=== PATIENT | female | born 1945 | race Caucasian/White ===

== ENCOUNTER 2017-07-15 19:51 | Inpatient (IN) | payer BC ==
[2017-07-15] MEDS ORDERED: cloNIDine HCL 0.1 MG TABLET PO ONE (20:00)
[2017-07-15] MEDS ORDERED: ONDANSETRON 4 MG/2 ML VIAL IVPB ONE (20:04)
--- NOTE | 2017-07-15 20:06 | PDOC ---
History of Present Illness - History of Present Illness Initial Comments: 07/15/17 20:36 The patient is a year old female, with a significant past medical history of hypertension, alcoholism (last drink 25 days ago), and COPD, who presents to the emergency department with headache since yesterday morning with new onset of emesis and lightheadedness since 6:15PM. The patient states her headache is constant localized to the front of her head with pressure along the sides and back of her head. The patient also reports experiencing momentary blurred vision and feeling woozy walking yesterday. She denies room spinning. She reports three episodes of emesis in the past 2-3 hours, twice on her way to the ED. She reports her emesis as liquidy and phlegm-like. She denies hematemesis. She reports a mild chest pressure at this time. As per the patient s daughter, her mother is currently taking medication prescribed by Dr. Mo which will make her vomit if she drinks alcohol. The patients daughter reports she has been living at home with her mother and is confident there is no alcohol in their house since she has been there. She denies chest pain, shortness of breath, and dizziness. She denies fever, chills, diarrhea and constipation. She denies dysuria, frequency, urgency and hematuria. PCP - Dr. Mo PAST MEDICAL HISTORY: no significant history PAST SURGICAL HISTORY: no significant history FAMILY HISTORY: no pertinent history SOCIAL HISTORY: Pt lives with daughter. everyday tobacco smoker, former alcohol abuse (last drink 25 days ago) MEDICATIONS: reviewed ALLERGIES: As per nursing notes ROS General: No fevers or chills, no weakness, no weight loss HEENT: (+) momentary blurred vision. No sore throat,. No ear pain CardioVascular: No chest pain or shortness of breath Respiratory: No cough, or wheezing. Gastrointestinal: (+) nausea, vomiting, No diarrhea or constipation, No rectal bleeding Genitourinary: No dysuria, hematuria, or frequency Musculoskeletal: No joint or muscle pain or swelling Neurologic: (+) unsteady gait. Frontal eadache. No vertigo, dizziness or loss of consciousness Psychiatric: nor depression Skin: No rashes or easy bruising Endocrine: no increased thirst or abnormal weight change Allergic: no skin or latex allergy All other systems reviewed and normal Physical Exam: General: Well-nourished well-developed individual, no acute distress HEENT: Throat: Normal, tonsils normal, no erythema or exudate Neck: Supple, no meningeal signs, no lymphadenopathy Eyes::Pupils equal reactive and round, extraocular motion intact Chest: Nontender to palpation Cardiac: (+) tachycardic rate. S1-S2 normal, regular rhythm, no murmurs rubs or gallops Respiratory: (+) decreased breath sounds at bilateral bases. Lungs clear to auscultation bilateral Abdomen: Soft, nondistended, normal bowel sounds, nontender to palpation diffusely Extremities: Warm, dry, no cyanosis, clubbing, or edema Skin: No rashes Neuro: Alert and oriented x3, nonfocal exam, grossly intact, normal gait Psych: Normal mood and affect <Brittaney Chambers - Last Filed: 07/15/17 21:29> - General History Source: Patient, Family Exam Limitations: No Limitations - History of Present Illness Initial Comments: 07/15/17 21:27 A portion of this note was documented by scribe services under my direction. I have reviewed the details of the note, within reason, and agree with the documentation. The case summary and management plan written by me. Assessment and plan: This is an 86-year-old female who comes in with her daughter for evaluation of headache and vomiting. Patient said she has had a headache times today and begin vomiting this evening. History is as per patient and her daughter as per patient's daughter patient has a history of alcohol abuse and patient daughter moved in with her approximately one month ago and since moving in with her patient has been on Antabuse and daughter says she has not had anything to drink over the last 25 days. On arrival here in the emergency room patient's blood pressure was markedly elevated at 212 systolic. Patient was given clonidine with improvement in her blood pressure and last blood pressure was 190 systolic. Patient given IV Tylenol for the headache with some improvement in her symptoms Patient had a head CT that was negative for any acute pathology Patient's labs show a sodium of 129 Patient clinically was dehydrated as well as a elevated H&H and BUN. Patient is given a fluid bolus of 500 mL here in the emergency room and is being hydrated at 100 mL an hour. Patient will be admitted to an observation bed overnight. And reevaluated in the morning. 07/15/17 22:22 <Sandra Terry I - Last Filed: 07/15/17 22:49> - General Chief Complaint: Nausea/Vomiting Stated Complaint: HEADACHE, VOMITING Time Seen by Provider: 07/15/17 19:57 Past History <Brittaney Chambers - Last Filed: 07/15/17 21:29> - Past Medical History Anemia: No (CHILDHOOD) Asthma: No Cancer: No Cardiac Disorders: No CVA: No COPD: Yes CHF: No Dementia: No Diabetes: No GI Disorders: No Disorders: No HTN: Yes Hypercholesterolemia: Yes Liver Disease: No Seizures: No Thyroid Disease: Yes (hypo.) - Surgical History Abdominal Surgery: No Appendectomy: No Cardiac Surgery: No Cholecystectomy: No Lung Surgery: No Neurologic Surgery: No Orthopedic Surgery: No - Suicide/Smoking/Psychosocial Hx Smoking Status: Yes Smoking History: Current every day smoker Have you smoked in the past 12 months: Yes Number of Cigarettes Smoked Daily: 10 If you are a former smoker, when did you quit?: 3 WEEKS 'Breaking Loose' booklet given: 07/09/16 Hx Alcohol Use: Yes Drug/Substance Use Hx: No Substance Use Type: Alcohol Hx Substance Use Treatment: No <Sandra Terry I - Last Filed: 07/15/17 22:49> - Past Medical History Allergies/Adverse Reactions: Allergies Allergy/AdvReac Type Severity Reaction Status Date / Time clopidogrel bisulfate AdvReac Severe SEVERE Verified 07/15/17 20:02 [From Plavix] DIZZINESS prednisone AdvReac Unknown Verified 07/15/17 20:02 Home Medications: Ambulatory Orders Fenofibrate Nanocrystallized [Tricor] 145 mg PO Q48H 07/27/13 Verapamil HCl [Verapamil ER] 120 mg PO DAILY 09/01/15 Tiotropium [place] [Spiriva] 1 inh IH DAILY 05/22/17 *Physical Exam - Vital Signs Last Vital Signs Temp Pulse Resp BP Pulse Ox 97.8 F 94 H 20 186/119 98 07/15/17 19:55 07/15/17 19:55 07/15/17 19:55 07/15/17 19:55 07/15/17 19:55 <Brittaney Chambers - Last Filed: 07/15/17 21:29> Heart Score/ECG Review #1 ECG reviewed & interpreted by me at: 20:00 General ECG Interpretation: Sinus Rhythm, Normal Rate (93bpm) <Brittaney Chambers - Last Filed: 07/15/17 21:29> ED Treatment Course - LABORATORY CBC & Chemistry Diagram: 07/15/17 20:10 07/15/17 20:10 - RADIOLOGY Radiograph Interpretation: 07/15/17 20:55 Patient Name: GUILLE OROZCO THIS IS A PRELIMINARY REPORT FROM [facility] EXAM: CT head without contrast IMAGES: 77 DATE OF SERVICE: 2017-07-15 20:09:48 COMPARISON: None. FINDINGS: 1. There is no evidence of an acute intracranial process, intracranial hemorrhage or mass effect. 2. Ventricular size is concordant with the degree of atrophy. 3. The visualized portions of the orbits, paranasal and mastoid sinuses are unremarkable. 4. No evidence of fracture. Read by: Lili Pena MD 07/15/2017 20:50 EST - Medications Given in the ED: ED Medications Discontinued Medications Generic Name Dose Route Start Last Admin Trade Name Jeffrey PRN Reason Stop Dose Admin Clonidine 0.2 mg 07/15/17 20:00 07/15/17 20:35 Catapres - PO 07/15/17 20:01 0.2 mg ONCE ONE Administration Ondansetron HCl 8 mg 07/15/17 20:04 07/15/17 20:29 Zofran Injection IVPB 07/15/17 20:05 8 mg ONCE ONE Administration <Brittaney Chambers - Last Filed: 07/15/17 21:29> - LABORATORY CBC & Chemistry Diagram: 07/15/17 20:10 07/15/17 20:10 <Sandra Terry I - Last Filed: 07/15/17 22:49> Medical Decision Making - Medical Decision Making 07/15/17 21:30 Dr. Mo was paged via phone answering service at this time requesting a call back for doctor to doctor consult. <Brittaney Chambers - Last Filed: 07/15/17 21:29> *DC/Admit/Observation/Transfer - Attestations Scribe Attestion: 07/15/17 20:37 Documentation prepared by Brittaney Chambers, acting as medical investigator for Sandra Terry MD <Brittaney Chambers - Last Filed: 07/15/17 21:29> - Discharge Dispostion Admit: Yes <Sandra Terry I - Last Filed: 07/15/17 22:49> Diagnosis at time of Disposition: Dehydration, Hyponatremia - Discharge Dispostion Condition at time of disposition: Fair
[2017-07-15] MEDS ORDERED: cloNIDine HCL 0.1 MG TABLET ONE (20:18)
[2017-07-15] MEDS ORDERED: ONDANSETRON 4 MG/2 ML VIAL ONE (20:20)
[2017-07-15] MEDS ORDERED: SODIUM CHLORIDE 1,000 ML IV ONE (20:33)
[2017-07-15 20:53] LABS: ALK PHOS 58 U/L (32-92); ANION GAP 9 (8-16); BILIRUBIN,TOTAL 0.9 mg/dl (0.2-1.0); CALCIUM 9.1 mg/dl (8.4-10.2); CO2 20 mmol/L (22-28); CREATININE 1.1 mg/dl (0.6-1.3); GLUCOSE,RANDOM 99 mg/dl (74-106); SGOT/AST 17 U/L (10-42); SGPT/ALT 17 U/L (10-40); TOT PROT 6.7 g/dl (6.4-8.3)
[2017-07-15] MEDS ORDERED: ACETAMINOPHEN 1000 MG/100 ML VIAL (NON FORMULARY) IVPB ONE (20:58)
[2017-07-15 20:59] LABS: BASOPHIL 0.2 % (0-2.0); CPK 49 IU/L (26-192); MCH 32.8 pg (25.7-33.7); MCHC 34.3 g/dl (32.0-36.0); MEAN CELL VOLUME 95.8 fl (80-96); MEAN PLT VOLUME 7.4 fl (7.5-11.1); NEUTROPHILS 79.3 % (42.8-82.8); PLATELET COUNT 300 K/MM3 (134-434); RDW 12.9 % (11.6-15.6); WHITE BLOOD COUNT 9.1 K/mm3 (4.0-10.8)
[2017-07-15] MEDS ORDERED: ACETAMINOPHEN INJECTION 100 ML IVPB ONE (21:14)
[2017-07-15 22:18] LABS: TROPONIN I (DFP) < 0.03 ng/ml (0.03-0.50)
[2017-07-15] MEDS ORDERED: IBUPROFEN 600 MG TABLET (FP) PO PRN (23:54)
[2017-07-15] MEDS ORDERED: ALBUTEROL SO4 2.5/IPRATROPIUM 0.5 INH SOL 3 ML VIAL.NEB. NEB PRN (23:57)
--- NOTE | 2017-07-15 23:58 | HP ---
Admitting History and Physical - Admission Chief Complaint: francisco, vomiting History of Present Illness: 71 yo f w hx of copd/emphysema, etoh abuse, cataract surgery, hlp, htn, pad s/p rle stent, hematoma to leg s/p fall, breast cyst s/p biopsy, partial thyroidectomy presents for francisco, vomiting. Pt dtr at bedside and provided some of history. She reports patient has had history of alcohol abuse and she has stepped in for social support. The patient reports that her last drink was Jun 20. She reports developing a frontal FRANCISCO starting ~2 days ago,not the worst headache ever but pretty severe. She states she normally doesnt get headaches. She reports sensitivity to ambient light and darkness helping soothe her headache. She reports pain is 6/10 and feels like a "hammer". She reports laying down on either side hurts her head. Today the back of her head felt pressure. She endorses having some blurry vision today while driving. She reports vomiting non bilous/bloody fluid earlier on the way to the ER today. Of note patient has been on antabuse for etoh dependence. She also reports having balance trouble as of late. She denies sob, cp, heart palps, syncope(true or near), dysuria, blood stools/melena, fevers, neck stiffness/pain, vision loss, numbness/tingling, leg edema, nasal congestion, sore throat. Pmh/psh-copd/emphysema, etoh abuse, cataract surgery, hlp, htn, pad s/p rle stent, hematoma to leg s/p fall, breast cyst s/p biopsy, partial thyroidectomy, laceration to head s/p fall 2014 requiring 11 martha Social- + tobacco use, hx of etoh abuse. denies rec drugs Famhx- chf, heart disease, Alzheimer disease Ros neg except for hpi PCP- Dr jenny Norris- Roxanne HCP- Amanda [phone] Prob list francisco vomiting copd htn hlp hyponatremia hypertensive urgency imaging cxr reviewed ekg reviewed cth reviewed a/p- 71 yo f w hx copd/emphysema, etoh abuse, cataract surgery, hlp, htn, pad s/ p rle stent, hematoma to leg s/p fall, breast cyst s/p biopsy, partial thyroidectomy presents for rfancisco and vomiting 1. FRANCISCO ? 2/2 hypertensive urgency CTH negative for acute process Pain control Consider Neuro FU opt 2. Vomiting ?gastroenteritits Clear liquids advance as tolerated IVF hydration 3. hyponatremia Appears dry on exam Gentle IVF Monitor labs 4. HTn, HLP Cont home meds 5. COPD Cont home meds Duonebs prn 6. Hypertensive urgency B/P in 210s per Er attending Monitor B/P Given Clonidine in the ER COnt verapamil Add Losartan History Source: Patient, Family Member Limitations to Obtaining History: No Limitations - Past Medical History Cardiovascular: Yes: HTN, Hyperlipdemia, Other Pulmonary: Yes: COPD Endocrine: Yes: Diabetes Mellitus - Past Surgical History Past Surgical History: Yes: Stent - Smoking History Smoking history: Current every day smoker Have you smoked in the past 12 months: Yes Aproximately how many cigarettes per day: 10 If you are a former smoker, when did you quit?: 3 WEEKS - Alcohol/Substance Use Hx Alcohol Use: Yes - Social History ADL: Independent History of Recent Travel: No Home Medications - Allergies Allergies/Adverse Reactions: Allergies Allergy/AdvReac Type Severity Reaction Status Date / Time clopidogrel bisulfate AdvReac Severe SEVERE Verified 07/15/17 20:02 [From Plavix] DIZZINESS prednisone AdvReac Unknown Verified 07/15/17 20:02 - Home Medications Home Medications: Ambulatory Orders Fenofibrate Nanocrystallized [Tricor] 145 mg PO Q48H 07/27/13 Verapamil HCl [Verapamil ER] 120 mg PO DAILY 09/01/15 Tiotropium [place] [Spiriva] 1 inh IH DAILY 05/22/17 Family Disease History - Family Disease History Family Disease History: Heart Disease: Father, Mother Physical Examination Vital Signs: Vital Signs Temperature 97.8 F 07/15/17 19:55 Pulse Rate 102 H 07/15/17 22:31 Respiratory Rate 20 07/15/17 19:55 Blood Pressure 160/98 07/15/17 22:31 O2 Sat by Pulse Oximetry (%) 98 07/15/17 19:55
[2017-07-16] MEDS ORDERED: SODIUM CHLORIDE 1,000 ML IV SCH (00:45)
[2017-07-16 01:12] VITALS: BMI 21.2
[2017-07-16 01:35] LABS: URINE APPEARANCE CLEAR; URINE BILIRUBIN NEGATIVE (NEGATIVE); URINE BLOOD 1+ (NEGATIVE); URINE COLOR STRAW; URINE GLUCOSE (UA) NEGATIVE (NEGATIVE); URINE KETONE TRACE (NEGATIVE); URINE NITRITE NEGATIVE (NEGATIVE); URINE PROTEIN NEGATIVE (NEGATIVE); URINE UROBILINOGEN NEGATIVE mg/dL (0.2-1.0)
[2017-07-16 01:38] LABS: URINE MUCUS RARE; URINE RBC 2 /hpf (0-3); URINE WBC 6 /hpf (3-5)
[2017-07-16 09:03] LABS: BASOPHIL 0.2 % (0-2.0); EOSINOPHIL 2.5 % (0-4.5); MCHC 33.3 g/dl (32.0-36.0); MEAN CELL VOLUME 96.1 fl (80-96); MEAN PLT VOLUME 7.4 fl (7.5-11.1); NEUTROPHILS 59.1 % (42.8-82.8); PLATELET COUNT 291 K/MM3 (134-434); RDW 12.7 % (11.6-15.6); WHITE BLOOD COUNT 7.6 K/mm3 (4.0-10.8)
[2017-07-16 09:22] LABS: ANION GAP 7 (8-16); CALCIUM 8.8 mg/dl (8.4-10.2); CO2 22 mmol/L (22-28); CREATININE 1.1 mg/dl (0.6-1.3); GLUCOSE,RANDOM 72 mg/dl (74-106)
[2017-07-16 09:52] LABS: URINE LEUK ESTERASE TRACE (NEGATIVE)
[2017-07-16] MEDS: FOLIC ACID 1 MG TABLET (FP) PO SCH (10:10)
[2017-07-16] MEDS: FENOFIBRIC ACID 135 MG CAP PO SCH (10:10)
[2017-07-16] MEDS: LOSARTAN POTASSIUM 25 MG TABLET PO SCH (10:10)
[2017-07-16 10:28] LABS: CPK 35 IU/L (26-192)
[2017-07-16] MEDS: VERAPAMIL HCL 120 MG CAP SUSTAINED RELEASE PO SCH (10:28)
[2017-07-16 11:33] LABS: TROPONIN I (DFP) < 0.03 ng/ml (0.03-0.50)
--- NOTE | 2017-07-16 12:30 | PN ---
Physical Exam: SUBJECTIVE: Patient seen and examined. Feeling much better. Denies headache, blurred vision, n/v, chest pain. Complaining of fatigue. OBJECTIVE: Vital Signs Period Temp Pulse Resp BP Sys/Mcfadden Pulse Ox Last 24 Hr 97.5 F-97.7 F 80-96 16-19 153-171/75-93 98 GENERAL: The patient is awake, alert, and fully oriented, in no acute distress. HEAD: Normal with no signs of trauma. EYES: PERRL, extraocular movements intact, sclera anicteric, conjunctiva clear. No ptosis. ENT: Ears normal, nares patent, oropharynx clear without exudates, moist mucous membranes. NECK: Trachea midline, full range of motion, supple. LUNGS: Breath sounds equal, clear to auscultation bilaterally, no wheezes, no crackles, no accessory muscle use. HEART: Regular rate and rhythm, S1, S2 without murmur, rub or gallop. ABDOMEN: Soft, nontender, nondistended, normoactive bowel sounds, no guarding, no rebound, no hepatosplenomegaly, no masses. EXTREMITIES: 2+ pulses, warm, well-perfused, no edema. NEUROLOGICAL: Cranial nerves II through XII grossly intact. Normal speech, gait not observed. PSYCH: Normal mood, normal affect. SKIN: Warm, dry, normal turgor, no rashes or lesions noted Laboratory Results - last 24 hr 07/16/17 07/16/17 07/16/17 00:55 06:20 06:30 WBC 7.6 RBC 4.57 Hgb 14.6 Hct 44.0 MCV 96.1 H MCH 32.0 MCHC 33.3 RDW 12.7 Plt Count 291 MPV 7.4 L Neutrophils % 59.1 D Lymphocytes % 29.9 D Monocytes % 8.3 Eosinophils % 2.5 D Basophils % 0.2 Sodium Potassium Chloride Carbon Dioxide Anion Gap BUN Creatinine Random Glucose Calcium Creatine Kinase 35 Troponin I < 0.03 L Urine Color Straw Urine Appearance Clear Urine pH 5.0 Ur Specific [place] 1.015 Urine Protein Negative Urine Glucose (UA) Negative Urine Ketones Trace H Urine Blood 1+ H Urine Nitrite Negative Urine Bilirubin Negative Urine Urobilinogen Negative Urine RBC 2 Urine WBC 6 Ur Epithelial Cells Rare Urine Mucus Rare 07/16/17 06:30 WBC RBC Hgb Hct MCV MCH MCHC RDW Plt Count MPV Neutrophils % Lymphocytes % Monocytes % Eosinophils % Basophils % Sodium 134 L Potassium 4.0 Chloride 105 Carbon Dioxide 22 Anion Gap 7 L BUN 26 H Creatinine 1.1 Random Glucose 72 L D Calcium 8.8 Creatine Kinase Troponin I Urine Color Urine Appearance Urine pH Ur Specific [place] Urine Protein Urine Glucose (UA) Urine Ketones Urine Blood Urine Nitrite Urine Bilirubin Urine Urobilinogen Urine RBC Urine WBC Ur Epithelial Cells Urine Mucus Active Medications Generic Name Dose Route Start Last Admin Trade Name Freq PRN Reason Stop Dose Admin Acetaminophen 650 mg 07/15/17 23:54 Tylenol - PO Q6H PRN FEVER OR PAIN Aclidinium [place] 1 puff 07/16/17 10:15 Tudorza - IH BID WHITNEY Albuterol/Ipratropium 1 amp 07/15/17 23:57 Duoneb - NEB Q6H PRN SHORTNESS OF BREATH Fenofibric Acid 135 mg 07/16/17 10:00 07/16/17 10:10 Trilipix - PO 135 mg Q2D@1000 WHITNEY Administration Folic Acid 1 mg 07/16/17 10:00 07/16/17 10:10 Folic Acid - PO 1 mg DAILY WHITNEY Administration Sodium Chloride 1,000 mls @ 75 mls/hr 07/16/17 00:45 07/16/17 01:14 Normal Saline - IV 75 mls/hr ASDIR WHITNEY Administration Ibuprofen 600 mg 07/15/17 23:54 Motrin - PO 07/17/17 01:05 Q8H PRN PAIN Losartan Potassium 25 mg 07/16/17 10:00 07/16/17 10:10 Cozaar - PO 25 mg DAILY WHITNEY Administration Thiamine HCl 100 mg 07/16/17 22:00 Vitamin B1 - PO HS WHITNEY Verapamil HCl 120 mg 07/16/17 10:00 07/16/17 10:28 Calan Sr Capsule - PO 120 mg DAILY WHITNEY Administration Imaging CXR 07/15: No acute process CTH 07/15: No acute intracranial process ASSESSMENT/PLAN: 71 year old female with a history of COPD, chronic EtOH abuse, HTN, HLD, PAD s/p RLE stent, and partial thyroidectomy placed in observation with elevated BP, headache, and vomiting. 1. HTN -With FRANCISCO/vomiting -BP better controlled s/p clonidine x 1 in ED, addition of Losartan to home Verapamil -CTH: No acute process -Normal neurologic exam -Trops neg x 2 2. Vomiting -Resolved, tolerating clears this morning -Advance diet 3. Hyponatremia -Normalized with IVF 4. COPD -No active issues -Continue Spiriva 5. EtOH abuse -On Antabuse, which could explain symptoms if patient did consume alcohol ( although she denies and level when drawn in ED was <5) -Continue thiamine, folic acid supplementation -Add MVI 6. Weakness -IVF, nutritional supplements as above -Check Mg -PT 7. Ppx -Lovenox DISPO: Observation with likely dc tomorrow. Discussed at length with daughter, Justyna.
[2017-07-16 12:34] LABS: THYROID STIMULATING HORMONE 0.72 uIU/ml (0.358-3.74)
[2017-07-16] MEDS: POLYETHYLENE GLYCOL 3350 119 GM BTL PO SCH ×2 (13:30→21:04)
[2017-07-16] MEDS: MULTIVITAMINS (DAILY MVI) TABLET (FP) PO SCH (13:56)
[2017-07-16] MEDS: ACLIDINIUM BROMIDE 400 MCG/INH AERO.POWD IH SCH ×2 (17:57→21:04)
[2017-07-16] MEDS: THIAMINE HCL 100 MG TABLET (FP) PO SCH (21:04)
[2017-07-17 08:40] LABS: BASOPHIL 0.1 % (0-2.0); EOSINOPHIL 2.9 % (0-4.5); MCH 32.2 pg (25.7-33.7); MCHC 33.4 g/dl (32.0-36.0); MEAN CELL VOLUME 96.4 fl (80-96); MEAN PLT VOLUME 7.4 fl (7.5-11.1); NEUTROPHILS 66.8 % (42.8-82.8); PLATELET COUNT 285 K/MM3 (134-434); WHITE BLOOD COUNT 9.5 K/mm3 (4.0-10.8)
[2017-07-17 09:03] LABS: ALBUMIN 3.6 g/dl (3.5-5.0); ALK PHOS 55 U/L (32-92); ANION GAP 7 (8-16); BILIRUBIN,TOTAL 0.7 mg/dl (0.2-1.0); CALCIUM 9.1 mg/dl (8.4-10.2); CO2 24 mmol/L (22-28); CREATININE 1.5 mg/dl (0.6-1.3); GLUCOSE,RANDOM 92 mg/dl (74-106); MAGNESIUM 1.9 mg/dL (1.8-2.4); SGOT/AST 14 U/L (10-42); SGPT/ALT 13 U/L (10-40); TOT PROT 6.3 g/dl (6.4-8.3)
--- NOTE | 2017-07-17 09:03 | PN ---
Physical Exam: SUBJECTIVE: Patient seen and examined this morning. She states she had an uneventful night. No c/o nausea, vomiting, headache, nervousness, or agitation. She is asking when she can go home. OBJECTIVE: Vital Signs Period Temp Pulse Resp BP Sys/Mcfadden Pulse Ox Last 24 Hr 97.6 F-98.4 F 74-92 16-18 135-174/65-97 97-98 GENERAL: The patient is awake, alert, and fully oriented, in no acute distress. HEAD: Normal with no signs of trauma. EYES: PERRL, extraocular movements intact, sclera anicteric, conjunctiva clear. No ptosis. LUNGS: Breath sounds equal, clear to auscultation bilaterally, no wheezes, no crackles, no accessory muscle use. HEART: Regular rate and rhythm, S1, S2 without murmur, rub or gallop. ABDOMEN: Soft, nontender, nondistended, normoactive bowel sounds, EXTREMITIES: 2+ pulses, warm, well-perfused, no edema. NEUROLOGICAL: Normal speech, gait steady PSYCH: Normal mood, normal affect. SKIN: Warm, dry, normal turgor, no rashes or lesions noted Laboratory Results - last 24 hr 07/16/17 07/16/17 07/16/17 00:55 06:20 06:30 WBC 7.6 RBC 4.57 Hgb 14.6 Hct 44.0 MCV 96.1 H MCH 32.0 MCHC 33.3 RDW 12.7 Plt Count 291 MPV 7.4 L Neutrophils % 59.1 D Lymphocytes % 29.9 D Monocytes % 8.3 Eosinophils % 2.5 D Basophils % 0.2 Sodium Potassium Chloride Carbon Dioxide Anion Gap BUN Creatinine Random Glucose Calcium Creatine Kinase 35 Troponin I < 0.03 L TSH Urine Color Straw Urine Appearance Clear Urine pH 5.0 Ur Specific [place] 1.015 Urine Protein Negative Urine Glucose (UA) Negative Urine Ketones Trace H Urine Blood 1+ H Urine Nitrite Negative Urine Bilirubin Negative Urine Urobilinogen Negative Urine RBC 2 Urine WBC 6 Ur Epithelial Cells Rare Urine Mucus Rare 07/16/17 06:30 WBC RBC Hgb Hct MCV MCH MCHC RDW Plt Count MPV Neutrophils % Lymphocytes % Monocytes % Eosinophils % Basophils % Sodium 134 L Potassium 4.0 Chloride 105 Carbon Dioxide 22 Anion Gap 7 L BUN 26 H Creatinine 1.1 Random Glucose 72 L D Calcium 8.8 Creatine Kinase Troponin I TSH 0.72 Urine Color Urine Appearance Urine pH Ur Specific [place] Urine Protein Urine Glucose (UA) Urine Ketones Urine Blood Urine Nitrite Urine Bilirubin Urine Urobilinogen Urine RBC Urine WBC Ur Epithelial Cells Urine Mucus Active Medications Generic Name Dose Route Start Last Admin Trade Name Jeffrey PRN Reason Stop Dose Admin Acetaminophen 650 mg 07/15/17 23:54 Tylenol - PO Q6H PRN FEVER OR PAIN Aclidinium [place] 1 puff 07/16/17 10:15 07/16/17 21:04 Tudorza - IH 1 puff BID WHITNEY Administration Albuterol/Ipratropium 1 amp 07/15/17 23:57 Duoneb - NEB Q6H PRN SHORTNESS OF BREATH Fenofibric Acid 135 mg 07/16/17 10:00 07/16/17 10:10 Trilipix - PO 135 mg Q2D@1000 WHITNEY Administration Folic Acid 1 mg 07/16/17 10:00 07/16/17 10:10 Folic Acid - PO 1 mg DAILY WHITNEY Administration Losartan Potassium 25 mg 07/16/17 10:00 07/16/17 10:10 Cozaar - PO 25 mg DAILY WHITNEY Administration Multivitamins/Minerals/Vitamin C 1 tab 07/16/17 13:00 07/16/17 13:56 Tab-A-Vit - PO 1 tab DAILY WHITNEY Administration Polyethylene Glycol 17 gm 07/16/17 13:30 07/16/17 21:04 Miralax (For Daily Use) - PO Not Given BID WHITNEY Thiamine HCl 100 mg 07/16/17 22:00 07/16/17 21:04 Vitamin B1 - PO 100 mg HS WHITNEY Administration Verapamil HCl 120 mg 07/16/17 10:00 07/16/17 10:28 Calan Sr Capsule - PO 120 mg DAILY WHITNEY Administration ASSESSMENT/PLAN: This 71 year old female with a history of COPD, chronic EtOH abuse(taking Antabuse at home since Jun 20 without alcohol intact), HTN, HLD, PAD s/p RLE stent, and partial thyroidectomy placed in observation with elevated BP, headache, and vomiting. 1. HTN -now controlled with Verapamil (pt home meds), new addition Losartin 2. Vomiting -Resolved, tolerating regular diet 3. Hyponatremia -Resolved 4. COPD -No active issues -Continue Spiriva 5. EtOH abuse -On Antabuse, at home -continue MVI and thiamine at home 6. Weakness -resolved 7. Ppx -Lovenox 8. Elevated creatinine -will give IV bolus and repeat labs for 4 pm and reassess prior to discharge. DISPO: Observation with probable discharge today once 4 pm labs reviewed to assess if cr came down after bolus of iv fluid Visit type - Emergency Visit Emergency Visit: Yes ED Registration Date: 07/15/17 Care time: The patient presented to the Emergency Department on the above date and was hospitalized for further evaluation of their emergent condition. - New Patient This patient is new to me today: Yes Date on this admission: 07/17/17 - Critical Care Critical Care patient: No - Discharge Referral Referred to [facility] Med P.C.: No
[2017-07-17] MEDS: FOLIC ACID 1 MG TABLET (FP) PO SCH (09:45)
[2017-07-17] MEDS: LOSARTAN POTASSIUM 25 MG TABLET PO SCH (09:45)
[2017-07-17] MEDS: MULTIVITAMINS (DAILY MVI) TABLET (FP) PO SCH (09:46)
[2017-07-17] MEDS: VERAPAMIL HCL 120 MG CAP SUSTAINED RELEASE PO SCH (09:46)
[2017-07-17] MEDS ORDERED: SODIUM CHLORIDE 0.9% 1000 ML INFUS.BAG IV ONE (09:55)
[2017-07-17] MEDS: ACLIDINIUM BROMIDE 400 MCG/INH AERO.POWD IH SCH ×2 (10:14→21:01)
[2017-07-17 16:13] LABS: ALBUMIN 3.4 g/dl (3.5-5.0); ALK PHOS 59 U/L (32-92); ANION GAP 6 (8-16); BILIRUBIN,TOTAL 0.6 mg/dl (0.2-1.0); CALCIUM 8.6 mg/dl (8.4-10.2); CO2 26 mmol/L (22-28); CREATININE 1.5 mg/dl (0.6-1.3); GLUCOSE,RANDOM 128 mg/dl (74-106); SGOT/AST 14 U/L (10-42); SGPT/ALT 12 U/L (10-40); TOT PROT 5.9 g/dl (6.4-8.3)
[2017-07-17] MEDS ORDERED: SODIUM CHLORIDE 1,000 ML IV SCH (16:45)
[2017-07-17] MEDS ORDERED: traZODone HCL 50 MG TABLET (FP) PO ONE (20:11)
[2017-07-17] MEDS ORDERED: PT OWN MED DRAWER 7, Y5N ONE (20:59)
[2017-07-17] MEDS: THIAMINE HCL 100 MG TABLET (FP) PO SCH (21:01)
[2017-07-17] MEDS: POLYETHYLENE GLYCOL 3350 119 GM BTL PO SCH (21:02)
[2017-07-17] MEDS: ACETAMINOPHEN 325 MG TABLET (FP) PO PRN (21:16)
[2017-07-18 07:53] LABS: MCHC 33.2 g/dl (32.0-36.0); MEAN CELL VOLUME 96.5 fl (80-96); MEAN PLT VOLUME 7.1 fl (7.5-11.1); PLATELET COUNT 292 K/MM3 (134-434); RDW 13.1 % (11.6-15.6); WHITE BLOOD COUNT 6.9 K/mm3 (4.0-10.8)
[2017-07-18 08:10] LABS: ALBUMIN 3.6 g/dl (3.5-5.0); ALK PHOS 58 U/L (32-92); ANION GAP 2 (8-16); BILIRUBIN,TOTAL 0.4 mg/dl (0.2-1.0); CO2 28 mmol/L (22-28); CREATININE 1.5 mg/dl (0.6-1.3); GLUCOSE,RANDOM 101 mg/dl (74-106); SGOT/AST 14 U/L (10-42); SGPT/ALT 11 U/L (10-40)
--- NOTE | 2017-07-18 09:20 | PN ---
Physical Exam: SUBJECTIVE: Patient seen and examined, reports feeling better wants to go home OBJECTIVE:his 71 year old female with a history of COPD, chronic EtOH abuse( taking Antabuse at home since Jun 20 without alcohol intact), HTN, HLD, PAD s/p RLE stent, and partial thyroidectomy, admitted to the hospital for abram and uncontrolled hypertension. Vital Signs Period Temp Pulse Resp BP Sys/Mcfadden Pulse Ox Last 24 Hr 98.0 F-98.0 F 92-106 18-20 123-164/68-91 94-98 GENERAL: The patient is awake, alert, and fully oriented, in no acute distress. HEAD: Normal with no signs of trauma. EYES: PERRL, extraocular movements intact, sclera anicteric, conjunctiva clear. No ptosis. ENT: Ears normal, nares patent, oropharynx clear without exudates, moist mucous membranes. NECK: Trachea midline, full range of motion, supple. LUNGS: Breath sounds equal, clear to auscultation bilaterally, no wheezes, no crackles, no accessory muscle use. HEART: Regular rate and rhythm, S1, S2 without murmur, rub or gallop. ABDOMEN: Soft, nontender, nondistended, normoactive bowel sounds, no guarding, no rebound, no hepatosplenomegaly, no masses. EXTREMITIES: 2+ pulses, warm, well-perfused, no edema. NEUROLOGICAL: Cranial nerves II through XII grossly intact. Normal speech, gait not observed. PSYCH: Normal mood, normal affect. SKIN: Warm, dry, normal turgor, no rashes or lesions noted Laboratory Results - last 24 hr 07/17/17 07/18/17 07/18/17 15:40 07:00 07:00 WBC 6.9 RBC 4.80 Hgb 15.4 H Hct 46.3 H MCV 96.5 H MCH 32.0 MCHC 33.2 RDW 13.1 Plt Count 292 MPV 7.1 L Sodium 132 L 135 L Potassium 4.3 4.5 Chloride 100 105 Carbon Dioxide 26 28 Anion Gap 6 L 2 L BUN 25 H 27 H Creatinine 1.5 H 1.5 H Creat Clearance w eGFR 34.04 34.04 Random Glucose 128 H D 101 D Calcium 8.6 9.0 Total Bilirubin 0.6 0.4 D AST 14 14 ALT 12 11 Alkaline Phosphatase 59 58 Total Protein 5.9 L 6.0 L Albumin 3.4 L 3.6 Active Medications Generic Name Dose Route Start Last Admin Trade Name Freana PRN Reason Stop Dose Admin Acetaminophen 650 mg 07/15/17 23:54 07/17/17 21:16 Tylenol - PO 650 mg Q6H PRN Administration FEVER OR PAIN Aclidinium [place] 1 puff 07/16/17 10:15 07/17/17 21:01 Tudorza - IH 1 puff BID WHITNEY Administration Albuterol/Ipratropium 1 amp 07/15/17 23:57 Duoneb - NEB Q6H PRN SHORTNESS OF BREATH Fenofibric Acid 135 mg 07/16/17 10:00 07/16/17 10:10 Trilipix - PO 135 mg Q2D@1000 WHITNEY Administration Folic Acid 1 mg 07/16/17 10:00 07/17/17 09:45 Folic Acid - PO 1 mg DAILY WHITNEY Administration Sodium Chloride 1,000 mls @ 50 mls/hr 07/17/17 16:45 07/17/17 17:13 Normal Saline - IV 07/18/17 16:43 50 mls/hr ASDIR WHITNEY Administration Losartan Potassium 25 mg 07/16/17 10:00 07/17/17 09:45 Cozaar - PO 25 mg DAILY WHITNEY Administration Multivitamins/Minerals/Vitamin C 1 tab 07/16/17 13:00 07/17/17 09:46 Tab-A-Vit - PO 1 tab DAILY WHITNEY Administration Polyethylene Glycol 17 gm 07/16/17 13:30 07/17/17 21:02 Miralax (For Daily Use) - PO Not Given BID WHITNEY Thiamine HCl 100 mg 07/16/17 22:00 07/17/17 21:01 Vitamin B1 - PO 100 mg HS WHITNEY Administration Verapamil HCl 120 mg 07/16/17 10:00 07/17/17 09:46 Calan Sr Capsule - PO 120 mg DAILY WHITNEY Administration Imaging CXR 07/15: No acute process CTH 07/15: No acute intracranial process ASSESSMENT/PLAN: 1. HTN - troponin x 2 wnl. - d/c loosartan due to abram, start hydralazine, continue verapamil - pending echo 2. ABRAM - creatine 1.5 baseline 0.6 - pending ultrasound of kidney/pelvis - appreciate nephrology input 3. COPD -No active excerbation -Continue Spiriva 4.psych EtOH abuse -On Antabuse, daughter will bring in antabuse from home -Continue thiamine, folic acid supplementation, and mvi anxiety - start xanax prn, appreciate psych input f/e/n - low sodium diet - replete lytes prn ppx - heparin - pt - oob - scd DISPO: requires inpatient admission for abram Problem List - Problems (1) HTN (hypertension) Code(s): I10 - ESSENTIAL (PRIMARY) HYPERTENSION (2) Abuse, drug or alcohol Code(s): F19.10 - OTHER PSYCHOACTIVE SUBSTANCE ABUSE, UNCOMPLICATED (3) Anxiety Code(s): F41.9 - ANXIETY DISORDER, UNSPECIFIED (4) COPD (chronic obstructive pulmonary disease) Code(s): J44.9 - CHRONIC OBSTRUCTIVE PULMONARY DISEASE, UNSPECIFIED Visit type - Emergency Visit Emergency Visit: Yes ED Registration Date: 07/18/17 Care time: The patient presented to the Emergency Department on the above date and was hospitalized for further evaluation of their emergent condition. - New Patient This patient is new to me today: Yes Date on this admission: 07/18/17 - Critical Care Critical Care patient: No - Discharge Referral Referred to [facility] P.C[facility] No
[2017-07-18] MEDS ORDERED: PT OWN MED DRAWER 7, Y5N ONE ×2 (10:03→21:09)
[2017-07-18] MEDS: LOSARTAN POTASSIUM 25 MG TABLET PO SCH (10:30)
[2017-07-18] MEDS: VERAPAMIL HCL 120 MG CAP SUSTAINED RELEASE PO SCH (10:30)
[2017-07-18] MEDS: POLYETHYLENE GLYCOL 3350 119 GM BTL PO SCH ×2 (10:30→22:00)
[2017-07-18] MEDS: FOLIC ACID 1 MG TABLET (FP) PO SCH (10:42)
[2017-07-18] MEDS: ACLIDINIUM BROMIDE 400 MCG/INH AERO.POWD IH SCH ×2 (10:42→21:15)
[2017-07-18] MEDS: FENOFIBRIC ACID 135 MG CAP PO SCH (10:42)
[2017-07-18] MEDS: MULTIVITAMINS (DAILY MVI) TABLET (FP) PO SCH (10:42)
[2017-07-18] MEDS ORDERED: SODIUM CHLORIDE 0.45% 1,000 ML IV SCH (12:30)
[2017-07-18] MEDS ORDERED: MAGNESIUM SULF 50% (8.12 MEQ/2 ML-1 GM VIAL) IVPB ONE (12:33)
[2017-07-18] MEDS ORDERED: ALPRAZolam 0.25 MG TABLET PO PRN (12:36)
--- NOTE | 2017-07-18 14:23 | CONSULT ---
Consult Consult Specialty:: Nephrology Reason for Consultation:: ABRAM - History of Present Illness Chief Complaint: headache History of Present Illness: Pt is a 71 year old female with pmhx of HTN, etoh abuse, COPD and cataracts who presents to the ER with headache. She was found to be hypertensive and was admitted for treatment and workup. She was started on an arb. She developed elevated creatinine and I was called to evaluate her. She has long standing hypertension. She denies flank pain, hematuria or dysuria. She is awake and alert. She denies nsaid use. Her last drink was over three weeks ago. - History Source History Provided By: Patient, Medical Record - Past Medical History Cardio/Vascular: Yes: HTN, Hyperlipdemia, Other Pulmonary: Yes: COPD Endocrine: Yes: Diabetes Mellitus - Past Surgical History Past Surgical History: Yes: Stent - Alcohol/Substance Use Hx Alcohol Use: Yes - Smoking History Smoking history: Current every day smoker Have you smoked in the past 12 months: Yes Aproximately how many cigarettes per day: 10 If you are a former smoker, when did you quit?: 3 WEEKS - Social History ADL: Independent History of Recent Travel: No Home Medications - Allergies Allergies/Adverse Reactions: Allergies Allergy/AdvReac Type Severity Reaction Status Date / Time clopidogrel bisulfate AdvReac Severe SEVERE Verified 07/15/17 20:02 [From Plavix] DIZZINESS prednisone AdvReac Unknown Verified 07/15/17 20:02 - Home Medications Home Medications: Ambulatory Orders Fenofibrate Nanocrystallized [Tricor] 145 mg PO Q48H 07/27/13 Verapamil HCl [Verapamil ER] 120 mg PO DAILY 09/01/15 Tiotropium [place] [Spiriva] 1 inh IH DAILY 05/22/17 Acetaminophen [Tylenol .Regular Strength -] 650 mg PO Q6H PRN #0 tablet Aclidinium [place] [Tudorza -] 1 puff IH BID inhaler 07/17/17 Albuterol 2.5/Ipratropium 0.5 [Duoneb -] 1 amp NEB Q6H PRN #0 amp 07/17/17 Losartan Potassium [Cozaar -] 25 mg PO DAILY #30 tablet 07/17/17 Multivitamins [Multivit ([facility] Formulary)] 1 tab PO DAILY tab 07/17/17 Thiamine HCl [Vitamin B1 -] 100 mg PO HS 30 Days 07/17/17 Disulfiram [Antabuse] 250 mg DAILY 07/18/17 Family Disease History - Family Disease History Family Disease History: Heart Disease: Father, Mother Review of Systems - Review of Systems Constitutional: reports: Malaise Eyes: reports: No Symptoms. denies: Blurred Vision, Double Vision, Eye Pain Neck: reports: No Symptoms Cardiovascular: reports: No Symptoms Respiratory: reports: No Symptoms Gastrointestinal: reports: No Symptoms Genitourinary: reports: No Symptoms Musculoskeletal: reports: No Symptoms Neurological: reports: Headache Endocrine: reports: No Symptoms Hematology/Lymphatic: reports: No Symptoms Psychiatric: reports: No Symptoms Physical Exam Vital Signs: Vital Signs Temperature 97.5 F L 07/18/17 14:19 Pulse Rate 81 07/18/17 14:19 Respiratory Rate 18 07/18/17 14:19 Blood Pressure 105/81 07/18/17 14:19 O2 Sat by Pulse Oximetry (%) 98 07/18/17 14:19 Constitutional: Yes: Calm Eyes: Yes: Conjunctiva Clear HENT: Yes: Atraumatic Neck: Yes: Supple Cardiovascular: Yes: S1, S2 Respiratory: Yes: CTA Bilaterally Gastrointestinal: Yes: Soft Renal/: Yes: WNL Musculoskeletal: Yes: WNL Edema: No Neurological: Yes: Oriented Psychiatric: Yes: Oriented Labs: Laboratory Tests 10/13/15 10/20/15 10/31/15 06:00 06:45 07:25 WBC Hgb Sodium Potassium Chloride Carbon Dioxide Anion Gap BUN Creatinine 0.6 D 0.8 D 0.8 D Urine Color Urine Appearance Urine pH Ur Specific [place] Urine Protein Urine Glucose (UA) Urine Ketones Urine Blood Urine Urobilinogen Urine RBC Urine WBC Alcohol, Quantitative 07/15/17 07/15/17 07/15/17 20:10 20:10 20:10 WBC Hgb 15.8 H Sodium Potassium Chloride Carbon Dioxide Anion Gap BUN Creatinine 1.1 Urine Color Urine Appearance Urine pH Ur Specific [place] Urine Protein Urine Glucose (UA) Urine Ketones Urine Blood Urine Urobilinogen Urine RBC Urine WBC Alcohol, Quantitative < 5.0 07/16/17 07/16/17 07/16/17 00:55 06:30 06:30 WBC Hgb 14.6 Sodium Potassium Chloride Carbon Dioxide Anion Gap BUN Creatinine 1.1 Urine Color Straw Urine Appearance Clear Urine pH 5.0 Ur Specific [place] 1.015 Urine Protein Negative Urine Glucose (UA) Negative Urine Ketones Trace H Urine Blood 1+ H Urine Urobilinogen Negative Urine RBC 2 Urine WBC 6 Alcohol, Quantitative 07/17/17 07/17/17 07/17/17 07:18 07:18 15:40 WBC Hgb 14.7 Sodium Potassium Chloride Carbon Dioxide Anion Gap BUN Creatinine 1.5 H D 1.5 H Urine Color Urine Appearance Urine pH Ur Specific [place] Urine Protein Urine Glucose (UA) Urine Ketones Urine Blood Urine Urobilinogen Urine RBC Urine WBC Alcohol, Quantitative 07/18/17 07/18/17 07:00 07:00 WBC 6.9 Hgb 15.4 H Sodium 135 L Potassium 4.5 Chloride 105 Carbon Dioxide 28 Anion Gap 2 L BUN 27 H Creatinine 1.5 H Urine Color Urine Appearance Urine pH Ur Specific [place] Urine Protein Urine Glucose (UA) Urine Ketones Urine Blood Urine Urobilinogen Urine RBC Urine WBC Alcohol, Quantitative Imaging - Results Chest X-ray: Report Reviewed Cat Scan: Report Reviewed Ultrasound: Report Reviewed Problem List - Problems (1) Abuse, drug or alcohol Code(s): F19.10 - OTHER PSYCHOACTIVE SUBSTANCE ABUSE, UNCOMPLICATED (2) Anxiety Code(s): F41.9 - ANXIETY DISORDER, UNSPECIFIED (3) COPD (chronic obstructive pulmonary disease) Code(s): J44.9 - CHRONIC OBSTRUCTIVE PULMONARY DISEASE, UNSPECIFIED (4) HTN (hypertension) Code(s): I10 - ESSENTIAL (PRIMARY) HYPERTENSION (5) ABRAM (acute kidney injury) Code(s): N17.9 - ACUTE KIDNEY FAILURE, UNSPECIFIED Assessment/Plan Current Medications Generic Name Dose Route Start Last Admin Trade Name Emmanuelq PRN Reason Stop Dose Admin Acetaminophen 650 mg 07/15/17 23:54 07/17/17 21:16 Tylenol - PO 650 mg Q6H PRN Administration FEVER OR PAIN Aclidinium [place] 1 puff 07/16/17 10:15 07/18/17 10:42 Tudorza - IH 1 puff BID WHITNEY Administration Albuterol/Ipratropium 1 amp 07/15/17 23:57 Duoneb - NEB Q6H PRN SHORTNESS OF BREATH Alprazolam 0.25 mg 07/18/17 12:36 07/18/17 15:45 Xanax - PO 0.25 mg Q8H PRN Administration ANXIETY Fenofibric Acid 135 mg 07/16/17 10:00 07/18/17 10:42 Trilipix - PO 135 mg Q2D@1000 WHITNEY Administration Folic Acid 1 mg 07/16/17 10:00 07/18/17 10:42 Folic Acid - PO 1 mg DAILY WHITNEY Administration Heparin Sodium (Porcine) 5,000 unit 07/18/17 22:00 Heparin - SQ BID WHITNEY Hydralazine HCl 10 mg 07/18/17 14:15 07/18/17 15:27 Apresoline - PO 10 mg TID WHITNEY Administration Multivitamins/Minerals/Vitamin C 1 tab 07/16/17 13:00 07/18/17 10:42 Tab-A-Vit - PO 1 tab DAILY WHITNEY Administration Non-Formulary Medication 250 mg 07/18/17 18:00 Disulfiram [Antabuse] PO DAILY WHITNEY Polyethylene Glycol 17 gm 07/16/17 13:30 07/18/17 10:30 Miralax (For Daily Use) - PO 17 gm BID WHITNEY Administration Ranitidine HCl 150 mg 07/18/17 22:00 Zantac - PO BID WHITNEY Thiamine HCl 100 mg 07/16/17 22:00 07/17/17 21:01 Vitamin B1 - PO 100 mg HS WHITNEY Administration Verapamil HCl 120 mg 07/16/17 10:00 07/18/17 10:30 Calan Sr Capsule - PO 120 mg DAILY WHITNEY Administration Impression 1. ABRAM 2. HTN 3. etoh abuse 4. COPD 5. emphysema 6. hyperlipidemia 7. left hydronephrosis Plan - urology evaluation for left hydro - stop fluids - stop arb, pt was on losartan - agree with hydralazine - cont verapamil - repeat labs in am - will follow - discussed with medical team Dr Camacho
[2017-07-18] MEDS: hydrALAZINE HCL 10 MG TABLET PO SCH ×2 (15:27→21:15)
--- NOTE | 2017-07-18 17:23 | PN ---
Progress Note (short form) - Note Progress Note: incidentally found hydronephrosis in a patient with a previously diagnosed UPJ obstruction, Renal scan with Lasix ordered to determine if there is functional obstruction requiring intervention
[2017-07-18 18:04] LABS: URINE APPEARANCE Clear; URINE BILIRUBIN Negative (NEGATIVE); URINE BLOOD Negative (NEGATIVE); URINE GLUCOSE (UA) Negative (NEGATIVE); URINE KETONE Negative (NEGATIVE); URINE NITRITE Negative (NEGATIVE); URINE PROTEIN Negative (NEGATIVE); URINE UROBILINOGEN 0.2 (0.2-1.0)
[2017-07-18 18:05] LABS: URINE COLOR YELLOW; URINE LEUK ESTERASE TRACE (NEGATIVE)
[2017-07-18 18:40] LABS: URINE BACTERIA FEW /hpf (NEGATIVE)
[2017-07-18 18:47] LABS: URINE CREATININE 23.2 mg/dL (20-320)
[2017-07-18] MEDS ORDERED: traZODone HCL 50 MG TABLET (FP) PO ONE (20:48)
--- NOTE | 2017-07-18 20:50 | EKG ---
Test Reason : Blood Pressure : / mmHG Vent. Rate : 093 BPM Atrial Rate : 093 BPM P-R Int : 144 ms QRS Dur : 076 ms QT Int : 350 ms P-R-T Axes : -08 049 070 degrees QTc Int : 435 ms POOR DATA QUALITY, INTERPRETATION MAY BE ADVERSELY AFFECTED NORMAL SINUS RHYTHM ATRIAL ABNORMALITY NONSPECIFIC ST ABNORMALITY ABNORMAL ECG WHEN COMPARED WITH ECG OF 01-NOV-2015 09:44, NONSPECIFIC T WAVE ABNORMALITY NO LONGER EVIDENT IN INFERIOR LEADS NO CLINICAL INFORMATION IS AVAILABLE REPEAT EKG IF CLINICALLY INDICATED Confirmed by SILVINA WARD MD ([id number]) on 07/18/2017 8:49:50 PM Referred By: ИВАН Confirmed By:SILVINA WARD MD
[2017-07-18] MEDS: THIAMINE HCL 100 MG TABLET (FP) PO SCH (21:14)
[2017-07-18] MEDS: HEPARIN NA (PORCINE) 5,000 UNITS/ML 1ML VIAL SQ SCH (21:15)
[2017-07-18] MEDS: RANITIDINE HCL 150 MG TABLET (FP) PO SCH (21:15)
[2017-07-19] MEDS: hydrALAZINE HCL 10 MG TABLET PO SCH ×3 (06:07→21:35)
[2017-07-19 07:52] LABS: BASOPHIL 1.7 % (0-2.0); EOSINOPHIL 3.8 % (0-4.5); MCH 31.9 pg (25.7-33.7); MCHC 32.8 g/dl (32.0-36.0); MEAN CELL VOLUME 97.1 fl (80-96); MEAN PLT VOLUME 7.3 fl (7.5-11.1); NEUTROPHILS 59.3 % (42.8-82.8); PLATELET COUNT 279 K/MM3 (134-434); RDW 12.6 % (11.6-15.6); WHITE BLOOD COUNT 8.2 K/mm3 (4.0-10.8)
[2017-07-19 08:07] LABS: ALBUMIN 3.7 g/dl (3.5-5.0); ALK PHOS 57 U/L (32-92); ANION GAP 6 (8-16); BILIRUBIN,TOTAL 0.5 mg/dl (0.2-1.0); CALCIUM 9.2 mg/dl (8.4-10.2); CO2 24 mmol/L (22-28); CREATININE 1.5 mg/dl (0.6-1.3); GLUCOSE,RANDOM 101 mg/dl (74-106); PHOSPHOROUS 4.5 mg/dl (2.5-4.6); SGOT/AST 15 U/L (10-42); SGPT/ALT 15 U/L (10-40); TOT PROT 6.4 g/dl (6.4-8.3)
[2017-07-19] MEDS: MULTIVITAMINS (DAILY MVI) TABLET (FP) PO SCH (09:17)
[2017-07-19] MEDS: FOLIC ACID 1 MG TABLET (FP) PO SCH (09:17)
[2017-07-19] MEDS: HEPARIN NA (PORCINE) 5,000 UNITS/ML 1ML VIAL SQ SCH ×2 (09:18→21:37)
[2017-07-19] MEDS: RANITIDINE HCL 150 MG TABLET (FP) PO SCH ×2 (09:18→21:35)
[2017-07-19] MEDS ORDERED: PT OWN MED DRAWER 7, Y5N ONE ×2 (09:21→21:18)
[2017-07-19] MEDS: ACLIDINIUM BROMIDE 400 MCG/INH AERO.POWD IH SCH ×2 (09:23→21:36)
--- NOTE | 2017-07-19 09:58 | PN ---
Physical Exam: SUBJECTIVE: Patient seen and examined, reports mild headache, denies any chest pain or shortness of breath. OBJECTIVE: patient is 71 year old female with a history of COPD, chronic EtOH abuse(taking Antabuse at home since Jun 20 without alcohol intact), HTN, HLD, PAD s/p RLE stent, and partial thyroidectomy, admitted to the hospital for abram and uncontrolled hypertension. Vital Signs Period Temp Pulse Resp BP Sys/Mcfadden Pulse Ox Last 24 Hr 97.5 F-98.5 F 81-99 18-20 105-193/81-93 96-98 GENERAL: The patient is awake, alert, and fully oriented, in no acute distress. HEAD: Normal with no signs of trauma. EYES: PERRL, extraocular movements intact, sclera anicteric, conjunctiva clear. No ptosis. ENT: Ears normal, nares patent, oropharynx clear without exudates, moist mucous membranes. NECK: Trachea midline, full range of motion, supple. LUNGS: Breath sounds equal, clear to auscultation bilaterally, no wheezes, no crackles, no accessory muscle use. HEART: Regular rate and rhythm, S1, S2 without murmur, rub or gallop. ABDOMEN: Soft, nontender, nondistended, normoactive bowel sounds, no guarding, no rebound, no hepatosplenomegaly, no masses. EXTREMITIES: 2+ pulses, warm, well-perfused, no edema. NEUROLOGICAL: Cranial nerves II through XII grossly intact. Normal speech, gait not observed. PSYCH: Normal mood, normal affect. SKIN: Warm, dry, normal turgor, no rashes or lesions noted Laboratory Results - last 24 hr 07/18/17 07/18/17 07/19/17 17:30 17:30 07:10 WBC 8.2 RBC 4.69 Hgb 14.9 Hct 45.5 H MCV 97.1 H MCH 31.9 MCHC 32.8 RDW 12.6 Plt Count 279 MPV 7.3 L Neutrophils % 59.3 Lymphocytes % 26.1 D Monocytes % 9.1 Eosinophils % 3.8 Basophils % 1.7 D Sodium Potassium Chloride Carbon Dioxide Anion Gap BUN Creatinine Creat Clearance w eGFR Random Glucose Calcium Phosphorus Magnesium Total Bilirubin AST ALT Alkaline Phosphatase Total Protein Albumin Urine Color Yellow Urine Appearance Clear Urine pH 6.0 Ur Specific [place] 1.010 Urine Protein Negative Urine Glucose (UA) Negative Urine Ketones Negative Urine Blood Negative Urine Nitrite Negative Urine Bilirubin Negative Urine Urobilinogen 0.2 Urine RBC 1-2 Urine WBC 2-3 Urine Bacteria Few Ur Random Sodium 37 Ur Random Potassium 17.2 Ur Random Chloride 44 Urine Creatinine 23.2 07/19/17 07:10 WBC RBC Hgb Hct MCV MCH MCHC RDW Plt Count MPV Neutrophils % Lymphocytes % Monocytes % Eosinophils % Basophils % Sodium 134 L Potassium 4.6 Chloride 104 Carbon Dioxide 24 Anion Gap 6 L BUN 29 H Creatinine 1.5 H Creat Clearance w eGFR 34.04 Random Glucose 101 Calcium 9.2 Phosphorus 4.5 Magnesium 2.0 Total Bilirubin 0.5 D AST 15 ALT 15 D Alkaline Phosphatase 57 Total Protein 6.4 Albumin 3.7 Urine Color Urine Appearance Urine pH Ur Specific [place] Urine Protein Urine Glucose (UA) Urine Ketones Urine Blood Urine Nitrite Urine Bilirubin Urine Urobilinogen Urine RBC Urine WBC Urine Bacteria Ur Random Sodium Ur Random Potassium Ur Random Chloride Urine Creatinine Active Medications Generic Name Dose Route Start Last Admin Trade Name Freq PRN Reason Stop Dose Admin Acetaminophen 650 mg 07/15/17 23:54 07/17/17 21:16 Tylenol - PO 650 mg Q6H PRN Administration FEVER OR PAIN Aclidinium [place] 1 puff 07/16/17 10:15 07/19/17 09:23 Tudorza - IH 1 puff BID WHITNEY Administration Albuterol/Ipratropium 1 amp 07/15/17 23:57 Duoneb - NEB Q6H PRN SHORTNESS OF BREATH Alprazolam 0.25 mg 07/18/17 12:36 07/18/17 15:45 Xanax - PO 0.25 mg Q8H PRN Administration ANXIETY Fenofibric Acid 135 mg 07/16/17 10:00 07/18/17 10:42 Trilipix - PO 135 mg Q2D@1000 WHITNEY Administration Folic Acid 1 mg 07/16/17 10:00 07/19/17 09:17 Folic Acid - PO 1 mg DAILY WHITNEY Administration Heparin Sodium (Porcine) 5,000 unit 07/18/17 22:00 07/19/17 09:18 Heparin - SQ 5,000 unit BID WHITNEY Administration Hydralazine HCl 10 mg 07/18/17 14:15 07/19/17 06:07 Apresoline - PO 10 mg TID WHITNEY Administration Multivitamins/Minerals/Vitamin C 1 tab 07/16/17 13:00 07/19/17 09:17 Tab-A-Vit - PO 1 tab DAILY WHITNEY Administration Non-Formulary Medication 250 mg 07/18/17 18:00 Disulfiram [Antabuse] PO DAILY WHITNEY Polyethylene Glycol 17 gm 07/16/17 13:30 07/18/17 22:00 Miralax (For Daily Use) - PO Not Given BID WHITNEY Ranitidine HCl 150 mg 07/18/17 22:00 07/19/17 09:18 Zantac - PO 150 mg BID WHITNEY Administration Thiamine HCl 100 mg 07/16/17 22:00 07/18/17 21:14 Vitamin B1 - PO 100 mg HS WHITNEY Administration Verapamil HCl 120 mg 07/16/17 10:00 07/18/17 10:30 Calan Sr Capsule - PO 120 mg DAILY WHITNEY Administration Imaging CXR 07/15: No acute process CTH 07/15: No acute intracranial process ASSESSMENT/PLAN: 1. HTN - troponin x 2 wnl. - continue hydralazine and verapamil, - pending echo results 2. ABRAM - creatine 1.5 baseline 0.6 -ultrasound of kidney/pelvis, moderate left side hydronephrosis absent left uretral jet - pending lasix renal scan - nephrology, Dr Wisdom and urology Dr Louis is consulted and following 3. COPD -No active excerbation -Continue Spiriva 4.psych EtOH abuse -On Antabuse, daughter will bring in antabuse from home -Continue thiamine, folic acid supplementation, and mvi anxiety - psychiatry consulted, start remeron f/e/n - low sodium diet - replete lytes prn ppx - heparin - pt - oob - scd DISPO: requires inpatient admission Problem List - Problems (1) HTN (hypertension) Code(s): I10 - ESSENTIAL (PRIMARY) HYPERTENSION (2) Abuse, drug or alcohol Code(s): F19.10 - OTHER PSYCHOACTIVE SUBSTANCE ABUSE, UNCOMPLICATED (3) Anxiety Code(s): F41.9 - ANXIETY DISORDER, UNSPECIFIED (4) COPD (chronic obstructive pulmonary disease) Code(s): J44.9 - CHRONIC OBSTRUCTIVE PULMONARY DISEASE, UNSPECIFIED Visit type - Emergency Visit Emergency Visit: Yes ED Registration Date: 07/18/17 Care time: The patient presented to the Emergency Department on the above date and was hospitalized for further evaluation of their emergent condition. - New Patient This patient is new to me today: No - Critical Care Critical Care patient: No - Discharge Referral Referred to [facility] No
--- NOTE | 2017-07-19 11:50 | CON.PSY ---
Psychiatry Consult Chief Complaint: I am anxious to know whtas happening to me. Symptoms: reports: Sleep Disturbance, Anxiety - Previous Psychiatric Treatment Outpatient: None, More than 6 mos ago Inpatient: None - Previous Substance Abuse Treatment Outpatient: None Inpatient: None - Reason for Previous Treatment Reason for Previous Treatment: Anxiety or Panic Disorder - Current Medications Current Medications: Active Medications Acetaminophen (Tylenol -) 650 mg PO Q6H PRN PRN Reason: FEVER OR PAIN Last Admin: 07/17/17 21:16 Dose: 650 mg Aclidinium [place] (Tudorza -) 1 puff IH BID [facility] Last Admin: 07/19/17 09:23 Dose: 1 puff Albuterol/Ipratropium (Duoneb -) 1 amp NEB Q6H PRN PRN Reason: SHORTNESS OF BREATH Fenofibric Acid (Trilipix -) 135 mg PO Q2D@1000 [facility] Last Admin: 07/18/17 10:42 Dose: 135 mg Folic Acid (Folic Acid -) 1 mg PO DAILY [facility] Last Admin: 07/19/17 09:17 Dose: 1 mg Heparin Sodium (Porcine) (Heparin -) 5,000 unit SQ BID [facility] Last Admin: 07/19/17 09:18 Dose: 5,000 unit Hydralazine HCl (Apresoline -) 10 mg PO TID [facility] Last Admin: 07/19/17 06:07 Dose: 10 mg Multivitamins/Minerals/Vitamin C (Tab-A-Vit -) 1 tab PO DAILY [facility] Last Admin: 07/19/17 09:17 Dose: 1 tab Non-Formulary Medication (Disulfiram [Antabuse]) 250 mg PO DAILY [facility] Polyethylene Glycol (Miralax (For Daily Use) -) 17 gm PO BID [facility] Last Admin: 07/18/17 22:00 Dose: Not Given Ranitidine HCl (Zantac -) 150 mg PO BID [facility] Last Admin: 07/19/17 09:18 Dose: 150 mg Thiamine HCl (Vitamin B1 -) 100 mg PO HS [facility] Last Admin: 07/18/17 21:14 Dose: 100 mg Verapamil HCl (Calan Sr Capsule -) 120 mg PO DAILY [facility] Last Admin: 07/18/17 10:30 Dose: 120 mg - Allergies Allergies: Allergies Allergy/AdvReac Type Severity Reaction Status Date / Time clopidogrel bisulfate AdvReac Severe SEVERE Verified 07/15/17 20:02 [From Plavix] DIZZINESS prednisone AdvReac Unknown Verified 07/15/17 20:02 - Current Living Status Usual Living Arrangement: With Child - Current Mental Status Evaluation Appearance: Well Groomed Attitude: Cooperative - Affect Affect: Full Range Appropriateness: Appropriate to Content - Mood Mood: Anxious - Speech/Language Expressive: Coherent - Psychomotor Activity Psychomotor Activity: Normal - Thought Process Thought Process: Intact - Thought Content Hallucinations: Absent Delusions: Absent - Self Perception Self Perception: No Impairment - Cognition Attention: Alert Orientation: Time Memory, Immediate Recall: Intact Memory, Short Term: 2/3 Memory, Remote with Promptin/3 - Concentration Serial Sevens Intact: Yes Simple Calculations Intact: Yes - Abstraction Proverb Interpretation: Intact Judgement: Intact - Insight Insight: Intact - Impulse Control Impulse Control: Good Control - Suicidal Ideation Suicidal Ideation: No - Homicidal Ideation Homicidal Ideation: No Assessment/Plan 1) d/c Robert 23) remeron 7.5 po hs
--- NOTE | 2017-07-19 16:01 | PN ---
Progress Note, Physician History of Present Illness: Pt seen and examined at bedside. She is awake and alert. She denies shortness of breath. - Current Medication List Current Medications: Active Medications Acetaminophen (Tylenol -) 650 mg PO Q6H PRN PRN Reason: FEVER OR PAIN Last Admin: 07/17/17 21:16 Dose: 650 mg Aclidinium [place] (Tudorza -) 1 puff IH BID [facility] Last Admin: 07/19/17 09:23 Dose: 1 puff Albuterol/Ipratropium (Duoneb -) 1 amp NEB Q6H PRN PRN Reason: SHORTNESS OF BREATH Fenofibric Acid (Trilipix -) 135 mg PO Q2D@1000 [facility] Last Admin: 07/18/17 10:42 Dose: 135 mg Folic Acid (Folic Acid -) 1 mg PO DAILY [facility] Last Admin: 07/19/17 09:17 Dose: 1 mg Heparin Sodium (Porcine) (Heparin -) 5,000 unit SQ BID [facility] Last Admin: 07/19/17 09:18 Dose: 5,000 unit Hydralazine HCl (Apresoline -) 10 mg PO TID [facility] Last Admin: 07/19/17 14:16 Dose: 10 mg Mirtazapine (Remeron -) 7.5 mg PO [facility] Multivitamins/Minerals/Vitamin C (Tab-A-Vit -) 1 tab PO DAILY [facility] Last Admin: 07/19/17 09:17 Dose: 1 tab Non-Formulary Medication (Disulfiram [Antabuse]) 250 mg PO DAILY [facility] Polyethylene Glycol (Miralax (For Daily Use) -) 17 gm PO BID [facility] Last Admin: 07/18/17 22:00 Dose: Not Given Ranitidine HCl (Zantac -) 150 mg PO BID [facility] Last Admin: 07/19/17 09:18 Dose: 150 mg Thiamine HCl (Vitamin B1 -) 100 mg PO HS [facility] Last Admin: 07/18/17 21:14 Dose: 100 mg Verapamil HCl (Calan Sr Capsule -) 120 mg PO DAILY [facility] Last Admin: 07/18/17 10:30 Dose: 120 mg - Objective Vital Signs: Vital Signs Temperature 98.3 F 07/19/17 14:02 Pulse Rate 107 H 07/19/17 14:02 Respiratory Rate 18 07/19/17 14:02 Blood Pressure 131/90 07/19/17 14:02 O2 Sat by Pulse Oximetry (%) 99 07/19/17 14:02 Constitutional: Yes: Calm Eyes: Yes: Conjunctiva Clear HENT: Yes: Atraumatic Cardiovascular: Yes: S1, S2 Respiratory: Yes: CTA Bilaterally Gastrointestinal: Yes: Soft Genitourinary: Yes: WNL Musculoskeletal: Yes: WNL Edema: No Integumentary: Yes: WNL Neurological: Yes: Oriented Psychiatric: Yes: Oriented Labs: CBC, BMP 07/19/17 07:10 07/19/17 07:10 - ....Imaging Ultrasound: Report Reviewed Problem List - Problems (1) Abuse, drug or alcohol Code(s): F19.10 - OTHER PSYCHOACTIVE SUBSTANCE ABUSE, UNCOMPLICATED (2) Anxiety Code(s): F41.9 - ANXIETY DISORDER, UNSPECIFIED (3) COPD (chronic obstructive pulmonary disease) Code(s): J44.9 - CHRONIC OBSTRUCTIVE PULMONARY DISEASE, UNSPECIFIED (4) HTN (hypertension) Code(s): I10 - ESSENTIAL (PRIMARY) HYPERTENSION (5) ABRAM (acute kidney injury) Code(s): N17.9 - ACUTE KIDNEY FAILURE, UNSPECIFIED Assessment/Plan Current Medications Generic Name Dose Route Start Last Admin Trade Name Freq PRN Reason Stop Dose Admin Acetaminophen 650 mg 07/15/17 23:54 07/17/17 21:16 Tylenol - PO 650 mg Q6H PRN Administration FEVER OR PAIN Aclidinium [place] 1 puff 07/16/17 10:15 07/19/17 09:23 Tudorza - IH 1 puff BID [facility] Administration Albuterol/Ipratropium 1 amp 07/15/17 23:57 Duoneb - NEB Q6H PRN SHORTNESS OF BREATH Fenofibric Acid 135 mg 07/16/17 10:00 07/18/17 10:42 Trilipix - PO 135 mg Q2D@1000 [facility] Administration Folic Acid 1 mg 07/16/17 10:00 07/19/17 09:17 Folic Acid - PO 1 mg DAILY [facility] Administration Heparin Sodium (Porcine) 5,000 unit 07/18/17 22:00 07/19/17 09:18 Heparin - SQ 5,000 unit BID [facility] Administration Hydralazine HCl 10 mg 07/18/17 14:15 07/19/17 14:16 Apresoline - PO 10 mg TID [facility] Administration Mirtazapine 7.5 mg 07/19/17 22:00 Remeron - PO HS [facility] Multivitamins/Minerals/Vitamin C 1 tab 07/16/17 13:00 07/19/17 09:17 Tab-A-Vit - PO 1 tab DAILY [facility] Administration Non-Formulary Medication 250 mg 07/18/17 18:00 Disulfiram [Antabuse] PO DAILY [facility] Polyethylene Glycol 17 gm 07/16/17 13:30 07/18/17 22:00 Miralax (For Daily Use) - PO Not Given BID [facility] Ranitidine HCl 150 mg 07/18/17 22:00 07/19/17 09:18 Zantac - PO 150 mg BID [facility] Administration Thiamine HCl 100 mg 07/16/17 22:00 07/18/17 21:14 Vitamin B1 - PO 100 mg HS [facility] Administration Verapamil HCl 120 mg 07/16/17 10:00 07/18/17 10:30 Calan Sr Capsule - PO 120 mg DAILY [facility] Administration Impression 1. ABRAM 2. HTN 3. etoh abuse 4. COPD 5. emphysema 6. hyperlipidemia 7. left hydronephrosis Plan - urology input appreciated - repeat labs in am - blood pressure has been labile but has improved - will need outpt renal follow up as well - will send prelim workup - cont verapamil - discussed with medical team Dr Camacho
[2017-07-19] MEDS: THIAMINE HCL 100 MG TABLET (FP) PO SCH (21:35)
[2017-07-19] MEDS: MIRTAZAPINE 15 MG TABLET (FP) PO SCH (21:36)
[2017-07-19] MEDS: ACETAMINOPHEN 325 MG TABLET (FP) PO PRN (21:43)
[2017-07-19] MEDS: POLYETHYLENE GLYCOL 3350 119 GM BTL PO SCH (21:43)
[2017-07-20] MEDS: hydrALAZINE HCL 10 MG TABLET PO SCH ×3 (06:18→21:32)
[2017-07-20] MEDS ORDERED: PT OWN MED DRAWER 7, Y5N ONE ×3 (08:17→21:24)
[2017-07-20 08:26] LABS: BASOPHIL 2.4 % (0-2.0); EOSINOPHIL 4.3 % (0-4.5); MCH 32.4 pg (25.7-33.7); MCHC 33.4 g/dl (32.0-36.0); MEAN CELL VOLUME 96.9 fl (80-96); MEAN PLT VOLUME 7.5 fl (7.5-11.1); NEUTROPHILS 51.2 % (42.8-82.8); PLATELET COUNT 282 K/MM3 (134-434); RDW 13.2 % (11.6-15.6); WHITE BLOOD COUNT 6.4 K/mm3 (4.0-10.8)
[2017-07-20] MEDS: RANITIDINE HCL 150 MG TABLET (FP) PO SCH ×2 (08:30→21:32)
[2017-07-20] MEDS: HEPARIN NA (PORCINE) 5,000 UNITS/ML 1ML VIAL SQ SCH ×2 (08:30→21:32)
[2017-07-20] MEDS: VERAPAMIL HCL 120 MG CAP SUSTAINED RELEASE PO SCH (08:30)
[2017-07-20] MEDS: ACLIDINIUM BROMIDE 400 MCG/INH AERO.POWD IH SCH ×2 (08:30→21:27)
[2017-07-20] MEDS: MULTIVITAMINS (DAILY MVI) TABLET (FP) PO SCH (08:30)
[2017-07-20] MEDS: FENOFIBRIC ACID 135 MG CAP PO SCH (08:30)
[2017-07-20] MEDS: POLYETHYLENE GLYCOL 3350 119 GM BTL PO SCH (08:30)
[2017-07-20] MEDS: FOLIC ACID 1 MG TABLET (FP) PO SCH (08:30)
[2017-07-20 08:42] LABS: ANION GAP 8 (8-16); CALCIUM 9.4 mg/dl (8.4-10.2); CO2 26 mmol/L (22-28); CREATININE 1.4 mg/dl (0.6-1.3); GLUCOSE,RANDOM 89 mg/dl (74-106); MAGNESIUM 2.2 mg/dL (1.8-2.4); PHOSPHOROUS 4.8 mg/dl (2.5-4.6)
--- NOTE | 2017-07-20 10:09 | PN ---
Physical Exam: SUBJECTIVE: Patient seen and examined, denies any chest pain or shortness of breath, does report nasal congestion. OBJECTIVE:patient is 71 year old female with a history of COPD, chronic EtOH abuse(taking Antabuse at home since Jun 20 without alcohol intact), HTN, HLD, PAD s/p RLE stent, and partial thyroidectomy, admitted to the hospital for abram and uncontrolled hypertension. Vital Signs Period Temp Pulse Resp BP Sys/Mcfadden Pulse Ox Last 24 Hr 97.8 F-98.3 F 78-107 18-20 131-176/71-90 95-99 GENERAL: The patient is awake, alert, and fully oriented, in no acute distress. HEAD: Normal with no signs of trauma. EYES: PERRL, extraocular movements intact, sclera anicteric, conjunctiva clear. No ptosis. ENT: Ears normal, rhinorhea to bilateral nares, oropharynx clear without exudates, moist mucous membranes. NECK: Trachea midline, full range of motion, supple. LUNGS: Breath sounds equal, clear to auscultation bilaterally, no wheezes, no crackles, no accessory muscle use. HEART: Regular rate and rhythm, S1, S2 without murmur, rub or gallop. ABDOMEN: Soft, nontender, nondistended, normoactive bowel sounds, no guarding, no rebound, no hepatosplenomegaly, no masses. EXTREMITIES: 2+ pulses, warm, well-perfused, no edema. NEUROLOGICAL: Cranial nerves II through XII grossly intact. Normal speech, gait not observed. PSYCH: Normal mood, normal affect. SKIN: Warm, dry, normal turgor, no rashes or lesions noted Laboratory Results - last 24 hr 07/20/17 07/20/17 07:00 07:00 WBC 6.4 RBC 4.68 Hgb 15.2 Hct 45.4 H MCV 96.9 H MCH 32.4 MCHC 33.4 RDW 13.2 Plt Count 282 MPV 7.5 Neutrophils % 51.2 Lymphocytes % 32.4 D Monocytes % 9.7 Eosinophils % 4.3 Basophils % 2.4 H Sodium 139 Potassium 4.6 Chloride 105 Carbon Dioxide 26 Anion Gap 8 BUN 27 H Creatinine 1.4 H Random Glucose 89 Calcium 9.4 Phosphorus 4.8 H Magnesium 2.2 Active Medications Generic Name Dose Route Start Last Admin Trade Name Freq PRN Reason Stop Dose Admin Acetaminophen 650 mg 07/15/17 23:54 07/19/17 21:43 Tylenol - PO 650 mg Q6H PRN Administration FEVER OR PAIN Aclidinium [place] 1 puff 07/16/17 10:15 07/20/17 08:30 Tudorza - IH 1 puff BID [facility] Administration Albuterol/Ipratropium 1 amp 07/15/17 23:57 Duoneb - NEB Q6H PRN SHORTNESS OF BREATH Fenofibric Acid 135 mg 07/16/17 10:00 07/20/17 08:30 Trilipix - PO 135 mg Q2D@1000 [facility] Administration Folic Acid 1 mg 07/16/17 10:00 07/20/17 08:30 Folic Acid - PO 1 mg DAILY [facility] Administration Heparin Sodium (Porcine) 5,000 unit 07/18/17 22:00 07/20/17 08:30 Heparin - SQ 5,000 unit BID [facility] Administration Hydralazine HCl 10 mg 07/18/17 14:15 07/20/17 06:18 Apresoline - PO 10 mg TID [facility] Administration Mirtazapine 7.5 mg 07/19/17 22:00 07/19/17 21:36 Remeron - PO 7.5 mg HS [facility] Administration Multivitamins/Minerals/Vitamin C 1 tab 07/16/17 13:00 07/20/17 08:30 Tab-A-Vit - PO 1 tab DAILY [facility] Administration Non-Formulary Medication 250 mg 07/20/17 10:00 Disulfiram [Antabuse] PO DAILY [facility] Polyethylene Glycol 17 gm 07/16/17 13:30 07/20/17 08:30 Miralax (For Daily Use) - PO 17 gm BID [facility] Administration Ranitidine HCl 150 mg 07/18/17 22:00 07/20/17 08:30 Zantac - PO 150 mg BID [facility] Administration Thiamine HCl 100 mg 07/16/17 22:00 07/19/17 21:35 Vitamin B1 - PO 100 mg HS [facility] Administration Verapamil HCl 120 mg 07/16/17 10:00 07/20/17 08:30 Calan Sr Capsule - PO 120 mg DAILY [facility] Administration Imaging CXR 07/15: No acute process CTH 07/15: No acute intracranial process ultrasound of kidney/pelvis, moderate left side hydronephrosis absent left uretral jet ASSESSMENT/PLAN: 1. HTN - b/p near goal, continue hydralazine and verapamil, - echo LV WNL 2. ABRAM - creatine 1.4 baseline 0.6 - lasix renal scan completed today, pending results - nephrology, Dr Wisdom and urology Dr Louis is consulted and following 3. COPD -No active excerbation -Continue Spiriva 4.psych EtOH abuse -On Antabuse, daughter will bring in antabuse from home -Continue thiamine, folic acid supplementation, and mvi anxiety - psychiatry consulted, continue remeron f/e/n - low sodium diet - replete lytes prn ppx - heparin - pt - oob - scd DISPO: requires inpatient admission Problem List - Problems (1) HTN (hypertension) Code(s): I10 - ESSENTIAL (PRIMARY) HYPERTENSION (2) Abuse, drug or alcohol Code(s): F19.10 - OTHER PSYCHOACTIVE SUBSTANCE ABUSE, UNCOMPLICATED (3) Anxiety Code(s): F41.9 - ANXIETY DISORDER, UNSPECIFIED (4) COPD (chronic obstructive pulmonary disease) Code(s): J44.9 - CHRONIC OBSTRUCTIVE PULMONARY DISEASE, UNSPECIFIED Visit type - Emergency Visit Emergency Visit: Yes ED Registration Date: 07/18/17 Care time: The patient presented to the Emergency Department on the above date and was hospitalized for further evaluation of their emergent condition. - New Patient This patient is new to me today: No - Critical Care Critical Care patient: No - Discharge Referral Referred to [facility] Med [facility].C[facility] No
[2017-07-20] MEDS: DISULFIRAM 250 MG PO SCH (10:48)
--- NOTE | 2017-07-20 11:17 | PN ---
Progress Note (short form) - Note Progress Note: awaiting renal scan results
--- NOTE | 2017-07-20 13:12 | PN ---
Progress Note, Physician History of Present Illness: Pt seen and examined at bedside. She is awake and alert. Her appetite is improved. She denies shortness of breath. - Current Medication List Current Medications: Active Medications Acetaminophen (Tylenol -) 650 mg PO Q6H PRN PRN Reason: FEVER OR PAIN Last Admin: 07/19/17 21:43 Dose: 650 mg Aclidinium [place] (Tudorza -) 1 puff IH BID [facility] Last Admin: 07/20/17 08:30 Dose: 1 puff Albuterol/Ipratropium (Duoneb -) 1 amp NEB Q6H PRN PRN Reason: SHORTNESS OF BREATH Fenofibric Acid (Trilipix -) 135 mg PO Q2D@1000 [facility] Last Admin: 07/20/17 08:30 Dose: 135 mg Fluticasone Propionate (Flonase -) 2 spray NS DAILY [facility] Folic Acid (Folic Acid -) 1 mg PO DAILY [facility] Last Admin: 07/20/17 08:30 Dose: 1 mg Heparin Sodium (Porcine) (Heparin -) 5,000 unit SQ BID [facility] Last Admin: 07/20/17 08:30 Dose: 5,000 unit Hydralazine HCl (Apresoline -) 10 mg PO TID [facility] Last Admin: 07/20/17 06:18 Dose: 10 mg Mirtazapine (Remeron -) 7.5 mg PO HS [facility] Last Admin: 07/19/17 21:36 Dose: 7.5 mg Multivitamins/Minerals/Vitamin C (Tab-A-Vit -) 1 tab PO DAILY [facility] Last Admin: 07/20/17 08:30 Dose: 1 tab Non-Formulary Medication (Disulfiram [Antabuse]) 250 mg PO DAILY [facility] Last Admin: 07/20/17 10:48 Dose: Not Given Polyethylene Glycol (Miralax (For Daily Use) -) 17 gm PO BID [facility] Last Admin: 07/20/17 08:30 Dose: 17 gm Ranitidine HCl (Zantac -) 150 mg PO BID [facility] Last Admin: 07/20/17 08:30 Dose: 150 mg Thiamine HCl (Vitamin B1 -) 100 mg PO HS [facility] Last Admin: 07/19/17 21:35 Dose: 100 mg Verapamil HCl (Calan Sr Capsule -) 120 mg PO DAILY [facility] Last Admin: 07/20/17 08:30 Dose: 120 mg - Objective Vital Signs: Vital Signs Temperature 98.1 F 07/20/17 05:22 Pulse Rate 87 07/20/17 10:47 Respiratory Rate 20 07/20/17 05:22 Blood Pressure 153/78 07/20/17 10:47 O2 Sat by Pulse Oximetry (%) 95 07/20/17 05:22 Constitutional: Yes: Calm Eyes: Yes: Conjunctiva Clear HENT: Yes: Atraumatic Neck: Yes: Supple Cardiovascular: Yes: S1, S2 Respiratory: Yes: CTA Bilaterally Gastrointestinal: Yes: Soft Genitourinary: Yes: WNL Musculoskeletal: Yes: WNL Edema: No Neurological: Yes: Oriented Psychiatric: Yes: Oriented Labs: CBC, BMP 07/20/17 07:00 07/20/17 07:00 Problem List - Problems (1) Abuse, drug or alcohol Code(s): F19.10 - OTHER PSYCHOACTIVE SUBSTANCE ABUSE, UNCOMPLICATED (2) Anxiety Code(s): F41.9 - ANXIETY DISORDER, UNSPECIFIED (3) COPD (chronic obstructive pulmonary disease) Code(s): J44.9 - CHRONIC OBSTRUCTIVE PULMONARY DISEASE, UNSPECIFIED (4) HTN (hypertension) Code(s): I10 - ESSENTIAL (PRIMARY) HYPERTENSION (5) ABRAM (acute kidney injury) Code(s): N17.9 - ACUTE KIDNEY FAILURE, UNSPECIFIED Assessment/Plan Current Medications Generic Name Dose Route Start Last Admin Trade Name Freq PRN Reason Stop Dose Admin Acetaminophen 650 mg 07/15/17 23:54 07/19/17 21:43 Tylenol - PO 650 mg Q6H PRN Administration FEVER OR PAIN Aclidinium [place] 1 puff 07/16/17 10:15 07/20/17 08:30 Tudorza - IH 1 puff BID [facility] Administration Albuterol/Ipratropium 1 amp 07/15/17 23:57 Duoneb - NEB Q6H PRN SHORTNESS OF BREATH Fenofibric Acid 135 mg 07/16/17 10:00 07/20/17 08:30 Trilipix - PO 135 mg Q2D@1000 [facility] Administration Fluticasone Propionate 2 spray 07/20/17 12:30 Flonase - NS DAILY [facility] Folic Acid 1 mg 07/16/17 10:00 07/20/17 08:30 Folic Acid - PO 1 mg DAILY [facility] Administration Heparin Sodium (Porcine) 5,000 unit 07/18/17 22:00 07/20/17 08:30 Heparin - SQ 5,000 unit BID [facility] Administration Hydralazine HCl 10 mg 07/18/17 14:15 07/20/17 06:18 Apresoline - PO 10 mg TID [facility] Administration Mirtazapine 7.5 mg 07/19/17 22:00 07/19/17 21:36 Remeron - PO 7.5 mg HS [facility] Multivitamins/Minerals/Vitamin C 1 tab 07/16/17 13:00 07/20/17 08:30 Tab-A-Vit - PO 1 tab DAILY [facility] Administration Non-Formulary Medication 250 mg 07/20/17 10:00 07/20/17 10:48 Disulfiram [Antabuse] PO Not Given DAILY [facility] Polyethylene Glycol 17 gm 07/16/17 13:30 07/20/17 08:30 Miralax (For Daily Use) - PO 17 gm BID [facility] Administration Ranitidine HCl 150 mg 07/18/17 22:00 07/20/17 08:30 Zantac - PO 150 mg BID [facility] Administration Thiamine HCl 100 mg 07/16/17 22:00 07/19/17 21:35 Vitamin B1 - PO 100 mg HS [facility] Administration Verapamil HCl 120 mg 07/16/17 10:00 07/20/17 08:30 Calan Sr Capsule - PO 120 mg DAILY [facility] Administration Impression 1. ABRAM 2. HTN 3. etoh abuse 4. COPD 5. emphysema 6. hyperlipidemia 7. left hydronephrosis Plan - cont current meds - renal function starting to improve - follow up renal scan - will see pt in office - renal workup started - discussed with medical team Dr Camacho
[2017-07-20] MEDS: FLUTICASONE PROP 0.05% 16 GM NASAL SPRAY NS SCH (14:04)
[2017-07-20] MEDS: MIRTAZAPINE 15 MG TABLET (FP) PO SCH (21:31)
[2017-07-20] MEDS: THIAMINE HCL 100 MG TABLET (FP) PO SCH (21:32)
[2017-07-21] MEDS: hydrALAZINE HCL 10 MG TABLET PO SCH ×2 (06:04→14:34)
[2017-07-21 08:09] LABS: BASOPHIL 1.7 % (0-2.0); EOSINOPHIL 3.3 % (0-4.5); MCH 31.9 pg (25.7-33.7); MCHC 32.8 g/dl (32.0-36.0); MEAN CELL VOLUME 97.2 fl (80-96); PLATELET COUNT 321 K/MM3 (134-434); RDW 13.2 % (11.6-15.6)
[2017-07-21 08:27] LABS: ANION GAP 6 (8-16); CALCIUM 9.4 mg/dl (8.4-10.2); CO2 27 mmol/L (22-28); GLUCOSE,RANDOM 97 mg/dl (74-106); MAGNESIUM 2.2 mg/dL (1.8-2.4)
[2017-07-21] MEDS ORDERED: PT OWN MED DRAWER 7, Y5N ONE ×2 (09:22→19:15)
[2017-07-21] MEDS: FLUTICASONE PROP 0.05% 16 GM NASAL SPRAY NS SCH (09:26)
[2017-07-21] MEDS: FOLIC ACID 1 MG TABLET (FP) PO SCH (09:26)
[2017-07-21] MEDS: VERAPAMIL HCL 120 MG CAP SUSTAINED RELEASE PO SCH (09:26)
[2017-07-21] MEDS: POLYETHYLENE GLYCOL 3350 119 GM BTL PO SCH ×2 (09:26→19:19)
[2017-07-21] MEDS: MULTIVITAMINS (DAILY MVI) TABLET (FP) PO SCH (09:27)
[2017-07-21] MEDS: HEPARIN NA (PORCINE) 5,000 UNITS/ML 1ML VIAL SQ SCH (09:27)
[2017-07-21] MEDS: ACLIDINIUM BROMIDE 400 MCG/INH AERO.POWD IH SCH (09:29)
[2017-07-21] MEDS: RANITIDINE HCL 150 MG TABLET (FP) PO SCH (09:30)
[2017-07-21] MEDS ORDERED: CYANOCOBALAMIN 1,000 MCG TABLET (FP) PO SCH (10:00)
[2017-07-21 10:17] LABS: CREATININE 1.7 mg/dl (0.6-1.3)
--- NOTE | 2017-07-21 10:42 | PN ---
Physical Exam: SUBJECTIVE: Patient seen and examined OBJECTIVE: Vital Signs Period Temp Pulse Resp BP Sys/Mcfadden Pulse Ox Last 24 Hr 97.8 F-98.1 F 87-97 18-19 146-180/71-90 96-99 GENERAL: The patient is awake, alert, and fully oriented, in no acute distress. HEAD: Normal with no signs of trauma. EYES: PERRL, extraocular movements intact, sclera anicteric, conjunctiva clear. No ptosis. ENT: Ears normal, nares patent, oropharynx clear without exudates, moist mucous membranes. NECK: Trachea midline, full range of motion, supple. LUNGS: Breath sounds equal, clear to auscultation bilaterally, no wheezes, no crackles, no accessory muscle use. HEART: Regular rate and rhythm, S1, S2 without murmur, rub or gallop. ABDOMEN: Soft, nontender, nondistended, normoactive bowel sounds, no guarding, no rebound, no hepatosplenomegaly, no masses. EXTREMITIES: 2+ pulses, warm, well-perfused, no edema. NEUROLOGICAL: Cranial nerves II through XII grossly intact. Normal speech, gait not observed. PSYCH: Normal mood, normal affect. SKIN: Warm, dry, normal turgor, no rashes or lesions noted Laboratory Results - last 24 hr 07/21/17 07/21/17 07:00 07:00 WBC 9.0 D RBC 4.78 Hgb 15.3 Hct 46.4 H MCV 97.2 H MCH 31.9 MCHC 32.8 RDW 13.2 Plt Count 321 MPV 7.0 L Neutrophils % 63.0 D Lymphocytes % 22.8 D Monocytes % 9.2 Eosinophils % 3.3 Basophils % 1.7 Sodium 134 L Potassium 4.9 Chloride 101 Carbon Dioxide 27 Anion Gap 6 L BUN 35 H D Creatinine 1.7 H D Random Glucose 97 Calcium 9.4 Phosphorus 5.0 H Magnesium 2.2 Active Medications Generic Name Dose Route Start Last Admin Trade Name Freq PRN Reason Stop Dose Admin Acetaminophen 650 mg 07/15/17 23:54 07/19/17 21:43 Tylenol - PO 650 mg Q6H PRN Administration FEVER OR PAIN Aclidinium [place] 1 puff 07/16/17 10:15 07/21/17 09:29 Tudorza - IH 1 puff BID [facility] Administration Cyanocobalamin 1,000 mcg 07/21/17 10:00 07/21/17 09:29 Vitamin B12 - PO 1,000 mcg DAILY [facility] Administration Fenofibric Acid 135 mg 07/16/17 10:00 07/20/17 08:30 Trilipix - PO 135 mg Q2D@1000 [facility] Administration Fluticasone Propionate 2 spray 07/20/17 12:30 07/21/17 09:26 Flonase - NS 2 inh DAILY [facility] Administration Folic Acid 1 mg 07/16/17 10:00 07/21/17 09:26 Folic Acid - PO 1 mg DAILY [facility] Administration Heparin Sodium (Porcine) 5,000 unit 07/18/17 22:00 07/21/17 09:27 Heparin - SQ 5,000 unit BID [facility] Administration Hydralazine HCl 10 mg 07/18/17 14:15 07/21/17 06:04 Apresoline - PO 10 mg TID [facility] Administration Mirtazapine 7.5 mg 07/19/17 22:00 07/20/17 21:31 Remeron - PO 7.5 mg HS [facility] Administration Multivitamins/Minerals/Vitamin C 1 tab 07/16/17 13:00 07/21/17 09:27 Tab-A-Vit - PO 1 tab DAILY [facility] Administration Non-Formulary Medication 250 mg 07/20/17 10:00 07/20/17 10:48 Disulfiram [Antabuse] PO Not Given DAILY [facility] Polyethylene Glycol 17 gm 07/16/17 13:30 07/21/17 09:26 Miralax (For Daily Use) - PO Not Given BID [facility] Ranitidine HCl 150 mg 07/18/17 22:00 07/21/17 09:30 Zantac - PO 150 mg BID [facility] Administration Thiamine HCl 100 mg 07/16/17 22:00 07/20/17 21:32 Vitamin B1 - PO 100 mg HS [facility] Administration Verapamil HCl 120 mg 07/16/17 10:00 07/21/17 09:26 Calan Sr Capsule - PO 120 mg DAILY [facility] Administration ASSESSMENT/PLAN: Problem List - Problems (1) HTN (hypertension) Code(s): I10 - ESSENTIAL (PRIMARY) HYPERTENSION (2) Abuse, drug or alcohol Code(s): F19.10 - OTHER PSYCHOACTIVE SUBSTANCE ABUSE, UNCOMPLICATED (3) Anxiety Code(s): F41.9 - ANXIETY DISORDER, UNSPECIFIED (4) COPD (chronic obstructive pulmonary disease) Code(s): J44.9 - CHRONIC OBSTRUCTIVE PULMONARY DISEASE, UNSPECIFIED
--- NOTE | 2017-07-21 11:53 | DS ---
Physical Exam: SUBJECTIVE: Patient seen and examined, reports feeling well, denies any headache , chest pain or shortness of breath. OBJECTIVE: patient is a 71 yo f w hx of copd/emphysema, etoh abuse, cataract surgery, hlp, htn, pad s/p rle stent, hematoma to leg s/p fall, breast cyst s/p biopsy, partial thyroidectomy presents for francisco, vomiting. Pt dtr at bedside and provided some of history. She reports patient has had history of alcohol abuse and she has stepped in for social support. The patient reports that her last drink was Jun 20. She reports developing a frontal FRANCISCO starting ~2 days ago,not the worst headache ever but pretty severe. She states she normally doesn't get headaches. She reports sensitivity to ambient light and darkness helping soothe her headache. She reports pain is 6/10 and feels like a "hammer". She reports laying down on either side hurts her head. Today the back of her head felt pressure. She endorses having some blurry vision today while driving. She reports vomiting non bilous/bloody fluid earlier on the way to the ER today. Of note patient has been on antabuse for etoh dependence. She also reports having balance trouble as of late. She denies sob, cp, heart palps, syncope(true or near), dysuria, blood stools/melena, fevers, neck stiffness/pain, vision loss, numbness/tingling, leg edema, nasal congestion, sore throat. Vital Signs Period Temp Pulse Resp BP Sys/Mcfadden Pulse Ox Last 24 Hr 97.8 F-98.1 F 93-97 18-19 146-180/71-90 96-99 PHYSICAL EXAM GENERAL: The patient is awake, alert, and fully oriented, in no acute distress. HEAD: Normal with no signs of trauma. EYES: PERRL, extraocular movements intact, sclera anicteric, conjunctiva clear. No ptosis. ENT: Ears normal, rhinorhea to bilateral nares, oropharynx clear without exudates, moist mucous membranes. NECK: Trachea midline, full range of motion, supple. LUNGS: Breath sounds equal, clear to auscultation bilaterally, no wheezes, no crackles, no accessory muscle use. HEART: Regular rate and rhythm, S1, S2 without murmur, rub or gallop. ABDOMEN: Soft, nontender, nondistended, normoactive bowel sounds, no guarding, no rebound, no hepatosplenomegaly, no masses. EXTREMITIES: 2+ pulses, warm, well-perfused, no edema. NEUROLOGICAL: Cranial nerves II through XII grossly intact. Normal speech, gait not observed. PSYCH: Normal mood, normal affect. SKIN: Warm, dry, normal turgor, no rashes or lesions noted LABS Laboratory Results - last 24 hr 07/21/17 07/21/17 07:00 07:00 WBC 9.0 D RBC 4.78 Hgb 15.3 Hct 46.4 H MCV 97.2 H MCH 31.9 MCHC 32.8 RDW 13.2 Plt Count 321 MPV 7.0 L Neutrophils % 63.0 D Lymphocytes % 22.8 D Monocytes % 9.2 Eosinophils % 3.3 Basophils % 1.7 Sodium 134 L Potassium 4.9 Chloride 101 Carbon Dioxide 27 Anion Gap 6 L BUN 35 H D Creatinine 1.7 H D Random Glucose 97 Calcium 9.4 Phosphorus 5.0 H Magnesium 2.2 Imaging CXR 07/15: No acute process CTH 07/15: No acute intracranial process ultrasound of kidney/pelvis, moderate left side hydronephrosis absent left uretral jet ECHO LV WNL HOSPITAL COURSE * patient was admitted from the emergency department for malignant hypertension. blood pressure at goal with hydralazine and verapamil, - 2. ABRAM - creatine 1.4 baseline 0.6 - lasix renal scan completed today, pending results - nephrology, Dr Wisdom and urology Dr Louis is consulted and following 3. COPD -No active excerbation -Continue Spiriva 4.psych EtOH abuse -On Antabuse, daughter will bring in antabuse from home -Continue thiamine, folic acid supplementation, and mvi anxiety - psychiatry consulted, continue remeron Date of Admission:07/18/17 Date of Discharge: 07/21/17 Minutes to complete discharge: 45 Discharge Summary Reason For Visit: HEADACHE, VOMITING Current Active Problems ABRAM (acute kidney injury) (Acute) Abuse, drug or alcohol (Acute) Anxiety (Acute) COPD (chronic obstructive pulmonary disease) (Acute) DVT prophylaxis (Acute) Dehydration (Acute) Fall (Acute) Hyponatremia (Acute) Right leg pain (Acute) Condition: Improved - Instructions Diet, Activity, Other Instructions: 1. please keep scheduled appointment with Dr Louis that is scheduled for Tuesday, August 01, 2017 at 11am at [address] 2. Please follow up with your PCP, Dr. Mo this week 3. Continue to drink plenty of water and avoid alcohol use 4. Take vitamins daily 5. hydralazine 10mg three times a day was added to your medication regimen. 6. Take your blood pressure medications daily as prescribed. If you have a blood pressure machine at home, try and take your blood pressure in the morning daily and write it down in a note book to present to your doctor. 7. When getting up from a lying position and sitting position, remember to get up slowly in case you get dizzy or feel unsteady while on new blood pressure medications. 8. Eat well balanced meals daily Referrals: Addy Mo MD [Staff Physician] - 1 Week Addy Wiseman MD [Staff Physician] - 08/01/17 11:00 am (please keep follow up appointment ) Disposition: HOME - Home Medications Comprehensive Discharge Medication List: Ambulatory Orders Fenofibrate Nanocrystallized [Tricor] 145 mg PO Q48H 07/27/13 Verapamil HCl [Verapamil ER] 120 mg PO DAILY 09/01/15 Tiotropium [place] [Spiriva] 1 inh IH DAILY 05/22/17 Acetaminophen [Tylenol .Regular Strength -] 650 mg PO Q6H PRN #0 tablet Aclidinium [place] [Tudorza -] 1 puff IH BID inhaler 07/17/17 Albuterol 2.5/Ipratropium 0.5 [Duoneb -] 1 amp NEB Q6H PRN #0 amp 07/17/17 Losartan Potassium [Cozaar -] 25 mg PO DAILY #30 tablet 07/17/17 Multivitamins [Multivit ([facility] Formulary)] 1 tab PO DAILY tab 07/17/17 Thiamine HCl [Vitamin B1 -] 100 mg PO HS 30 Days 07/17/17 Disulfiram [Antabuse] 250 mg DAILY 07/18/17 Problem List - Problems (1) HTN (hypertension) Code(s): I10 - ESSENTIAL (PRIMARY) HYPERTENSION (2) Abuse, drug or alcohol Code(s): F19.10 - OTHER PSYCHOACTIVE SUBSTANCE ABUSE, UNCOMPLICATED (3) Anxiety Code(s): F41.9 - ANXIETY DISORDER, UNSPECIFIED (4) COPD (chronic obstructive pulmonary disease) Code(s): J44.9 - CHRONIC OBSTRUCTIVE PULMONARY DISEASE, UNSPECIFIED - Discharge Referral Referred to [facility] No
[2017-07-21 14:01] VITALS: BP 159/73; PULSE 82; TEMP 97.5
[2017-07-21] MEDS: DISULFIRAM 250 MG PO SCH (14:29)
[2017-07-22 00:10] LABS: A/G RATIO 1.3 (0.7-1.7); ALBUMIN 3.5 g/dL (2.9-4.4); GLOBULIN, TOTAL 2.8 g/dL (2.2-3.9); M-SPIKE 0.5 g/dL (Not Observed); TOTAL PROTEIN 6.3 g/dL (6.0-8.5)
[2017-07-25 00:06] LABS: C-ANCA <1:20 titer (Neg:<1:20); MYELOPEROXIDASE ANTIBODY <9.0 U/mL (0.0-9.0); P-ANCA <1:20 titer (Neg:<1:20); PROTEINASE-3 ANTIBODY <3.5 U/mL (0.0-3.5)
== END 2017-07-21 19:30 | disposition home or self-care (01) | DRG 683 ==
LOC: FER 19:51 → FM/S 22:49 → INTOOBSV 22:49 → OBSVTOIN 07-18 13:48
PROVIDERS: ADMIT Internal Medicine; ATTEND Nurse Practitioner Family
DX: N17.9 Acute kidney failure, unspecified (principal); E87.1 Hypo-osmolality and hyponatremia; N13.30 Unspecified hydronephrosis; J44.9 Chronic obstructive pulmonary disease, unspecified; F17.210 Nicotine dependence, cigarettes, uncomplicated; E86.0 Dehydration; E78.5 Hyperlipidemia, unspecified; I16.0 Hypertensive urgency; F10.20 Alcohol dependence, uncomplicated; R53.1 Weakness; F41.9 Anxiety disorder, unspecified
CPT/HCPCS: 36415; 70450-TC; 71010-TC; 76775-TC; 76856-TC; 78708-TC; 80048; 80053; 80307; 81003; 81015; 82436; 82570; 82607; 83520; 83690; 83735; 84100; 84133; 84155; 84156; 84157; 84165; 84300; 84443; 84484; 85025; 85027; 86038; 86256; 93005; 93306-TC; 97116-GP; 97161-GP; 99284-25; A9562; G0378; J1644

== ENCOUNTER 2017-08-18 12:49 | Day surgery (SDC) | payer BC ==
[2017-08-17 09:09] VITALS: BMI 22.2
[2017-08-18] MEDS ORDERED: ACETAMINOPHEN 1000 MG/100 ML VIAL (NON FORMULARY) IVPB ONE (14:21)
[2017-08-18] MEDS ORDERED: IBUPROFEN 800 MG/8 ML IJ IVPB PRN (14:21)
--- NOTE | 2017-08-18 14:21 | HP ---
History & Physical Update - History History: No Change - Physical Physical: No Change - Assessment Assessment: No Change - Plan Plan: No Change
[2017-08-18] MEDS ORDERED: DEXTROSE 5%-0.45% SALINE 1,000 ML IV SCH (14:30)
[2017-08-18] MEDS ORDERED: MIDAZOLAM HCL 2 MG/2 ML SINGLE DOSE VIAL ONE (14:36)
[2017-08-18] MEDS ORDERED: PROPOFOL 20 ML ONE (14:36)
[2017-08-18] MEDS ORDERED: ceFAZolin SODIUM 1 GM VIAL IVPB ONE (14:53)
[2017-08-18] MEDS ORDERED: ONDANSETRON 4 MG/2 ML VIAL IVPUSH PRN (15:53)
[2017-08-18] MEDS ORDERED: oxyCODONE HCL 5 MG TABLET PO PRN (15:53)
[2017-08-18] MEDS ORDERED: LACTATED RINGERS SOLUTION 1,000 ML IV SCH (16:00)
[2017-08-18] MEDS ORDERED: ACETAMINOPHEN INJECTION 100 ML IVPB ONE (16:32)
[2017-08-18 18:45] VITALS: BP 143/68; PULSE 90
[2017-08-21 12:00] VITALS: TEMP 97.4
--- NOTE | 2017-10-05 13:53 | OP ---
DATE OF OPERATION: 08/18/2017 PREOPERATIVE DIAGNOSES: Left ureteropelvic junction obstruction and left renal calculus. POSTOPERATIVE DIAGNOSES: Left ureteropelvic junction obstruction and left renal calculus. SURGEON: Addy Wiseman MD PROCEDURE: Cystoscopy, left ureteroscopy, laser lithotripsy, and laser endopyelotomy and stent placement. ANESTHESIA: General. ESTIMATED BLOOD LOSS: Minimal. FINDINGS: UPJ obstruction and renal calculus. PREOPERATIVE INDICATIONS: The patient has a history of a left UPJ obstruction with poorly-functioning left kidney. She also has a large stone in this kidney. She comes today for endopyelotomy and laser lithotripsy. DESCRIPTION OF OPERATION: Patient brought to the OR, placed on the table in supine position, given general anesthesia and IV antibiotics, placed in the modified lithotomy position. The groin was prepped and draped sterilely. Timeout was performed. Cystoscopy was performed. An existing stent was seen. It was pulled out through the meatus, and a wire was passed up into the left kidney. A 10-Polish dual-lumen catheter was used, and a second wire was passed up into the kidney as well. The catheter was removed, and over one of the wires, a flexible ureteroscope was passed up into the kidney. Stones were seen in the lower pole of the kidney. Using the holmium laser fiber, the stones were broken up into small passable fragments. The UPJ obstruction was preserved. The laser was set and was used to incise the UPJ stricture in the posterolateral aspect. Scope was then removed. No other stones were seen throughout the ureter. A ureteral balloon was then passed to the area of the UPJ obstruction, inflated, and held for 10 minutes. The scope was removed. The 6 x 24 double-J ureteral stent was left in place, one loop in the kidney, one loop in the bladder. The bladder was emptied. The patient was woken up. Anna [id number]
== END 2017-08-18 18:25 | disposition home or self-care (01) ==
LOC: JASU-SURG 12:49
PROVIDERS: ATTEND Urology
PROC: 0TF48ZZ Fragmentation in Left Kidney Pelvis, Via Natural or Artificial Opening Endoscopic (ICD-10-PCS; principal; 2017-08-18 14:00)
PROC: 0T778DZ Dilation of Left Ureter with Intraluminal Device, Via Natural or Artificial Opening Endoscopic (ICD-10-PCS; 2017-08-18 14:00)
DX: N20.0 Calculus of kidney (principal); N13.5 Crossing vessel and stricture of ureter without hydronephrosis
CPT/HCPCS: 76000-TC; 94760

== ENCOUNTER 2017-09-10 19:36 | Emergency (ER) | payer BC ==
[2017-09-10 19:44] VITALS: BP 193/107; PULSE 105; TEMP 98.6; BMI 22.9
--- NOTE | 2017-09-10 20:15 | PDOC ---
History of Present Illness - General Chief Complaint: Pain Stated Complaint: PCP SENT Time Seen by Provider: 09/10/17 19:42 History Source: Patient, Family Exam Limitations: No Limitations - History of Present Illness Initial Comments: 09/10/17 20:08 71yo Female patient w/ PmHx: HTN, HLD, Left Renal Stent presents to ED c/o chronic back pain but was instructed to go to ED to have blood work drawn by Dr. Camacho (Nephrology). Patient denies CP, Abd pain, diff breathing, rash, n/ v/d, fever, dysuria, hematuria, or any other complaints at this time. PCP- Dr. Mo ([facility]) Nephrology- Dr. Camacho Urology- Dr. Wiseman Occurred: reports: other (x 1 month) Severity: reports: mild. denies: moderate, severe Pain Location: reports: back. denies: none, abdomen, chest, face, head, lower extremity, mouth, neck, other, pelvis, upper extremity Method of Injury: No: unknown, assault, direct blow, fall, motor vehicle crash, other Modifying Factors: worse with: None, cold therapy, immobilization, pain medication, rest, other Past History - Travel Traveled outside of the country in the last 30 days: No Close contact w/someone who was outside of country & ill: No - Past Medical History Allergies/Adverse Reactions: Allergies Allergy/AdvReac Type Severity Reaction Status Date / Time clopidogrel bisulfate AdvReac Severe SEVERE Verified 09/10/17 19:40 [From Plavix] DIZZINESS prednisone AdvReac Severe Verified 09/10/17 19:40 Home Medications: Ambulatory Orders Verapamil HCl [Verapamil ER] 120 mg PO DAILY 09/01/15 Tiotropium [place] [Spiriva] 1 inh IH DAILY 05/22/17 Anemia: Yes (HX) Asthma: No Cancer: No Cardiac Disorders: No CVA: No COPD: Yes CHF: No Dementia: No Diabetes: No GI Disorders: No Disorders: No HTN: Yes Hypercholesterolemia: Yes Liver Disease: No Seizures: No Thyroid Disease: Yes (hypo.) - Surgical History Abdominal Surgery: No Appendectomy: No Cardiac Surgery: No Cholecystectomy: No Lung Surgery: No Neurologic Surgery: No Orthopedic Surgery: No - Suicide/Smoking/Psychosocial Hx Smoking Status: Yes Smoking History: Unknown if ever smoked Have you smoked in the past 12 months: No Number of Cigarettes Smoked Daily: 10 If you are a former smoker, when did you quit?: 3 WEEKS Information on smoking cessation initiated: No 'Breaking Loose' booklet given: 08/18/17 Hx Alcohol Use: No Drug/Substance Use Hx: No Substance Use Type: None Hx Substance Use Treatment: No Trauma Specific PMHX - Complaint Specific PMHX Arthritis: No Back Injury: No Neck Injury: No Hx Sacro Iliac Joint Dysfunction: No Review of Systems - Review of Systems Able to Perform ROS?: Yes Is the patient limited Turkish proficient: No Musculoskeletal: Yes: Back Pain All Other Systems: Reviewed and Negative *Physical Exam - Vital Signs Last Vital Signs Temp Pulse Resp BP Pulse Ox 98.6 F 105 H 18 193/107 100 09/10/17 19:40 09/10/17 19:40 09/10/17 19:40 09/10/17 19:40 09/10/17 19:40 - Physical Exam General Appearance: Yes: Nourished, Appropriately Dressed. No: Apparent Distress, Mild Distress, Moderate Distress, Severe Distress Neck: positive: Trachea midline, Normal Thyroid. negative: Tender, Rigid, Supple, Lymphadenopathy (R), Lymphadenopathy (L) Respiratory/Chest: positive: Lungs Clear, Normal Breath Sounds. negative: Chest Tender, Respiratory Distress, Accessory Muscle Use, Labored Respiration, Rapid RR Cardiovascular: positive: Regular Rhythm, Regular Rate Gastrointestinal/Abdominal: positive: Normal Bowel Sounds, Soft. negative: Distended, Guarding, Rebound, Tenderness Musculoskeletal: positive: Normal Inspection. negative: CVA Tenderness, Decreased Range of Motion, Vertebral Tenderness Extremity: positive: Normal Capillary Refill, Normal Inspection, Normal Range of Motion. negative: Pedal Edema, Swelling, Calf Tenderness, Erythema, Inflammation Integumentary: positive: Normal Color, Dry, Warm Neurologic: positive: video tape transferrer II-XII NML intact, Fully Oriented, Alert, Normal Mood/ Affect, Normal Response, Motor Strength 02/24 ED Treatment Course - LABORATORY CBC & Chemistry Diagram: 09/10/17 20:23 09/10/17 23:37 *DC/Admit/Observation/Transfer Diagnosis at time of Disposition: Hyponatremia - Discharge Dispostion Disposition: HOME Condition at time of disposition: Improved Admit: No - Referrals - Patient Instructions Printed Discharge Instructions: DI for Hyponatremia Additional Instructions: Follow up with Dr. Mo this week for further evaluation. Return if you experience confusion, disorientation, numbness, tingling, twitching or any concerns for further evaluation. Print Language: TURKMEN - Post Discharge Activity
[2017-09-10 20:36] LABS: BASOPHIL 0.8 % (0-2.0); EOSINOPHIL 2.8 % (0-4.5); MCH 31.9 pg (25.7-33.7); MCHC 34.2 g/dl (32.0-36.0); MEAN CELL VOLUME 93.1 fl (80-96); MEAN PLT VOLUME 6.7 fl (7.5-11.1); NEUTROPHILS 53.1 % (42.8-82.8); PLATELET COUNT 256 K/MM3 (134-434); RDW 13.1 % (11.6-15.6); WHITE BLOOD COUNT 6.7 K/mm3 (4.0-10.0)
[2017-09-10 20:47] LABS: URINE APPEARANCE CLEAR; URINE BILIRUBIN NEGATIVE (NEGATIVE); URINE BLOOD 2+ (NEGATIVE); URINE COLOR STRAW; URINE GLUCOSE (UA) NEGATIVE (NEGATIVE); URINE KETONE NEGATIVE (NEGATIVE); URINE NITRITE NEGATIVE (NEGATIVE); URINE PROTEIN NEGATIVE (NEGATIVE); URINE UROBILINOGEN NEGATIVE mg/dL (0.2-1.0)
[2017-09-10 20:52] LABS: URINE BACTERIA RARE /hpf (NONE SEEN); URINE RBC < 1; URINE WBC 12
[2017-09-10 21:11] LABS: ALBUMIN 3.8 g/dl (3.4-5.0); ALK PHOS 86 U/L (45-117); ANION GAP 9 (8-16); BILIRUBIN,TOTAL 0.3 mg/dL (0.2-1.0); CO2 25 mmol/L (21-32); CREATININE 1.2 mg/dL (0.55-1.02); GLUCOSE,RANDOM 112 mg/dL (74-106); SGOT/AST 13 U/L (15-37); SGPT/ALT 17 U/L (12-78); TOT PROT 7.2 g/dl (6.4-8.2)
[2017-09-10] MEDS ORDERED: SODIUM CHLORIDE 1,000 ML IV STA (21:46)
[2017-09-10 22:42] LABS: URINE LEUK ESTERASE 2+ (NEGATIVE)
[2017-09-11 00:06] LABS: ALBUMIN 3.7 g/dl (3.4-5.0); ANION GAP 9 (8-16); BILIRUBIN,TOTAL 0.4 mg/dL (0.2-1.0); CALCIUM 8.2 mg/dL (8.5-10.1); CO2 25 mmol/L (21-32); CREATININE 1.1 mg/dL (0.55-1.02); GLUCOSE,RANDOM 98 mg/dL (74-106); SGOT/AST 12 U/L (15-37); SGPT/ALT 16 U/L (12-78); TOT PROT 6.8 g/dl (6.4-8.2)
[2017-09-11 00:07] LABS: ALK PHOS 80 U/L (45-117)
== END 2017-09-11 00:42 | disposition home or self-care (01) ==
LOC: JER 19:36
PROC: 3E0337Z Introduction of Electrolytic and Water Balance Substance into Peripheral Vein, Percutaneous Approach (ICD-10-PCS; principal; 2017-09-10)
DX: E87.1 Hypo-osmolality and hyponatremia (principal); I10 Essential (primary) hypertension; E78.00 Pure hypercholesterolemia, unspecified; E03.9 Hypothyroidism, unspecified; J44.9 Chronic obstructive pulmonary disease, unspecified; Z86.2 Personal history of diseases of the blood and blood-forming organs and certain disorders involving the immune mechanism; Z87.891 Personal history of nicotine dependence
CPT/HCPCS: 36415; 80053; 80307; 81003; 81015; 85025; 96360; 99283-25

== ENCOUNTER 2017-12-28 19:49 | Emergency (ER) | payer BC ==
[2017-12-28 19:52] VITALS: BP 189/75; PULSE 106; TEMP 97.4; BMI 22.8
--- NOTE | 2017-12-28 20:43 | PDOC ---
History of Present Illness - General History Source: Patient, Family (daughter) Exam Limitations: No Limitations - History of Present Illness Initial Comments: 12/28/17 20:55 The patient is a 72 year old female with a significant PMH of COPD, renal disease, and alcohol abuse who presents to the emergency department with new onset of lightheadedness and generalized weakness today. The patient states she was having lunch with her daughter when she began experiencing lightheadedness and 'felt woozy' when walking. The patient is also complaining of a pressure sensation on her forehead but states this happens to her periodically. The patient also noticed she had to concentrate more while driving today, which is new for her. The patient measured her blood pressure at home which was 208/ 110. The patient's blood pressure in the ER is 189/75. The patient denies focal deficits, slurred speech, chest pain, shortness of breath, and headache. Denies fever, chills, nausea, vomit, diarrhea and constipation. Denies dysuria, frequency, urgency and hematuria. Allergies" clopidogrel bisulfate, prednisone Past surgical history: None reported. Social history: Alcohol abuse. No reported drug or cigarette use. <Kaitlin Pantoja - Last Filed: 12/28/17 20:59> <Ivan Casarez - Last Filed: 12/29/17 06:38> - General Chief Complaint: Weakness Stated Complaint: WEAK/LIGHT HEADED Past History <Kaitlin Pantoja - Last Filed: 12/28/17 20:59> - Past Medical History Anemia: Yes (HX) Asthma: No Cancer: No Cardiac Disorders: No CVA: No COPD: Yes CHF: No Dementia: No Diabetes: No GI Disorders: No Disorders: No HTN: Yes Hypercholesterolemia: Yes Kidney Stones: (LT KIDNEY 7% FX/ RT 94%) Liver Disease: No Seizures: No Thyroid Disease: Yes (hypo.) - Surgical History Abdominal Surgery: No Appendectomy: No Cardiac Surgery: No Cholecystectomy: No Lung Surgery: No Neurologic Surgery: No Orthopedic Surgery: No - Suicide/Smoking/Psychosocial Hx Smoking Status: Yes Smoking History: Never smoked Have you smoked in the past 12 months: No Number of Cigarettes Smoked Daily: 10 If you are a former smoker, when did you quit?: 3 WEEKS 'Breaking Loose' booklet given: 08/18/17 Hx Alcohol Use: No Drug/Substance Use Hx: No Substance Use Type: None Hx Substance Use Treatment: No <Ivan Casarez - Last Filed: 12/29/17 06:38> - Past Medical History Allergies/Adverse Reactions: Allergies Allergy/AdvReac Type Severity Reaction Status Date / Time clopidogrel bisulfate AdvReac Severe SEVERE Verified 09/10/17 19:40 [From Plavix] DIZZINESS prednisone AdvReac Severe Verified 09/10/17 19:40 Home Medications: Ambulatory Orders Verapamil HCl [Verapamil ER] 120 mg PO DAILY 09/01/15 Tiotropium [place] [Spiriva] 1 inh IH DAILY 05/22/17 Aspirin [Aspirin EC] 81 mg PO DAILY 12/28/17 Review of Systems - Review of Systems Able to Perform ROS?: Yes Comments:: 12/28/17 20:58 ROS: A complete review of 10 out of 10 review of systems is taken and is negative apart from what is previously mentioned below and in the HPI. <Kaitlin Pantoja - Last Filed: 12/28/17 20:59> *Physical Exam - Vital Signs Last Vital Signs Temp Pulse Resp BP Pulse Ox 97.4 F L 106 H 16 189/75 99 12/28/17 19:51 12/28/17 19:51 12/28/17 19:51 12/28/17 19:51 12/28/17 19:51 - Physical Exam Comments: 12/28/17 20:58 Vitals: Triage vital signs reviewed General Appearance: No acute distress, well nourished, well developed Head: Atraumatic Eyes: Pupils equal reactive round, extraocular movement intact Cardiac: (+) Tachycardia. Regular rhythm, no murmurs, no rubs, no gallops Lungs: Clear to auscultation bilateral, good air movement bilaterally Abdomen: Soft, nondistended, normal bowel sounds, nontender to palpation Extremities: Full range of motion to all extremities, no cyanosis, clubbing, or edema Skin: Warm and dry, no rashes or lesions, no rash, no petechiae Neuro: AOX3; Cranial Nerves 2-12 grossly intact, Strength intact to all extremities, Sensation intact to all extremities. Psych: Normal mood, normal affect <Kaitlin Pantoja - Last Filed: 12/28/17 20:59> - Vital Signs Last Vital Signs Temp Pulse Resp BP Pulse Ox 97.4 F L 106 H 16 189/75 99 12/28/17 19:51 12/28/17 19:51 12/28/17 19:51 12/28/17 19:51 12/28/17 19:51 <Ivan Casarez - Last Filed: 12/29/17 06:38> ED Treatment Course - LABORATORY CBC & Chemistry Diagram: 12/28/17 20:25 12/28/17 20:25 <Kaitlin Pantoja - Last Filed: 12/28/17 20:59> - LABORATORY CBC & Chemistry Diagram: 12/28/17 20:25 12/28/17 20:25 <Ivan Casarez - Last Filed: 12/29/17 06:38> Medical Decision Making - Medical Decision Making 12/29/17 06:37 hyponatremia symptoms improved after NS bolus no signs of acute infection recurrent hyponatremia caban on outpt basis <Ivan Casarez - Last Filed: 12/29/17 06:38> *DC/Admit/Observation/Transfer - Attestations Scribe Attestion: 12/28/17 20:59 Documentation prepared by Kaitlin Pantoja, acting as medical imaging technologist for Ivan Casarez MD. <Kaitlin Pantoja - Last Filed: 12/28/17 20:59> <Ivan Casarez - Last Filed: 12/29/17 06:38> Diagnosis at time of Disposition: Hyponatremia - Discharge Dispostion Disposition: HOME Condition at time of disposition: Stable - Patient Instructions Additional Instructions: Please follow up with your doctor. Your sodium today was 127
[2017-12-28 20:49] LABS: BASO % 1.3 % (0-2.0); EOS % 1.6 % (0-4.5); HEMATOCRIT 40.7 % (32.4-45.2); HEMOGLOBIN 14.2 GM/dl (10.7-15.3); LYMPH % 16.4 % (8-40); MCH 31.4 pg (25.7-33.7); MCHC 34.9 g/dl (32.0-36.0); MEAN CELL VOLUME 89.9 fl (80-96); MEAN PLT VOLUME 6.6 fl (7.5-11.1); NEUT % 73.7 % (42.8-82.8); PLATELET COUNT 323 K/MM3 (134-434); RBC 4.52 M/mm3 (3.60-5.2); RDW 13.2 % (11.6-15.6); WHITE BLOOD COUNT 8.7 K/mm3 (4.0-10.8)
[2017-12-28 21:11] LABS: URINE APPEARANCE Clear; URINE BILIRUBIN Negative (NEGATIVE); URINE BLOOD Negative (NEGATIVE); URINE GLUCOSE (UA) 2+ (NEGATIVE); URINE KETONE Trace (NEGATIVE); URINE NITRITE Negative (NEGATIVE); URINE PROTEIN Negative (NEGATIVE); URINE UROBILINOGEN 0.2 (0.2-1.0)
[2017-12-28 21:11] LABS: ALBUMIN 3.6 g/dl (3.5-5.0); ALK PHOS 76 U/L (32-92); ANION GAP 9 (8-16); BLOOD UREA NITROGEN 18 mg/dl (7-18); CALCIUM 8.9 mg/dl (8.4-10.2); CHLORIDE 94 mmol/L (98-107); CO2 24 mmol/L (22-28); CREATININE 1.3 mg/dl (0.6-1.3); GLUCOSE,RANDOM 213 mg/dl (74-106); POTASSIUM 3.8 mmol/L (3.5-5.1); SGOT/AST 21 U/L (10-42); SGPT/ALT 13 U/L (10-40); SODIUM 127 mmol/L (136-145); TOT PROT 6.4 g/dl (6.4-8.3)
[2017-12-28 21:14] LABS: URINE COLOR YELLOW; URINE LEUK ESTERASE 1+ (NEGATIVE)
[2017-12-28 21:27] LABS: AMORP URATES FEW /hpf (NONE SEEN); EPI CELLS FEW /HPF; URINE BACTERIA FEW /hpf (NEGATIVE)
[2017-12-28 22:07] LABS: BILIRUBIN,TOTAL 0.5 mg/dl (0.2-1.0)
--- NOTE | 2017-12-30 01:18 | EKG ---
Test Reason : Blood Pressure : / mmHG Vent. Rate : 099 BPM Atrial Rate : 099 BPM P-R Int : 160 ms QRS Dur : 086 ms QT Int : 362 ms P-R-T Axes : 014 067 072 degrees QTc Int : 464 ms NORMAL SINUS RHYTHM NORMAL ECG WHEN COMPARED WITH ECG OF 15-JUL-2017 19:52, NO SIGNIFICANT CHANGE WAS FOUND Confirmed by BRENDON ALMANZA MD ([id number]) on 12/30/2017 1:18:10 AM Referred By: DR MILLER Confirmed By:BRENDON ALMANZA MD
== END 2017-12-28 23:50 | disposition home or self-care (01) ==
LOC: FER 19:49
DX: E87.1 Hypo-osmolality and hyponatremia (principal); J44.9 Chronic obstructive pulmonary disease, unspecified; F10.10 Alcohol abuse, uncomplicated; N28.9 Disorder of kidney and ureter, unspecified
CPT/HCPCS: 36415; 71046-TC-FY; 80053; 81003; 81015; 82550; 84484; 85025; 93005; 99282-25

== ENCOUNTER 2018-03-27 21:17 | Inpatient (IN) | payer OTHER, BC ==
[2018-03-27 21:26] VITALS: BMI 23.6
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
[2018-03-27] MEDS ORDERED: BACITRACIN 15 GM TUBE TOPICAL OINTMENT TP ONE (22:04)
[2018-03-27] MEDS ORDERED: BACITRACIN 0.9 GM PACKET ONE (23:13)
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
[2018-03-28 05:17] LABS: BASO % 0.8 % (0-2.0); EOS % 0.2 % (0-4.5); HEMATOCRIT 38.8 % (32.4-45.2); LYMPH % 11.6 % (8-40); MCH 30.8 pg (25.7-33.7); MCHC 33.5 g/dl (32.0-36.0); MEAN CELL VOLUME 91.8 fl (80-96); MEAN PLT VOLUME 6.4 fl (7.5-11.1); MONO % 7.3 % (3.8-10.2); NEUT % 80.1 % (42.8-82.8); PLATELET COUNT 329 K/MM3 (134-434); RBC 4.23 M/mm3 (3.60-5.2); RDW 14.4 % (11.6-15.6); WHITE BLOOD COUNT 13.6 K/mm3 (4.0-10.0)
[2018-03-28 05:29] LABS: INR 0.91 (0.82-1.09); PROTHROMBIN TIME (PATIENT) 10.3 SEC (9.7-13.0)
[2018-03-28 05:38] LABS: ALBUMIN 3.6 g/dl (3.4-5.0); ANION GAP 14 (8-16); BILIRUBIN,TOTAL 0.5 mg/dL (0.2-1.0); BLOOD UREA NITROGEN 22 mg/dL (7-18); CALCIUM 8.3 mg/dL (8.5-10.1); CHLORIDE 93 mmol/L (98-107); CO2 20 mmol/L (21-32); CREATININE 1.5 mg/dL (0.55-1.02); GLUCOSE,RANDOM 118 mg/dL (74-106); POTASSIUM 4.7 mmol/L (3.5-5.1); SGOT/AST 37 U/L (15-37); SGPT/ALT 28 U/L (12-78); SODIUM 127 mmol/L (136-145); TOT PROT 6.7 g/dl (6.4-8.2)
[2018-03-28 05:39] LABS: ALK PHOS 89 U/L (45-117)
[2018-03-28] MEDS ORDERED: chlordiazePOXIDE HCL 25 MG CAPSULE PO PRN (06:38)
[2018-03-28] MEDS ORDERED: chlordiazePOXIDE HCL 25 MG CAPSULE ONE ×3 (06:56→17:26)
[2018-03-28] MEDS: chlordiazePOXIDE HCL 25 MG CAPSULE PO SCH ×4 (06:59→22:58)
[2018-03-28] MEDS ORDERED: THIAMINE HCL 200 MG/2 ML VIAL IVPB SCH (11:45)
[2018-03-28] MEDS: SODIUM CHLORIDE 1,000 ML IV SCH (14:32)
[2018-03-28] MEDS ORDERED: THIAMINE HCL 200 MG/2 ML VIAL ONE (14:43)
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
[2018-03-28] MEDS: ACETAMINOPHEN 1000 MG/100 ML VIAL (NON FORMULARY) IVPB PRN (17:25)
[2018-03-28] MEDS ORDERED: ACETAMINOPHEN INJECTION 100 ML IVPB ONE (17:26)
[2018-03-28 17:42] LABS: ARTERIAL BLOOD GAS PCO2 32.1 mmHg (35-45)
[2018-03-28 17:43] LABS: ARTERIAL BLOOD GAS PO2 74.9 mmHg (70-100)
[2018-03-28 17:44] LABS: ALLENS TEST POSITIVE
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
[2018-03-29] MEDS: SODIUM CHLORIDE 1,000 ML IV SCH ×2 (05:58→16:46)
[2018-03-29] MEDS: chlordiazePOXIDE HCL 25 MG CAPSULE PO SCH ×4 (05:59→22:16)
[2018-03-29] MEDS: ACETAMINOPHEN 325 MG TABLET (FP) PO PRN ×2 (06:26→22:15)
[2018-03-29 07:56] LABS: BASO % 1.2 % (0-2.0); EOS % 1.1 % (0-4.5); HEMATOCRIT 30.8 % (32.4-45.2); HEMOGLOBIN 10.4 GM/dL (10.7-15.3); MCH 30.8 pg (25.7-33.7); MCHC 33.6 g/dl (32.0-36.0); MEAN CELL VOLUME 91.7 fl (80-96); MEAN PLT VOLUME 6.8 fl (7.5-11.1); MONO % 11.8 % (3.8-10.2); NEUT % 62.9 % (42.8-82.8); PLATELET COUNT 259 K/MM3 (134-434); RBC 3.36 M/mm3 (3.60-5.2); WHITE BLOOD COUNT 8.1 K/mm3 (4.0-10.0)
[2018-03-29 08:13] LABS: CHLORIDE 93 mmol/L (98-107); POTASSIUM 4.2 mmol/L (3.5-5.1); SODIUM 127 mmol/L (136-145)
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
[2018-03-29 08:32] LABS: ALBUMIN 3.1 g/dl (3.4-5.0); ALK PHOS 73 U/L (45-117); ANION GAP 11 (8-16); BILIRUBIN,TOTAL 0.6 mg/dL (0.2-1.0); BLOOD UREA NITROGEN 25 mg/dL (7-18); CALCIUM 7.7 mg/dL (8.5-10.1); CO2 23 mmol/L (21-32); CREATININE 1.3 mg/dL (0.55-1.02); GLUCOSE,RANDOM 112 mg/dL (74-106); SGOT/AST 19 U/L (15-37); SGPT/ALT 21 U/L (12-78); TOT PROT 5.6 g/dl (6.4-8.2)
[2018-03-29] MEDS: MULTIVITAMINS (DAILY MVI) TABLET (FP) PO SCH (09:42)
[2018-03-29] MEDS: THIAMINE HCL 100 MG TABLET (FP) PO SCH (09:42)
[2018-03-29] MEDS: FOLIC ACID 1 MG TABLET (FP) PO SCH (09:42)
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
[2018-03-29] MEDS: NICOTINE 14 MG/24 HOURS TOPICAL PATCH TD SCH (16:43)
[2018-03-30] MEDS: chlordiazePOXIDE 5 MG CAPSULE PO SCH ×3 (05:50→17:01)
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
[2018-03-30 08:58] LABS: HEMATOCRIT 26.7 % (32.4-45.2); HEMOGLOBIN 9.1 GM/dL (10.7-15.3); MCH 31.1 pg (25.7-33.7); MCHC 34.1 g/dl (32.0-36.0); MEAN CELL VOLUME 91.1 fl (80-96); MEAN PLT VOLUME 6.6 fl (7.5-11.1); PLATELET COUNT 213 K/MM3 (134-434); RBC 2.93 M/mm3 (3.60-5.2); RDW 13.7 % (11.6-15.6)
[2018-03-30 09:19] LABS: ANION GAP 6 (8-16); BLOOD UREA NITROGEN 19 mg/dL (7-18); CALCIUM 7.8 mg/dL (8.5-10.1); CHLORIDE 100 mmol/L (98-107); CO2 26 mmol/L (21-32); GLUCOSE,RANDOM 105 mg/dL (74-106); POTASSIUM 4.3 mmol/L (3.5-5.1); SODIUM 132 mmol/L (136-145)
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
[2018-03-30] MEDS: MULTIVITAMINS (DAILY MVI) TABLET (FP) PO SCH (10:23)
[2018-03-30] MEDS: FOLIC ACID 1 MG TABLET (FP) PO SCH (10:23)
[2018-03-30] MEDS: THIAMINE HCL 100 MG TABLET (FP) PO SCH (10:23)
[2018-03-30] MEDS: NICOTINE 14 MG/24 HOURS TOPICAL PATCH TD SCH (10:26)
[2018-03-30 12:38] LABS: HEMATOCRIT 24.8 % (32.4-45.2); HEMOGLOBIN 8.4 GM/dL (10.7-15.3); MCH 31.1 pg (25.7-33.7); MCHC 33.9 g/dl (32.0-36.0); MEAN CELL VOLUME 91.8 fl (80-96); MEAN PLT VOLUME 6.4 fl (7.5-11.1); PLATELET COUNT 219 K/MM3 (134-434); RDW 13.9 % (11.6-15.6); WHITE BLOOD COUNT 7.1 K/mm3 (4.0-10.0)
[2018-03-30] MEDS: SODIUM CHLORIDE 1,000 ML IV SCH (13:18)
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
[2018-03-30 18:18] LABS: HEMATOCRIT 24.3 % (32.4-45.2); HEMOGLOBIN 8.1 GM/dL (10.7-15.3); MCH 30.8 pg (25.7-33.7); MCHC 33.4 g/dl (32.0-36.0); MEAN CELL VOLUME 92.1 fl (80-96); MEAN PLT VOLUME 6.8 fl (7.5-11.1); PLATELET COUNT 239 K/MM3 (134-434); RBC 2.64 M/mm3 (3.60-5.2); RDW 13.9 % (11.6-15.6); WHITE BLOOD COUNT 6.8 K/mm3 (4.0-10.0)
[2018-03-30] MEDS: SODIUM CHLORIDE 1 GM TABLET PO SCH ×2 (18:35→21:26)
[2018-03-30 20:19] LABS: URINE APPEARANCE CLEAR; URINE BILIRUBIN NEGATIVE (<2.0 mg/dL); URINE BLOOD NEGATIVE (NEGATIVE); URINE COLOR LTYELLOW; URINE GLUCOSE (UA) NEGATIVE (NEGATIVE); URINE KETONE NEGATIVE (NEGATIVE); URINE LEUK ESTERASE NEGATIVE (NEGATIVE); URINE NITRITE NEGATIVE (NEGATIVE); URINE PROTEIN NEGATIVE (NEGATIVE); URINE UROBILINOGEN NEGATIVE mg/dL (0.2-1.0)
[2018-03-30] MEDS: ACETAMINOPHEN 1000 MG/100 ML VIAL (NON FORMULARY) IVPB PRN (20:52)
[2018-03-31] MEDS: chlordiazePOXIDE 5 MG CAPSULE PO SCH (00:13)
[2018-03-31 07:37] LABS: BASO % 1.3 % (0-2.0); EOS % 3.8 % (0-4.5); HEMATOCRIT 24.9 % (32.4-45.2); HEMOGLOBIN 8.5 GM/dL (10.7-15.3); LYMPH % 23.6 % (8-40); MCH 31.5 pg (25.7-33.7); MCHC 34.3 g/dl (32.0-36.0); MEAN CELL VOLUME 91.9 fl (80-96); MEAN PLT VOLUME 6.8 fl (7.5-11.1); MONO % 10.2 % (3.8-10.2); NEUT % 61.1 % (42.8-82.8); PLATELET COUNT 228 K/MM3 (134-434); RBC 2.71 M/mm3 (3.60-5.2); WHITE BLOOD COUNT 7.4 K/mm3 (4.0-10.0)
[2018-03-31 08:23] LABS: CHLORIDE 102 mmol/L (98-107); POTASSIUM 4.8 mmol/L (3.5-5.1); SODIUM 137 mmol/L (136-145)
[2018-03-31 08:48] LABS: ALBUMIN 2.8 g/dl (3.4-5.0); ALK PHOS 71 U/L (45-117); ANION GAP 9 (8-16); BILIRUBIN,TOTAL 0.5 mg/dL (0.2-1.0); BLOOD UREA NITROGEN 14 mg/dL (7-18); CO2 26 mmol/L (21-32); CREATININE 1.2 mg/dL (0.55-1.02); GLUCOSE,RANDOM 107 mg/dL (74-106); LDH 192 U/L (84-246); SGOT/AST 16 U/L (15-37); SGPT/ALT 18 U/L (12-78); TOT PROT 5.4 g/dl (6.4-8.2); URIC ACID 4.1 mg/dL (2.6-7.2)
[2018-03-31] MEDS ORDERED: PT OWN MED DRAWER 7, Y5N ONE ×4 (09:15→18:55)
[2018-03-31] MEDS: MULTIVITAMINS (DAILY MVI) TABLET (FP) PO SCH (09:26)
[2018-03-31] MEDS: THIAMINE HCL 100 MG TABLET (FP) PO SCH (09:26)
[2018-03-31] MEDS: SODIUM CHLORIDE 1 GM TABLET PO SCH (09:26)
[2018-03-31] MEDS: FOLIC ACID 1 MG TABLET (FP) PO SCH (09:26)
[2018-03-31] MEDS: NICOTINE 14 MG/24 HOURS TOPICAL PATCH TD SCH (09:26)
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
[2018-03-31] MEDS: ACETAMINOPHEN 1000 MG/100 ML VIAL (NON FORMULARY) IVPB PRN (14:55)
[2018-03-31] MEDS: ALBUTEROL SO4 2.5/IPRATROPIUM 0.5 INH SOL 3 ML VIAL.NEB. NEB PRN ×2 (17:13→23:04)
[2018-03-31] MEDS: VERAPAMIL HCL 240 MG E.R. TABLET (FP) PO SCH (17:30)
[2018-03-31] MEDS: ASPIRIN COATED 81 MG TABLET.EC PO SCH (17:30)
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
[2018-03-31] MEDS: TIOTROPIUM BROMIDE 18 MCG CAPSULES IH SCH (18:48)
[2018-04-01] MEDS ORDERED: PT OWN MED DRAWER 7, Y5N ONE (00:09)
[2018-04-01] MEDS: ACETAMINOPHEN 1000 MG/100 ML VIAL (NON FORMULARY) IVPB PRN (00:33)
[2018-04-01 06:45] LABS: BASO % 1.2 % (0-2.0); EOS % 3.3 % (0-4.5); HEMATOCRIT 25.1 % (32.4-45.2); HEMOGLOBIN 8.5 GM/dL (10.7-15.3); LYMPH % 25.9 % (8-40); MCH 31.6 pg (25.7-33.7); MCHC 33.8 g/dl (32.0-36.0); MEAN CELL VOLUME 93.4 fl (80-96); MEAN PLT VOLUME 6.7 fl (7.5-11.1); MONO % 9.1 % (3.8-10.2); NEUT % 60.5 % (42.8-82.8); PLATELET COUNT 261 K/MM3 (134-434); RBC 2.69 M/mm3 (3.60-5.2); RDW 14.2 % (11.6-15.6); WHITE BLOOD COUNT 9.2 K/mm3 (4.0-10.0)
[2018-04-01 07:23] LABS: ALBUMIN 3.1 g/dl (3.4-5.0); ANION GAP 6 (8-16); BLOOD UREA NITROGEN 22 mg/dL (7-18); CALCIUM 8.5 mg/dL (8.5-10.1); CHLORIDE 101 mmol/L (98-107); CO2 25 mmol/L (21-32); GLUCOSE,RANDOM 115 mg/dL (74-106); MAGNESIUM 2.1 mg/dL (1.8-2.4); SODIUM 132 mmol/L (136-145)
[2018-04-01 07:27] LABS: ALK PHOS 76 U/L (45-117); BILIRUBIN,TOTAL 0.5 mg/dL (0.2-1.0); CREATININE 1.4 mg/dL (0.55-1.02); SGOT/AST 13 U/L (15-37); SGPT/ALT 22 U/L (12-78); TOT PROT 6.1 g/dl (6.4-8.2)
[2018-04-01] MEDS: VERAPAMIL HCL 240 MG E.R. TABLET (FP) PO SCH (10:11)
[2018-04-01] MEDS: NICOTINE 14 MG/24 HOURS TOPICAL PATCH TD SCH (10:11)
[2018-04-01] MEDS: ASPIRIN COATED 81 MG TABLET.EC PO SCH (10:11)
[2018-04-01] MEDS: MULTIVITAMINS (DAILY MVI) TABLET (FP) PO SCH (10:11)
[2018-04-01] MEDS: FOLIC ACID 1 MG TABLET (FP) PO SCH (10:11)
[2018-04-01] MEDS: THIAMINE HCL 100 MG TABLET (FP) PO SCH (10:11)
[2018-04-01] MEDS: TIOTROPIUM BROMIDE 18 MCG CAPSULES IH SCH (10:15)
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
[2018-04-01] MEDS: SODIUM CHLORIDE 1,000 ML IV SCH (22:35)
[2018-04-02 07:24] LABS: CHLORIDE 103 mmol/L (98-107); POTASSIUM 4.4 mmol/L (3.5-5.1); SODIUM 135 mmol/L (136-145)
[2018-04-02 07:40] LABS: ALBUMIN 2.7 g/dl (3.4-5.0); ALK PHOS 75 U/L (45-117); ANION GAP 7 (8-16); BILIRUBIN,TOTAL 0.5 mg/dL (0.2-1.0); BLOOD UREA NITROGEN 22 mg/dL (7-18); CALCIUM 8.1 mg/dL (8.5-10.1); CO2 25 mmol/L (21-32); CREATININE 1.3 mg/dL (0.55-1.02); GLUCOSE,RANDOM 103 mg/dL (74-106); MAGNESIUM 1.9 mg/dL (1.8-2.4); SGOT/AST 13 U/L (15-37); SGPT/ALT 19 U/L (12-78); TOT PROT 5.5 g/dl (6.4-8.2)
[2018-04-02 07:58] LABS: BASO % 1.4 % (0-2.0); EOS % 3.6 % (0-4.5); HEMATOCRIT 23.8 % (32.4-45.2); HEMOGLOBIN 8.2 GM/dL (10.7-15.3); LYMPH % 19.2 % (8-40); MCH 31.6 pg (25.7-33.7); MCHC 34.3 g/dl (32.0-36.0); MEAN CELL VOLUME 92.1 fl (80-96); MEAN PLT VOLUME 6.9 fl (7.5-11.1); NEUT % 65.8 % (42.8-82.8); PLATELET COUNT 301 K/MM3 (134-434); RBC 2.59 M/mm3 (3.60-5.2); WHITE BLOOD COUNT 8.9 K/mm3 (4.0-10.0)
[2018-04-02] MEDS: MULTIVITAMINS (DAILY MVI) TABLET (FP) PO SCH (10:14)
[2018-04-02] MEDS: VERAPAMIL HCL 240 MG E.R. TABLET (FP) PO SCH (10:15)
[2018-04-02] MEDS: TIOTROPIUM BROMIDE 18 MCG CAPSULES IH SCH (10:15)
[2018-04-02] MEDS: FOLIC ACID 1 MG TABLET (FP) PO SCH (10:15)
[2018-04-02] MEDS: NICOTINE 14 MG/24 HOURS TOPICAL PATCH TD SCH (10:15)
[2018-04-02] MEDS: THIAMINE HCL 100 MG TABLET (FP) PO SCH (10:15)
[2018-04-02] MEDS: ASPIRIN COATED 81 MG TABLET.EC PO SCH (10:15)
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
[2018-04-02 14:13] LABS: BETA-2-MICROGLOBULIN 2.9 mg/L (0.6-2.4)
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
[2018-04-02] MEDS: SODIUM CHLORIDE 1,000 ML IV SCH (19:27)
[2018-04-03] MEDS: THIAMINE HCL 100 MG TABLET (FP) PO SCH (10:48)
[2018-04-03] MEDS: NICOTINE 14 MG/24 HOURS TOPICAL PATCH TD SCH (10:49)
[2018-04-03] MEDS: MULTIVITAMINS (DAILY MVI) TABLET (FP) PO SCH (10:49)
[2018-04-03] MEDS: TIOTROPIUM BROMIDE 18 MCG CAPSULES IH SCH (10:49)
[2018-04-03] MEDS: VERAPAMIL HCL 240 MG E.R. TABLET (FP) PO SCH (10:49)
[2018-04-03] MEDS: FOLIC ACID 1 MG TABLET (FP) PO SCH (10:49)
[2018-04-03] MEDS: ASPIRIN COATED 81 MG TABLET.EC PO SCH (10:49)
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
[2018-04-03 12:39] VITALS: BP 137/64; PULSE 94; TEMP 97.6
[2018-04-04 00:09] LABS: FREE KAPPA,SERUM 41.4 mg/L (3.3-19.4)
== END 2018-04-03 12:51 | disposition home or self-care (01) | DRG 184 ==
LOC: JER 21:17 → JERBED 22:51 → J8W 03-28 19:30 → OBSVTOIN 03-29 07:00
PROVIDERS: ADMIT Internal Medicine; ATTEND Nurse Practitioner Acute Care
DX: S22.21XA Fracture of manubrium, initial encounter for closed fracture (principal); N17.9 Acute kidney failure, unspecified; E87.1 Hypo-osmolality and hyponatremia; M62.82 Rhabdomyolysis; D62 Acute posthemorrhagic anemia; F10.230 Alcohol dependence with withdrawal, uncomplicated; E86.0 Dehydration; J44.9 Chronic obstructive pulmonary disease, unspecified; S20.01XA Contusion of right breast, initial encounter; S50.02XA Contusion of left elbow, initial encounter; S10.91XA Abrasion of unspecified part of neck, initial encounter; S40.212A Abrasion of left shoulder, initial encounter; F10.220 Alcohol dependence with intoxication, uncomplicated; D64.9 Anemia, unspecified; E03.9 Hypothyroidism, unspecified; E78.5 Hyperlipidemia, unspecified; R42 Dizziness and giddiness; I12.9 Hypertensive chronic kidney disease with stage 1 through stage 4 chronic kidney disease, or unspecified chronic kidney disease; N18.9 Chronic kidney disease, unspecified; F17.210 Nicotine dependence, cigarettes, uncomplicated; F32.9 Major depressive disorder, single episode, unspecified; V89.2XXA Person injured in unspecified motor-vehicle accident, traffic, initial encounter; Y99.8 Other external cause status; Y93.89 Activity, other specified; Y92.488 Other paved roadways as the place of occurrence of the external cause
CPT/HCPCS: 36415; 36600; 70450-TC; 71045-TC-FY; 71046-TC-FY; 71250-TC; 72125-TC; 73070-TC-LT-FY; 80048; 80053; 80307; 81003; 82232; 82436; 82550; 82553; 82728; 82784; 82803; 83540; 83550; 83615; 83735; 83883; 83930; 83935; 84133; 84155; 84165; 84300; 84484; 84550; 85025; 85027; 85044; 85610; 86334; 93306-TC; 94640; 97116-GP; 97161-GP; 99284-25; G0378; J0131; J7030; J7620

== ENCOUNTER 2018-11-26 20:54 | Inpatient (IN) | payer BC ==
--- NOTE | 2018-11-26 21:14 | PDOC ---
History of Present Illness - General Chief Complaint: Injury Stated Complaint: Fall & Dizziness Time Seen by Provider: 11/26/18 21:00 History Source: Patient Exam Limitations: No Limitations - History of Present Illness Initial Comments: 73 yo F w a pmh of COPD, hypertension, peripheral arterial disease status post stents, hypothyroid, chronic kidney disease, and alcohol abuse on antabuse presents to the ER s/p mechanical fall and hitting her head. She takes a baby aspirin every day. Her daughter who is with her did not see the actual fall but noticed she was confused after the fall for around 30 minutes. Here in the Er she is still confused. She endorses a mild headache at the present time. She has fallen down several times in the past 2 days. She states she was recently seen in urgent care and diagnosed with pseudogout. She denies any nausea or vomiting but endorses significant gait disturbances as she has not been steady on her feet recently. She also endorses not having good control of her bladder recently and she has started using diapers. (Wet, Wacky, wobbly) Denies any chest pain, SOB, difficulty breathing, blurry vision, fevers, chills infections, or recent travel. PCP: Addy Mo PSH: Hemithyroidectomy Social Hx: 50 pack year smoking hx, former alcohol abuser now on antabuse, denies other substances Allergies: Clopidogrel, Prednisone Past History - Past Medical History Allergies/Adverse Reactions: Allergies Allergy/AdvReac Type Severity Reaction Status Date / Time clopidogrel bisulfate AdvReac Severe SEVERE Verified 11/26/18 21:17 [From Plavix] DIZZINESS prednisone AdvReac Severe Verified 11/26/18 21:17 Home Medications: Ambulatory Orders Verapamil HCl [Verapamil ER] 240 mg PO DAILY 09/01/15 Tiotropium [place] [Spiriva] 1 inh IH DAILY 05/22/17 Aspirin [Aspirin EC] 81 mg PO DAILY 12/28/17 Disulfiram [Antabuse] 250 mg PO DAILY 10/14/18 Escitalopram Oxalate [Lexapro -] 5 mg PO DAILY 10/14/18 Anemia: Yes (HX) Asthma: No Cancer: No Cardiac Disorders: No CVA: No COPD: Yes CHF: No Dementia: No Diabetes: No Dialysis: No GI Disorders: No Disorders: No HTN: Yes Hypercholesterolemia: Yes Kidney Stones: Yes (LT KIDNEY 7% FX/ RT 94%) Liver Disease: No Psychiatric Problems: No Seizures: No Thyroid Disease: Yes (hypo.) - Surgical History Abdominal Surgery: No Appendectomy: No Cardiac Surgery: No Cholecystectomy: No Lung Surgery: No Neurologic Surgery: No Orthopedic Surgery: No - Suicide/Smoking/Psychosocial Hx Smoking Status: Yes Smoking History: Current every day smoker Have you smoked in the past 12 months: Yes Number of Cigarettes Smoked Daily: 10 If you are a former smoker, when did you quit?: 3 WEEKS 'Breaking Loose' booklet given: 03/28/18 Hx Alcohol Use: Yes (MARCH 2018 LAST DRINK) Drug/Substance Use Hx: No Substance Use Type: None Hx Substance Use Treatment: No Review of Systems - Review of Systems Able to Perform ROS?: Yes Comments:: CONSTITUTIONAL: Absent: fever, no chills, no fatigue EYES: Absent: visual changes ENT: Absent: ear pain, no sore throat CARDIOVASCULAR: Absent: chest pain, no palpitations RESPIRATORY: Absent: cough, no SOB GI: Absent: abdominal pain, no nausea, no vomiting, no constipation, no diarrhea GENITOURINARY: Absent: dysuria, no frequency, no hematuria MUSKULOSKELETAL: Present: Back pain, arthralgia Absent: no myalgia SKIN: Present: rash NEURO: Present: headache *Physical Exam - Physical Exam Comments: GENERAL: Well-appearing, well-nourished. No apparent distress. HEENT: Normocephalic, atraumatic. PERRL, EOM intact. CARDIOVASCULAR: Normal S1, S2. Regular rate and rhythm. PULMONARY: No evidence of respiratory distress. Lungs clear to auscultation bilaterally. No wheezing, rales or rhonchi. ABDOMEN: Soft, non-distended, non-tender. EXTREMITIES: Normal ROM in all four extremities. No gross deformities. SKIN: Warm, dry. No rash NEUROLOGICAL: No focal neurological deficits. ED Treatment Course - LABORATORY CBC & Chemistry Diagram: 11/26/18 22:05 11/26/18 22:05 - RADIOLOGY Radiology Studies Ordered: Category Date Time Status CERVICAL SPINE CT W/O CONTR [CT] Stat CT Scan 11/26/18 21:[address] WITHOUT CONTRAST [CT] Stat CT Scan 11/26/18 21:11 Ordered CHEST X-RAY PORTABLE* [RAD] Stat Radiology 11/26/18 21:12 Ordered Medical Decision Making - Medical Decision Making 73 yo F w a pmh of COPD, hypertension, peripheral arterial disease status post stents, hypothyroid, chronic kidney disease, and alcohol abuse on antabuse presents to the ER s/p mechanical fall and hitting her head. She takes a baby aspirin every day. Her daughter who is with her did not see the actual fall but noticed she was confused after the fall for around 30 minutes. Here in the Er she is still confused. She endorses a mild headache at the present time. She has fallen down several times in the past 2 days. She states she was recently seen in urgent care and diagnosed with pseudogout. She denies any nausea or vomiting but endorses significant gait disturbances as she has not been steady on her feet recently. She also endorses not having good control of her bladder recently and she has started using diapers. (Wet, Johncky, wobbly) Ddx IBNLT: subdural hematoma vs epidural vs intracerebral hemorrhage, CVA/TIA, electrolyte abnormality, wernicke encephelopathy, normal pressure hydrocephalus , ACS/NH, Seizure, syncope Plan: Labs, urine, EKG, x-rays, CT, duonebs, re-assess. Patient is delerius. Urine shows UTI - Will start treatment with ceftriaxone in the ED. -Will admit patient to Tele *DC/Admit/Observation/Transfer Diagnosis at time of Disposition: UTI (urinary tract infection), ABRAM (acute kidney injury), Gqcmj-[id number] kidney injury - Discharge Dispostion Condition at time of disposition: Fair Decision to Admit order: Yes - Referrals - Patient Instructions - Post Discharge Activity
[2018-11-26 21:17] VITALS: BMI 22.2
[2018-11-26] MEDS ORDERED: ALBUTEROL SO4 2.5/IPRATROPIUM 0.5 INH SOL 3 ML VIAL.NEB. NEB ONE ×2 (21:32→21:41)
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
[2018-11-26 22:13] LABS: BASO % 1.3 % (0-2.0); EOS % 1.1 % (0-4.5); HEMATOCRIT 39.8 % (32.4-45.2); HEMOGLOBIN 14.2 GM/dL (10.7-15.3); LYMPH % 14.6 % (8-40); MCH 34.4 pg (25.7-33.7); MCHC 35.5 g/dl (32.0-36.0); MEAN CELL VOLUME 96.9 fl (80-96); MEAN PLT VOLUME 6.8 fl (7.5-11.1); MONO % 10.4 % (3.8-10.2); NEUT % 72.6 % (42.8-82.8); PLATELET COUNT 244 K/MM3 (134-434); RBC 4.11 M/mm3 (3.60-5.2); RDW 13.6 % (11.6-15.6); WHITE BLOOD COUNT 9.3 K/mm3 (4.0-10.0)
[2018-11-26 22:31] LABS: INR 0.97 (0.83-1.09); PROTHROMBIN TIME (PATIENT) 11.4 SEC (9.7-13.0)
[2018-11-26 22:40] LABS: ALBUMIN 3.5 g/dl (3.4-5.0); ALK PHOS 96 U/L (45-117); ANION GAP 7 MMOL/L (8-16); BILIRUBIN,TOTAL 0.2 mg/dL (0.2-1); BLOOD UREA NITROGEN 43 mg/dL (7-18); CALCIUM 8.9 mg/dL (8.5-10.1); CHLORIDE 106 mmol/L (98-107); CO2 27 mmol/L (21-32); CREATININE 1.6 mg/dL (0.55-1.3); GLUCOSE,RANDOM 117 mg/dL (74-106); POTASSIUM 4.8 mmol/L (3.5-5.1); SGOT/AST 13 U/L (15-37); SGPT/ALT 24 U/L (13-61); SODIUM 141 mmol/L (136-145); TOT PROT 6.5 g/dl (6.4-8.2)
[2018-11-26] MEDS ORDERED: SODIUM CHLORIDE 0.9% 500 ML INFUS.BAG IV ONE (22:49)
[2018-11-27] MEDS ORDERED: SODIUM CHLORIDE 0.9% 500 ML INFUS.BAG IV ONE (00:27)
[2018-11-27] MEDS ORDERED: ACETAMINOPHEN 1000 MG/100 ML VIAL (NON FORMULARY) IVPB ONE (02:51)
[2018-11-27] MEDS ORDERED: ACETAMINOPHEN INJECTION 100 ML IVPB ONE (02:56)
[2018-11-27 04:01] LABS: URINE APPEARANCE CLEAR; URINE BILIRUBIN NEGATIVE (<2.0 mg/dL); URINE COLOR LTYELLOW; URINE GLUCOSE (UA) 1+ (NEGATIVE); URINE KETONE NEGATIVE (NEGATIVE); URINE LEUK ESTERASE 3+ (NEGATIVE); URINE NITRITE NEGATIVE (NEGATIVE); URINE PROTEIN NEGATIVE (NEGATIVE); URINE UROBILINOGEN NEGATIVE mg/dL (0.2-1.0)
[2018-11-27 04:05] LABS: EPI CELLS RARE /HPF (FEW); URINE BACTERIA RARE /hpf (NONE SEEN); URINE MUCUS RARE
[2018-11-27] MEDS ORDERED: CEFTRIAXONE 1,000 MG in DEXTROSE 5%-WATER - 50 ML IVPB ONE (04:15)
--- NOTE | 2018-11-27 04:49 | PN ---
Teaching Attending Note Name of Resident: Yamileth Griffiths ATTENDING PHYSICIAN STATEMENT I saw and evaluated the patient. I reviewed the resident's note and discussed the case with the resident. I agree with the resident's findings and plan as documented. SUBJECTIVE: Patient is a 73 year old woman with a PMH of COPD, hypertension, peripheral arterial disease status post stents, partial thyroidectomy, benign breat tumor, tobacco use, hypothyroid, CKD and alcohol abuse on antabuse presents to the ER s /p multiple falls today. Patients daughter at bedside states she had her first fall at 4:30 am this morning on her way to the bathroom, and was subsequently seen at [facility]. Patient had her second fall later today and fell down 2-3 steps. Patient then had a 3rd fall a couple hours before arriving to the ER. Patient admits to multiple head injuries today but denies any LOC. Patient did however appear confused after the incident per daughter and continues to be confused here in the ER. Patient has been complaining of right knee pain prior to her falls. Patient is also complaining of pain to the back of the head and coccyx pain since the falls today. Patient is currently on physical therapy twice a week. Daughter denies noticing any unsteady gait recently. Patient denies any alcohol use today. Patient is on a baby aspirin daily. OBJECTIVE: Alert Vital Signs Period Temp Pulse Resp BP Sys/Mcfadden Pulse Ox Last 24 Hr 98.1 F 84 18 158/82 97 HEENT: No Jaundice, eye redness or discharge, PERRLA, EOMI. Normocephalic, atraumatic. External ears are normal and hearing is grossly intact. No nasal discharge. Neck: Supple, nontender. No palpable adenopathy or thyromegaly. No JVD Chest: Good effort. Clear to auscultation and percussion. Heart: Regular. No S3, rub or murmur Abdomen: Not distended, soft, suprapubic tenderness and no HSM. No rebound or guarding. Normoactive bowel sounds. Ext: Peripheral pulses intact. No leg edema. Skin: Warm and dry. No petechiae, rash or ecchymosis. Neuro: Alert. Oriented x3. CN 2-12 grossly intact. Poor recall. Sensation grossly intact in all four extremities and DTR are symmetric. Home Medications Medication Instructions Recorded Verapamil HCl [Verapamil ER] 280 mg PO DAILY 09/01/15 Tiotropium [place] [Spiriva] 1 inh IH DAILY 05/22/17 Aspirin [Aspirin EC] 81 mg PO DAILY 12/28/17 Disulfiram [Antabuse] 500 mg PO DAILY 10/14/18 Escitalopram Oxalate [Lexapro -] 5 mg PO DAILY 10/14/18 Abnormal Lab Results 11/26/18 11/26/18 11/26/18 22:05 22:05 22:05 MCV 96.9 H MCH 34.4 H MPV 6.8 L Monocytes % 10.4 H Anion Gap 7 L BUN 43 H Creatinine 1.6 H Random Glucose 117 H AST 13 L Serum Folate 21 H Urine Glucose (UA) Ur Leukocyte Esterase 11/27/18 02:58 MCV MCH MPV Monocytes % Anion Gap BUN Creatinine Random Glucose AST Serum Folate Urine Glucose (UA) 1+ H Ur Leukocyte Esterase 3+ H ASSESSMENT AND PLAN: 1. Falls/UTI - Falls may be due to metabolic encephalopathy associated with UTI. Being treatd with Rocephin IV pending urine culture. Head CT, C spine CT, hip/pelvic/coccyx xrays do not show any acute abnormality or fracture. Troponin is negative and EKG shows NSR with no significant ST-T wave changes. Will get ECHO, TFT, fasting lipid profile, carotid doppler, blood alcohol level and monitor her on telemetry. Implement fall precautions, neurochecks; Consult PT and Neurology. 2. Alcohol abuse - Though she insists she has not had a drink recently, will implement [facility] alcohol withdrawal protocol, fall and aspiration precautions. Treat with thiamine and folic acid and monitor electrolytes (Ca,Mg, K,P). Health Services Rn patient about abstaining from alcohol and refer to alcohol detox upon discharge. 3. Restart outpatient antihypertensive drugs and revise regimen to ensure smooth [id number] good BP control. Nonpharmacologic measures to control hypertension like weight loss, salt restriction and exercise discussed. 4. CKD? with superimposed ABRAM - May have component of dehydration. Check CPK. Hydrate gently; get kidney sonogram. Avoid nephrotoxic agents such as NSAIDS, aminoglycosides, contrast dyes and certain Alternative medicine products. 5. Tobacco Use We will provide patient all the necessary assistance to facilitate smoking cessation and prescribe Nicotine patch. 6. DVT prophylaxis - Heparin 5000u sq tid. 7. Advance directives - Full code
[2018-11-27] MEDS ORDERED: CEFTRIAXONE 1 GM/50 ML BAG ONE ×2 (05:03→09:46)
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
[2018-11-27] MEDS: HEPARIN NA (PORCINE) 5,000 UNITS/ML 1ML VIAL SQ SCH ×3 (06:22→21:40)
[2018-11-27 08:55] LABS: HEMOGLOBIN 13.7 GM/dL (10.7-15.3); PLATELET COUNT 226 K/MM3 (134-434)
[2018-11-27 08:57] LABS: BASO % 1.3 % (0-2.0); EOS % 1.3 % (0-4.5); HEMATOCRIT 38.7 % (32.4-45.2); LYMPH % 21.3 % (8-40); MCH 34.2 pg (25.7-33.7); MCHC 35.4 g/dl (32.0-36.0); MEAN CELL VOLUME 96.8 fl (80-96); MONO % 8.6 % (3.8-10.2); NEUT % 67.5 % (42.8-82.8); RDW 13.6 % (11.6-15.6)
[2018-11-27 09:21] LABS: ALBUMIN 3.3 g/dl (3.4-5.0); ALK PHOS 95 U/L (45-117); ANION GAP 5 MMOL/L (8-16); BILIRUBIN,TOTAL 0.3 mg/dL (0.2-1); BLOOD UREA NITROGEN 33 mg/dL (7-18); CALCIUM 8.1 mg/dL (8.5-10.1); CHLORIDE 107 mmol/L (98-107); CHOLESTEROL 179 mg/dL (50-200); CO2 26 mmol/L (21-32); CREATININE 1.2 mg/dL (0.55-1.3); GLUCOSE,RANDOM 103 mg/dL (74-106); HDL CHOLESTEROL 75 mg/dL (40-60); MAGNESIUM 1.9 mg/dL (1.8-2.4); PHOSPHOROUS 3.2 mg/dL (2.5-4.9); POTASSIUM 4.7 mmol/L (3.5-5.1); SGOT/AST 12 U/L (15-37); SGPT/ALT 22 U/L (13-61); SODIUM 138 mmol/L (136-145); TOT PROT 6.1 g/dl (6.4-8.2); TRIGLYCERIDES 67 mg/dL (0-150)
[2018-11-27] MEDS: ESCITALOPRAM OXALATE 10 MG TABLET (FP) PO SCH (09:45)
[2018-11-27] MEDS: VERAPAMIL HCL 240 MG E.R. TABLET (FP) PO SCH (09:45)
[2018-11-27] MEDS: ASPIRIN COATED 81 MG TABLET.EC PO SCH (09:45)
[2018-11-27] MEDS: CEFTRIAXONE 1 GM in DEXTROSE 5%-WATER - 50 ML IVPB SCH (09:46)
[2018-11-27] MEDS ORDERED: VERAPAMIL HCL 120 MG CAP SUSTAINED RELEASE PO SCH (10:00)
[2018-11-27] MEDS ORDERED: DISULFIRAM 500 MG PO SCH (10:00)
[2018-11-27] MEDS: TIOTROPIUM BROMIDE 2.5 MCG (SPIRIVA) RESPIMAT INHALER IH SCH (10:26)
--- NOTE | 2018-11-27 12:51 | CON.CARD ---
Consult Consult Specialty:: Cardiology Referred by:: Hospitalist Reason for Consultation:: Cardiac evaluation - History of Present Illness Chief Complaint: ? syncope History of Present Illness: Patient is a 73 year old female with underlying history of HTN, PAD s/p ELECTRICAL MANAGER/ stent (by Dr. Russ Blackwell), CKD , hypothyoidism post partial thyroidectomy and COPD (current cigarette smoker, 4 packs per day) who presents after multiple falls at home. After two episode on Monday and early Monday morning, she was taken to the urgent center by her daughter. She was told that she had pseudogout and was recommended to see a floor installation mechanic as outpatient. She had another fall that evening in the stairs but did not suffer any injury. She does not appear to remember this event and was acting confused. She was brought back this time to [facility] ED. She denies chest pain, SOB or palpitations. She denies paroxysmal nocturnal dyspnea or orthopnea. She denies fever or chills. She denies headache or lightheadedness. She denies nausea, vomiting, diarrhea or abdominal pain. 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 [employer]ETING: Yes: Alzheimer's Cardio/Vascular: Yes: HTN, Hyperlipdemia Pulmonary: Yes: COPD Renal/: Yes: Renal Inusuff Endocrine: Yes: Hypothyroidism - Past Surgical History Past Surgical History: Yes: Stent - Alcohol/Substance Use Hx Alcohol Use: Yes (MARCH 2018 LAST DRINK) - Smoking History Smoking history: Current every day smoker Have you smoked in the past 12 months: Yes Aproximately how many cigarettes per day: 10 If you are a former smoker, when did you quit?: 3 WEEKS - Social History Usual Living Arrangement: With Child ADL: Independent History of Recent Travel: No Home Medications - Allergies Allergies/Adverse Reactions: Allergies Allergy/AdvReac Type Severity Reaction Status Date / Time clopidogrel bisulfate AdvReac Severe SEVERE Verified 11/26/18 21:17 [From Plavix] DIZZINESS prednisone AdvReac Severe Verified 11/26/18 21:17 - Home Medications Home Medications: Ambulatory Orders Verapamil HCl [Verapamil ER] 240 mg PO DAILY 09/01/15 Tiotropium [place] [Spiriva] 1 inh IH DAILY 05/22/17 Aspirin [Aspirin EC] 81 mg PO DAILY 12/28/17 Disulfiram [Antabuse] 250 mg PO DAILY 10/14/18 Escitalopram Oxalate [Lexapro -] 5 mg PO DAILY 10/14/18 Family Disease History - Family Disease History Family Disease History: Heart Disease: Father, Mother Review of Systems - Review of Systems Constitutional: denies: Chills, Fever Cardiovascular: denies: Chest Pain, Palpitations, Shortness of Breath Respiratory: denies: Cough, Hemoptysis, Orthopnea, PND, SOB, SOB on Exertion Gastrointestinal: denies: Abdominal Pain, Constipation, Diarrhea, Melena, Nausea , Rectal Bleeding, Vomiting Genitourinary: denies: Dysuria, Hematuria Neurological: reports: Syncope, Weakness. denies: Change in Speech, Dizziness, Headache, Numbness, Parasthesia, Seizure Vital Signs: Vital Signs Temperature 97.7 F 11/27/18 12:15 Pulse Rate 89 11/27/18 12:15 Respiratory Rate 18 11/27/18 12:15 Blood Pressure 165/78 11/27/18 12:15 O2 Sat by Pulse Oximetry (%) 97 11/27/18 12:15 Eyes: Yes: PERRL HENT: Yes: Atraumatic Neck: Yes: Supple Respiratory: Yes: CTA Bilaterally Gastrointestinal: Yes: Normal Bowel Sounds, Soft. No: Tenderness Cardiovascular: Yes: Regular Rate and Rhythm JVD: No PMI: Non-Displaced Heart Sounds: Yes: S1, S2 Murmur: Yes: Systolic Murmur, Grade 1 Edema: No - Other Data Labs, Other Data: CBC, BMP 11/27/18 08:40 11/27/18 08:40 INR, PTT INR 0.97 (0.83-1.09) 11/26/18 22:05 Troponin, BNP 11/26/18 22:05 Troponin I < 0.02 NSR, normal ECG Echo: Report Reviewed Problem List - Problems (1) Syncope Code(s): R55 - SYNCOPE AND COLLAPSE (2) PAD (peripheral artery disease) Code(s): I73.9 - PERIPHERAL VASCULAR DISEASE, UNSPECIFIED (3) [id number] kidney injury Code(s): N17.9 - ACUTE KIDNEY FAILURE, UNSPECIFIED; N18.9 - CHRONIC KIDNEY DISEASE, UNSPECIFIED (4) Anxiety Code(s): F41.9 - ANXIETY DISORDER, UNSPECIFIED (5) COPD (chronic obstructive pulmonary disease) Code(s): J44.9 - CHRONIC OBSTRUCTIVE PULMONARY DISEASE, UNSPECIFIED (6) Fall Code(s): W19.XXXA - UNSPECIFIED FALL, INITIAL ENCOUNTER (7) HTN (hypertension) Code(s): I10 - ESSENTIAL (PRIMARY) HYPERTENSION Qualifiers: Hypertension type: essential hypertension Qualified Code(s): I10 - Essential (primary) hypertension Assessment/Plan 1. Mechanical fall vs. Syncope, etiology to be determined 2. HTN 3. PAD s/p ELECTRICAL MANAGER/stent 4. Hypothyroidism post partial thyroidectomy 5. CKD 6. COPD PLAN: 1. Echocardiography reviewed 2. ASA 3. Continue Verapamil 4. Started on Labetalol by primary team 5. For further BP control may uptitrate above or add ACEI or ARB if renal function remains stable 6. Monitor on telemetry Further plans are to follow Tani Hobson MD
--- NOTE | 2018-11-27 13:52 | ECHO ---
Name: GUILLE OROZCO Exam:Adult Echocardiogram Study Date: 11/27/2018 08:41 AM Age: 73 yrs Reason For Study: ?SYNCOPE Height: 70 in Weight: 155 lb BSA: 1.9 m2 MMode/2D Measurements & Calculations IVSd: 1.2 cm Ao root diam: 2.9 cm LVIDd: 3.1 cm LA dimension: 3.1 cm LVIDs: 2.2 cm LVPWd: 1.3 cm EDV(Teich): 37.8 ml LVOT diam: 2.0 cm ESV(Teich): 16.7 ml Doppler Measurements & Calculations MV E max jefferson: 69.8 cm/sec TR max jefferson: 169.7 cm/sec MV A max jefferson: 125.6 cm/sec TR max P.5 mmHg MV E/A: 0.56 MV dec time: 0.02 sec Med Peak E' Jefferson: 5.1 cm/sec PI Vmax: 108.6 cm/sec Med E/e': 13.7 Lat Peak E' Jefferson: 6.4 cm/sec Lat E/e': 10.9 Procedure A complete two-dimensional transthoracic echocardiogram was performed (2D, M-mode, Doppler and color flow Doppler). Left Ventricle The left ventricular size, thickness and function are normal. Ejection Fraction = 65%. The transmitra l spectral Doppler flow pattern is suggestive of impaired LV relaxation. Right Ventricle The right ventricle is normal in size and function. Atria Normal left and right atrial size and function. Mitral Valve The mitral valve is grossly normal. There is mild mitral annular calcification. Tricuspid Valve The tricuspid valve is normal. There is trace tricuspid regurgitation. Doppler findings do not sugges t pulmonary hypertension. Right ventricular systolic pressure is 15 mmhg. Aortic Valve There is mild aortic sclerosis.;. Pulmonic Valve The pulmonic valve is not well visualized. Great Vessels The aortic root is normal size. Pericardium/Pleura There is no pericardial effusion. There is no pleural effusion. Interpretation Summary The left ventricular size, thickness and function are normal Ejection Fraction = 65%. There is mild mitral annular calcification. There is trace tricuspid regurgitation. Right ventricular systolic pressure is 15 mmhg. There is mild aortic sclerosis.; MD Jovanni Cha 11/27/2018 01:52 PM
--- NOTE | 2018-11-27 14:09 | PN ---
Physical Exam: SUBJECTIVE: Patient seen and examined at bedside this morning. She remembers only one fall where she fell backwards down flight of stairs, and admits hitting her head at that time. Patient states that her daughter tells her that she had numerous other falls, however patient does not remember them. She endorses right knee pain, however is unable to describe what led to the pain. She denies subjective fevers, chills. OBJECTIVE: Vital Signs Period Temp Pulse Resp BP Sys/Mcfadden Pulse Ox Last 24 Hr 97.7 F-98.1 F 84-89 18-18 158-191/78-101 96-97 GENERAL: The patient is awake, alert, and fully oriented, in no acute distress. HEAD: Normocephalic, tender to palpation left posterior head. EYES: PERRL, extraocular movements intact, sclera anicteric, conjunctiva clear. ENT: Oropharynx clear without exudates, dry mucous membranes. NECK: Supple, without lymphadenopathy. Tender to palpation along lower cervical spine. LUNGS: Breath sounds equal, clear to auscultation bilaterally. No wheezes, no crackles. No accessory muscle use. HEART: Regular rate and rhythm, S1, S2 without murmur, rub or gallop. ABDOMEN: Soft, nontender, nondistended. Normoactive bowel sounds X4 quadrants, no guarding, no rebound tenderness. EXTREMITIES: 2+ radial ,dorsalis pedis pulses bilaterally. Warm, well-perfused, no edema. NEUROLOGICAL: Cranial nerves II through XII grossly intact. Strength 5/5 bilateral upper and lower extremities bilaterally. Right knee nontender to palpation. PSYCH: Normal mood, normal affect upon my encounter. SKIN: Warm, dry. Laboratory Results - last 24 hr 11/26/18 11/26/18 11/26/18 22:05 22:05 22:05 WBC 9.3 RBC 4.11 Hgb 14.2 Hct 39.8 D MCV 96.9 H MCH 34.4 H MCHC 35.5 RDW 13.6 Plt Count 244 MPV 6.8 L Absolute Neuts (auto) 6.8 Neutrophils % 72.6 Lymphocytes % 14.6 D Monocytes % 10.4 H Eosinophils % 1.1 Basophils % 1.3 Nucleated RBC % 0 PT with INR 11.40 INR 0.97 Sodium 141 Potassium 4.8 Chloride 106 Carbon Dioxide 27 Anion Gap 7 L BUN 43 H Creatinine 1.6 H Creat Clearance w eGFR 31.42 Random Glucose 117 H Calcium 8.9 Phosphorus Magnesium Total Bilirubin 0.2 AST 13 L ALT 24 Alkaline Phosphatase 96 Troponin I < 0.02 Total Protein 6.5 Albumin 3.5 Triglycerides Cholesterol Total LDL Cholesterol HDL Cholesterol Vitamin B12 Serum Folate TSH Urine Color Urine Appearance Urine pH Ur Specific [place] Urine Protein Urine Glucose (UA) Urine Ketones Urine Blood Urine Nitrite Urine Bilirubin Urine Urobilinogen Ur Leukocyte Esterase Urine WBC (Auto) Urine RBC (Auto) Ur Epithelial Cells Urine Bacteria Urine Mucus Alcohol, Quantitative Blood Type Antibody Screen 11/26/18 11/26/18 11/27/18 22:05 22:05 02:58 WBC RBC Hgb Hct MCV MCH MCHC RDW Plt Count MPV Absolute Neuts (auto) Neutrophils % Lymphocytes % Monocytes % Eosinophils % Basophils % Nucleated RBC % PT with INR INR Sodium Potassium Chloride Carbon Dioxide Anion Gap BUN Creatinine Creat Clearance w eGFR Random Glucose Calcium Phosphorus Magnesium Total Bilirubin AST ALT Alkaline Phosphatase Troponin I Total Protein Albumin Triglycerides Cholesterol Total LDL Cholesterol HDL Cholesterol Vitamin B12 470 Serum Folate 21 H TSH Urine Color Ltyellow Urine Appearance Clear Urine pH 5.0 Ur Specific [place] 1.019 Urine Protein Negative Urine Glucose (UA) 1+ H Urine Ketones Negative Urine Blood Negative Urine Nitrite Negative Urine Bilirubin Negative Urine Urobilinogen Negative Ur Leukocyte Esterase 3+ H Urine WBC (Auto) 12 Urine RBC (Auto) 2 Ur Epithelial Cells Rare Urine Bacteria Rare Urine Mucus Rare Alcohol, Quantitative Blood Type B POSITIVE Antibody Screen Negative 11/27/18 11/27/18 11/27/18 08:40 08:40 08:40 WBC 8.0 RBC 4.00 Hgb 13.7 Hct 38.7 MCV 96.8 H MCH 34.2 H MCHC 35.4 RDW 13.6 Plt Count 226 MPV 7.0 L Absolute Neuts (auto) 5.4 Neutrophils % 67.5 Lymphocytes % 21.3 D Monocytes % 8.6 Eosinophils % 1.3 Basophils % 1.3 Nucleated RBC % 0 PT with INR INR Sodium 138 Potassium 4.7 Chloride 107 Carbon Dioxide 26 Anion Gap 5 L BUN 33 H Creatinine 1.2 Creat Clearance w eGFR 43.80 Random Glucose 103 Calcium 8.1 L Phosphorus 3.2 Magnesium 1.9 Total Bilirubin 0.3 AST 12 L ALT 22 Alkaline Phosphatase 95 Troponin I Total Protein 6.1 L Albumin 3.3 L Triglycerides 67 Cholesterol 179 Total LDL Cholesterol 89 HDL Cholesterol 75 H Vitamin B12 Serum Folate TSH 1.14 Urine Color Urine Appearance Urine pH Ur Specific [place] Urine Protein Urine Glucose (UA) Urine Ketones Urine Blood Urine Nitrite Urine Bilirubin Urine Urobilinogen Ur Leukocyte Esterase Urine WBC (Auto) Urine RBC (Auto) Ur Epithelial Cells Urine Bacteria Urine Mucus Alcohol, Quantitative < 3.0 Blood Type Antibody Screen Active Medications Generic Name Dose Route Start Last Admin Trade Name Freq PRN Reason Stop Dose Admin Aspirin 81 mg 11/27/18 10:00 11/27/18 09:45 Ecotrin - PO 81 mg DAILY WHITNEY Administration Escitalopram Oxalate 5 mg 11/27/18 10:00 11/27/18 09:45 Lexapro - PO 5 mg DAILY WHITNEY Administration Heparin Sodium (Porcine) 5,000 unit 11/27/18 06:00 11/27/18 06:22 Heparin - SQ 5,000 unit TID WHITNEY Administration Ceftriaxone Sodium 1 gm/ 50 mls @ 100 mls/hr 11/27/18 10:00 11/27/18 09:46 Dextrose IVPB 100 mls/hr DAILY WHITNEY Administration Protocol Non-Formulary Medication 500 mg 11/27/18 10:00 Disulfiram [Antabuse] PO DAILY WHITNEY Tiotropium [place] 2 puff 11/27/18 10:00 11/27/18 10:26 Spiriva Respimat IH Not Given DAILY WHITNEY Verapamil HCl 240 mg 11/27/18 10:00 11/27/18 09:45 Calan Sr - PO 240 mg DAILY WHITNEY Administration ASSESSMENT/PLAN: Patient is a 73 year old female with history of hypertension, COPD, peripheral artery disease (s/p stents), hypothyroidism, alcohol use disorder, presents after fall. Syncopal episodes -CT head negative for acute intracranial pathology. -CT cervical spine negative for fracture. C5-C6 disc herniated noted. -Chest Xray negative for acute pathology. -Xray of coccyx shows no acute fracture. Degenrative changes of spine and hips , right inguinal stent noted. -Xray pelvis shows no acute fracture. Degernative changes, scoliosis noted. -Cardiac ECHO shows LV normal size, thickness, function EF 65%. -B12 470, Folate 21, Trop 0.02, ETOH level less than 3 -Follow Carotid dopplers -Cardiology consult (Dr. Frias) Urinary tract infection -UA shows 1+ glucose, 3+ leukocyte esterase, 12 WBC, 2 RBC -Rocephin 1 gram IV daily (day #1) Cervical spine disc herniation -Noted incidentally on CT cervical spine. Tender to palpation -Follow MRI cervical spine Alcohol use disorder -ETOH level less than 3 -Antebuse 250mg PO daily -nonformulary at this hospital. patient will bring medication to reconcile with hospital pharmacy. Hypertension -Verapamil ER 240mg PO daily -Labetalol 100mg PO BID with holding parameters ABRAM on CKD -Improving BUN 33, Cr 1.2 -IV lactated Ringer's at 50mL/ hour -Follow CMP FEN -IV lactated Ringer's at 50mL/ hour -Within normal limits, follow CMP -Sodium controlled diet Prophylaxis -Heparin 5000u subq TID Disposition -Continue care in Telemetry floor Visit type - Emergency Visit Emergency Visit: Yes ED Registration Date: 11/27/18 Care time: The patient presented to the Emergency Department on the above date and was hospitalized for further evaluation of their emergent condition. - New Patient This patient is new to me today: Yes Date on this admission: 11/27/18 - Critical Care Critical Care patient: No - Discharge Referral Referred to [facility] Med [facility] No
[2018-11-27] MEDS ORDERED: NIFEdipine E.R. 30 MG TABLET (FP) PO SCH (14:30)
--- NOTE | 2018-11-27 15:06 | EKG ---
Test Reason : Blood Pressure : / mmHG Vent. Rate : 089 BPM Atrial Rate : 089 BPM P-R Int : 158 ms QRS Dur : 092 ms QT Int : 354 ms P-R-T Axes : 040 072 085 degrees QTc Int : 430 ms NORMAL SINUS RHYTHM NORMAL ECG WHEN COMPARED WITH ECG OF 28-DEC-2017 21:25, NO SIGNIFICANT CHANGE WAS FOUND Confirmed by Jovanni Cha MD ([id number]) on 11/27/2018 3:05:27 PM Referred By: Confirmed By:Jovanni Cha MD
[2018-11-27] MEDS ORDERED: LACTATED RINGERS SOLUTION 1,000 ML/1,000 ML INFUS.BAG IV SCH (16:15)
--- NOTE | 2018-11-27 17:23 | PN ---
Teaching Attending Note Name of Resident: Kofi Whittaker ATTENDING PHYSICIAN STATEMENT I saw and evaluated the patient. I reviewed the resident's note and discussed the case with the resident. I agree with the resident's findings and plan as documented. SUBJECTIVE:asymptomatic. states she remembers falling but not what happened prior to falling. states she knows she was in the bathroom and her daughter was nearby. as per daughter who is bedside, was c/o of lightheaded and dysuria several days ago. OBJECTIVE: Last Vital Signs Temp Pulse Resp BP Pulse Ox 97.7 F 89 18 165/78 97 11/27/18 12:15 11/27/18 12:15 11/27/18 12:15 11/27/18 12:15 11/27/18 12:15 General NAD HEENT no carotid bruit CV S1 S2 RRR no m/r/g Lungs CTA B/L no wheezing/rales/rhonchi abdomen soft NT/ND no suprapubic tenderness MSK point tenderness mid cervical spine. unclear if parathesis during sensation testing. sensation intact along the Upper extremities ASSESSMENT AND PLAN: 73yo F wtih PMH COPD, HTN, partial thyroidectomy, hypothyroid, CKD, remote ETOH dependence on antabuse presented to the ER after multiple mechanical falls 1. Acute metabolic encephalopathy- due to UTI vs dehydration. on Ceftriaxone day 1. will cont and f/u UCx. check echo to r/o and carotid doppler. head CT negative 2. Mechanical fall- due to problem 1. imaging showing C4-C5 disc herniation. will obtain MRI to further evaluate. ortho consult. PT eval 3. Remote ETOH abuse- on antabuse. daughter insist she takes. ETOH level negative. monitor for withdrawal 4. Acute on CKD- likely dehydration. CPK normal. cont IVF. avoid nephrotoxic agents 5. HTN- above goal. re-start home medications 6. DVT prophylaxis - Heparin 5000u sq tid. 7. spoke with daughter present at bedside. answered all questions. verbalized understanding and agreement with plan
[2018-11-27] MEDS: LABETALOL HCL 100 MG TABLET (FP) PO SCH (21:40)
[2018-11-27] MEDS ORDERED: LABETALOL HCL 100 MG TABLET (FP) PO SCH (22:00)
[2018-11-28] MEDS: HEPARIN NA (PORCINE) 5,000 UNITS/ML 1ML VIAL SQ SCH ×2 (06:31→13:29)
[2018-11-28 07:02] LABS: HEMATOCRIT 36.3 % (32.4-45.2); HEMOGLOBIN 12.9 GM/dL (10.7-15.3); MCH 33.8 pg (25.7-33.7); MCHC 35.6 g/dl (32.0-36.0); PLATELET COUNT 225 K/MM3 (134-434); RBC 3.82 M/mm3 (3.60-5.2); RDW 13.6 % (11.6-15.6); WHITE BLOOD COUNT 7.9 K/mm3 (4.0-10.0)
[2018-11-28 07:29] LABS: ALBUMIN 3.1 g/dl (3.4-5.0); ALK PHOS 99 U/L (45-117); ANION GAP 8 MMOL/L (8-16); BILIRUBIN,TOTAL 0.3 mg/dL (0.2-1); BLOOD UREA NITROGEN 20 mg/dL (7-18); CALCIUM 8.2 mg/dL (8.5-10.1); CHLORIDE 106 mmol/L (98-107); CO2 24 mmol/L (21-32); CREATININE 1.1 mg/dL (0.55-1.3); GLUCOSE,RANDOM 109 mg/dL (74-106); POTASSIUM 4.6 mmol/L (3.5-5.1); SGOT/AST 15 U/L (15-37); SGPT/ALT 22 U/L (13-61); SODIUM 137 mmol/L (136-145); TOT PROT 6.2 g/dl (6.4-8.2)
[2018-11-28] MEDS ORDERED: PT OWN MED DRAWER 7, Y5N ONE ×2 (08:56→16:58)
[2018-11-28] MEDS ORDERED: DEXTROSE 5%-WATER - 50 ML IVPB ONE (08:57)
[2018-11-28] MEDS ORDERED: cefTRIAXone SODIUM 1 GM VIAL ONE (08:57)
[2018-11-28] MEDS: LABETALOL HCL 100 MG TABLET (FP) PO SCH (09:26)
[2018-11-28] MEDS: ESCITALOPRAM OXALATE 10 MG TABLET (FP) PO SCH (09:26)
[2018-11-28] MEDS: ASPIRIN COATED 81 MG TABLET.EC PO SCH (09:26)
[2018-11-28] MEDS: VERAPAMIL HCL 240 MG E.R. TABLET (FP) PO SCH (09:28)
[2018-11-28] MEDS: CEFTRIAXONE 1 GM in DEXTROSE 5%-WATER - 50 ML IVPB SCH (09:29)
--- NOTE | 2018-11-28 09:32 | PN ---
Progress Note, Physician History of Present Illness: No further near or true syncope, no events on telemetry. - Current Medication List Current Medications: Active Medications Aspirin (Ecotrin -) 81 mg PO DAILY [facility] Last Admin: 11/28/18 09:26 Dose: 81 mg Escitalopram Oxalate (Lexapro -) 5 mg PO DAILY [facility] Last Admin: 11/28/18 09:26 Dose: 5 mg Heparin Sodium (Porcine) (Heparin -) 5,000 unit SQ TID [facility] Last Admin: 11/28/18 06:31 Dose: 5,000 unit Ceftriaxone Sodium 1 gm/ (Dextrose) 50 mls @ 100 mls/hr IVPB DAILY [facility]; Protocol Last Admin: 11/28/18 09:29 Dose: 100 mls/hr Lactated Ringer's (Lactated Ringers Solution) 1,000 ml in 1,000 mls @ 50 mls/ hr IV ASDIR [facility] Last Admin: 11/27/18 17:24 Dose: 50 mls/hr Labetalol HCl (Normodyne -) 100 mg PO BID [facility] Last Admin: 11/28/18 09:26 Dose: 100 mg Non-Formulary Medication (Patient's Own Med) 1 each PO DAILY [facility] Last Admin: 11/28/18 09:25 Dose: 1 each Tiotropium [place] (Spiriva Respimat) 2 puff IH DAILY [facility] Last Admin: 11/27/18 10:26 Dose: Not Given Verapamil HCl (Calan Sr -) 240 mg PO DAILY [facility] Last Admin: 11/28/18 09:28 Dose: 240 mg - Objective Vital Signs: Vital Signs Temperature 97.6 F 11/28/18 06:29 Pulse Rate 94 H 11/28/18 06:29 Respiratory Rate 20 11/28/18 06:29 Blood Pressure 138/80 11/28/18 06:29 O2 Sat by Pulse Oximetry (%) 95 11/27/18 21:00 Constitutional: Yes: No Distress, Calm, Thin Neck: Yes: Supple Cardiovascular: Yes: Regular Rate and Rhythm Respiratory: Yes: Regular, CTA Bilaterally, On Nasal O2 Gastrointestinal: Yes: Normal Bowel Sounds, Soft Edema: No Labs: CBC, BMP 11/28/18 06:30 11/28/18 06:30 INR, PTT INR 0.97 (0.83-1.09) 11/26/18 22:05 - ....Imaging EKG: Report Reviewed (Tele: [facility]) Problem List - Problems (1) [id number] kidney injury Code(s): N17.9 - ACUTE KIDNEY FAILURE, UNSPECIFIED; N18.9 - CHRONIC KIDNEY DISEASE, UNSPECIFIED Qualifiers: Chronic kidney disease stage: stage 3 (moderate) (2) Syncope Code(s): R55 - SYNCOPE AND COLLAPSE Qualifiers: Syncope type: unspecified Qualified Code(s): R55 - Syncope and collapse (3) UTI (urinary tract infection) Code(s): N39.0 - URINARY TRACT INFECTION, SITE NOT SPECIFIED Qualifiers: Urinary tract infection type: site unspecified (4) COPD (chronic obstructive pulmonary disease) Code(s): J44.9 - CHRONIC OBSTRUCTIVE PULMONARY DISEASE, UNSPECIFIED Qualifiers: COPD type: unspecified COPD Qualified Code(s): J44.9 - Chronic obstructive pulmonary disease, unspecified (5) HTN (hypertension) Code(s): I10 - ESSENTIAL (PRIMARY) HYPERTENSION Qualifiers: Hypertension type: essential hypertension Qualified Code(s): I10 - Essential (primary) hypertension Assessment/Plan 11/27/2018 Echo: Normal LV size and fxn, LVEF 65%, tr TR 1. Mechanical fall vs. syncope, etiology to be determined 2. Metabolic encephelopathy referable to UTI 3. HTN 4. 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 Hypothyroidism post partial thyroidectomy 6. Pre-renal acute on CKD resolved 7. COPD 8. C5-C6 disc herniation PLAN: 1. ASA 81 qd 2. Continue Verapamil 240 qd 3. Changed Labetalol 100 bid to lisinopril 10 qd by primary team with monitor renal fxn and K 4. Complete abx course 5. DVT prophylaxis, mobilize patient as tolerated
[2018-11-28] MEDS: TIOTROPIUM BROMIDE 2.5 MCG (SPIRIVA) RESPIMAT INHALER IH SCH (10:29)
[2018-11-28] MEDS ORDERED: LISINOPRIL 10 MG TABLET (FP) PO SCH ×2 (11:00→14:00)
--- NOTE | 2018-11-28 11:10 | PN ---
Physical Exam: SUBJECTIVE: Patient seen and examined at bedside this morning. She denies headache, changes in vision, subjective fevers, chills, shortness of breath, chest pain, palpitations.Tolerating diet without abdominal pain, nausea, vomiting. She has not yet had a bowel movement while in the hospital. She is urinating without dysuria, hematuria. She states she did not sleep well last night and feels sleepy, however denies new acute complaints today. OBJECTIVE: Vital Signs Period Temp Pulse Resp BP Sys/Mcfadden Pulse Ox Last 24 Hr 97.6 F-98.2 F 69-95 16-20 132-165/59-80 94-97 GENERAL: The patient is awake, alert, and fully oriented, in no acute distress. HEAD: Normocephalic, tender to palpation left posterior head. EYES: PERRL, extraocular movements intact, sclera anicteric, conjunctiva clear. ENT: Oropharynx clear without exudates, moist mucous membranes. NECK: Supple, without lymphadenopathy. Tender to palpation along lower cervical spine. LUNGS: Breath sounds equal, clear to auscultation bilaterally. No wheezes, no crackles. No accessory muscle use. HEART: Regular rate and rhythm, S1, S2 without murmur, rub or gallop. ABDOMEN: Soft, nontender, nondistended. Normoactive bowel sounds X4 quadrants, no guarding, no rebound tenderness. EXTREMITIES: 2+ radial ,dorsalis pedis pulses bilaterally. Warm, well-perfused, no edema. NEUROLOGICAL: Cranial nerves II through XII grossly intact. Strength 5/5 bilateral upper and lower extremities bilaterally. Bilateral knees non-tender to palpation. PSYCH: Normal mood, normal affect upon my encounter. SKIN: Warm, dry. Laboratory Results - last 24 hr 11/27/18 11/28/18 11/28/18 08:40 06:30 06:30 WBC 7.9 RBC 3.82 Hgb 12.9 Hct 36.3 MCV 95.0 MCH 33.8 H MCHC 35.6 RDW 13.6 Plt Count 225 MPV 7.0 L Sodium 138 137 Potassium 4.7 4.6 Chloride 107 106 Carbon Dioxide 26 24 Anion Gap 5 L 8 BUN 33 H 20 H Creatinine 1.2 1.1 Creat Clearance w eGFR 43.80 48.42 Random Glucose 103 109 H Calcium 8.1 L 8.2 L Phosphorus 3.2 Magnesium 1.9 Total Bilirubin 0.3 0.3 AST 12 L 15 ALT 22 22 Alkaline Phosphatase 95 99 Total Protein 6.1 L 6.2 L Albumin 3.3 L 3.1 L Triglycerides 67 Cholesterol 179 Total LDL Cholesterol 89 HDL Cholesterol 75 H TSH 1.14 Active Medications Generic Name Dose Route Start Last Admin Trade Name Freq PRN Reason Stop Dose Admin Aspirin 81 mg 11/27/18 10:00 11/28/18 09:26 Ecotrin - PO 81 mg DAILY WHITNEY Administration Escitalopram Oxalate 5 mg 11/27/18 10:00 11/28/18 09:26 Lexapro - PO 5 mg DAILY WHITNEY Administration Heparin Sodium (Porcine) 5,000 unit 11/27/18 06:00 11/28/18 06:31 Heparin - SQ 5,000 unit TID WHITNEY Administration Ceftriaxone Sodium 1 gm/ 50 mls @ 100 mls/hr 11/27/18 10:00 11/28/18 09:29 Dextrose IVPB 100 mls/hr DAILY WHITNEY Administration Protocol Lactated Ringer's 1,000 ml in 1,000 mls @ 50 mls/hr 11/27/18 16:15 11/27/18 17:24 Lactated Ringers Solution IV 50 mls/hr ASDIR WHITNEY Administration Lisinopril 10 mg 11/28/18 14:00 Prinivil PO DAILY WHITNEY Non-Formulary Medication 1 each 11/28/18 10:00 11/28/18 09:25 Patient's Own Med PO 1 each DAILY WHITNEY Administration Tiotropium [place] 2 puff 11/27/18 10:00 11/28/18 10:29 Spiriva Respimat IH 2 puff DAILY WHITNEY Administration Verapamil HCl 240 mg 11/27/18 10:00 11/28/18 09:28 Calan Sr - PO 240 mg DAILY WHITNEY Administration IMAGING -CT head negative for acute intracranial pathology. -CT cervical spine negative for fracture. C5-C6 disc herniated noted. -Chest Xray negative for acute pathology. -Xray of coccyx shows no acute fracture. Degenrative changes of spine and hips , right inguinal stent noted. -Xray pelvis shows no acute fracture. Degernative changes, scoliosis noted. -Cardiac ECHO shows LV normal size, thickness, function EF 65%. ASSESSMENT/PLAN: Patient is a 73 year old female with history of hypertension, COPD, peripheral artery disease (s/p right sided inguinal stent), hypothyroidism, alcohol use disorder, presents after fall. Acute metabolic encephalopathy -Secondary to urinary tract infection, vs. dehydration. -B12 470, Folate 21, Trop 0.02, ETOH level less than 3 -Patient denies lightheadedness, dizziness -Cardiology consult (Dr. Frias) appreciated. Aspirin 81mg PO daily Urinary tract infection -UA shows 1+ glucose, 3+ leukocyte esterase, 12 WBC, 2 RBC -Urine culture contaminated -Rocephin 1 gram IV daily (day #2) Cervical spine disc herniation -Noted incidentally on CT cervical spine. Tender to palpation -MRI cervical spine notes C5-C6 degenerative anterior spondylosis, arthropathy. C5-C6 disc protrusion noted with subarachnoid space encroachment. -Neurosurgery consult (Dr. Strickland) Parotid gland lesions -Noted incidentally upon MRI cervical spine -Patient will follow up with ENT as outpatient. Alcohol use disorder -ETOH level less than 3 upon admission -Patient is currently not in withdrawal. -Antebuse 250mg PO daily. Reconciled with hospital pharmacy. Hypertension -Verapamil ER 240mg PO daily -Begin Lisinopril 10mg PO daily ABRAM on CKD -Improving. BUN 20, Cr 1.1 -Follow CMP FEN -No IV fluids. -Within normal limits, follow CMP -Sodium controlled diet Prophylaxis -Heparin 5000u subq TID Disposition -Continue care in Telemetry floor Visit type - Emergency Visit Emergency Visit: Yes ED Registration Date: 11/27/18 Care time: The patient presented to the Emergency Department on the above date and was hospitalized for further evaluation of their emergent condition. - New Patient This patient is new to me today: No - Critical Care Critical Care patient: No - Discharge Referral Referred to [facility] Med P.C.: No Physician Referral: Hector Rodriguez MD ([facility])
--- NOTE | 2018-11-28 11:17 | PN ---
Teaching Attending Note Name of Resident: Kofi Whittaker ATTENDING PHYSICIAN STATEMENT I saw and evaluated the patient. I reviewed the resident's note and discussed the case with the resident. I agree with the resident's findings and plan as documented. SUBJECTIVE:feels better today but overall weak. continues to have pain in the neck but relieved with medication. denies Cp, SOB, fever, chills, N/V/C/D OBJECTIVE: Last Vital Signs Temp Pulse Resp BP Pulse Ox 97.6 F 94 H 19 138/80 94 L 11/28/18 06:29 11/28/18 06:29 11/28/18 09:00 11/28/18 06:29 11/28/18 09:00 General NAD CV S1 S2 RRR no m/r/g Lungs CTA B/L no wheezing/rales/rhonchi abdomen soft NT/ND no suprapubic tenderness MSK bone point tenderness mid cervical spine. ASSESSMENT AND PLAN: 73yo F wtih PMH COPD, HTN, partial thyroidectomy, hypothyroid, CKD, remote ETOH dependence on antabuse presented to the ER after multiple mechanical falls 1. Acute metabolic encephalopathy- due to UTI vs dehydration. clinically improved. on Ceftriaxone day 2. echo not showing any valve issues. 2. C5-C6 disc herniation- has pain in area but does not seem to have neurological deficits. neurosurg eval 2. Mechanical fall- due to problem 1. PT eval 3. Remote ETOH abuse- on antabuse. daughter insist she takes. ETOH level negative. monitor for withdrawal 4. Acute on CKD- likely dehydration. CPK normal. resolved. d/c IVF. avoid nephrotoxic agents 5. HTN- was started on labetolol yesterday. now that ABRAM resolved. will switch to lisinopril. titrate to optimize control 6. DVT prophylaxis - Heparin 5000u sq tid.
[2018-11-28] MEDS ORDERED: LORazepam 2 MG/ML SDV VIAL IVPUSH ONE (20:41)
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
[2018-11-29] MEDS ORDERED: LIDOCAINE 1%-EPI 1:100,000 30 ML MDV IJ ONE (07:34)
[2018-11-29] MEDS ORDERED: GENTAMICIN SO4 80 MG/2 ML VIAL ONE (07:35)
[2018-11-29] MEDS ORDERED: BUPIVACAINE HCL/PF 0.5% (5MG/ML) 10 ML VIAL ONE (07:36)
[2018-11-29] MEDS ORDERED: THROMBIN (BOVINE) 20,000 UNIT VIAL TP ONE (07:42)
[2018-11-29 08:03] LABS: HEMATOCRIT 36.7 % (32.4-45.2); HEMOGLOBIN 12.9 GM/dL (10.7-15.3); MCH 33.4 pg (25.7-33.7); MCHC 35.1 g/dl (32.0-36.0); MEAN CELL VOLUME 95.2 fl (80-96); MEAN PLT VOLUME 7.3 fl (7.5-11.1); PLATELET COUNT 225 K/MM3 (134-434); RBC 3.86 M/mm3 (3.60-5.2); RDW 13.9 % (11.6-15.6); WHITE BLOOD COUNT 6.6 K/mm3 (4.0-10.0)
[2018-11-29 08:36] LABS: ALBUMIN 3.1 g/dl (3.4-5.0); ALK PHOS 92 U/L (45-117); ANION GAP 6 MMOL/L (8-16); BILIRUBIN,TOTAL 0.4 mg/dL (0.2-1); BLOOD UREA NITROGEN 22 mg/dL (7-18); CALCIUM 8.6 mg/dL (8.5-10.1); CHLORIDE 105 mmol/L (98-107); CO2 26 mmol/L (21-32); CREATININE 1.2 mg/dL (0.55-1.3); GLUCOSE,RANDOM 113 mg/dL (74-106); SGOT/AST 13 U/L (15-37); SGPT/ALT 25 U/L (13-61); SODIUM 137 mmol/L (136-145); TOT PROT 5.8 g/dl (6.4-8.2)
[2018-11-29] MEDS ORDERED: ONDANSETRON 4 MG/2 ML VIAL ONE (08:40)
[2018-11-29] MEDS ORDERED: LIDOCAINE HCL/PF 2% SDV 5ML VIAL ONE (08:40)
[2018-11-29] MEDS ORDERED: KETOROLAC TROMETHAMINE 30 MG/1 ML VIAL ONE (08:40)
[2018-11-29] MEDS ORDERED: PROPOFOL 20 ML ONE ×2 (08:40)
[2018-11-29] MEDS ORDERED: fentaNYL CITRATE 250 MCG/5 ML VIAL ONE ×2 (08:40→09:54)
[2018-11-29] MEDS ORDERED: ceFAZolin SODIUM 1 GM VIAL ONE (08:40)
[2018-11-29] MEDS ORDERED: ROCURONIUM BROMIDE 50 MG/5 ML VIAL ONE ×2 (08:41)
[2018-11-29] MEDS ORDERED: ceFAZolin SODIUM 1 GM VIAL IVPB ONE (09:01)
[2018-11-29] MEDS ORDERED: VANCOMYCIN 1,000 MG VIAL (RESTRICTED TO ID ONLY) IVPB ONE (09:01)
[2018-11-29] MEDS ORDERED: MIDAZOLAM HCL 2 MG/2 ML SINGLE DOSE VIAL ONE (09:01)
[2018-11-29] MEDS ORDERED: LIDOCAINE 1%/EPI 1:100000 (50 ML MULTI DOSE VIAL) NR ONE (09:09)
[2018-11-29] MEDS ORDERED: LISINOPRIL 10 MG TABLET (FP) PO SCH (10:00)
[2018-11-29] MEDS ORDERED: GLYCOPYRROLATE 0.2 MG/1 ML VIAL ONE ×2 (10:17)
[2018-11-29] MEDS ORDERED: NEOSTIGMINE METHYLSULFATE 0.5 MG/1 ML - 10 ML MDV ONE (10:17)
[2018-11-29] MEDS ORDERED: ALBUTEROL SO4 0.083% IH SOL 2.5 MG/3 ML VIAL.NEB. NEB ONE (10:52)
[2018-11-29] MEDS ORDERED: oxyCODONE HCL 5 MG TABLET PO PRN (10:52)
[2018-11-29] MEDS ORDERED: ONDANSETRON 4 MG/2 ML VIAL IVPUSH PRN ×2 (10:52→11:34)
[2018-11-29] MEDS ORDERED: PROMETHAZINE HCL 25 MG/1 ML VIAL IVPUSH PRN ×2 (10:52→11:34)
--- NOTE | 2018-11-29 10:57 | PN ---
Teaching Attending Note Name of Resident: Kofi Whittaker ATTENDING PHYSICIAN STATEMENT I reviewed the resident's note and discussed the case with the resident. I agree with the resident's findings and plan as documented. SUBJECTIVE:did not see the patient as she was in surgery OBJECTIVE: Last Vital Signs Temp Pulse Resp BP Pulse Ox 97.5 F L 83 18 144/96 95 11/29/18 06:13 11/29/18 06:13 11/29/18 06:13 11/29/18 06:13 11/28/18 20:36 ASSESSMENT AND PLAN: 73yo F wtih PMH COPD, HTN, partial thyroidectomy, hypothyroid, CKD, remote ETOH dependence on antabuse presented to the ER after multiple mechanical falls 1. Acute metabolic encephalopathy- due to UTI vs dehydration. clinically improved. on Ceftriaxone day 3. 2. C5-C6 disc herniation-currently in the OR for cervical ACDF/ post-op plans per neurosurgery. pain control. PT. will likely requires GODWIN when medically cleared. 2. Mechanical fall- due to problem 1. PT eval 3. Remote ETOH abuse- on antabuse. daughter insist she takes. ETOH level negative. monitor for withdrawal 4. Acute on CKD- likely dehydration. CPK normal. resolved. avoid nephrotoxic agents 5. HTN- improved. titrate medications as needed to optimize control 6. DVT prophylaxis - Hold hep for pending surgery. re-start at surgeon discretion 7. will likely benefit from GODWIN when medically cleared. will notify CM
--- NOTE | 2018-11-29 11:03 | PN ---
Physical Exam: SUBJECTIVE: Patient seen and examined at bedside, She is POD#0 s/p C5-C6 anterior cervical discectomy and fusion, with church of cervical lordosis. She is tolerating ice chips, and clear liquids without abdominal pain, nausea, vomiting. She has not yet passed bowel movement or flatus. She denies subjective fevers, chills. OBJECTIVE: Vital Signs Period Temp Pulse Resp BP Sys/Mcfadden Pulse Ox Last 24 Hr 97.1 F-97.9 F 83-98 18-18 122-144/73-96 95 GENERAL: The patient is awake, alert, and fully oriented, in no acute distress. HEENT: Normocephalic. Cervical collar in place. PERRL, EOMI, sclera anicteric. Oropharynx clear without exudates, moist mucous membranes. LUNGS: Breath sounds equal, clear to auscultation bilaterally. No wheezes, no crackles. No accessory muscle use. HEART: Regular rate and rhythm, S1, S2 without murmur, rub or gallop. ABDOMEN: Soft, nontender, nondistended. Normoactive bowel sounds X4 quadrants, no guarding, no rebound tenderness. EXTREMITIES: 2+ radial, dorsalis pedis pulses bilaterally. Warm, well-perfused, no edema. NEUROLOGICAL: Cranial nerves II through XII grossly intact. Strength 5/5 bilateral upper and lower extremities bilaterally. PSYCH: Normal mood, normal affect upon my encounter. SKIN: Warm, dry. Laboratory Results - last 24 hr 11/29/18 11/29/18 06:45 06:45 WBC 6.6 RBC 3.86 Hgb 12.9 Hct 36.7 MCV 95.2 MCH 33.4 MCHC 35.1 RDW 13.9 Plt Count 225 MPV 7.3 L Sodium 137 Potassium 5.0 Chloride 105 Carbon Dioxide 26 Anion Gap 6 L BUN 22 H Creatinine 1.2 Creat Clearance w eGFR 43.80 Random Glucose 113 H Calcium 8.6 Total Bilirubin 0.4 AST 13 L ALT 25 Alkaline Phosphatase 92 Total Protein 5.8 L Albumin 3.1 L Active Medications Generic Name Dose Route Start Last Admin Trade Name Freq PRN Reason Stop Dose Admin Aspirin 81 mg 11/27/18 10:00 11/28/18 09:26 Ecotrin - PO 81 mg DAILY WHITNEY Administration Escitalopram Oxalate 5 mg 11/27/18 10:11/28/18 09:26 Lexapro - PO 5 mg DAILY WHITNEY Administration Fentanyl 50 mcg 11/29/18 10:52 Sublimaze Injection - IVPUSH [id number] PRN PAIN-PACU ORDER X 4 DOSES ONLY Ceftriaxone Sodium 1 gm/ 50 mls @ 100 mls/hr 11/27/18 10:00 11/28/18 09:29 Dextrose IVPB 100 mls/hr DAILY WHITNEY Administration Protocol Lisinopril 10 mg 11/29/18 10:00 Prinivil PO DAILY WHITNEY Non-Formulary Medication 1 each 11/28/18 10:00 11/28/18 09:25 Patient's Own Med PO 1 each DAILY WHITNEY Administration Ondansetron HCl 4 mg 11/29/18 10:52 Zofran Injection IVPUSH Q6H PRN NAUSEA AND/OR VOMITING Oxycodone HCl 10 mg 11/29/18 10:52 Roxicodone - PO 11/30/18 10:51 Q4H PRN PAIN LEVEL 6-10 Promethazine HCl 12.5 mg 11/29/18 10:52 Phenergan Injection - IVPUSH Q6H PRN NAUSEA-FOR RESCUE AFTER 15 MIN Tiotropium [place] 2 puff 11/27/18 10:00 11/28/18 10:29 Spiriva Respimat IH 2 puff DAILY WHITNEY Administration Verapamil HCl 240 mg 11/27/18 10:00 11/28/18 09:28 Calan Sr - PO 240 mg DAILY WHITNEY Administration IMAGING -CT head negative for acute intracranial pathology. -CT cervical spine negative for fracture. C5-C6 disc herniated noted. -Chest Xray negative for acute pathology. -Xray of coccyx shows no acute fracture. Degenrative changes of spine and hips , right inguinal stent noted. -Xray pelvis shows no acute fracture. Degernative changes, scoliosis noted. -MRI cervical spine notes C5-C6 degenerative anterior spondylosis, arthropathy. C5-C6 disc protrusion noted with subarachnoid space encroachment. -Cardiac ECHO shows LV normal size, thickness, function EF 65%. ASSESSMENT/PLAN: Patient is a 73 year old female with history of hypertension, COPD, peripheral artery disease (s/p right sided inguinal stent), hypothyroidism, alcohol use disorder, presents after fall. Cervical spine disc herniation -Patient is POD#0 s/p C5-C6 anterior cervical discectomy and fusion, with church of cervical lordosis. -Neurosurgery consult (Dr. Strickland) appreciated -Continuing Ceftriaxone 1 gram IV daily postoperatively -Oxycodone 10mg PO Q4H PRN Acute metabolic encephalopathy -improving -Secondary to urinary tract infection, vs. dehydration. -B12 470, Folate 21, Trop 0.02, ETOH level less than 3 -Patient denies lightheadedness, dizziness -Cardiology consult (Dr. Frias) appreciated. Aspirin 81mg PO daily Urinary tract infection -UA shows 1+ glucose, 3+ leukocyte esterase, 12 WBC, 2 RBC -Urine culture contaminated -Rocephin 1 gram IV daily (day #3) Parotid gland lesions -Noted incidentally upon MRI cervical spine -Patient will follow up with ENT as outpatient. Alcohol use disorder -ETOH level less than 3 upon admission -Patient is currently not in withdrawal. CIWA 0 -Antebuse 250mg PO daily. Reconciled with hospital pharmacy. Hypertension -Verapamil ER 240mg PO daily -Lisinopril 10mg PO daily ABRAM on CKD -BUN 22, Cr 1.2. Likely secondary to dehydration. -IV LR at 75mL/ hour -Nephrology consult (Dr. Camacho) -Follow CMP FEN -LR at 75mL/ hour -Within normal limits, follow CMP -Clear liquid Prophylaxis -SCDs. Will reinstate Heparin tomorrow, with surgical recommendation. Disposition -Continue care in Telemetry floor. Patient will likely require subacute rehab upon discharge. Visit type - Emergency Visit Emergency Visit: Yes ED Registration Date: 11/27/18 Care time: The patient presented to the Emergency Department on the above date and was hospitalized for further evaluation of their emergent condition. - New Patient This patient is new to me today: No - Critical Care Critical Care patient: No - Discharge Referral Referred to [facility] Med P.C.: No
[2018-11-29] MEDS ORDERED: DEXAMETHASONE SOD PHOSPHATE 4 MG/1 ML VIAL ONE (11:07)
--- NOTE | 2018-11-29 11:22 | OP ---
Operative Note - Note: Operative Date: 11/29/18 Pre-Operative Diagnosis: Cervical Spondylosis Operation: C56 Discectomy and arthrodesis with resection of osteophytes and posterior longitudnal ligament, local autograft,deformity correction ( holiness of lordosis), interbody cage C56 Findings: as dictated Implants: as dictated Post-Operative Diagnosis: Same as Pre-op Surgeon: Qamar Strickland Entry Level Lab Technician: Johnathan Gallagher Anesthesiologist/BRANCH RENTAL MANAGER: Fito Bai Anesthesia: General, Local Specimens Removed: c5-c6 disc Estimated Blood Loss (mls): 15 (ml) Drains & Tubes with Location: drain Drains, Volume Out (mls): 250 (ml clear urine) Fluid Volume Replaced (mls): 1 (L LR) Operative Report Dictated: Yes
[2018-11-29] MEDS ORDERED: diphenhydrAMINE HCL 25 MG CAPSULE (FP) PO PRN (11:34)
[2018-11-29] MEDS ORDERED: LACTATED RINGERS SOLUTION 1,000 ML/1,000 ML INFUS.BAG IV SCH (11:34)
[2018-11-29] MEDS: CEFTRIAXONE 1 GM in DEXTROSE 5%-WATER - 50 ML IVPB SCH (14:36)
[2018-11-29] MEDS: TIOTROPIUM BROMIDE 2.5 MCG (SPIRIVA) RESPIMAT INHALER IH SCH (14:36)
[2018-11-29] MEDS: DOCUSATE SODIUM 100 MG CAPSULE (FP) PO SCH ×2 (14:37→21:34)
[2018-11-29] MEDS: ESCITALOPRAM OXALATE 10 MG TABLET (FP) PO SCH (14:37)
[2018-11-29] MEDS: ASPIRIN COATED 81 MG TABLET.EC PO SCH (14:37)
[2018-11-29] MEDS: VERAPAMIL HCL 240 MG E.R. TABLET (FP) PO SCH (14:37)
--- NOTE | 2018-11-29 14:43 | CONSULT ---
Consult Consult Specialty:: Nephrology Reason for Consultation:: CKD - History of Present Illness Chief Complaint: neck pain History of Present Illness: Pt is a 73 year old female with pmhx of COPD, HTN, PAD, and CKD who presents after a fall. She also had neck pain. She was taken to OR today as she has a herniated cervical disk. I was called to evaluate her for htn and elevated creatinine. Her renal function has been getting better since admission. Her bp has been labile however she is in pain. She is on lisinopril. - History Source History Provided By: Patient, Family Member - Past Medical History ASPHALT PAVER: Yes: Alzheimer's Cardio/Vascular: Yes: HTN, Hyperlipdemia Pulmonary: Yes: COPD Renal/: Yes: Renal Inusuff ...: No Endocrine: Yes: Hypothyroidism - Past Surgical History Past Surgical History: Yes: Stent - Alcohol/Substance Use Hx Alcohol Use: Yes (MARCH 2018 LAST DRINK) - Smoking History Smoking history: Current every day smoker Have you smoked in the past 12 months: Yes Aproximately how many cigarettes per day: 10 If you are a former smoker, when did you quit?: 3 WEEKS - Social History Usual Living Arrangement: With Child ADL: Independent History of Recent Travel: No Home Medications - Allergies Allergies/Adverse Reactions: Allergies Allergy/AdvReac Type Severity Reaction Status Date / Time clopidogrel bisulfate AdvReac Severe SEVERE Verified 11/26/18 21:17 [From Plavix] DIZZINESS prednisone AdvReac Severe Verified 11/26/18 21:17 - Home Medications Home Medications: Ambulatory Orders Verapamil HCl [Verapamil ER] 240 mg PO DAILY 09/01/15 Tiotropium [place] [Spiriva] 1 inh IH DAILY 05/22/17 Aspirin [Aspirin EC] 81 mg PO DAILY 12/28/17 Disulfiram [Antabuse] 250 mg PO DAILY 10/14/18 Escitalopram Oxalate [Lexapro -] 5 mg PO DAILY 10/14/18 Family Disease History - Family Disease History Family Disease History: Heart Disease: Father, Mother Review of Systems - Review of Systems Constitutional: reports: Malaise Eyes: reports: No Symptoms HENT: reports: No Symptoms Neck: reports: Other (s/p disk repair) Gastrointestinal: reports: No Symptoms Genitourinary: reports: No Symptoms Integumentary: reports: No Symptoms Neurological: reports: No Symptoms Endocrine: reports: No Symptoms Hematology/Lymphatic: reports: No Symptoms Physical Exam Vital Signs: Vital Signs Temperature 98.2 F 11/29/18 13:35 Pulse Rate 86 11/29/18 13:35 Respiratory Rate 18 11/29/18 13:35 Blood Pressure 148/80 11/29/18 13:35 O2 Sat by Pulse Oximetry (%) 98 11/29/18 13:15 Constitutional: Yes: Mild Distress Eyes: Yes: Conjunctiva Clear Neck: Yes: Other (brace and radha drain) Cardiovascular: Yes: S1, S2 Respiratory: Yes: CTA Bilaterally Gastrointestinal: Yes: Soft Renal/: Yes: WNL Musculoskeletal: Yes: Other (neck pain) Edema: No Neurological: Yes: Oriented Psychiatric: Yes: Oriented Labs: CBC, BMP 11/29/18 06:45 11/29/18 06:45 Selected Entries 11/29/18 11/29/18 11/29/18 11:00 11:15 12:00 Blood Pressure 143/65 128/68 138/65 11/29/18 11/29/18 11/29/18 12:30 13:00 13:15 Blood Pressure 151/74 153/78 150/70 11/29/18 13:35 Blood Pressure 148/80 Laboratory Tests 03/31/18 04/01/18 04/02/18 06:00 06:00 06:30 WBC Hct Sodium Potassium BUN Creatinine 1.2 H 1.4 H 1.3 H 11/26/18 11/27/18 11/28/18 22:05 08:40 06:30 WBC Hct Sodium Potassium 4.8 BUN Creatinine 1.6 H 1.2 1.1 11/29/18 11/29/18 06:45 06:45 WBC 6.6 Hct 36.7 Sodium 137 Potassium 5.0 BUN 22 H Creatinine 1.2 Imaging - Results Chest X-ray: Report Reviewed Problem List - Problems (1) HTN (hypertension) Code(s): I10 - ESSENTIAL (PRIMARY) HYPERTENSION Qualifiers: Hypertension type: essential hypertension Qualified Code(s): I10 - Essential (primary) hypertension Assessment/Plan Current Medications Generic Name Dose Route Start Last Admin Trade Name Freq PRN Reason Stop Dose Admin Diphenhydramine HCl 25 mg 11/29/18 11:34 Benadryl - PO Q6H PRN FOR ITCHING Docusate Sodium 100 mg 11/29/18 14:00 11/29/18 14:37 Colace - PO Not Given TID [facility] Escitalopram Oxalate 5 mg 11/30/18 10:00 Lexapro - PO DAILY [facility] Ferrous Sulfate 325 mg 11/30/18 10:00 Feosol - PO DAILY [facility] Folic Acid 1 mg 11/30/18 10:00 Folic Acid - PO DAILY [facility] Heparin Sodium (Porcine) 5,000 unit 11/30/18 09:00 Heparin - SQ Q8H [facility] Ceftriaxone Sodium 1 gm/ 50 mls @ 100 mls/hr 11/30/18 10:00 Dextrose IVPB DAILY [facility] Protocol Lactated Ringer's 1,000 ml in 1,000 mls @ 75 mls/hr 11/29/18 11:34 Lactated Ringers Solution IV ASDIR [facility] Lisinopril 10 mg 11/30/18 10:00 Prinivil PO DAILY [facility] Non-Formulary Medication 1 each 11/30/18 10:00 Patient's Own Med PO DAILY [facility] Oxycodone HCl 10 mg 11/29/18 11:34 Roxicodone - PO 11/30/18 10:51 Q4H PRN PAIN LEVEL 6-10 Tiotropium [place] 2 puff 11/30/18 10:00 Spiriva Respimat IH DAILY [facility] Verapamil HCl 240 mg 11/30/18 10:00 Calan Sr - PO DAILY [facility] Impression 1. CKD 2. HTN 3. etoh abuse 4. COPD 5. emphysema 6. hyperlipidemia 7. cervical disk herniation Plan - monitor bp - monitor potassium with sunita - repeat labs i n am - avoid nsaids for pain - d/c LR as it has potassium in it - discussed with family - will follow Dr Camacho
[2018-11-29] MEDS ORDERED: SODIUM CHLORIDE 0.45% 1,000 ML IV SCH (17:00)
[2018-11-29] MEDS ORDERED: CEFAZOLIN 1 GM/D5W 1 GM/50 ML BAG IVPB SCH (17:15)
[2018-11-29] MEDS: oxyCODONE HCL 5 MG TABLET PO PRN ×2 (17:56→23:49)
[2018-11-29] MEDS ORDERED: VERAPAMIL HCL 40 MG TABLET (FP) PO ONE (23:04)
[2018-11-29] MEDS ORDERED: LISINOPRIL 5 MG TABLET (FP) PO ONE (23:05)
--- NOTE | 2018-11-29 23:30 | HOSP ---
Physical Examination Vital Signs: Vital Signs Temperature 98.0 F 11/29/18 22:49 Pulse Rate 88 11/29/18 22:49 Respiratory Rate 20 11/29/18 22:49 Blood Pressure 210/110 H 11/29/18 22:49 O2 Sat by Pulse Oximetry (%) 98 11/29/18 21:00 Labs: CBC, BMP 11/29/18 06:45 11/29/18 06:45 Hospitalist Encounter Assessment: patient dressing was saturated in blood- spoke to dr. jenkins who said i an change dressing. so dressing was changed with nurse Ne present Visit type - Emergency Visit Emergency Visit: Yes ED Registration Date: 11/27/18 Care time: The patient presented to the Emergency Department on the above date and was hospitalized for further evaluation of their emergent condition. - New Patient This patient is new to me today: Yes Date on this admission: 11/29/18 - Critical Care Critical Care patient: No
[2018-11-30] MEDS: DOCUSATE SODIUM 100 MG CAPSULE (FP) PO SCH ×3 (05:04→21:59)
[2018-11-30 06:09] LABS: HEMATOCRIT 34.8 % (32.4-45.2); HEMOGLOBIN 12.1 GM/dL (10.7-15.3); MCH 33.5 pg (25.7-33.7); MCHC 34.7 g/dl (32.0-36.0); MEAN CELL VOLUME 96.4 fl (80-96); MEAN PLT VOLUME 6.8 fl (7.5-11.1); PLATELET COUNT 214 K/MM3 (134-434); RBC 3.61 M/mm3 (3.60-5.2); RDW 13.6 % (11.6-15.6); WHITE BLOOD COUNT 8.6 K/mm3 (4.0-10.0)
[2018-11-30 06:27] LABS: ANION GAP 6 MMOL/L (8-16); BLOOD UREA NITROGEN 15 mg/dL (7-18); CALCIUM 8.1 mg/dL (8.5-10.1); CHLORIDE 103 mmol/L (98-107); CO2 27 mmol/L (21-32); CREATININE 1.1 mg/dL (0.55-1.3); GLUCOSE,RANDOM 102 mg/dL (74-106); POTASSIUM 4.5 mmol/L (3.5-5.1); SODIUM 136 mmol/L (136-145)
--- NOTE | 2018-11-30 09:03 | PN ---
Progress Note (short form) - Note Progress Note: POD1, s/p C5/C6 Discectomy and fusion Pt seen and examined this morning. Agitated, states dressing has been soaking through and had to be changed twice overnight. Reports pain with dressing change. Tolerating clears. Has not been oob yet. Denies cp/sob, n/v/d, motor/ sensory deficits. Vital Signs Temp 98.0 F 11/30/18 05:00 Pulse 97 H 11/30/18 05:00 Resp 18 11/30/18 05:00 BP 157/91 11/30/18 05:00 Pulse Ox 98 11/29/18 21:00 Intake & Output 11/29/18 11/29/18 11/30/18 11:59 23:59 11:59 Intake Total 1200 726 294 Output Total 265 3612 920 Balance 935 -2886 -626 Intake: IV 1200 126 294 1/2 Normal Saline 1,000 126 294 ml @ 42 mls/hr IV ASDIR [facility] Rx#:[id number] Oral 600 Output: Drainage 62 20 Right Neck 62 20 Urine 250 3550 900 Heller 3050 900 Estimated Blood Loss 15 Other: Voiding Method Toilet Toilet # Unmeasured Voids Void 4 CBC, BMP 11/30/18 05:58 11/30/18 05:58 Gen: awake, alert, nad Resp: unlabored on RA Neck: Dressing completely saturated, removed with large clot formation present. Small amount of oozing from center of incision, attempt to control with light pressure, pt began jerking head side to side, was unable to tolerate. incision redressed with 4x4s and tegaderm. Brace placed back on and secured. Neuro: b/l ue roof bolter strength intact, b/l biceps/triceps 5/5, shoulder shrug strong and equal b/l. B/L LE dorsiflex/plantar flex 5/5. SILT b/l ue/le A/P: 73 y/o F with PMH of COPD, HTN, PAD (s/p stents), CKD, hypothyroidism, alcohol abuse (on antabuse), now POD 1, s/p C5/C6 Discectomy and fusion. Pt requiring multiple dressing changes overnight and this morning. No evidence oh hematoma or airway compromise. HTN overnight systolic 170s-200s. Neuro exam stable Labs stable. RADHA output 20 overnight. -BP control -Cepacol ordered for cough/throat irritation -Keep neck brace in place -Have pt sit up in bed as much as possible -Monitor and record radha output -Call surgery if any issues with dressing saturation throughout the day -Neurovascular check and VSS per protocol above d/w attending Dr Mazariegos
--- NOTE | 2018-11-30 09:24 | PN ---
Progress Note, Physician History of Present Illness: POD#1 s/p C5/C6 discectomy and fusion - Current Medication List Current Medications: Active Medications Diphenhydramine HCl (Benadryl -) 25 mg PO Q6H PRN PRN Reason: FOR ITCHING Docusate Sodium (Colace -) 100 mg PO TID [facility] Last Admin: 11/30/18 05:04 Dose: 100 mg Escitalopram Oxalate (Lexapro -) 5 mg PO DAILY [facility] Ferrous Sulfate (Feosol -) 325 mg PO DAILY [facility] Folic Acid (Folic Acid -) 1 mg PO DAILY [facility] Heparin Sodium (Porcine) (Heparin -) 5,000 unit SQ Q8H [facility] Ceftriaxone Sodium 1 gm/ (Dextrose) 50 mls @ 100 mls/hr IVPB DAILY [facility]; Protocol Lisinopril (Prinivil) 10 mg PO DAILY [facility] Non-Formulary Medication (Patient's Own Med) 1 each PO DAILY [facility] Oxycodone HCl (Roxicodone -) 10 mg PO Q4H PRN PRN Reason: PAIN LEVEL 6-10 Stop: 11/30/18 10:51 Last Admin: 11/29/18 23:49 Dose: 10 mg Tiotropium [place] (Spiriva Respimat) 2 puff IH DAILY [facility] Verapamil HCl (Calan Sr -) 240 mg PO DAILY [facility] - Objective Vital Signs: Vital Signs Temperature 98.0 F 11/30/18 05:00 Pulse Rate 97 H 11/30/18 05:00 Respiratory Rate 18 11/30/18 05:00 Blood Pressure 157/91 11/30/18 05:00 O2 Sat by Pulse Oximetry (%) 98 11/29/18 21:00 Constitutional: Yes: No Distress, Calm, Thin Neck: Yes: Supple Cardiovascular: Yes: Regular Rate and Rhythm Respiratory: Yes: Regular, Diminished Gastrointestinal: Yes: Normal Bowel Sounds, Soft Edema: No Labs: CBC, BMP 11/30/18 05:58 11/30/18 05:58 INR, PTT INR 0.97 (0.83-1.09) 11/26/18 22:05 - ....Imaging EKG: Report Reviewed (Tele: TETE LOPEZ) Problem List - Problems (1) [id number] kidney injury Code(s): N17.9 - ACUTE KIDNEY FAILURE, UNSPECIFIED; N18.9 - CHRONIC KIDNEY DISEASE, UNSPECIFIED Qualifiers: Chronic kidney disease stage: stage 3 (moderate) (2) Syncope Code(s): R55 - SYNCOPE AND COLLAPSE Qualifiers: Syncope type: unspecified Qualified Code(s): R55 - Syncope and collapse (3) UTI (urinary tract infection) Code(s): N39.0 - URINARY TRACT INFECTION, SITE NOT SPECIFIED Qualifiers: Urinary tract infection type: site unspecified (4) COPD (chronic obstructive pulmonary disease) Code(s): J44.9 - CHRONIC OBSTRUCTIVE PULMONARY DISEASE, UNSPECIFIED Qualifiers: COPD type: unspecified COPD Qualified Code(s): J44.9 - Chronic obstructive pulmonary disease, unspecified (5) HTN (hypertension) Code(s): I10 - ESSENTIAL (PRIMARY) HYPERTENSION Qualifiers: Hypertension type: essential hypertension Qualified Code(s): I10 - Essential (primary) hypertension Assessment/Plan 11/27/2018 Echo: Normal LV size and fxn, LVEF 65%, tr TR 1. C5-C6 disc herniation POD#1 s/p C5/C6 Discectomy and fusion 2. Mechanical fall vs. syncope 3. Metabolic encephelopathy referable to UTI 4. HTN 5. PAD s/p [employer]/stent 6. Hypothyroidism post partial thyroidectomy 7. Pre-renal acute on CKD resolved 8. COPD PLAN: 1. Wound care, drain management per NSG 2. Continue Verapamil 240 qd, lisinopril 10 qd 3. Complete empiric abx course 4. DVT prophylaxis
[2018-11-30] MEDS ORDERED: cefTRIAXone SODIUM 1 GM VIAL ONE (09:39)
[2018-11-30] MEDS ORDERED: DEXTROSE 5%-WATER - 50 ML IVPB ONE (09:39)
--- NOTE | 2018-11-30 09:48 | PN ---
Progress Note (short form) - Note Progress Note: Post op day#1.S/P c5-C6 Disectomy with fusion under GA uneventful.Patient stable and has some pain for which she is on medication.No any anesthesia related problem.Patient DC from the anesthesia care.
--- NOTE | 2018-11-30 10:18 | PN ---
Physical Exam: SUBJECTIVE: Patient seen and examined at bedside this morning. Overnight she surgical dressing was saturated with blood and was changed twice. She did not receive her antihypertensives yesterday due to the procedure, and was hypertensive overnight, which was manged with re-administration of her Verapamil and Lisinopril. This morning she is tolerating clear liquids without abdominal, nausea, vomiting. She complains of sore throat. Denies subjective fevers, chills. OBJECTIVE: Vital Signs Period Temp Pulse Resp BP Sys/Mcfadden Pulse Ox Last 24 Hr 97.6 F-98.2 F 78-125 12-20 126-210/45-110 96-100 GENERAL: The patient is awake, alert, and fully oriented, in no acute distress. HEENT: Normocephalic. Cervical collar in place. PERRL, EOMI, sclera anicteric. Oropharynx clear without exudates, moist mucous membranes. LUNGS: Breath sounds equal, clear to auscultation bilaterally. No wheezes, no crackles. No accessory muscle use. HEART: Regular rate and rhythm, S1, S2 without murmur, rub or gallop. ABDOMEN: Soft, nontender, nondistended. Normoactive bowel sounds X4 quadrants, no guarding, no rebound tenderness. EXTREMITIES: 2+ radial, dorsalis pedis pulses bilaterally. Warm, well-perfused, no edema. NEUROLOGICAL: Cranial nerves II through XII grossly intact. Strength 5/5 bilateral upper and lower extremities bilaterally. PSYCH: Normal mood, normal affect upon my encounter. SKIN: Warm, dry. Surgical bandage clean, dry. No active bleeding noted. Laboratory Results - last 24 hr 11/30/18 11/30/18 05:58 05:58 WBC 8.6 RBC 3.61 Hgb 12.1 Hct 34.8 MCV 96.4 H MCH 33.5 MCHC 34.7 RDW 13.6 Plt Count 214 MPV 6.8 L Sodium 136 Potassium 4.5 Chloride 103 Carbon Dioxide 27 Anion Gap 6 L BUN 15 Creatinine 1.1 Creat Clearance w eGFR 48.42 Random Glucose 102 Calcium 8.1 L Active Medications Generic Name Dose Route Start Last Admin Trade Name Freq PRN Reason Stop Dose Admin Diphenhydramine HCl 25 mg 11/29/18 11:34 Benadryl - PO Q6H PRN FOR ITCHING Docusate Sodium 100 mg 11/29/18 14:00 11/30/18 05:04 Colace - PO 100 mg TID [facility] Administration Escitalopram Oxalate 5 mg 11/30/18 10:00 Lexapro - PO DAILY [facility] Ferrous Sulfate 325 mg 11/30/18 10:00 Feosol - PO DAILY [facility] Folic Acid 1 mg 11/30/18 10:00 Folic Acid - PO DAILY [facility] Heparin Sodium (Porcine) 5,000 unit 11/30/18 09:00 Heparin - SQ Q8H [facility] Ceftriaxone Sodium 1 gm/ 50 mls @ 100 mls/hr 11/30/18 10:00 Dextrose IVPB DAILY [facility] Protocol Lisinopril 10 mg 11/30/18 10:00 Prinivil PO DAILY [facility] Non-Formulary Medication 1 each 11/30/18 10:00 Patient's Own Med PO DAILY [facility] Oxycodone HCl 10 mg 11/29/18 11:34 11/29/18 23:49 Roxicodone - PO 11/30/18 10:51 10 mg Q4H PRN Administration PAIN LEVEL 6-10 Tiotropium [place] 2 puff 11/30/18 10:00 Spiriva Respimat IH DAILY [facility] Verapamil HCl 240 mg 11/30/18 10:00 Calan Sr - PO DAILY [facility] IMAGING -CT head negative for acute intracranial pathology. -CT cervical spine negative for fracture. C5-C6 disc herniated noted. -Chest Xray negative for acute pathology. -Xray of coccyx shows no acute fracture. Degenrative changes of spine and hips , right inguinal stent noted. -Xray pelvis shows no acute fracture. Degernative changes, scoliosis noted. -MRI cervical spine notes C5-C6 degenerative anterior spondylosis, arthropathy. C5-C6 disc protrusion noted with subarachnoid space encroachment. -Cardiac ECHO shows LV normal size, thickness, function EF 65%. ASSESSMENT/PLAN: Patient is a 73 year old female with history of hypertension, COPD, peripheral artery disease (s/p right sided inguinal stent), hypothyroidism, alcohol use disorder, presents after fall. Cervical spine disc herniation -Patient is POD#1 s/p C5-C6 anterior cervical discectomy and fusion, with gnosticist of cervical lordosis. -Post-surgical cervical spine CT scan shows satisfactory alignment s/p anterior fusion C5,C6 vertebral bodies. -Neurosurgery consult (Dr. Strickland) appreciated -Continuing Ceftriaxone 1 gram IV daily postoperatively -Oxycodone 10mg PO Q4H PRN -Chloraseptic spray Q6H PRN Acute metabolic encephalopathy -improving -Secondary to urinary tract infection, vs. dehydration. -B12 470, Folate 21, Trop 0.02, ETOH level less than 3 upon admission -Patient denies lightheadedness, dizziness -Cardiology consult (Dr. Frias) appreciated. Aspirin 81mg PO daily Urinary tract infection -UA shows 1+ glucose, 3+ leukocyte esterase, 12 WBC, 2 RBC -Initial urine culture contaminated. Repeat urine culture without growth. -Rocephin 1 gram IV daily (day #4) Parotid gland lesions -Noted incidentally upon MRI cervical spine -Patient will follow up with ENT as outpatient. Alcohol use disorder -ETOH level less than 3 upon admission -Patient is currently not in withdrawal. CIWA 0 -Antebuse 250mg PO daily. Reconciled with hospital pharmacy. Hypertension -Uncontrolled overnight as patient did not receive her medications (patient was in surgery). Improved today. -Verapamil ER 240mg PO daily -Lisinopril 10mg PO daily ABRAM on CKD -improving -BUN 15, Cr 1.1. Likely secondary to dehydration. -Nephrology consult (Dr. Camacho) appreciated. -Follow CMP FEN -No IV fluids indicated. Encourage judicious oral hydration. -Within normal limits, follow CMP -Clear liquid diet Prophylaxis -Heparin 5000u subq TID Disposition -Continue care in Telemetry floor. Patient will likely require subacute rehab upon discharge. Visit type - Emergency Visit Emergency Visit: Yes ED Registration Date: 11/27/18 Care time: The patient presented to the Emergency Department on the above date and was hospitalized for further evaluation of their emergent condition. - New Patient This patient is new to me today: No - Critical Care Critical Care patient: No - Discharge Referral Referred to [facility] Med P.C.: No
[2018-11-30] MEDS ORDERED: PHENOL 177 ML SPRAY BOTTLE MM PRN (11:19)
--- NOTE | 2018-11-30 11:21 | PN ---
Teaching Attending Note Name of Resident: Kofi Whittaker ATTENDING PHYSICIAN STATEMENT I saw and evaluated the patient. I reviewed the resident's note and discussed the case with the resident. I agree with the resident's findings and plan as documented. SUBJECTIVE:c/o sore throat. tolerating diet. denies Cp, SOB, fever, chills, N/V/ C/D OBJECTIVE: Last Vital Signs Temp Pulse Resp BP Pulse Ox 98.0 F 97 H 18 157/91 98 11/30/18 05:00 11/30/18 05:00 11/30/18 05:00 11/30/18 05:00 11/29/18 21:00 General NAD HEENT unable to assess pharynx due to c-collar. unable to see surgical wound however appears to have dried blood on the bandage CV S1 S2 RRR no murmur/rub/gallop Lungs CTA anteriorly ASSESSMENT AND PLAN: 73yo F wtih PMH COPD, HTN, partial thyroidectomy, hypothyroid, CKD, remote ETOH dependence on antabuse presented to the ER after multiple mechanical falls 1. Acute metabolic encephalopathy- due to UTI vs dehydration. clinically improved. on Ceftriaxone day 4. Cx contaminated 2. C5-C6 disc herniation-s/p C5-6 diskectomy and fusion 11/29. c-collar in place. +AXLE drain. further management per surgery. pain control. PT. will likely requires [facility] when medically cleared. 3. Sore throat- liekly due to ETT during surgery. unable to assess at this time due to c-collar. doubt infectious. start chloraseptic spray and ice cream prn 2. Mechanical fall- due to problem 1. PT eval 3. Remote ETOH abuse- on antabuse. daughter insist she takes. ETOH level negative. monitor for withdrawal 4. Acute on CKD- likely dehydration. CPK normal. resolved. avoid nephrotoxic agents 5. HTN- uncontrolled. missed dose yesterday as she was in OR. re-started this AM.will titrate to optimize control 6. DVT prophylaxis - hep sq 7. awaiting [facility] facility
[2018-11-30] MEDS: ESCITALOPRAM OXALATE 10 MG TABLET (FP) PO SCH (11:22)
[2018-11-30] MEDS: LISINOPRIL 10 MG TABLET (FP) PO SCH (11:22)
[2018-11-30] MEDS: FERROUS SO4 325 MG TABLET (FP) PO SCH (11:22)
[2018-11-30] MEDS: VERAPAMIL HCL 240 MG E.R. TABLET (FP) PO SCH (11:24)
[2018-11-30] MEDS: FOLIC ACID 1 MG TABLET (FP) PO SCH (11:24)
[2018-11-30] MEDS: CEFTRIAXONE 1 GM in DEXTROSE 5%-WATER - 50 ML IVPB SCH (11:25)
[2018-11-30] MEDS: TIOTROPIUM BROMIDE 2.5 MCG (SPIRIVA) RESPIMAT INHALER IH SCH (11:26)
[2018-11-30] MEDS ORDERED: LIDOCAINE HCL 1%, 10 MG/ML (20ML VIAL) ONE (11:30)
[2018-11-30] MEDS ORDERED: ACETAMINOPHEN 325 MG TABLET (FP) PO PRN (11:45)
[2018-11-30] MEDS ORDERED: LIDOCAINE HCL 1% EPINEPHRINE 1:200,000 30 ML VIAL (PF) IJ ONE (12:00)
[2018-11-30] MEDS: oxyCODONE HCL 5 MG TABLET PO PRN ×2 (12:02→19:50)
[2018-11-30] MEDS: HEPARIN NA (PORCINE) 5,000 UNITS/ML 1ML VIAL SQ SCH ×2 (12:28→18:46)
--- NOTE | 2018-11-30 16:14 | PN ---
Progress Note, Physician History of Present Illness: Pt seen and examined at bedside. She is awake and alert. She denies shortness of breath. - Current Medication List Current Medications: Active Medications Acetaminophen (Tylenol -) 650 mg PO Q6H PRN PRN Reason: PAIN LEVEL 1-5 Diphenhydramine HCl (Benadryl -) 25 mg PO Q6H PRN PRN Reason: FOR ITCHING Docusate Sodium (Colace -) 100 mg PO TID [facility] Last Admin: 11/30/18 05:04 Dose: 100 mg Escitalopram Oxalate (Lexapro -) 5 mg PO DAILY [facility] Last Admin: 11/30/18 11:22 Dose: 5 mg Ferrous Sulfate (Feosol -) 325 mg PO DAILY [facility] Last Admin: 11/30/18 11:22 Dose: 325 mg Folic Acid (Folic Acid -) 1 mg PO DAILY [facility] Last Admin: 11/30/18 11:24 Dose: 1 mg Heparin Sodium (Porcine) (Heparin -) 5,000 unit SQ Q8H [facility] Last Admin: 11/30/18 12:28 Dose: Not Given Ceftriaxone Sodium 1 gm/ (Dextrose) 50 mls @ 100 mls/hr IVPB DAILY [facility]; Protocol Last Admin: 11/30/18 11:25 Dose: 100 mls/hr Lisinopril (Prinivil) 10 mg PO DAILY [facility] Last Admin: 11/30/18 11:22 Dose: 10 mg Non-Formulary Medication (Patient's Own Med) 1 each PO DAILY [facility] Last Admin: 11/30/18 11:24 Dose: 1 each Oxycodone HCl (Roxicodone -) 5 mg PO Q6H PRN PRN Reason: PAIN LEVEL 7 - 10 Last Admin: 11/30/18 12:02 Dose: 5 mg Phenol/Menthol (Chloraseptic -) 1 spray MM Q6H PRN PRN Reason: SORE THROAT Tiotropium [place] (Spiriva Respimat) 2 puff IH DAILY [facility] Last Admin: 11/30/18 11:26 Dose: 2 puff Verapamil HCl (Calan Sr -) 240 mg PO DAILY [facility] Last Admin: 11/30/18 11:24 Dose: 240 mg - Objective Vital Signs: Vital Signs Temperature 98.4 F 11/30/18 11:00 Pulse Rate 98 H 11/30/18 11:00 Respiratory Rate 18 11/30/18 11:00 Blood Pressure 163/98 11/30/18 11:00 O2 Sat by Pulse Oximetry (%) 98 11/29/18 21:00 Constitutional: Yes: Calm Eyes: Yes: Conjunctiva Clear HENT: Yes: Atraumatic Neck: Yes: Other (brace in place) Cardiovascular: Yes: S1, S2 Respiratory: Yes: CTA Bilaterally Gastrointestinal: Yes: Soft Genitourinary: Yes: Otto Present Edema: No Neurological: Yes: Oriented Psychiatric: Yes: Oriented Labs: CBC, BMP 11/30/18 05:58 11/30/18 05:58 INR, PTT INR 0.97 (0.83-1.09) 11/26/18 22:05 Problem List - Problems (1) HTN (hypertension) Code(s): I10 - ESSENTIAL (PRIMARY) HYPERTENSION Qualifiers: Hypertension type: essential hypertension Qualified Code(s): I10 - Essential (primary) hypertension Assessment/Plan Current Medications Generic Name Dose Route Start Last Admin Trade Name Freq PRN Reason Stop Dose Admin Acetaminophen 650 mg 11/30/18 11:46 Tylenol - PO Q6H PRN PAIN LEVEL 1-5 Diphenhydramine HCl 25 mg 11/29/18 11:34 Benadryl - PO Q6H PRN FOR ITCHING Docusate Sodium 100 mg 11/29/18 14:00 11/30/18 05:04 Colace - PO 100 mg TID [facility] Administration Escitalopram Oxalate 5 mg 11/30/18 10:00 11/30/18 11:22 Lexapro - PO 5 mg DAILY [facility] Administration Ferrous Sulfate 325 mg 11/30/18 10:00 11/30/18 11:22 Feosol - PO 325 mg DAILY [facility] Administration Folic Acid 1 mg 11/30/18 10:00 11/30/18 11:24 Folic Acid - PO 1 mg DAILY [facility] Administration Heparin Sodium (Porcine) 5,000 unit 11/30/18 09:00 11/30/18 12:28 Heparin - SQ Not Given Q8H [facility] Ceftriaxone Sodium 1 gm/ 50 mls @ 100 mls/hr 11/30/18 10:00 11/30/18 11:25 Dextrose IVPB 100 mls/hr DAILY [facility] Administration Protocol Lisinopril 10 mg 11/30/18 10:00 02/08/19 11:22 Prinivil PO 10 mg DAILY [facility] Administration Non-Formulary Medication 1 each 11/30/18 10:00 11/30/18 11:24 Patient's Own Med PO 1 each DAILY [facility] Administration Oxycodone HCl 5 mg 11/30/18 11:45 11/30/18 12:02 Roxicodone - PO 5 mg Q6H PRN Administration PAIN LEVEL 7 - 10 Phenol/Menthol 1 spray 11/30/18 11:19 Chloraseptic - MM Q6H PRN SORE THROAT Tiotropium [place] 2 puff 11/30/18 10:00 11/30/18 11:26 Spiriva Respimat IH 2 puff DAILY [facility] Administration Verapamil HCl 240 mg 11/30/18 10:00 11/30/18 11:24 Calan Sr - PO 240 mg DAILY [facility] Administration Impression 1. CKD 2. HTN 3. etoh abuse 4. COPD 5. emphysema 6. hyperlipidemia 7. cervical disk herniation Plan - repeat bp after am meds - add hydralazine if bp is not controlled - pain control - d/c otto cath - discussed with medical team - discussed with family - will follow PRN Dr Camacho
[2018-11-30] MEDS ORDERED: PT OWN MED DRAWER 7, Y5N ONE (22:16)
[2018-12-01] MEDS: HEPARIN NA (PORCINE) 5,000 UNITS/ML 1ML VIAL SQ SCH ×3 (01:21→16:35)
[2018-12-01] MEDS: DOCUSATE SODIUM 100 MG CAPSULE (FP) PO SCH ×3 (06:43→21:29)
--- NOTE | 2018-12-01 06:48 | PN ---
Progress Note (short form) - Note Progress Note: Chief Complaint: Events noted, notes reviewed, complaining of incisional pain, denies any chest pain or dyspnea History of Present Illness: Seen and examined on telemetry. Events noted, notes reviewed, complaining of incisional pain, denies any chest pain or dyspnea Echocardiography dated 11/27/2018 revealed normal LV size and function, LVEF 65% , trace TR Current Medications: Current Medications Acetaminophen (Tylenol -) 650 mg PO Q6H PRN PRN Reason: PAIN LEVEL 1-5 Diphenhydramine HCl (Benadryl -) 25 mg PO Q6H PRN PRN Reason: FOR ITCHING Docusate Sodium (Colace -) 100 mg PO TID [facility] Last Admin: 12/01/18 06:43 Dose: 100 mg Escitalopram Oxalate (Lexapro -) 5 mg PO DAILY [facility] Last Admin: 11/30/18 11:22 Dose: 5 mg Ferrous Sulfate (Feosol -) 325 mg PO DAILY [facility] Last Admin: 11/30/18 11:22 Dose: 325 mg Folic Acid (Folic Acid -) 1 mg PO DAILY [facility] Last Admin: 11/30/18 11:24 Dose: 1 mg Heparin Sodium (Porcine) (Heparin -) 5,000 unit SQ Q8H [facility] Last Admin: 12/01/18 01:21 Dose: 5,000 unit Ceftriaxone Sodium 1 gm/ (Dextrose) 50 mls @ 100 mls/hr IVPB DAILY [facility]; Protocol Last Admin: 11/30/18 11:25 Dose: 100 mls/hr Lisinopril (Prinivil) 10 mg PO DAILY [facility] Last Admin: 11/30/18 11:22 Dose: 10 mg Non-Formulary Medication (Patient's Own Med) 1 each PO DAILY [facility] Last Admin: 11/30/18 11:24 Dose: 1 each Oxycodone HCl (Roxicodone -) 5 mg PO Q6H PRN PRN Reason: PAIN LEVEL 7 - 10 Last Admin: 11/30/18 19:50 Dose: 5 mg Phenol/Menthol (Chloraseptic -) 1 spray MM Q6H PRN PRN Reason: SORE THROAT Last Admin: 11/30/18 18:46 Dose: 1 spray Tiotropium [place] (Spiriva Respimat) 2 puff IH DAILY [facility] Last Admin: 11/30/18 11:26 Dose: 2 puff Verapamil HCl (Calan Sr -) 240 mg PO DAILY [facility] Last Admin: 11/30/18 11:24 Dose: 240 mg Review of Systems Constitutional: denies Chills or Fever Respiratory: denies Cough or Sputum Production Cardiovascular: As noted above Gastrointestinal: denies Nausea, Vomiting, Diarrhea, Constipation or Abdominal Pain Genitourinary: denies Frequency or Urgency Musculoskeletal: Neck Discomfort - Objective Vital Signs: Last Vital Signs Temp Pulse Resp BP Pulse Ox 98.0 F 96 H 20 166/85 93 L 12/01/18 06:00 12/01/18 06:00 12/01/18 06:00 12/01/18 06:00 11/30/18 20:50 Intake & Output 11/28/18 11/29/18 11/30/18 12/01/18 23:59 23:59 23:59 23:59 Intake Total 1140 1926 1184 Output Total 600 3877 2640 Balance 760 -3559 -0570 Neck: Supple Negative JVD No bruit Respiratory: Diminished breath sounds at the bases Cardiovascular: S1, S2 Regular Rate Rhythm Gastrointestinal: Soft Benign Normal Bowel Sounds Ext: Negative Edema Labs: CBC, BMP 11/30/18 05:58 11/30/18 05:58 Assessment/Plan ASSESSMENT: 1. POD# 2 C5-C6 disc herniation post C5/C6 discectomy and fusion 2. Mechanical fall vs. syncope 3. Metabolic encephelopathy referable to UTI, resolved 4. CAD/coronary artery calcification on CT scan of the chest 03/28/2108 with no clinical angina pectoris 5. Probable Probable diastolic LV dysfunction with class 0 NYHA classification LV failure 6. HTN 7. PAD post [employer]/stent 8. Hypothyroidism post partial thyroidectomy 9. COPD 10. Acute on CKD resolved PLAN: 1. Continue Verapamil SR 2. Continue Lisinopril and titrate dosage as tolerated and as needed 3. Antibiotics as per the primary team 4. Pain management as per the primary team 5. DVT prophylaxis Thom Art MD
[2018-12-01] MEDS: oxyCODONE HCL 5 MG TABLET PO PRN ×2 (08:24→16:34)
[2018-12-01] MEDS ORDERED: cefTRIAXone SODIUM 1 GM VIAL ONE (08:46)
[2018-12-01] MEDS ORDERED: DEXTROSE 5%-WATER - 50 ML IVPB ONE (08:46)
[2018-12-01] MEDS: ESCITALOPRAM OXALATE 10 MG TABLET (FP) PO SCH (09:07)
[2018-12-01] MEDS: LISINOPRIL 10 MG TABLET (FP) PO SCH (09:08)
[2018-12-01] MEDS: FERROUS SO4 325 MG TABLET (FP) PO SCH (09:08)
[2018-12-01] MEDS: FOLIC ACID 1 MG TABLET (FP) PO SCH (09:08)
[2018-12-01] MEDS ORDERED: PT OWN MED DRAWER 7, Y5N ONE (09:10)
[2018-12-01] MEDS: VERAPAMIL HCL 240 MG E.R. TABLET (FP) PO SCH (09:12)
[2018-12-01] MEDS: TIOTROPIUM BROMIDE 2.5 MCG (SPIRIVA) RESPIMAT INHALER IH SCH (09:12)
[2018-12-01] MEDS: CEFTRIAXONE 1 GM in DEXTROSE 5%-WATER - 50 ML IVPB SCH (09:15)
--- NOTE | 2018-12-01 09:59 | PN ---
Progress Note (short form) - Note Progress Note: c/o generalized weakness. states hoarsness of throat is slightly improved. denies CP, SOB, fever, chills, N/V/C/D Current Medications Generic Name Dose Route Start Last Admin Trade Name Freq PRN Reason Stop Dose Admin Acetaminophen 650 mg 11/30/18 11:46 Tylenol - PO Q6H PRN PAIN LEVEL 1-5 Diphenhydramine HCl 25 mg 11/29/18 11:34 Benadryl - PO Q6H PRN FOR ITCHING Docusate Sodium 100 mg 11/29/18 14:00 12/01/18 06:43 Colace - PO 100 mg TID WHITNEY Administration Escitalopram Oxalate 5 mg 11/30/18 10:00 12/01/18 09:07 Lexapro - PO 5 mg DAILY WHITNEY Administration Ferrous Sulfate 325 mg 11/30/18 10:00 12/01/18 09:08 Feosol - PO 325 mg DAILY WHITNEY Administration Folic Acid 1 mg 11/30/18 10:00 12/01/18 09:08 Folic Acid - PO 1 mg DAILY WHITNEY Administration Heparin Sodium (Porcine) 5,000 unit 11/30/18 09:00 12/01/18 08:24 Heparin - SQ 5,000 unit Q8H WHITNEY Administration Ceftriaxone Sodium 1 gm/ 50 mls @ 100 mls/hr 11/30/18 10:00 12/01/18 09:15 Dextrose IVPB 100 mls/hr DAILY WHITNEY Administration Protocol Lisinopril 10 mg 11/30/18 10:00 12/01/18 09:08 Prinivil PO 10 mg DAILY WHITNEY Administration Non-Formulary Medication 1 each 11/30/18 10:00 12/01/18 09:12 Patient's Own Med PO 1 each DAILY WHITNEY Administration Oxycodone HCl 5 mg 11/30/18 11:45 12/01/18 08:24 Roxicodone - PO 5 mg Q6H PRN Administration PAIN LEVEL 7 - 10 Phenol/Menthol 1 spray 11/30/18 11:19 11/30/18 18:46 Chloraseptic - MM 1 spray Q6H PRN Administration SORE THROAT Tiotropium [place] 2 puff 11/30/18 10:00 12/01/18 09:12 Spiriva Respimat IH 2 puff DAILY WHITNEY Administration Verapamil HCl 240 mg 11/30/18 10:00 12/01/18 09:12 Calan Sr - PO 240 mg DAILY WHITNEY Administration Last Vital Signs Temp Pulse Resp BP Pulse Ox 98.0 F 96 H 20 166/85 93 L 12/01/18 06:00 12/01/18 06:00 12/01/18 06:00 12/01/18 06:00 11/30/18 20:50 General NAD HEENT unable to assess pharynx due to c-collar. anterior bandage c/d/i CV S1 S2 RRR no murmur/rub/gallop Lungs CTA anteriorly ASSESSMENT AND PLAN: 73yo F wtih PMH COPD, HTN, partial thyroidectomy, hypothyroid, CKD, remote ETOH dependence on antabuse presented to the ER after multiple mechanical falls 1. Acute metabolic encephalopathy- due to UTI vs dehydration. clinically improved. on Ceftriaxone day 4. Cx contaminated 2. C5-C6 disc herniation-s/p C5-6 diskectomy and fusion 11/29. c-collar in place. AXEL drain removed. further management per surgery. pain control. PT. 3. Sore throat- liekly due to ETT during surgery. slowly improving. cont symptomatic treatment 2. UTI- on ceftraixone day 5 3. Remote ETOH abuse- on antabuse. daughter insist she takes. ETOH level negative. monitor for withdrawal 4. Acute on CKD- likely dehydration. CPK normal. resolved. avoid nephrotoxic agents 5. HTN- improved but above goal. will increase lisinopril. titrate as needed. 6. DVT prophylaxis - hep sq 7. ambulated well yesterday and not a candidate for GODWIN at this time. plan for d /c home with VNS and CCHA services. anticipate d/c in next 24H Visit type - Emergency Visit Emergency Visit: Yes ED Registration Date: 11/27/18 Care time: The patient presented to the Emergency Department on the above date and was hospitalized for further evaluation of their emergent condition. - New Patient This patient is new to me today: No - Critical Care Critical Care patient: No - Discharge Referral Referred to [facility] Med P.C.: No
[2018-12-01] MEDS ORDERED: LISINOPRIL 20 MG TABLET (FP) PO SCH (10:01)
[2018-12-01] MEDS: ACETAMINOPHEN 325 MG TABLET (FP) PO PRN (18:32)
--- NOTE | 2018-12-01 23:17 | PN ---
Progress Note (short form) - Note Progress Note: Patient is stable on postop day 2 from C56 ACDF. Incision is clean dry and intact after juxtaincisional skin breakdown treated yesterday. Steristrips and collar in place. Voice improved. - GI/DVT prophylaxis - Fall precautions - Physical Therapy - Patient stable for discharge from Neurosurgery standpoint
[2018-12-02] MEDS: HEPARIN NA (PORCINE) 5,000 UNITS/ML 1ML VIAL SQ SCH ×3 (02:31→17:47)
[2018-12-02] MEDS: oxyCODONE HCL 5 MG TABLET PO PRN ×2 (02:32→18:09)
[2018-12-02] MEDS: DOCUSATE SODIUM 100 MG CAPSULE (FP) PO SCH ×3 (05:52→21:24)
--- NOTE | 2018-12-02 08:23 | PN ---
Progress Note (short form) - Note Progress Note: Chief Complaint: Events noted, notes reviewed, complaining of persistent incisional pain severity of which has decreased, denies any chest pain or dyspnea History of Present Illness: Seen and examined on telemetry. Events noted, notes reviewed, complaining of persistent incisional pain severity of which has decreased, denies any chest pain or dyspnea Echocardiography dated 11/27/2018 revealed normal LV size and function, LVEF 65% , trace TR Current Medications: Current Medications Acetaminophen (Tylenol -) 650 mg PO Q6H PRN PRN Reason: PAIN LEVEL 1-5 Last Admin: 12/01/18 18:32 Dose: 650 mg Diphenhydramine HCl (Benadryl -) 25 mg PO Q6H PRN PRN Reason: FOR ITCHING Docusate Sodium (Colace -) 100 mg PO TID [facility] Last Admin: 12/02/18 05:52 Dose: 100 mg Escitalopram Oxalate (Lexapro -) 5 mg PO DAILY [facility] Last Admin: 12/01/18 09:07 Dose: 5 mg Ferrous Sulfate (Feosol -) 325 mg PO DAILY [facility] Last Admin: 12/01/18 09:08 Dose: 325 mg Folic Acid (Folic Acid -) 1 mg PO DAILY [facility] Last Admin: 12/01/18 09:08 Dose: 1 mg Heparin Sodium (Porcine) (Heparin -) 5,000 unit SQ Q8H [facility] Last Admin: 12/02/18 02:31 Dose: 5,000 unit Ceftriaxone Sodium 1 gm/ (Dextrose) 50 mls @ 100 mls/hr IVPB DAILY [facility]; Protocol Last Admin: 12/01/18 09:15 Dose: 100 mls/hr Lisinopril (Prinivil) 20 mg PO DAILY [facility] Non-Formulary Medication (Patient's Own Med) 1 each PO DAILY [facility] Last Admin: 12/01/18 09:12 Dose: 1 each Oxycodone HCl (Roxicodone -) 5 mg PO Q6H PRN PRN Reason: PAIN LEVEL 7 - 10 Last Admin: 12/02/18 02:32 Dose: 5 mg Phenol/Menthol (Chloraseptic -) 1 spray MM Q6H PRN PRN Reason: SORE THROAT Last Admin: 11/30/18 18:46 Dose: 1 spray Tiotropium [place] (Spiriva Respimat) 2 puff IH DAILY [facility] Last Admin: 12/01/18 09:12 Dose: 2 puff Verapamil HCl (Calan Sr -) 240 mg PO DAILY [facility] Last Admin: 12/01/18 09:12 Dose: 240 mg Review of Systems Constitutional: denies Chills or Fever Respiratory: denies Cough or Sputum Production Cardiovascular: As noted above Gastrointestinal: denies Nausea, Vomiting, Diarrhea, Constipation or Abdominal Pain Genitourinary: denies Frequency or Urgency Musculoskeletal: Neck Discomfort - Objective Vital Signs: Last Vital Signs Temp Pulse Resp BP Pulse Ox 97.9 F 100 H 20 125/86 94 L 12/02/18 05:54 12/02/18 05:54 12/02/18 05:54 12/02/18 05:54 12/01/18 21:00 Intake & Output 11/29/18 11/30/18 12/01/18 12/02/18 23:59 23:59 23:59 23:59 Intake Total 1926 1184 240 200 Output Total 3877 2640 1000 Balance -1951 -1456 240 -800 Neck: Supple Negative JVD No bruit Respiratory: Diminished breath sounds at the bases Cardiovascular: S1, S2 Regular Rate Rhythm Gastrointestinal: Soft Benign Normal Bowel Sounds Ext: Negative Edema Labs: CBC, BMP 11/30/18 05:58 11/30/18 05:58 Hepatic Panel Total Bilirubin 0.4 mg/dL (0.2-1) 11/29/18 06:45 AST 13 U/L (15-37) L 11/29/18 06:45 ALT 25 U/L (13-61) 11/29/18 06:45 Alkaline Phosphatase 92 U/L (45-117) 11/29/18 06:45 Albumin 3.1 g/dl (3.4-5.0) L 11/29/18 06:45 Assessment/Plan ASSESSMENT: 1. POD# 3 C5-C6 disc herniation post C5/C6 discectomy and fusion 2. Mechanical fall vs. syncope 3. Metabolic encephelopathy referable to UTI, resolved 4. CAD/coronary artery calcification on CT scan of the chest 03/28/2108 with no clinical angina pectoris 5. Probable diastolic LV dysfunction with class 0 NYHA classification LV failure 6. HTN 7. PAD post MANUFACTURER AGENT/stent 8. Hypothyroidism post partial thyroidectomy 9. COPD 10. Acute on CKD, resolved PLAN: 1. Continue Verapamil SR 2. Continue Lisinopril and titrate dosage as tolerated and as needed 3. Antibiotics as per the primary team 4. Pain management as per the primary team 5. DVT prophylaxis Thom Art MD
[2018-12-02] MEDS ORDERED: cefTRIAXone SODIUM 1 GM VIAL ONE (09:19)
[2018-12-02] MEDS ORDERED: DEXTROSE 5%-WATER - 50 ML IVPB ONE (09:19)
[2018-12-02] MEDS: FOLIC ACID 1 MG TABLET (FP) PO SCH (09:25)
[2018-12-02] MEDS: FERROUS SO4 325 MG TABLET (FP) PO SCH (09:25)
[2018-12-02] MEDS: ESCITALOPRAM OXALATE 10 MG TABLET (FP) PO SCH (09:25)
[2018-12-02] MEDS: VERAPAMIL HCL 240 MG E.R. TABLET (FP) PO SCH (09:26)
[2018-12-02] MEDS: TIOTROPIUM BROMIDE 2.5 MCG (SPIRIVA) RESPIMAT INHALER IH SCH (09:26)
[2018-12-02] MEDS: CEFTRIAXONE 1 GM in DEXTROSE 5%-WATER - 50 ML IVPB SCH (09:26)
--- NOTE | 2018-12-02 10:23 | PN ---
Teaching Attending Note Name of Resident: Kofi Whittaker ATTENDING PHYSICIAN STATEMENT I saw and evaluated the patient. I reviewed the resident's note and discussed the case with the resident. I agree with the resident's findings and plan as documented. SUBJECTIVE:throat is feeling better. denies CP, SOB, fever. chills, N/V/C/D OBJECTIVE: Last Vital Signs Temp Pulse Resp BP Pulse Ox 97.9 F 100 H 20 125/86 94 L 12/02/18 05:54 12/02/18 05:54 12/02/18 05:54 12/02/18 05:54 12/01/18 21:00 General NAD HEENT unable to assess pharynx due to c-collar. anterior bandage c/d/i CV S1 S2 RRR no murmur/rub/gallop Lungs CTA anteriorly ASSESSMENT AND PLAN: 73yo F wtih PMH COPD, HTN, partial thyroidectomy, hypothyroid, CKD, remote ETOH dependence on antabuse presented to the ER after multiple mechanical falls 1. Acute metabolic encephalopathy- due to UTI vs dehydration. clinically improved. Cx contaminated 2. C5-C6 disc herniation-s/p C5-6 diskectomy and fusion 11/29. c-collar in place. AXEL drain removed. neurosurg follow up as outpatient. pain control. PT. 3. Sore throat- liekly due to ETT during surgery. slowly improving. cont symptomatic treatment 2. UTI- on ceftraixone day 6. d/c on keflex on 7 day course 3. Remote ETOH abuse- on antabuse. daughter insist she takes. ETOH level negative. monitor for withdrawal 4. Acute on CKD- likely dehydration. CPK normal. resolved. avoid nephrotoxic agents 5. HTN- improved. d/c home on increased dose of lisinopril 6. DVT prophylaxis - hep sq 7. d/c home with VNS and [facility] [employer] services
--- NOTE | 2018-12-02 13:08 | DS ---
Physical Exam: SUBJECTIVE: Patient seen and examined at bedside. She is tolerating regular diet without abdominal, nausea, vomiting. She endorses improvement of her post surgical pain, and sore throat. Denies subjective fevers, chills. OBJECTIVE: Vital Signs Period Temp Pulse Resp BP Sys/Mcfadden Pulse Ox Last 24 Hr 97.0 F-98.3 F 79-103 16-20 111-162/60-88 94-94 PHYSICAL EXAM GENERAL: The patient is awake, alert, and fully oriented, in no acute distress. HEENT: Normocephalic. Cervical collar in place. PERRL, EOMI, sclera anicteric. Oropharynx clear without exudates, moist mucous membranes. LUNGS: Breath sounds equal, clear to auscultation bilaterally. No wheezes, no crackles. No accessory muscle use. HEART: Regular rate and rhythm, S1, S2 without murmur, rub or gallop. ABDOMEN: Soft, nontender, nondistended. Normoactive bowel sounds X4 quadrants, no guarding, no rebound tenderness. EXTREMITIES: 2+ radial, dorsalis pedis pulses bilaterally. Warm, well-perfused, no edema. NEUROLOGICAL: Cranial nerves II through XII grossly intact. Strength 5/5 bilateral upper and lower extremities bilaterally. PSYCH: Normal mood, normal affect upon my encounter. SKIN: Warm, dry. Surgical bandage clean, dry. No active bleeding noted. LABS HOSPITAL COURSE: Date of Admission:11/27/18 Date of Discharge: 12/02/18 Patient is a 73 year old female with history of hypertension, COPD, peripheral artery disease (s/p right sided inguinal stent), hypothyroidism, alcohol use disorder, presents after fall. Admitted for acute metabolic encephalopathy secondary to UTI vs dehydration. She was evaluated by financial services counselor who discussed continuing Aspirin. UA upon admission showed 1+ glucose, 3+ leukocyte esterase, 12 WBC, 2 RBC. Patient was started on Rocephin. ABRAM on CKD was evaluated by nephrology, and resolved with IV fluid hydration. MRI cervical spine noted C5-C6 degenerative anterior spondylosis, arthropathy. C5-C6 disc protrusion noted with subarachnoid space encroachment. She was evaluated by neurosurgeon and underwent C5-C6 anterior cervical discectomy and fusion, with jehovah's witness of cervical lordosis. She tolerated procedure well. She complained of sore throat likely secondary to endotracheal intubation during surgery, and was managed with chloraseptic throat spray. Patient was started on Lisinopril 20mg daily for hypertension, in addition to her home dose of Verapamil. Patient was evaluated by physical therapy, and was discharged home with VNS services. Discharged to continue home medications, Lisinopril 20mg PO daily, Keflex (to complete 7 day antibiotic course), and Percoset (8 tablets total). Follow up with primary care physician, neurosurgery, cardiology, nephrology, Minutes to complete discharge: 45 Discharge Summary Reason For Visit: ACUTE KIDNEY INJURY,URINARY TRACT INFECTION, Current Active Problems ABRAM (acute kidney injury) (Acute) [id number] kidney injury (Acute) PAD (peripheral artery disease) (Acute) Syncope (Acute) UTI (urinary tract infection) (Acute) Condition: Stable - Instructions Diet, Activity, Other Instructions: Hospital course: You were admitted to the hospital after a fall and were evaluated by the financial services counselor. You were found to have a urinary tract infection, and were treated with antibiotics. Your MRI showed bulging disc within your cervical spine and you were evaluated by the neurosurgeon who performed surgery to correct the symptoms. You are being discharged home with visiting nurse services that will arrive Monday. Medication recommendations: Continue taking your home medications as directed. You will begin taking Lisinopril 40mg daily for your blood pressure. Be sure to check your blood pressure at home, and record the readings. Follow up recommendations Follow up with your primary care physician within two- three days after discharge. Your CT scan showed nonspecific findings within your parotid gland. Discuss with your primary care physician regarding ENT physician referral. Follow up with neurosurgeon (Dr. Strickland) within one week of discharge. Please see discharge instructions from Dr. Strickland below. Follow up with your instructor adjunct pharmacy technician (Dr. Camacho) within one week of discharge Follow up with financial services counselor within one week of discharge. Post Operative Instructions Physical Activity Resume your normal everyday activity as tolerated. No heavy lifting or exercise until seen by your surgeon. You may walk unlimited amounts and climb stairs. You may resume driving the car when you feel safe and comfortable behind the wheel and you are no longer wearing your brace. Do not operate a vehicle while taking narcotic medication. Brace If you had neck surgery, wear surgical collar 23 hr/day. Remove to shower only. Wound Care Keep your incision clean, dry and covered at all times. Apply an occlusive dressing (Saran wrap or Tegaderm) when showering to avoid getting your incision wet. Do not submerge incision or apply ointments or creams. Diet There are no dietary restrictions. Eat healthy, high-fiber foods. Drink 6-8 glasses of liquid each day. This will assist in keeping your bowels regular. Pain Management You may take Tylenol or acetaminophen. Any pain prescription medication ordered should be taken as prescribed for moderate to severe pain. Call Dr Donovan for any of the following: Severe pain not relieved by medication Fever of 101 or higher Excessive bleeding or drainage on dressing Inability to urinate Any chest pain or shortness of breath, seek Emergency Care. Call the office to confirm a post-operative appointment for 2-3 weeks post-op Qamar Strickland MD [facility] [address] [place] [address]. [place] [address] Referrals: Qamar Strickland MD, [facility] [Staff Physician] - Tani Hobson MD [Staff Physician] - Landy Camacho MD [Staff Physician] - Disposition: VNS/HOME HEALTH CARE - Home Medications Comprehensive Discharge Medication List: Ambulatory Orders Verapamil HCl [Verapamil ER] 240 mg PO DAILY 09/01/15 Tiotropium [place] [Spiriva] 1 inh IH DAILY 05/22/17 Aspirin [Aspirin EC] 81 mg PO DAILY 12/28/17 Disulfiram [Antabuse] 250 mg PO DAILY 10/14/18 Escitalopram Oxalate [Lexapro -] 5 mg PO DAILY 10/14/18 Cephalexin [Keflex] 500 mg PO Q12H 1 Days #2 capsule 12/02/18 Lisinopril [Prinivil] 20 mg PO DAILY 28 Days #28 tablet 12/02/18 Oxycodone HCl/Acetaminophen [Percocet 5-325 mg Tablet] 1 tab PO Q6H PRN #8 tablet MDD 4 tabs 12/02/18 This patient is new to me today: No Emergency Visit: Yes ED Registration Date: 11/27/18 Care time: The patient presented to the Emergency Department on the above date and was hospitalized for further evaluation of their emergent condition. Critical Care patient: No - Discharge Referral Referred to [facility] Med P.C.: No Physician Referral: Hector Rodriguez MD ([facility])
--- NOTE | 2018-12-02 15:41 | PN ---
Progress Note (short form) - Note Progress Note: Patient improving in terms of hoarseness and pain. Incision clean, dry and intact. Patient able to ambulate with nursing staff. Since patient has stairs at home, will await PT assessment of safety prior to discharge. Clear for discharge from Neurosurgery standpoint.
[2018-12-02] MEDS: ACETAMINOPHEN 325 MG TABLET (FP) PO PRN (21:25)
[2018-12-03] MEDS: HEPARIN NA (PORCINE) 5,000 UNITS/ML 1ML VIAL SQ SCH ×3 (01:02→16:54)
[2018-12-03] MEDS: DOCUSATE SODIUM 100 MG CAPSULE (FP) PO SCH ×2 (06:07→13:06)
[2018-12-03] MEDS ORDERED: LISINOPRIL 20 MG TABLET (FP) PO SCH (07:36)
[2018-12-03] MEDS ORDERED: PT OWN MED DRAWER 7, Y5N ONE ×2 (09:01→19:26)
[2018-12-03] MEDS ORDERED: DEXTROSE 5%-WATER - 50 ML IVPB ONE (09:02)
[2018-12-03] MEDS ORDERED: cefTRIAXone SODIUM 1 GM VIAL ONE (09:02)
[2018-12-03] MEDS: TIOTROPIUM BROMIDE 2.5 MCG (SPIRIVA) RESPIMAT INHALER IH SCH (09:04)
[2018-12-03] MEDS: CEFTRIAXONE 1 GM in DEXTROSE 5%-WATER - 50 ML IVPB SCH (09:05)
[2018-12-03] MEDS: FERROUS SO4 325 MG TABLET (FP) PO SCH (09:06)
[2018-12-03] MEDS: ESCITALOPRAM OXALATE 10 MG TABLET (FP) PO SCH (09:06)
[2018-12-03] MEDS: FOLIC ACID 1 MG TABLET (FP) PO SCH (09:06)
[2018-12-03] MEDS: VERAPAMIL HCL 240 MG E.R. TABLET (FP) PO SCH (09:07)
--- NOTE | 2018-12-03 09:17 | PN ---
Progress Note, Physician History of Present Illness: POD#4 s/p C5/C6 discectomy and fusion, sore throat resolving. - Current Medication List Current Medications: Active Medications Acetaminophen (Tylenol -) 650 mg PO Q6H PRN PRN Reason: PAIN LEVEL 1-5 Last Admin: 12/02/18 21:25 Dose: 650 mg Diphenhydramine HCl (Benadryl -) 25 mg PO Q6H PRN PRN Reason: FOR ITCHING Docusate Sodium (Colace -) 100 mg PO TID [facility] Last Admin: 12/03/18 06:07 Dose: 100 mg Escitalopram Oxalate (Lexapro -) 5 mg PO DAILY [facility] Last Admin: 12/03/18 09:06 Dose: 5 mg Ferrous Sulfate (Feosol -) 325 mg PO DAILY [facility] Last Admin: 12/03/18 09:06 Dose: 325 mg Folic Acid (Folic Acid -) 1 mg PO DAILY [facility] Last Admin: 12/03/18 09:06 Dose: 1 mg Heparin Sodium (Porcine) (Heparin -) 5,000 unit SQ Q8H [facility] Last Admin: 12/03/18 09:05 Dose: 5,000 unit Ceftriaxone Sodium 1 gm/ (Dextrose) 50 mls @ 100 mls/hr IVPB DAILY [facility]; Protocol Last Admin: 12/03/18 09:05 Dose: 100 mls/hr Lisinopril (Prinivil) 40 mg PO DAILY [facility] Last Admin: 12/03/18 09:06 Dose: 40 mg Non-Formulary Medication (Patient's Own Med) 1 each PO DAILY [facility] Last Admin: 12/03/18 09:07 Dose: 1 each Oxycodone HCl (Roxicodone -) 5 mg PO Q6H PRN PRN Reason: PAIN LEVEL 7 - 10 Last Admin: 12/02/18 18:09 Dose: 5 mg Phenol/Menthol (Chloraseptic -) 1 spray MM Q6H PRN PRN Reason: SORE THROAT Last Admin: 11/30/18 18:46 Dose: 1 spray Tiotropium [place] (Spiriva Respimat) 2 puff IH DAILY [facility] Last Admin: 12/03/18 09:04 Dose: 2 puff Verapamil HCl (Calan Sr -) 240 mg PO DAILY [facility] Last Admin: 12/03/18 09:07 Dose: 240 mg - Objective Vital Signs: Vital Signs Temperature 97.9 F 12/03/18 06:00 Pulse Rate 83 12/03/18 06:00 Respiratory Rate 18 12/03/18 06:00 Blood Pressure 146/84 12/03/18 06:00 O2 Sat by Pulse Oximetry (%) 94 L 12/02/18 21:00 Constitutional: Yes: No Distress, Calm, Thin Neck: Yes: Supple Cardiovascular: Yes: Regular Rate and Rhythm Respiratory: Yes: Regular, CTA Bilaterally Gastrointestinal: Yes: Normal Bowel Sounds, Soft Edema: No Labs: CBC, BMP 11/30/18 05:58 11/30/18 05:58 INR, PTT INR 0.97 (0.83-1.09) 11/26/18 22:05 Problem List - Problems (1) [id number] kidney injury Code(s): N17.9 - ACUTE KIDNEY FAILURE, UNSPECIFIED; N18.9 - CHRONIC KIDNEY DISEASE, UNSPECIFIED Qualifiers: Chronic kidney disease stage: stage 3 (moderate) (2) Syncope Code(s): R55 - SYNCOPE AND COLLAPSE Qualifiers: Syncope type: unspecified Qualified Code(s): R55 - Syncope and collapse (3) UTI (urinary tract infection) Code(s): N39.0 - URINARY TRACT INFECTION, SITE NOT SPECIFIED Qualifiers: Urinary tract infection type: site unspecified (4) COPD (chronic obstructive pulmonary disease) Code(s): J44.9 - CHRONIC OBSTRUCTIVE PULMONARY DISEASE, UNSPECIFIED Qualifiers: COPD type: unspecified COPD Qualified Code(s): J44.9 - Chronic obstructive pulmonary disease, unspecified (5) HTN (hypertension) Code(s): I10 - ESSENTIAL (PRIMARY) HYPERTENSION Qualifiers: Hypertension type: essential hypertension Qualified Code(s): I10 - Essential (primary) hypertension Assessment/Plan 11/27/2018 Echo: Normal LV size and fxn, LVEF 65%, tr TR 1. POD# 4 C5-C6 disc herniation post C5/C6 discectomy and fusion 2. Mechanical fall vs. syncope 3. Metabolic encephelopathy referable to UTI, resolved 4. CAD/coronary artery calcification on CT scan of the chest 03/28/2108 with no clinical angina pectoris 5. Probable diastolic LV dysfunction with class 0 NYHA classification LV failure 6. HTN 7. 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 Hypothyroidism post partial thyroidectomy 9. COPD 10. Acute on CKD, resolved PLAN: 1. Continue Verapamil SR 240 qd 2. Continue Lisinopril 40 qd and titrate dosage as tolerated and as needed 3. Antibiotics as per the primary team 4. Pain management as per the primary team 5. DVT prophylaxis, PT->SNF
--- NOTE | 2018-12-03 12:17 | PN ---
Progress Note, Physician History of Present Illness: Pt seen and examined at bedside. She complains of discomfort from her neck. She denies shortness of breath. - Current Medication List Current Medications: Active Medications Acetaminophen (Tylenol -) 650 mg PO Q6H PRN PRN Reason: PAIN LEVEL 1-5 Last Admin: 12/02/18 21:25 Dose: 650 mg Diphenhydramine HCl (Benadryl -) 25 mg PO Q6H PRN PRN Reason: FOR ITCHING Docusate Sodium (Colace -) 100 mg PO TID [facility] Last Admin: 12/03/18 06:07 Dose: 100 mg Escitalopram Oxalate (Lexapro -) 5 mg PO DAILY [facility] Last Admin: 12/03/18 09:06 Dose: 5 mg Ferrous Sulfate (Feosol -) 325 mg PO DAILY [facility] Last Admin: 12/03/18 09:06 Dose: 325 mg Folic Acid (Folic Acid -) 1 mg PO DAILY [facility] Last Admin: 12/03/18 09:06 Dose: 1 mg Heparin Sodium (Porcine) (Heparin -) 5,000 unit SQ Q8H [facility] Last Admin: 12/03/18 09:05 Dose: 5,000 unit Ceftriaxone Sodium 1 gm/ (Dextrose) 50 mls @ 100 mls/hr IVPB DAILY [facility]; Protocol Last Admin: 12/03/18 09:05 Dose: 100 mls/hr Lisinopril (Prinivil) 40 mg PO DAILY [facility] Last Admin: 12/03/18 09:06 Dose: 40 mg Non-Formulary Medication (Patient's Own Med) 1 each PO DAILY [facility] Last Admin: 12/03/18 09:07 Dose: 1 each Phenol/Menthol (Chloraseptic -) 1 spray MM Q6H PRN PRN Reason: SORE THROAT Last Admin: 11/30/18 18:46 Dose: 1 spray Tiotropium [place] (Spiriva Respimat) 2 puff IH DAILY [facility] Last Admin: 12/03/18 09:04 Dose: 2 puff Verapamil HCl (Calan Sr -) 240 mg PO DAILY [facility] Last Admin: 12/03/18 09:07 Dose: 240 mg - Objective Vital Signs: Vital Signs Temperature 97.4 F L 12/03/18 10:00 Pulse Rate 88 12/03/18 10:00 Respiratory Rate 18 12/03/18 10:00 Blood Pressure 160/85 12/03/18 10:00 O2 Sat by Pulse Oximetry (%) 94 L 12/03/18 09:00 Constitutional: Yes: Calm Eyes: Yes: Conjunctiva Clear HENT: Yes: Atraumatic Neck: Yes: Other (brace in place) Cardiovascular: Yes: S1, S2 Respiratory: Yes: CTA Bilaterally Gastrointestinal: Yes: Soft Genitourinary: Yes: WNL Musculoskeletal: Yes: WNL Edema: No Neurological: Yes: Oriented Labs: CBC, BMP 11/30/18 05:58 11/30/18 05:58 INR, PTT INR 0.97 (0.83-1.09) 11/26/18 22:05 Problem List - Problems (1) HTN (hypertension) Code(s): I10 - ESSENTIAL (PRIMARY) HYPERTENSION Qualifiers: Hypertension type: essential hypertension Qualified Code(s): I10 - Essential (primary) hypertension Assessment/Plan Current Medications Generic Name Dose Route Start Last Admin Trade Name Freq PRN Reason Stop Dose Admin Acetaminophen 650 mg 11/30/18 11:46 12/02/18 21:25 Tylenol - PO 650 mg Q6H PRN Administration PAIN LEVEL 1-5 Diphenhydramine HCl 25 mg 11/29/18 11:34 Benadryl - PO Q6H PRN FOR ITCHING Docusate Sodium 100 mg 11/29/18 14:00 12/03/18 06:07 Colace - PO 100 mg TID [facility] Administration Escitalopram Oxalate 5 mg 11/30/18 10:00 12/03/18 09:06 Lexapro - PO 5 mg DAILY [facility] Administration Ferrous Sulfate 325 mg 11/30/18 10:00 12/03/18 09:06 Feosol - PO 325 mg DAILY [facility] Administration Folic Acid 1 mg 11/30/18 10:00 12/03/18 09:06 Folic Acid - PO 1 mg DAILY [facility] Administration Heparin Sodium (Porcine) 5,000 unit 11/30/18 09:00 12/03/18 09:05 Heparin - SQ 5,000 unit Q8H [facility] Administration Ceftriaxone Sodium 1 gm/ 50 mls @ 100 mls/hr 11/30/18 10:00 12/03/18 09:05 Dextrose IVPB 100 mls/hr DAILY [facility] Administration Protocol Lisinopril 40 mg 12/03/18 07:36 12/03/18 09:06 Prinivil PO 40 mg DAILY [facility] Administration Non-Formulary Medication 1 each 11/30/18 10:00 12/03/18 09:07 Patient's Own Med PO 1 each DAILY [facility] Administration Phenol/Menthol 1 spray 11/30/18 11:19 11/30/18 18:46 Chloraseptic - MM 1 spray Q6H PRN Administration SORE THROAT Tiotropium Emblem 2 puff 11/30/18 10:00 12/03/18 09:04 Spiriva Respimat IH 2 puff DAILY [facility] Administration Verapamil HCl 240 mg 11/30/18 10:00 12/03/18 09:07 Calan Sr - PO 240 mg DAILY [facility] Administration Impression 1. CKD 2. HTN 3. etoh abuse 4. COPD 5. emphysema 6. hyperlipidemia 7. cervical disk herniation Plan - cont to monitor bp - monitor renal function and potassium on lisinopril - pain and discomfort may be contributing to elevated blood pressure - blood pressure reviewed - cont verapamil and lisinopril - discussed with family - will follow PRN Dr Camacho
--- NOTE | 2018-12-03 13:09 | PN ---
Teaching Attending Note Name of Resident: Manuel Villanueva ATTENDING PHYSICIAN STATEMENT I saw and evaluated the patient. I reviewed the resident's note and discussed the case with the resident. I agree with the resident's findings and plan as documented. SUBJECTIVE:feeling slightly better today. voice improving. denies CP, SOB, fever , chills, N/V/C/D OBJECTIVE: Last Vital Signs Temp Pulse Resp BP Pulse Ox 97.4 F L 88 18 160/85 94 L 12/03/18 10:00 12/03/18 10:12/03/18 10:00 12/03/18 10:12/03/18 09:00 General NAD ASSESSMENT AND PLAN: 73yo F wtih PMH COPD, HTN, partial thyroidectomy, hypothyroid, CKD, remote ETOH dependence on antabuse presented to the ER after multiple mechanical falls 1. Acute metabolic encephalopathy- due to UTI vs dehydration. clinically improved. Cx contaminated 2. C5-C6 disc herniation-s/p C5-6 diskectomy and fusion 11/29. c-collar in place. AXEL drain removed. neurosurg follow up as outpatient. pain control. PT. 3. Sore throat- liekly due to ETT during surgery. slowly improving. cont symptomatic treatment 2. UTI- on ceftraixone day 7. completes today 3. Remote ETOH abuse- on antabuse. daughter insist she takes. ETOH level negative. monitor for withdrawal 4. Acute on CKD- likely dehydration. CPK normal. resolved. avoid nephrotoxic agents 5. HTN- above goal. will increase lisinopril. some component may be due to pain and anxiety. close monitoring 6. DVT prophylaxis - hep sq 7. spoke with daughter at bedside. requested SW to re-send applications for [facility] which has been sent. 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 all questions answered. verbalized understanding and agreement
--- NOTE | 2018-12-03 13:15 | PN ---
Progress Note (short form) - Note Progress Note: pt stable and to be discharged yesterday, but will be reassessed today by PT for determination of SNF vs home w/ services placement. pt seen and examined at [facility]. no complaints. no acute events overnight. feeling slightly better today. voice improving. denies CP, SOB, fever, chills, N /V/D, urinary sxs PE GENERAL: NAD AOX3 HEENT: Normocephalic. Cervical collar in place. PERRL, EOMI, sclera anicteric. Oropharynx clear without exudates, MMM LUNGS: CTAB HEART: RRR, S1, S2 without murmur, rub or gallop. ABDOMEN: Soft, nontender, nondistended. Normoactive bowel sounds X4 quadrants, no guarding, no rebound tenderness. EXTREMITIES: 2+ radial, dorsalis pedis pulses bilaterally. Warm, well-perfused, no edema. NEUROLOGICAL: Cranial nerves II through XII grossly intact. Strength 5/5 bilateral upper and lower extremities bilaterally. PSYCH: Normal mood, normal affect upon my encounter. SKIN: Warm, dry. Surgical bandage clean, dry. No active bleeding noted. A/P 73yo F wtih PMH COPD, HTN, partial thyroidectomy, hypothyroid, CKD, remote ETOH dependence on antabuse presented to the ER after multiple mechanical falls Acute metabolic encephalopathy- 2/2 UTI vs dehydration. clinically improved C5-C6 disc herniation-s/p C5-6 diskectomy and fusion 11/29. c-collar in place. AXEL drain removed. neurosurg follow up as outpatient. Sore throat- liekly due to ETT during surgery - improving. UTI- ctx day 7. completes today DISPO daughter requested SW to re-send applications for [facility] which has been sent. will be reassessed today by PT for determination of SNF vs home w/ services placement. 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
[2018-12-03 15:25] VITALS: TEMP 97.7
[2018-12-03 17:46] VITALS: BP 124/66; PULSE 68
--- NOTE | 2018-12-04 09:43 | SURG ---
Surgery Chemical Processor Note Chemical Processor: Johnathan Gallagher PA-C (Suzy) Date of Service: 11/29/18 Diagnosis: Cervical Spondylotic Myelopathy Procedure: C56 Discectomy and arthrodesis with resection of osteophytes and posterior longitudnal ligament Local autograft Deformity correction (jew of lordosis) Interbody cage C56 I was present for the entirety of the operative procedure. For further detail, please refer to operative report. Visit type - Case Type Case Type: Scheduled - Emergency Emergency Visit: No - New patient This patient is new to me today: Yes Date on this admission: 12/04/18 - Critical Care Critical Care patient: No
== END 2018-12-03 20:08 | disposition home health service (06) | DRG 471 ==
LOC: JER 20:54 → JERBED 11-27 04:13 → J4S 11-27 19:10
PROVIDERS: ADMIT Internal Medicine; ATTEND Internal Medicine
PROC: 0RT30ZZ Resection of Cervical Vertebral Disc, Open Approach (ICD-10-PCS; 2018-11-29)
PROC: B01BZZZ Fluoroscopy of Spinal Cord (ICD-10-PCS; 2018-11-29)
PROC: 0RG10A0 Fusion of Cervical Vertebral Joint with Interbody Fusion Device, Anterior Approach, Anterior Column, Open Approach (ICD-10-PCS; principal; 2018-11-29 08:00)
DX: M50.20 Other cervical disc displacement, unspecified cervical region (principal); G93.41 Metabolic encephalopathy; M47.12 Other spondylosis with myelopathy, cervical region; N39.0 Urinary tract infection, site not specified; N17.9 Acute kidney failure, unspecified; F10.10 Alcohol abuse, uncomplicated; E03.9 Hypothyroidism, unspecified; I12.9 Hypertensive chronic kidney disease with stage 1 through stage 4 chronic kidney disease, or unspecified chronic kidney disease; E86.0 Dehydration; J02.9 Acute pharyngitis, unspecified; J44.9 Chronic obstructive pulmonary disease, unspecified; I73.9 Peripheral vascular disease, unspecified; I25.10 Atherosclerotic heart disease of native coronary artery without angina pectoris; N18.3 Chronic kidney disease, stage 3 (moderate); F17.210 Nicotine dependence, cigarettes, uncomplicated
CPT/HCPCS: 36415; 70450-TC; 71045-TC-FY; 72125-TC; 72141-TC; 72170-TC-FY; 72220-TC-FY; 76000-TC-FY; 80048; 80053; 80061; 80307; 81003; 81015; 82607; 82746; 83721; 83735; 84100; 84207; 84443; 84484; 85025; 85027; 85610; 86850; 86900; 86901; 87086; 93005; 93010; 93306-TC; 94010; 94760; 97116-GP; 97161-GP; 99283-25; J0131; J1644

== ENCOUNTER 2018-12-09 19:20 | Emergency (ER) | payer BC ==
--- NOTE | 2018-12-09 19:42 | PDOC ---
History of Present Illness - General History Source: Patient, Family (Daughter. ) Exam Limitations: No Limitations - History of Present Illness Initial Comments: 12/09/18 21:26 The patient is a 73 year old female, with a significant past medical history of COPD, hypertension, peripheral arterial disease (s/p stenting), hypothyroid, chronic kidney disease, and alcohol abuse (on antabuse), who presents to the emergency department s/p fall. Daughter notes the patient had a ground fall and she found her mother in a split position. Patient is a poor historian but, only complains of lumbar pain. She denies recent fevers, chills, headache or dizziness. She denies recent nausea, vomit, diarrhea or constipation. She denies recent dysuria, frequency, urgency or hematuria. She denies recent chest pain or shortness of breath. Allergies: Prednisone, clopidogrel bisulfate Past surgical history: C5-6 Discectomy and arthrodesis with resection of osteophytes and posterior longitudinal ligament, local autograft,deformity correction (mormonism of lordosis), interbody cage C5-6 (11/29/18). Hemithyroidectomy. Social history: Alcohol abuse. Primary Care Physician: Dr. Mo <Misa Rico - Last Filed: 12/09/18 23:13> <Adina Wisdom - Last Filed: 12/10/18 00:02> - General Chief Complaint: Injury Stated Complaint: FALL Time Seen by Provider: 12/09/18 19:41 Past History <Misa Rico - Last Filed: 12/09/18 23:13> - Past Medical History Anemia: Yes (HX) Asthma: No Cancer: No Cardiac Disorders: No CVA: No COPD: Yes CHF: No Dementia: No Diabetes: No Dialysis: No GI Disorders: No Disorders: No HTN: Yes Hypercholesterolemia: Yes Kidney Stones: Yes (LT KIDNEY 7% FX/ RT 94%) Liver Disease: No Psychiatric Problems: No Seizures: No Thyroid Disease: Yes (hypo.) - Surgical History Abdominal Surgery: No Appendectomy: No Cardiac Surgery: No Cholecystectomy: No Lung Surgery: No Neurologic Surgery: No Orthopedic Surgery: No - Immunization History Immunization Up to Date: Yes - Suicide/Smoking/Psychosocial Hx Smoking Status: Yes Smoking History: Current every day smoker Have you smoked in the past 12 months: Yes Number of Cigarettes Smoked Daily: 10 If you are a former smoker, when did you quit?: 3 WEEKS 'Breaking Loose' booklet given: 11/27/18 Hx Alcohol Use: Yes (MARCH 2018 LAST DRINK) Drug/Substance Use Hx: No Substance Use Type: None Hx Substance Use Treatment: No <Adina Wisdom - Last Filed: 12/10/18 00:02> - Past Medical History Allergies/Adverse Reactions: Allergies Allergy/AdvReac Type Severity Reaction Status Date / Time clopidogrel bisulfate AdvReac Severe SEVERE Verified 12/09/18 20:54 [From Plavix] DIZZINESS prednisone AdvReac Severe Verified 12/09/18 20:54 Home Medications: Ambulatory Orders Verapamil HCl [Verapamil ER] 240 mg PO DAILY 09/01/15 Tiotropium [place] [Spiriva] 1 inh IH DAILY 05/22/17 Aspirin [Aspirin EC] 81 mg PO DAILY 12/28/17 Disulfiram [Antabuse] 250 mg PO DAILY 10/14/18 Escitalopram Oxalate [Lexapro -] 5 mg PO DAILY 10/14/18 Oxycodone HCl/Acetaminophen [Percocet 5-325 mg Tablet] 1 tab PO Q6H PRN #8 tablet MDD 4 tabs 12/02/18 Lisinopril [Prinivil -] 40 mg PO DAILY 30 Days #30 tablet 12/03/18 Review of Systems - Review of Systems Able to Perform ROS?: Yes Comments:: 12/09/18 21:28 GENERAL/CONSTITUTIONAL: No fever or chills. No weakness. HEAD, EYES, EARS, NOSE AND THROAT: No change in vision. No ear pain or discharge. No sore throat. CARDIOVASCULAR: No chest pain or shortness of breath. RESPIRATORY: No cough, wheezing, or hemoptysis. GASTROINTESTINAL: No nausea, vomiting, diarrhea or constipation. GENITOURINARY: No dysuria, frequency, or change in urination. +MUSCULOSKELETAL: Lumbar pain. SKIN: No rash NEUROLOGIC: No headache, vertigo, loss of consciousness, or change in strength/ sensation. ENDOCRINE: No increased thirst. No abnormal weight change. HEMATOLOGIC/LYMPHATIC: No anemia, easy bleeding, or history of blood clots. ALLERGIC/IMMUNOLOGIC: No hives or skin allergy. All Other Systems: Reviewed and Negative <Misa Rico - Last Filed: 12/09/18 23:13> *Physical Exam - Vital Signs Last Vital Signs Temp Pulse Resp BP Pulse Ox 99 12/09/18 20:24 - Physical Exam Comments: 12/09/18 23:13 GENERAL: Awake, alert, and fully oriented, in no acute distress HEAD: No signs of trauma EYES: PERRLA, EOMI, sclera anicteric, conjunctiva clear ENT: Auricles normal inspection, hearing grossly normal, nares patent, oropharynx clear without exudates. Moist mucosa NECK: Cervical collar in place. Anterior surgical scar, steristrips in place. No active drainage. Minimal erythema secondary to tight collar. LUNGS: Breath sounds equal, clear to auscultation bilaterally. No wheezes, and no crackles HEART: Regular rate and rhythm, normal S1 and S2, no murmurs, rubs or gallops ABDOMEN: Soft, nontender, normoactive bowel sounds. No guarding, no rebound. No masses EXTREMITIES: Normal range of motion, no edema. No clubbing or cyanosis. No cords, erythema, or tenderness NEUROLOGICAL: 2+ blt UE reflexes. 1+ blt LE reflexes. Cranial nerves II through XII grossly intact. Normal speech. SKIN: Warm, Dry, normal turgor, no rashes or lesions noted. <Misa Rico - Last Filed: 12/09/18 23:13> Moderate Sedation - Procedure Monitoring Vital Signs: Procedure Monitoring Vital Signs Temperature Pulse Rate Respiratory Rate Blood Pressure O2 Sat by Pulse Oximetry (%) 99 12/09/18 20:24 <Misa Rico - Last Filed: 12/09/18 23:13> Medical Decision Making - Medical Decision Making 12/09/18 20:16 Pt had a C5-C6 operation last week with Dr. Barron; she fell while walking with walker today. She has no specific complaints of the neck. She has only low back pain. 12/09/18 22:21 Referring Physician: SHON CARRASQUILLO Patient Name: GUILLE OROZCO THIS IS A PRELIMINARY REPORT FROM [facility] DATE OF SERVICE: 2018-12-09 21:02:59 IMAGES: [id number] EXAM: CERVICAL SPINE CT W/O CONTR HISTORY: Fall COMPARISON: None. FINDINGS: There is no fracture or subluxation Bony alignment is normal The vertebral body heights and disc spaces are preserved There are mild degenerative changes There has been anterior fusion and discectomy at C5/C6 The prevertebral and paravertebral soft tissues are grossly normal Few subpleural blebs at the lung apices more so on the right side. The visualized upper lungs are otherwise clear THIS DOCUMENT HAS BEEN ELECTRONICALLY SIGNED Patient Name: GUILLE OROZCO THIS IS A PRELIMINARY REPORT FROM [facility] DATE OF SERVICE: 2018-12-09 21:09:10 IMAGES: [id number] EXAM: HEAD CT WITHOUT CONTRAST HISTORY: Fall COMPARISON: None. FINDINGS: Few images of the posterior fossa are degraded by metallic dental artifact There is no intra-or extra-axial hemorrhage or collection. No mass lesion or midline shift. There is mild cortical atrophy. The size of the ventricles corresponds to the degree of cortical atrophy. Normal hightower-white matter differentiation. Areas of low attenuation in the periventricular and deep white matter are compatible with chronic microvascular ischemic changes. The calvarium is intact. Mild mucoperiosteal thickening in the left maxillary sinus The remaining visualized paranasal sinuses and mastoid air cells are clear <Adina Wisdom - Last Filed: 12/10/18 00:02> *DC/Admit/Observation/Transfer - Attestations Scribe Attestion: 12/09/18 21:28 Documentation prepared by Misa Rico, acting as medical claims manager for Adina Wisdom MD. <Misa Rico - Last Filed: 12/09/18 23:13> - Discharge Dispostion Decision to Admit order: No <Adina Wisdom - Last Filed: 12/10/18 00:02> Diagnosis at time of Disposition: Fall - Discharge Dispostion Disposition: HOME Condition at time of disposition: Improved - Referrals Referrals: Addy Mo MD [Primary Care Provider] - - Patient Instructions Printed Discharge Instructions: How to Prevent Falls - Post Discharge Activity
[2018-12-09] MEDS ORDERED: SODIUM CHLORIDE 0.9% 500 ML INFUS.BAG IV ONE (21:09)
[2018-12-09 21:54] VITALS: BP 135/84; PULSE 112; TEMP 98.1; BMI 21.6
[2018-12-09] MEDS ORDERED: IBUPROFEN 600 MG TABLET (FP) PO ONE (22:23)
[2018-12-09] MEDS ORDERED: ACETAMINOPHEN INJECTION 100 ML IVPB ONE (22:30)
[2018-12-09 23:21] LABS: URINE APPEARANCE CLEAR; URINE BILIRUBIN NEGATIVE (<2.0 mg/dL); URINE COLOR YELLOW; URINE GLUCOSE (UA) 2+ (NEGATIVE); URINE KETONE TRACE (NEGATIVE); URINE LEUK ESTERASE NEGATIVE (NEGATIVE); URINE NITRITE NEGATIVE (NEGATIVE); URINE PROTEIN NEGATIVE (NEGATIVE); URINE UROBILINOGEN NEGATIVE mg/dL (0.2-1.0)
[2018-12-10] MEDS ORDERED: ACETAMINOPHEN 1000 MG/100 ML VIAL (NON FORMULARY) IVPB ONE
== END 2018-12-10 02:32 | disposition home or self-care (01) ==
LOC: JER 19:20
PROC: 3E033NZ Introduction of Analgesics, Hypnotics, Sedatives into Peripheral Vein, Percutaneous Approach (ICD-10-PCS; principal; 2018-12-09)
DX: M54.5 Low back pain (principal); W18.39XA Other fall on same level, initial encounter; Y93.01 Activity, walking, marching and hiking; Y92.018 Other place in single-family (private) house as the place of occurrence of the external cause; Y99.8 Other external cause status; R29.6 Repeated falls; I10 Essential (primary) hypertension; E78.00 Pure hypercholesterolemia, unspecified; J44.9 Chronic obstructive pulmonary disease, unspecified; Z86.2 Personal history of diseases of the blood and blood-forming organs and certain disorders involving the immune mechanism; Z99.89 Dependence on other enabling machines and devices
CPT/HCPCS: 70450-TC; 71046-TC-FY; 72070-TC-FY; 72100-TC-FY; 72125-TC; 81003; 87086; 96374; 99285-25; J0131

== ENCOUNTER 2018-12-10 16:57 | Observation (INO) | payer BC ==
--- NOTE | 2018-12-10 19:00 | PDOC ---
History of Present Illness - General Chief Complaint: Blood Pressure Problem Stated Complaint: HIGH BLOOD PRESSURE Time Seen by Provider: 12/10/18 17:14 - History of Present Illness Initial Comments: 12/10/18 18:55 The patient is a 73 year old female, with a significant past medical history of COPD, HTN, peripheral arterial disease (s/p stenting), hypothyroid, chronic kidney disease, and alcohol abuse (on antabuse), and recent cervical spine surgery (11/29/18, Dr. Lacy) who presents to the emergency department with complaint of elevated Bp. The patient denies fever, chills, vomit, diarrhea or constipation. The patient denies dysuria, frequency, urgency or hematuria. Allergies: Prednisone, clopidogrel bisulfate Past surgical history: C5-6 Discectomy and arthrodesis with resection of osteophytes and posterior longitudinal ligament, local autograft, deformity correction (episcopal of lordosis), interbody cage C5-6 (11/29/18). Hemithyroidectomy Social history: None reported PCP: Dr. Mo Past History - Past Medical History Allergies/Adverse Reactions: Allergies Allergy/AdvReac Type Severity Reaction Status Date / Time clopidogrel bisulfate AdvReac Severe SEVERE Verified 12/10/18 17:01 [From Plavix] DIZZINESS prednisone AdvReac Severe Verified 12/10/18 17:01 Home Medications: Ambulatory Orders Verapamil HCl [Verapamil ER] 240 mg PO DAILY 09/01/15 Tiotropium [place] [Spiriva] 1 inh IH DAILY 05/22/17 Aspirin [Aspirin EC] 81 mg PO DAILY 12/28/17 Disulfiram [Antabuse] 250 mg PO DAILY 10/14/18 Escitalopram Oxalate [Lexapro -] 5 mg PO DAILY 10/14/18 Oxycodone HCl/Acetaminophen [Percocet 5-325 mg Tablet] 1 tab PO Q6H PRN #8 tablet MDD 4 tabs 12/02/18 Lisinopril [Prinivil -] 40 mg PO DAILY 30 Days #30 tablet 12/03/18 Anemia: Yes Asthma: No Cancer: No Cardiac Disorders: No CVA: No COPD: Yes CHF: No Dementia: No Diabetes: No Dialysis: No GI Disorders: No Disorders: No HTN: Yes Hypercholesterolemia: Yes Kidney Stones: Yes (LT KIDNEY 7% FX/ RT 94%) Liver Disease: No Psychiatric Problems: No Seizures: No Thyroid Disease: Yes (hypo.) - Surgical History Abdominal Surgery: No Appendectomy: No Cardiac Surgery: No Cholecystectomy: No Lung Surgery: No Neurologic Surgery: No Orthopedic Surgery: No - Immunization History Immunization Up to Date: Yes - Suicide/Smoking/Psychosocial Hx Smoking Status: Yes Smoking History: Current every day smoker Have you smoked in the past 12 months: Yes Number of Cigarettes Smoked Daily: 8 If you are a former smoker, when did you quit?: 3 WEEKS Information on smoking cessation initiated: Yes 'Breaking Loose' booklet given: 11/27/18 Hx Alcohol Use: Yes (MARCH 2018 LAST DRINK) Drug/Substance Use Hx: No Substance Use Type: None Hx Substance Use Treatment: No *Physical Exam - Vital Signs Last Vital Signs Temp Pulse Resp BP Pulse Ox 97.6 F 97 H 18 142/77 96 12/10/18 16:57 12/10/18 16:57 12/10/18 16:57 12/10/18 16:57 12/10/18 16:57 Moderate Sedation - Procedure Monitoring Vital Signs: Procedure Monitoring Vital Signs Temperature 97.6 F 12/10/18 16:57 Pulse Rate 97 H 12/10/18 16:57 Respiratory Rate 18 12/10/18 16:57 Blood Pressure 142/77 12/10/18 16:57 O2 Sat by Pulse Oximetry (%) 96 12/10/18 16:57 *DC/Admit/Observation/Transfer - Discharge Dispostion Condition at time of disposition: Stable - Referrals Referrals: Addy Mo MD [Primary Care Provider] - - Patient Instructions - Post Discharge Activity
--- NOTE | 2018-12-10 19:34 | PDOC ---
*Physical Exam - Vital Signs Last Vital Signs Temp Pulse Resp BP Pulse Ox 97.6 F 97 H 18 142/77 96 12/10/18 16:57 12/10/18 16:57 12/10/18 16:57 12/10/18 16:57 12/10/18 16:57 ED Treatment Course - LABORATORY CBC & Chemistry Diagram: 12/10/18 19:40 12/10/18 19:40 Progress Note - Progress Note Progress Note: Care of this patient received from Dr. Jules. Patient is 10 days s/p cervical spine surgery. She is being taken care of at home by her daughter. Her daughter describes ongoing weakness and difficulty with ambulation since the surgery. She has had several falls at home, including one yesterday after which she was evaluated at [facility] ER ( including head CT/cervical spine CT and chest x-ray, all normal). After returning home early this morning, patient continued to feel weak/lightheaded/ "dizzy". No other specific symptoms elicited Her daughter used home monitor to measure BP this afternoon and it reportedly was very elevated at 200/105 and patient was brought here. Laboratory evaluation including CBC/chemistry profile/troponin/UA was essentially normal except for evidence of mild to moderate prerenal azotemia with a BUN of 23 and creatinine 1.0. Clinically, the patient appears somewhat dehydrated with dry mucous membranes. No evidence of ongoing infection or electrolyte abnormalities present. Since discharge after cervical spine surgery, VNS and home physical therapy has been delayed. Seemingly, it appears this is related to administrative and communication difficulties. Since patient has had multiple falls secondary to her lightheadedness/weakness, and it is unclear when adequate home assistance will be started, she is at risk for more serious injury secondary to another fall by remaining home at this time. Admission for gait stability evaluation/ physical therapy and further evaluation of her lightheadedness is warranted. Case discussed with ANTONELLA Monterroso, [facility] hospitalist service. Patient admitted observation status, Dr. Linares's service *DC/Admit/Observation/Transfer Diagnosis at time of Disposition: Dehydration, Multiple falls - Discharge Dispostion Condition at time of disposition: Stable Decision to Admit order: Yes - Referrals - Patient Instructions - Post Discharge Activity
[2018-12-10 20:02] LABS: EOS % 1.8 % (0-4.5); HEMOGLOBIN 14.7 GM/dl (10.7-15.3); LYMPH % 19.5 % (8-40); MCH 31.5 pg (25.7-33.7); MCHC 32.7 g/dl (32.0-36.0); MEAN CELL VOLUME 96.5 fl (80-96); MONO % 8.3 % (3.8-10.2); NEUT % 69.4 % (42.8-82.8); PLATELET COUNT 487 K/MM3 (134-434); RBC 4.66 M/mm3 (3.60-5.2); RDW 12.7 % (11.6-15.6); WHITE BLOOD COUNT 9.6 K/mm3 (4.0-10.8)
[2018-12-10 20:04] LABS: URINE APPEARANCE CLEAR; URINE BILIRUBIN NEGATIVE (NEGATIVE); URINE COLOR YELLOW; URINE GLUCOSE (UA) TRACE (NEGATIVE); URINE KETONE NEGATIVE (NEGATIVE); URINE PROTEIN NEGATIVE (NEGATIVE)
[2018-12-10 20:05] LABS: URINE LEUK ESTERASE NEGATIVE (NEGATIVE); URINE NITRITE NEGATIVE (NEGATIVE); URINE UROBILINOGEN 0.2 (0.2-1.0)
[2018-12-10 20:06] LABS: INR 1.06 (0.82-1.09); PROTHROMBIN TIME (PATIENT) 11.9 SEC (10.2-13.0)
[2018-12-10 20:12] LABS: ALBUMIN 3.8 g/dl (3.4-5.0); ALK PHOS 130 U/L (45-117); ANION GAP 11 MMOL/L (8-16); BILIRUBIN,TOTAL 0.6 mg/dl (0.2-1); BLOOD UREA NITROGEN 23 mg/dl (7-18); CALCIUM 9.3 mg/dl (8.5-10); CHLORIDE 97 mmol/L (98-107); CO2 23 mmol/L (21-32); GLUCOSE,RANDOM 98 mg/dl (74-106); POTASSIUM 5.1 mmol/L (3.5-5.1); SGOT/AST 21 U/L (15-37); SGPT/ALT 19 U/L (13-61); SODIUM 131 mmol/L (136-145); TOT PROT 6.9 g/dl (6.4-8.2)
--- NOTE | 2018-12-10 21:54 | HP ---
Admitting History and Physical - Primary Care Physician PCP: Addy Mo R - Admission Chief Complaint: Elevated BP, Generalized Weakness, Frequent Falls History of Present Illness: This is a 73 y/o woman with a past medical history of COPD (no O2), HTN, PAD ( stent), Hypothyroid, CKD, Alcohol Abuse (on Antabuse), frequent falls, recent admission 11/27-12/03 for ABRAM, UTI, s/p Cervical Spine sx ( Dr. Strickland, 11/30/18). Who presents to the ED for elevated blood pressure, generalized weakness, s/p fall. Per patient's daughter the patient's BP was elevated 200/100 given nifedipine 10mg per pt's PMD. Then rechecked the BP 220/110 ~ 209/105. Per the daughter the patient has had generalized weakness since last September, increased since having the cervical surgery this month. The daughter reports that the patient fell while using her walker yesterday and was seen and evaluated at the [facility]- Head CT, Cervical Spine CT, T-spine xray, Chest xray- no fx. Patient denies fever, chills, cough, dizziness, FRANCISCO, CP, palpitations, N/V/D, constipation, dysuria Per the daughter, the patient has VNS, and had one PT session at home. 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: Alzheimer's Cardiovascular: Yes: HTN, Hyperlipdemia Pulmonary: Yes: COPD Renal/: Yes: Renal Inusuff Heme/Onc: Yes: Anemia Endocrine: Yes: Hypothyroidism - Past Surgical History Past Surgical History: Yes: Stent - Smoking History Smoking history: Current every day smoker Have you smoked in the past 12 months: Yes Aproximately how many cigarettes per day: 8 If you are a former smoker, when did you quit?: 3 WEEKS - Alcohol/Substance Use Hx Alcohol Use: Yes (MARCH 2018 LAST DRINK) History of Substance Use: reports: None - Social History Usual Living Arrangement: Yes: With Child ADL: Family Assistance History of Recent Travel: No Home Medications - Allergies Allergies/Adverse Reactions: Allergies Allergy/AdvReac Type Severity Reaction Status Date / Time clopidogrel bisulfate AdvReac Severe SEVERE Verified 12/10/18 17:01 [From Plavix] DIZZINESS prednisone AdvReac Severe Verified 12/10/18 17:01 - Home Medications Home Medications: Ambulatory Orders Verapamil HCl [Verapamil ER] 240 mg PO DAILY 09/01/15 Tiotropium [place] [Spiriva] 1 inh IH DAILY 05/22/17 Aspirin [Aspirin EC] 81 mg PO DAILY 12/28/17 Disulfiram [Antabuse] 250 mg PO DAILY 10/14/18 Escitalopram Oxalate [Lexapro -] 5 mg PO DAILY 10/14/18 Oxycodone HCl/Acetaminophen [Percocet 5-325 mg Tablet] 1 tab PO Q6H PRN #8 tablet MDD 4 tabs 12/02/18 Lisinopril [Prinivil -] 40 mg PO DAILY 30 Days #30 tablet 12/03/18 Nifedipine 10 mg PO DAILY PRN 12/10/18 Family Disease History - Family Disease History Family Disease History: Heart Disease: Father, Mother Review of Systems - Review of Systems Constitutional: reports: Lethargy, Weakness Eyes: reports: No Symptoms HENT: reports: No Symptoms Neck: reports: Tenderness Cardiovascular: reports: No Symptoms Respiratory: reports: No Symptoms Gastrointestinal: reports: No Symptoms Genitourinary: reports: Incontinence Breasts: reports: No Symptoms Reported Musculoskeletal: reports: No Symptoms Integumentary: reports: No Symptoms Neurological: reports: Unsteady Gait, Weakness Endocrine: reports: No Symptoms Hematology/Lymphatic: reports: No Symptoms Psychiatric: reports: No Symptoms Physical Examination Vital Signs: Vital Signs Temperature 97.6 F 12/10/18 16:57 Pulse Rate 73 12/10/18 20:49 Respiratory Rate 16 12/10/18 20:49 Blood Pressure 161/98 12/10/18 20:49 O2 Sat by Pulse Oximetry (%) 95 12/10/18 20:49 Constitutional: Yes: No Distress, Calm, Thin Eyes: Yes: WNL, Conjunctiva Clear, EOM Intact, PERRL HENT: Yes: WNL, Atraumatic, Normocephalic Neck: Yes: Decreased ROM, Other (Cervical Collar) Cardiovascular: Yes: Regular Rate and Rhythm, S1, S2 Respiratory: Yes: WNL, Regular, CTA Bilaterally Gastrointestinal: Yes: WNL, Normal Bowel Sounds, Soft Renal/: Yes: Incontinence Breast(s): Yes: WNL Musculoskeletal: Yes: WNL Extremities: Yes: WNL Edema: No Peripheral Pulses WNL: Yes Neurological: Yes: Alert, Confusion, Cran Nerves II-XII Intact ...Motor Strength: WNL Psychiatric: Yes: Alert Labs: CBC, BMP 12/10/18 19:40 12/10/18 19:40 Intake & Output 12/08/18 12/09/18 12/10/18 12/11/18 23:59 23:59 23:59 23:59 Intake Total 0 Balance 0 Weight 64.637 kg Imaging - Results Chest X-ray: Report Reviewed, Image Reviewed X-ray: Report Reviewed, Image Reviewed Cat Scan: Report Reviewed, Image Reviewed EKG: Image Reviewed Problem List - Problems (1) HTN (hypertension) Assessment/Plan: Suboptimal Monitor BP Continue home meds Consider Cardiology consult if BP uncontrolled Monitor renal function Low Na Diet Code(s): I10 - ESSENTIAL (PRIMARY) HYPERTENSION Qualifiers: Hypertension type: essential hypertension Qualified Code(s): I10 - Essential (primary) hypertension (2) Weakness generalized Assessment/Plan: s/p Cervical sx Patient's daughter reports decreased appetite BUN 23 mildly elevated Monitor BMP Encourage PO intake Consider RD eval PT eval Case Management for STR Fall precautions Monitor vitals Code(s): R53.1 - WEAKNESS (3) Fall Assessment/Plan: s/p fall at home hx frequent falls Head CT 12/09/18- no acute ICH, edema, midline shift, mass or skull fx C-Spine CT 12/09/18- s/p anterior fusion C5-C6, no gross fx or subluxation. C6- C7 mild degenerative disc disease T-Spine Xray 12/09/18- no acute thoracic spine pathology Chest Xray- no acute chest pathology PT eval Continue Cervical Collar Monitor CBC, BMP Fall Precautions Possible STR Code(s): W19.XXXA - UNSPECIFIED FALL, INITIAL ENCOUNTER (4) COPD (chronic obstructive pulmonary disease) Assessment/Plan: stable No acute flare Continue Spirva Duonebs prn O2 Code(s): J44.9 - CHRONIC OBSTRUCTIVE PULMONARY DISEASE, UNSPECIFIED Qualifiers: COPD type: unspecified COPD Qualified Code(s): J44.9 - Chronic obstructive pulmonary disease, unspecified (5) Hypothyroid Assessment/Plan: TSH in am No current med Will continue to monitor and treat with interventions accordingly Code(s): E03.9 - HYPOTHYROIDISM, UNSPECIFIED Assessment/Plan This is a 73 y/o woman with a PMHx of: COPD (no O2), HTN, PAD (Stent), Hypothroid, Renal Insufficiency, Alcohol Abuse, s/p Cervical Sx (11/30/18).Placed on Observation for Uncontrolled HTN, Generalized Weakness and Frequent Falls for further evaluation of their emergent condition. Plan: See Problem List: FEN: PO fluids as tolerated Replete lytes prn Low Na Diet DVT ppx OOB SCDs Dispo: Observation Visit type - Emergency Visit Emergency Visit: Yes ED Registration Date: 12/10/18 Care time: The patient presented to the Emergency Department on the above date and was hospitalized for further evaluation of their emergent condition. - New Patient This patient is new to me today: Yes Date on this admission: 12/10/18 - Critical Care Critical Care patient: No
[2018-12-10 22:30] VITALS: BMI 19.8
[2018-12-11 07:32] LABS: HEMOGLOBIN 12.9 GM/dl (10.7-15.3)
[2018-12-11 07:56] LABS: BASO % 1.2 % (0-2.0); EOS % 1.8 % (0-4.5); LYMPH % 20.3 % (8-40); MCH 32.1 pg (25.7-33.7); MCHC 33.9 g/dl (32.0-36.0); MEAN CELL VOLUME 94.7 fl (80-96); MEAN PLT VOLUME 6.9 fl (7.5-11.1); MONO % 8.6 % (3.8-10.2); NEUT % 68.1 % (42.8-82.8); PLATELET COUNT 382 K/MM3 (134-434); RBC 4.01 M/mm3 (3.60-5.2); RDW 12.7 % (11.6-15.6); WHITE BLOOD COUNT 7.5 K/mm3 (4.0-10.8)
[2018-12-11 08:26] LABS: ANION GAP 9 MMOL/L (8-16); BLOOD UREA NITROGEN 21 mg/dl (7-18); CALCIUM 8.8 mg/dl (8.5-10); CHLORIDE 101 mmol/L (98-107); CO2 22 mmol/L (21-32); CREATININE 1.1 mg/dl (0.55-1.3); GLUCOSE,RANDOM 100 mg/dl (74-106); POTASSIUM 4.9 mmol/L (3.5-5.1); SODIUM 132 mmol/L (136-145)
[2018-12-11] MEDS ORDERED: PT OWN MED DRAWER 7, Y5N ONE (09:28)
[2018-12-11] MEDS ORDERED: LISINOPRIL 20 MG TABLET (FP) PO SCH (10:00)
[2018-12-11] MEDS ORDERED: ASPIRIN COATED 81 MG TABLET.EC PO SCH (10:00)
[2018-12-11] MEDS ORDERED: PATIENT'S OWN MEDICATION (NON-FORMULARY) (Tiotropium Bromide [Spiriva] 1 INH) IH SCH (10:00)
[2018-12-11] MEDS ORDERED: ESCITALOPRAM OXALATE 10 MG TABLET (FP) PO SCH (10:00)
[2018-12-11] MEDS ORDERED: TIOTROPIUM BROMIDE 2.5 MCG (SPIRIVA) RESPIMAT INHALER IH SCH (10:00)
[2018-12-11] MEDS ORDERED: VERAPAMIL HCL 240 MG E.R. TABLET (FP) PO SCH (10:00)
--- NOTE | 2018-12-11 11:16 | PN ---
Physical Exam: SUBJECTIVE: Patient seen and examined OBJECTIVE: Vital Signs Period Temp Pulse Resp BP Sys/Mcfadden Pulse Ox Last 24 Hr 97.6 F-98.4 F 70-104 16-19 136-161/77-98 95-97 GENERAL: The patient is awake, alert, and fully oriented, in no acute distress. HEAD: Normal with no signs of trauma. EYES: PERRL, extraocular movements intact, sclera anicteric, conjunctiva clear. No ptosis. ENT: Ears normal, nares patent, oropharynx clear without exudates, moist mucous membranes. NECK: Trachea midline, full range of motion, supple. LUNGS: Breath sounds equal, clear to auscultation bilaterally, no wheezes, no crackles, no accessory muscle use. HEART: Regular rate and rhythm, S1, S2 without murmur, rub or gallop. ABDOMEN: Soft, nontender, nondistended, normoactive bowel sounds, no guarding, no rebound, no hepatosplenomegaly, no masses. EXTREMITIES: 2+ pulses, warm, well-perfused, no edema. NEUROLOGICAL: Cranial nerves II through XII grossly intact. Normal speech, gait not observed. PSYCH: Normal mood, normal affect. SKIN: Warm, dry, normal turgor, no rashes or lesions noted Laboratory Results - last 24 hr 12/10/18 12/10/18 12/10/18 19:40 19:40 19:40 WBC RBC Hgb Hct MCV MCH MCHC RDW Plt Count MPV Absolute Neuts (auto) Neutrophils % Lymphocytes % Monocytes % Eosinophils % Basophils % PT with INR INR Sodium 131 L Potassium 5.1 Chloride 97 L Carbon Dioxide 23 Anion Gap 11 BUN 23 H Creatinine 1.0 Creat Clearance w eGFR 54.05 Random Glucose 98 Calcium 9.3 Total Bilirubin 0.6 AST 21 ALT 19 Alkaline Phosphatase 130 H Creatine Kinase 55 Troponin I < 0.03 Total Protein 6.9 Albumin 3.8 TSH Urine Color Yellow Urine Appearance Clear Urine pH 6.0 Ur Specific [place] < 1.005 L Urine Protein Negative Urine Glucose (UA) Trace H D Urine Ketones Negative Urine Blood Negative Urine Nitrite Negative Urine Bilirubin Negative Urine Urobilinogen 0.2 Ur Leukocyte Esterase Negative D 12/10/18 12/10/18 12/11/18 19:40 19:40 07:00 WBC 9.6 7.5 RBC 4.66 4.01 Hgb 14.7 12.9 Hct 45.0 38.0 D MCV 96.5 H 94.7 MCH 31.5 32.1 MCHC 32.7 33.9 RDW 12.7 12.7 Plt Count 487 H 382 MPV 7.0 L 6.9 L Absolute Neuts (auto) 6.6 5.2 Neutrophils % 69.4 68.1 Lymphocytes % 19.5 20.3 Monocytes % 8.3 8.6 Eosinophils % 1.8 1.8 Basophils % 1.0 1.2 PT with INR 11.9 INR 1.06 Sodium Potassium Chloride Carbon Dioxide Anion Gap BUN Creatinine Creat Clearance w eGFR Random Glucose Calcium Total Bilirubin AST ALT Alkaline Phosphatase Creatine Kinase Troponin I Total Protein Albumin TSH Urine Color Urine Appearance Urine pH Ur Specific [place] Urine Protein Urine Glucose (UA) Urine Ketones Urine Blood Urine Nitrite Urine Bilirubin Urine Urobilinogen Ur Leukocyte Esterase 12/11/18 07:00 WBC RBC Hgb Hct MCV MCH MCHC RDW Plt Count MPV Absolute Neuts (auto) Neutrophils % Lymphocytes % Monocytes % Eosinophils % Basophils % PT with INR INR Sodium 132 L Potassium 4.9 Chloride 101 Carbon Dioxide 22 Anion Gap 9 BUN 21 H Creatinine 1.1 Creat Clearance w eGFR 48.42 Random Glucose 100 Calcium 8.8 Total Bilirubin AST ALT Alkaline Phosphatase Creatine Kinase Troponin I Total Protein Albumin TSH 1.01 Urine Color Urine Appearance Urine pH Ur Specific [place] Urine Protein Urine Glucose (UA) Urine Ketones Urine Blood Urine Nitrite Urine Bilirubin Urine Urobilinogen Ur Leukocyte Esterase Active Medications Generic Name Dose Route Start Last Admin Trade Name Freq PRN Reason Stop Dose Admin Aspirin 81 mg 12/11/18 10:00 12/11/18 09:40 Ecotrin - PO 81 mg DAILY WHITNEY Administration Escitalopram Oxalate 5 mg 12/11/18 10:00 12/11/18 09:40 Lexapro - PO 5 mg DAILY WHITNEY Administration Lisinopril 40 mg 12/11/18 10:00 12/11/18 09:40 Prinivil PO 40 mg DAILY WHITNEY Administration Tiotropium [place] 2 puff 12/11/18 10:00 12/11/18 09:41 Spiriva Respimat IH 2 puff DAILY WHITNEY Administration Verapamil HCl 240 mg 12/11/18 10:00 12/11/18 09:41 Calan Sr - PO 240 mg DAILY WHITNEY Administration ASSESSMENT/PLAN: The patient is a 72 year-old female with a PMH significant for HTN, PAD s/p stents, COPD, hypothyroidism, ETOH abuse on antabuse, and multiple falls. On 11/29 underwent C5-6 discectomy and fusion. Discharged to home with services on 09/10. Seen in [facility] ED on 12/09 s/p fall at home. Workup was negative and patient sent home on 12/10 at ~2:00am. Returned to [place] ED at 7:00pm that same day with report of elevated blood pressure at home. s/p C5-C6 discectomy and fusion on 11/29/18 --uncomplicated post-operative course, hard collar in place 23 hours/day, followup with Dr. Tony next week Generalized weakness Gait instability Multiple falls --chronic issues well-documented in EMR over years, often with alcohol on board ETOH abuse --presently on antabuse, patient states sober since 03/2018 Hypertension --BP stable --continue lisinopril, verapamil Peripheral arterial disease s/p stents --continue ASA COPD --continue Spiriva Hypothyroidism --not on medication
--- NOTE | 2018-12-11 12:08 | EKG ---
Test Reason : Blood Pressure : / mmHG Vent. Rate : 085 BPM Atrial Rate : 085 BPM P-R Int : 158 ms QRS Dur : 084 ms QT Int : 358 ms P-R-T Axes : 055 045 078 degrees QTc Int : 426 ms POOR DATA QUALITY, INTERPRETATION MAY BE ADVERSELY AFFECTED NORMAL SINUS RHYTHM WITH SINUS ARRHYTHMIA NORMAL ECG WHEN COMPARED WITH ECG OF 27-NOV-2018 00:26, NO SIGNIFICANT CHANGE WAS FOUND Confirmed by MD IZABELA, LOAR ([id number]) on 12/11/2018 12:08:05 PM Referred By: Columba OMER Confirmed By:LORA GURROLA MD
--- NOTE | 2018-12-11 12:28 | DS ---
Physical Exam: SUBJECTIVE: Patient seen and examined OBJECTIVE: Vital Signs Period Temp Pulse Resp BP Sys/Mcfadden Pulse Ox Last 24 Hr 97.6 F-98.4 F 70-104 16-19 136-161/77-98 95-97 PHYSICAL EXAM GENERAL: The patient is awake, alert, and fully oriented, in no acute distress. HEAD: Normal with no signs of trauma. EYES: PERRL, extraocular movements intact, sclera anicteric, conjunctiva clear. ENT: Ears normal, nares patent, oropharynx clear without exudates, moist mucous membranes. NECK: Trachea midline, full range of motion, supple. LUNGS: Breath sounds equal, clear to auscultation bilaterally, no wheezes, no crackles, no accessory muscle use. HEART: Regular rate and rhythm, S1, S2 without murmur, rub or gallop. ABDOMEN: Soft, nontender, nondistended, normoactive bowel sounds, no guarding, no rebound, no hepatosplenomegaly, no masses. EXTREMITIES: 2+ pulses, warm, well-perfused, no edema. NEUROLOGICAL: Cranial nerves II through XII grossly intact. Normal speech, gait not observed. PSYCH: Normal mood, normal affect. SKIN: Warm, dry, normal turgor, no rashes or lesions noted. LABS Laboratory Results - last 24 hr 12/10/18 12/10/18 12/10/18 19:40 19:40 19:40 WBC RBC Hgb Hct MCV MCH MCHC RDW Plt Count MPV Absolute Neuts (auto) Neutrophils % Lymphocytes % Monocytes % Eosinophils % Basophils % PT with INR INR Sodium 131 L Potassium 5.1 Chloride 97 L Carbon Dioxide 23 Anion Gap 11 BUN 23 H Creatinine 1.0 Creat Clearance w eGFR 54.05 Random Glucose 98 Calcium 9.3 Total Bilirubin 0.6 AST 21 ALT 19 Alkaline Phosphatase 130 H Creatine Kinase 55 Troponin I < 0.03 Total Protein 6.9 Albumin 3.8 TSH Urine Color Yellow Urine Appearance Clear Urine pH 6.0 Ur Specific [place] < 1.005 L Urine Protein Negative Urine Glucose (UA) Trace H D Urine Ketones Negative Urine Blood Negative Urine Nitrite Negative Urine Bilirubin Negative Urine Urobilinogen 0.2 Ur Leukocyte Esterase Negative D 12/10/18 12/10/18 12/11/18 19:40 19:40 07:00 WBC 9.6 7.5 RBC 4.66 4.01 Hgb 14.7 12.9 Hct 45.0 38.0 D MCV 96.5 H 94.7 MCH 31.5 32.1 MCHC 32.7 33.9 RDW 12.7 12.7 Plt Count 487 H 382 MPV 7.0 L 6.9 L Absolute Neuts (auto) 6.6 5.2 Neutrophils % 69.4 68.1 Lymphocytes % 19.5 20.3 Monocytes % 8.3 8.6 Eosinophils % 1.8 1.8 Basophils % 1.0 1.2 PT with INR 11.9 INR 1.06 Sodium Potassium Chloride Carbon Dioxide Anion Gap BUN Creatinine Creat Clearance w eGFR Random Glucose Calcium Total Bilirubin AST ALT Alkaline Phosphatase Creatine Kinase Troponin I Total Protein Albumin TSH Urine Color Urine Appearance Urine pH Ur Specific [place] Urine Protein Urine Glucose (UA) Urine Ketones Urine Blood Urine Nitrite Urine Bilirubin Urine Urobilinogen Ur Leukocyte Esterase 12/11/18 07:00 WBC RBC Hgb Hct MCV MCH MCHC RDW Plt Count MPV Absolute Neuts (auto) Neutrophils % Lymphocytes % Monocytes % Eosinophils % Basophils % PT with INR INR Sodium 132 L Potassium 4.9 Chloride 101 Carbon Dioxide 22 Anion Gap 9 BUN 21 H Creatinine 1.1 Creat Clearance w eGFR 48.42 Random Glucose 100 Calcium 8.8 Total Bilirubin AST ALT Alkaline Phosphatase Creatine Kinase Troponin I Total Protein Albumin TSH 1.01 Urine Color Urine Appearance Urine pH Ur Specific [place] Urine Protein Urine Glucose (UA) Urine Ketones Urine Blood Urine Nitrite Urine Bilirubin Urine Urobilinogen Ur Leukocyte Esterase HOSPITAL COURSE: Date of Admission:12/10/18 Date of Discharge: 12/11/18 Pre hospital course The patient is a 72 year-old female with a PMH significant for HTN, PAD s/p stents, COPD, hypothyroidism, ETOH abuse on antabuse, and multiple falls. On 11/29 underwent C5-6 discectomy and fusion. Discharged to home with services on 09/10. Seen in [facility] ED on 12/09 s/p fall at home. Workup was negative and patient sent home on 12/10 at ~2:00am. Returned to [place] [facility] ED at 7:00pm that same day with report of elevated blood pressure at home. Subsequent hospital course by problem list s/p C5-C6 discectomy and fusion on 11/29/18 --uncomplicated post-operative course, hard collar in place 23 hours/day, followup with Dr. Tony next week Generalized weakness Gait instability Multiple falls --chronic issues well-documented in EMR over years, often with alcohol on board ETOH abuse --presently on antabuse, patient states sober since 03/2018 Hypertension --BP stable --continue lisinopril, verapamil Peripheral arterial disease s/p stents --continue ASA COPD --continue Spiriva Hypothyroidism --not on medication Patient discharged to home with re-institutuion of VNS and physical therapy services. Minutes to complete discharge: 35 Discharge Summary Reason For Visit: RECURRENT FALLS, DEHYDRATION Current Active Problems Dehydration (Acute) Hypothyroid (Acute) Multiple falls (Acute) Weakness generalized (Acute) Condition: Stable - Instructions Referrals: Addy Mo MD [Primary Care Provider] - Disposition: HOME - Home Medications Comprehensive Discharge Medication List: Ambulatory Orders Verapamil HCl [Verapamil ER] 240 mg PO DAILY 09/01/15 Tiotropium [place] [Spiriva] 1 inh IH DAILY 05/22/17 Aspirin [Aspirin EC] 81 mg PO DAILY 12/28/17 Disulfiram [Antabuse] 250 mg PO DAILY 10/14/18 Escitalopram Oxalate [Lexapro -] 5 mg PO DAILY 10/14/18 Oxycodone HCl/Acetaminophen [Percocet 5-325 mg Tablet] 1 tab PO Q6H PRN #8 tablet MDD 4 tabs 12/02/18 Lisinopril [Prinivil -] 40 mg PO DAILY 30 Days #30 tablet 12/03/18 Nifedipine 10 mg PO DAILY PRN 12/10/18 This patient is new to me today: Yes Date on this admission: 12/11/18 Emergency Visit: Yes ED Registration Date: 12/10/18 Care time: The patient presented to the Emergency Department on the above date and was hospitalized for further evaluation of their emergent condition. Critical Care patient: No - Discharge Referral Referred to [facility] Med P.C.: No
[2018-12-11 14:13] VITALS: BP 155/68; PULSE 98; TEMP 98.1
== END 2018-12-11 14:42 | disposition home or self-care (01) ==
LOC: FER 16:57 → FM/S 21:33
PROVIDERS: ADMIT Internal Medicine; ATTEND Nurse Practitioner Acute Care
PROC: 3E0F7GC Introduction of Other Therapeutic Substance into Respiratory Tract, Via Natural or Artificial Opening (ICD-10-PCS; principal; 2018-12-10)
DX: E86.0 Dehydration (principal); R53.1 Weakness; I12.9 Hypertensive chronic kidney disease with stage 1 through stage 4 chronic kidney disease, or unspecified chronic kidney disease; F17.210 Nicotine dependence, cigarettes, uncomplicated; I73.9 Peripheral vascular disease, unspecified; N18.9 Chronic kidney disease, unspecified; E03.9 Hypothyroidism, unspecified; Z91.81 History of falling; R29.6 Repeated falls; J44.9 Chronic obstructive pulmonary disease, unspecified; E78.5 Hyperlipidemia, unspecified; F10.10 Alcohol abuse, uncomplicated; D64.9 Anemia, unspecified; W18.30XA Fall on same level, unspecified, initial encounter; Y93.9 Activity, unspecified; Y92.009 Unspecified place in unspecified non-institutional (private) residence as the place of occurrence of the external cause; Z98.1 Arthrodesis status; Z95.5 Presence of coronary angioplasty implant and graft
CPT/HCPCS: 36415; 80048; 80053; 81003; 82550; 84443; 84484; 85025; 85610; 93005; 94640; 97116-GP; 97162-GP; 99285-25; G0378

== ENCOUNTER 2019-05-27 20:27 | Emergency (ER) | payer BC ==
[2019-05-27] MEDS ORDERED: ACETAMINOPHEN 500 MG TABLET (FP) PO ONE (20:40)
[2019-05-27] MEDS ORDERED: ACETAMINOPHEN 500 MG TABLET (FP) ONE (20:54)
[2019-05-27 21:00] VITALS: BP 113/84; PULSE 108; TEMP 98; BMI 22.1
--- NOTE | 2019-05-27 21:22 | PDOC ---
Documentation entered by Rylee Kaur SCRIBE, acting as scribe for Sandra Terry MD. Sandra Terry MD: This documentation has been prepared by the Natasha segura Brenda, SCRIBE, under my direction and personally reviewed by me in its entirety. I confirm that the documentation accurately reflects all work , treatment, procedures, and medical decision making performed by me. History of Present Illness - General Chief Complaint: Pain Stated Complaint: WALKING WITHOUT WALKER, FELL INJURED LEFT ANKLE Time Seen by Provider: 05/27/19 20:29 History Source: Patient Exam Limitations: No Limitations - History of Present Illness Initial Comments: 05/27/19 20:49 The patient is a 73 year old female, with a significant PMH of COPD, HTN, peripheral arterial disease (s/p stenting), hypothyroid, chronic kidney disease , and alcohol abuse (on antabuse), and recent cervical spine surgery (11/29/18, Dr. Lacy) who presents to the emergency department with left ankle pain. As per patient, she was walking without her walker, at which time she fell. Patient reports being unsure if there was a head trauma. Tetanus is up to date. The patient denies chest pain, shortness of breath, headache and dizziness. Denies any GI symptoms. Denies any urinary symptoms. PAST MEDICAL HISTORY: no significant history PAST SURGICAL HISTORY: C5-6 Discectomy and arthrodesis with resection of osteophytes and posterior longitudinal ligament, local autograft, deformity correction (zoroastrian of lordosis), interbody cage C5-6 (11/29/18). Hemithyroidectomy Social history: Hx of alcohol abuse, on antabuse. FAMILY HISTORY: no pertinent history MEDICATIONS: reviewed ALLERGIES: Prednisone, clopidogrel bisulfate PCP: Dr. Mo General: No fevers or chills, no weakness, no weight loss HEENT: No change in vision. No sore throat,. No ear pain CardioVascular: No chest pain or shortness of breath Respiratory:No cough, or wheezing. Gastrointestinal: no nausea, vomiting, diarrhea or constipation, No rectal bleeding Genitourinary: No dysuria, hematuria, or frequency Musculoskeletal: (+) Pain on left ankle. No joint or muscle swelling Neurologic: No headache, vertigo, dizziness or loss of consciousness Psychiatric: nor depression Skin:No rashes or easy bruising Endocrine: no increased thirst or abnormal weight change Allergic: no skin or latex allergy All other systems reviewed and normal General: Well-nourished well-developed individual, no acute distress HEENT: Throat: Normal, tonsils normal, no erythema or exudate Neck: Supple, no meningeal signs, no lymphadenopathy Eyes::Pupils equal reactive and round, extraocular motion intact Chest: Nontender to palpation Cardiac: S1-S2 normal, regular rate and rhythm, no murmurs rubs or gallops Respiratory: Lungs clear to auscultation bilateral Abdomen: Soft, nondistended, normal bowel sounds, nontender to palpation diffusely Extremities: (+) Left ankle tenderness over the lateral ankle. (+)Tenderness to the base of 5th metatarsal. (+)Abrasion on anterior of knee. No knee tenderness. Neurovascular intact. Skin: Warm, dry, no cyanosis, clubbing, or edema Skin: No rashes Neuro: Alert and oriented x3, nonfocal exam, grossly intact. Psych: Normal mood and affect 05/27/19 21:11 Assessment and plan: This is a 73-year-old female who comes in status post walking without her walker and lost her balance and fell twisting her left ankle. Patient is complaining of pain over the lateral ankle and lateral foot. Patient denies hitting her head. Patient also has an abrasion of her knee but no bony tenderness. Patient's tetanus is up-to-date. Patient had a head CT 05/27/19 22:[address] read as negative for any acute pathology Past History - Past Medical History Allergies/Adverse Reactions: Allergies Allergy/AdvReac Type Severity Reaction Status Date / Time clopidogrel bisulfate AdvReac Severe SEVERE Verified 12/10/18 17:01 [From Plavix] DIZZINESS prednisone AdvReac Severe Verified 12/10/18 17:01 lisinopril AdvReac Verified 05/27/19 20:28 Home Medications: Ambulatory Orders Amlodipine Besylate 10 mg PO DAILY 05/27/19 Disulfiram [Antabuse] 250 mg PO DAILY 05/27/19 Escitalopram Oxalate [Lexapro -] 5 mg PO DAILY 05/27/19 Folic Acid 1 mg PO DAILY 05/27/19 Tiotropium [place] [Spiriva] 1 inh PO DAILY 05/27/19 Anemia: Yes Asthma: No Cancer: No Cardiac Disorders: No CVA: No COPD: Yes CHF: No Dementia: No Diabetes: No Dialysis: No GI Disorders: No Disorders: No HTN: Yes Hypercholesterolemia: Yes Kidney Stones: Yes (LT KIDNEY 7% FX/ RT 94%) Liver Disease: No Psychiatric Problems: No Seizures: No Thyroid Disease: Yes (hypo.) - Surgical History Abdominal Surgery: No Appendectomy: No Cardiac Surgery: No Cholecystectomy: No Lung Surgery: No Neurologic Surgery: No Orthopedic Surgery: No - Immunization History Immunization Up to Date: Yes - Suicide/Smoking/Psychosocial Hx Smoking Status: Yes Smoking History: Current every day smoker Have you smoked in the past 12 months: Yes Number of Cigarettes Smoked Daily: 8 If you are a former smoker, when did you quit?: 3 WEEKS 'Breaking Loose' booklet given: 11/27/18 Hx Alcohol Use: Yes (MARCH 2018 LAST DRINK) Drug/Substance Use Hx: No Substance Use Type: None Hx Substance Use Treatment: No *Physical Exam - Vital Signs Last Vital Signs Temp Pulse Resp BP Pulse Ox 98 F 108 H 16 113/84 100 05/27/19 20:32 05/27/19 20:32 05/27/19 20:32 05/27/19 20:32 05/27/19 20:32 ED Treatment Course - RADIOLOGY Radiology Studies Ordered: Category Date Time Status HEAD CT WITHOUT CONTRAST [CT] Stat CT Scan 05/27/19 20:32 Ordered ANKLE & FOOT-LEFT* [RAD] Stat Radiology 05/27/19 20:33 Taken - Medications Given in the ED: ED Medications Discontinued Medications Generic Name Dose Route Start Last Admin Trade Name Emmanuelq PRN Reason Stop Dose Admin Acetaminophen 1,000 mg 05/27/19 20:40 05/27/19 20:56 Tylenol - PO 05/27/19 20:41 1,000 mg ONCE ONE Administration *DC/Admit/Observation/Transfer Diagnosis at time of Disposition: Abrasion, left knee, initial encounter Left ankle sprain Qualifiers: Encounter type: initial encounter Involved ligament of ankle: unspecified ligament Qualified Code(s): S93.402A - Sprain of unspecified ligament of left ankle, initial encounter Sprain of left foot Qualifiers: Encounter type: initial encounter Qualified Code(s): S93.602A - Unspecified sprain of left foot, initial encounter - Discharge Dispostion Disposition: HOME Condition at time of disposition: Stable Decision to Admit order: No - Referrals Referrals: Stefan Carrasco MD [Primary Care Provider] - - Patient Instructions Additional Instructions: Make sure your use the walker when ambulating. Tylenol as needed for pain. Return to the emergency department immediately with ANY new, persistent or worsening symptoms. Continue any medications as previously prescribed by your physician. You should follow up with your primary doctor as soon as possible regarding today's emergency department visit. . Please make sure your doctor reviews the results of your emergency evaluation. Thank you for coming to the Emergency Department today for your care. It was a pleasure to see you today. Please note that your evaluation is INCOMPLETE until you follow-up with your doctor. - Post Discharge Activity
== END 2019-05-27 22:37 | disposition home or self-care (01) ==
LOC: FER 20:27
DX: S93.402A Sprain of unspecified ligament of left ankle, initial encounter (principal); S93.602A Unspecified sprain of left foot, initial encounter; F17.210 Nicotine dependence, cigarettes, uncomplicated; J44.9 Chronic obstructive pulmonary disease, unspecified; I10 Essential (primary) hypertension; E78.00 Pure hypercholesterolemia, unspecified; E03.9 Hypothyroidism, unspecified; I73.9 Peripheral vascular disease, unspecified; X58.XXXA Exposure to other specified factors, initial encounter; Y93.89 Activity, other specified; Y92.89 Other specified places as the place of occurrence of the external cause
CPT/HCPCS: 70450-TC; 73610-TC-LT-FY; 73630-TC-LT; 99281-25

== ENCOUNTER 2019-10-18 21:43 | Inpatient (IN) | payer BC, OTHER ==
--- NOTE | 2019-10-18 22:49 | PDOC ---
History of Present Illness - General Chief Complaint: Injury Stated Complaint: FALL Time Seen by Provider: 10/18/19 21:50 History Source: Patient, Family - History of Present Illness Initial Comments: 73F PMH HTN COPD CKD Etoh abuse and frequent falls BIBEMS after slip and fall in the bathroom. Pt remembers slipping but does not remember events after. Unknown LOC. c/o neck pain. Pt not on AC. Has had cervical spine surgery here. Pt has had increased frequency in falls recently. Denies changes in vision/ hearing, numbness/tingling/weakness. Denies n/v, cp/sob, dysuria, diarrhea. Allergies reviewed PCP Reshma Amlodipine, spirva. Past History - Past Medical History Allergies/Adverse Reactions: Allergies Allergy/AdvReac Type Severity Reaction Status Date / Time clopidogrel bisulfate AdvReac Severe SEVERE Verified 12/10/18 17:01 [From Plavix] DIZZINESS prednisone AdvReac Severe Verified 12/10/18 17:01 lisinopril AdvReac Verified 05/27/19 20:28 Home Medications: Ambulatory Orders Amlodipine Besylate 10 mg PO DAILY 05/27/19 Disulfiram [Antabuse] 250 mg PO DAILY 05/27/19 Escitalopram Oxalate [Lexapro -] 5 mg PO DAILY 05/27/19 Folic Acid 1 mg PO DAILY 05/27/19 Tiotropium [place] [Spiriva] 1 inh PO DAILY 05/27/19 Bupropion HCl [Bupropion HCl Sr] 100 mg PO BID 10/19/19 Famotidine 20 mg PO DAILY 10/19/19 Anemia: Yes Asthma: No Cancer: No Cardiac Disorders: No CVA: No COPD: Yes CHF: No Dementia: No Diabetes: No Dialysis: No GI Disorders: No Disorders: No HTN: Yes Hypercholesterolemia: Yes Kidney Stones: Yes (LT KIDNEY 7% FX/ RT 94%) Liver Disease: No Psychiatric Problems: No Seizures: No Thyroid Disease: Yes (hypo.) - Surgical History Abdominal Surgery: No Appendectomy: No Cardiac Surgery: No Cholecystectomy: No Lung Surgery: No Neurologic Surgery: No Orthopedic Surgery: No - Immunization History Immunization Up to Date: Yes - Psycho Social/Smoking Cessation Hx Smoking Status: Yes Smoking History: Never smoked Have you smoked in the past 12 months: Yes Number of Cigarettes Smoked Daily: 8 If you are a former smoker, when did you quit?: 3 WEEKS 'Breaking Loose' booklet given: 11/27/18 Hx Alcohol Use: Yes (MARCH 2018 LAST DRINK) Drug/Substance Use Hx: No Substance Use Type: None Hx Substance Use Treatment: No Review of Systems - Review of Systems Comments:: CONSTITUTIONAL: Denies F / C HEENT: Endorses neck soreness/pain. Denies changes in vision/hearing RESP: Denies SOB CARD: Denies chest pain GI: Denies N / V / D, abdominal pain : Denies dysuria, frequency SKIN: Denies rashes NEURO: Denies numbness, tingling, weakness MSK: Denies back pain *Physical Exam - Vital Signs Last Vital Signs Temp Pulse Resp BP Pulse Ox 97.2 F L 98 H 20 124/72 100 10/18/19 21:50 10/18/19 21:50 10/18/19 21:50 10/18/19 21:50 10/18/19 21:50 - Physical Exam GEN: NAD, comfortable. AAOx3 HEENT: NC/AT, CN II-XII grossly intact, EOMI, PERRLA. No facial asymmetry. Normal voice. Supple neck w/ FROM; +TTP apprx level C7 mid and paraspinal, same pain. CV: S1/S2, RRR, no m/r/g. TTP of the lower ribs b/l. LUNG: CTAB, no wheezes, crackles, rales, rhonchi. GI: soft, ndnt, +BS, no guarding, no rebound. No masses. EXTREMITIES: No LE edema. No obvious deformities of all extremities. FROM UE and LE; there was posterior pelvic pain w/ ranging of LLE. SKIN: warm, dry, normal turgor. No bruising. PSYCH: normal mood and affect NEURO: Moving all extremities well. Symmetric sensation. 5/5 strength UE and LE. Ambulation deferred. BACK: No obvious deformities, no step offs, no midline TTP. There is no pelvic instability. No signs of trauma. ED Treatment Course - LABORATORY CBC & Chemistry Diagram: 10/19/19 08:10 10/19/19 08:10 - RADIOLOGY Radiology Studies Ordered: Category Date Time Status CERVICAL SPINE CT W/O CONTR [CT] Stat CT Scan 10/18/19 22:[address] WITHOUT CONTRAST [CT] Stat CT Scan 10/18/19 22:27 Ordered CHEST X-RAY PORTABLE* [RAD] Stat Radiology 10/18/19 22:27 Ordered Medical Decision Making - Medical Decision Making 10/18/19 22:43 73F BIBEMS for unwitnessed slip and fall w/ probable LOC and head strike. c/o neck pain/soreness. +TTP of C7 mid/paraspinal. +TTP of b/l lower rib margins. likely a mechanical fall - CBC, CMP, Cardiac, Coags - CT Head and Neck - CXR, Pelvic XR 10/19/19 01:46 IV tylenol started 01:25 reassess pain f/u CT reads 10/19/19 01:51 will sign out to PM team for further management pt lives at home w/ family Discharge - Discharge Information Problems reviewed: Yes Clinical Impression/Diagnosis: Fall Qualifiers: Encounter type: subsequent encounter Qualified Code(s): W19.XXXD - Unspecified fall, subsequent encounter - Follow up/Referral - Patient Discharge Instructions - Post Discharge Activity
[2019-10-18 23:18] LABS: BASO % 0.7 % (0-2.0); EOS % 0.3 % (0-4.5); HEMATOCRIT 39.6 % (32.4-45.2); HEMOGLOBIN 13.4 GM/dL (10.7-15.3); LYMPH % 12.9 % (8-40); MCH 30.9 pg (25.7-33.7); MCHC 33.8 g/dl (32.0-36.0); MEAN CELL VOLUME 91.4 fl (80-96); MEAN PLT VOLUME 7.3 fl (7.5-11.1); MONO % 11.4 % (3.8-10.2); NEUT % 74.7 % (42.8-82.8); PLATELET COUNT 227 K/MM3 (134-434); RBC 4.34 M/mm3 (3.60-5.2); RDW 14.6 % (11.6-15.6); WHITE BLOOD COUNT 13.1 K/mm3 (4.0-10.0)
--- NOTE | 2019-10-18 23:24 | PDOC ---
Documentation entered by Shauna Kaur SCRIBE, acting as scribe for Neisha Mcgovern MD. Neisha Mcgovern MD: This documentation has been prepared by the Natasha segura Adrianna, SCRIBE, under my direction and personally reviewed by me in its entirety. I confirm that the documentation accurately reflects all work, treatment, procedures, and medical decision making performed by me. Attending Attestation - Resident Resident Name: Dereck Castaneda - ED Attending Attestation I have performed the following: I have examined & evaluated the patient, The case was reviewed & discussed with the resident, I agree w/resident's findings & plan, Exceptions are as noted - HPI HPI: The patient is a 73 year old female, with a significant PMH of HTN, HLD, COPD, anemia, CKD, EtOH abuse, kidney stones, hypothyroidism, and frequent falls, who presents to the ED BIBEMS s/p unwitnessed fall prior to arrival. Patient notes she slipped and fell when trying to go to the bathroom. She recalls falling, but cannot recall the events after the fall. Patient is unsure if she lost consciousness. She endorses neck pain while in the ED. Denies any changes in vision, changes in hearing, numbness, tingling, or weakness in any of her extremities. Allergies: clopidogrel bisulfate, prednisone,lisinopril Surgical History: None reported Social History: EtoH abuse. Former smoker. Denies illicit drug use PCP: NOS - Physicial Exam PE: 10/18/19 23:22 GENERAL: The patient is in no acute distress. ENT: Ears normal, nares patent, oropharynx clear without exudates. Moist mucous membranes. NECK: Normal range of motion, supple, (+) midline tenderness to palpation LUNGS: Breath sounds equal, clear to auscultation bilaterally. No wheezes HEART: Tachycardia, irregular no murmur appreciated ABDOMEN: Soft, nontender, normoactive bowel sounds. EXTREMITIES: Normal range of motion NEUROLOGICAL: Cranial nerves II through XII grossly intact. Normal speech. No focal neurological deficits. SKIN: no bruising noted, no lacerations 10/19/19 18:57 - Medical Decision Making 10/18/19 23:23 73 yo F presenting to the ER s/p fall w/ possible LOC and head strike. Pt reporting neck pain/soreness. likely a mechanical fall however, pt having multiple falls Basic labs CT head Xray Tylenol for pain Re Assess Pt signed out to Dr Wisdom Will admit 10/19/19 18:56
[2019-10-18 23:30] LABS: INR 1.03 (0.83-1.09); PROTHROMBIN TIME (PATIENT) 12.2 SEC (9.7-13.0)
[2019-10-18 23:43] LABS: ALBUMIN 3.3 g/dl (3.4-5.0); BILIRUBIN,TOTAL 0.5 mg/dL (0.2-1); CALCIUM 8.7 mg/dL (8.5-10.1); CREATININE 1.3 mg/dL (0.55-1.3); POTASSIUM 4.8 mmol/L (3.5-5.1); TOT PROT 6.8 g/dl (6.4-8.2)
[2019-10-18] MEDS ORDERED: ACETAMINOPHEN 1000 MG/100 ML VIAL (NON FORMULARY) IVPB ONE (23:47)
[2019-10-19] MEDS ORDERED: ACETAMINOPHEN INJECTION 100 ML IVPB ONE (01:24)
[2019-10-19] MEDS ORDERED: SODIUM CHLORIDE 0.9% 500 ML INFUS.BAG IV ONE (01:55)
--- NOTE | 2019-10-19 02:16 | PDOC ---
*Physical Exam - Vital Signs Last Vital Signs Temp Pulse Resp BP Pulse Ox 97.2 F L 98 H 20 124/72 100 10/18/19 21:50 10/18/19 21:50 10/18/19 21:50 10/18/19 21:50 10/18/19 21:50 - Physical Exam 10/19/19 02:31 Patient signed out by resident Dr. Castaneda In short patient is a 73 year old female, with a significant PMH of HTN, HLD, COPD, anemia, CKD, EtOH abuse, kidney stones, hypothyroidism, and frequent falls , who presents to the ED BIBEMS s/p unwitnessed fall prior to arrival. Pain control with Tylenol. Labs wnl. Pending CT abd pelvix, c spine, chest, head ED Course: CT with no acute findings some old traumatic findings: compression fx of L1 vertebral body, old R rib fx Patient at baseline walks with a walker and does not feel able to walk. Will need to be admitted for frequent falls and weakness. Need PT EKG: afib with rvr at 15bpm will admit to tele obs <Claudia Escobedo - Last Filed: 10/19/19 20:55> - Vital Signs Last Vital Signs Temp Pulse Resp BP Pulse Ox 98.1 F 117 H 20 127/73 99 10/19/19 18:08 10/19/19 20:13 10/19/19 20:13 10/19/19 20:13 10/19/19 20:13 <Adina Wisdom - Last Filed: 10/19/19 21:10> Heart Score/ECG Review - ECG Intrepretation Rhythm: Irregularly Irregular - [place]: Normal - P and [place] Wave(s) Present: No - QRS Poor R Wave Progression: No Q Wave Present: No - ST and T Early Repolarization: No Non Specific ST-T Wave changes: No - ECG Impressions Normal ECG: No Non-specific ST Elevation: No Bradycardia: No Tachycardia: Afib w/rapid Vent rate <Adina Wisdom - Last Filed: 10/19/19 21:10> ED Treatment Course - LABORATORY CBC & Chemistry Diagram: 10/19/19 08:10 10/19/19 08:10 - ADDITIONAL ORDERS Additional order review: Laboratory Results 10/18/19 10/18/19 10/18/19 23:05 23:05 23:05 PT with INR 12.20 INR 1.03 PTT (Actin FS) 36.0 Sodium 140 Potassium 4.8 Chloride 108 H Carbon Dioxide 25 Anion Gap 7 L BUN 30.0 H Creatinine 1.3 Est GFR (CKD-EPI)AfAm 46.47 Est GFR (CKD-EPI)NonAf 40.10 Random Glucose 115 H Calcium 8.7 Total Bilirubin 0.5 AST 18 ALT 20 Alkaline Phosphatase 145 H Creatine Kinase 137 Troponin I < 0.02 Total Protein 6.8 Albumin 3.3 L 10/18/19 23:05 RBC 4.34 MCV 91.4 MCHC 33.8 RDW 14.6 MPV 7.3 L Neutrophils % 74.7 Lymphocytes % 12.9 D Monocytes % 11.4 H Eosinophils % 0.3 Basophils % 0.7 - Medications Given in the ED: ED Medications Discontinued Medications Generic Name Dose Route Start Last Admin Trade Name Freq PRN Reason Stop Dose Admin Acetaminophen 1,000 mg 10/18/19 23:47 10/19/19 01:30 Ofirmev Injection - IVPB 10/18/19 23:48 1,000 mg ONCE ONE Administration <Claudia Escobedo - Last Filed: 10/19/19 20:55> - LABORATORY CBC & Chemistry Diagram: 10/19/19 08:10 10/19/19 08:10 - ADDITIONAL ORDERS Additional order review: 10/18/19 23:05 RBC 4.34 MCV 91.4 MCHC 33.8 RDW 14.6 MPV 7.3 L Neutrophils % 74.7 Lymphocytes % 12.9 D Monocytes % 11.4 H Eosinophils % 0.3 Basophils % 0.7 - Medications Given in the ED: ED Medications Discontinued Medications Generic Name Dose Route Start Last Admin Trade Name Freq PRN Reason Stop Dose Admin Acetaminophen 1,000 mg 10/18/19 23:47 10/19/19 01:30 Ofirmev Injection - IVPB 10/18/19 23:48 1,000 mg ONCE ONE Administration Enoxaparin Sodium 60 mg 10/19/19 10:15 10/19/19 10:42 Lovenox - SQ 60 mg Q12H WHITNEY Administration Heparin Sodium (Porcine) 25, 500 mls @ 20 mls/hr 10/19/19 06:30 10/19/19 12: 20 000 unit/ Sodium Chloride IV Not Given TITR WHITNEY Protocol 1,000 UNIT/HR Metoprolol Tartrate 12.5 mg 10/19/19 06:08 10/19/19 09:46 Lopressor - PO Not Given BID [facility] Metoprolol Tartrate 12.5 mg 10/19/19 10:13 10/19/19 10:29 Lopressor - PO 10/19/19 10:14 12.5 mg ONCE ONE Administration Sodium Chloride 500 ml 10/19/19 01:55 10/19/19 03:13 Normal Saline - IV 10/19/19 01:56 500 ml ONCE ONE Administration <Adina Wisdom - Last Filed: 10/19/19 21:10> Discharge - Discharge Information Problems reviewed: Yes <Claudia Escobedo - Last Filed: 10/19/19 20:55> <Adina Wisdom - Last Filed: 10/19/19 21:10> - Discharge Information Clinical Impression/Diagnosis: Fall, Multiple falls, Alcohol abuse Syncope Qualifiers: Syncope type: unspecified Qualified Code(s): R55 - Syncope and collapse
--- NOTE | 2019-10-19 02:24 | PDOC ---
*Physical Exam - Vital Signs Last Vital Signs Temp Pulse Resp BP Pulse Ox 97.2 F L 98 H 20 124/72 100 10/18/19 21:50 10/18/19 21:50 10/18/19 21:50 10/18/19 21:50 10/18/19 21:50 ED Treatment Course - LABORATORY CBC & Chemistry Diagram: 10/19/19 08:10 10/19/19 08:10 - ADDITIONAL ORDERS Additional order review: Laboratory Results 10/18/19 10/18/19 10/18/19 23:05 23:05 23:05 PT with INR 12.20 INR 1.03 PTT (Actin FS) 36.0 Sodium 140 Potassium 4.8 Chloride 108 H Carbon Dioxide 25 Anion Gap 7 L BUN 30.0 H Creatinine 1.3 Est GFR (CKD-EPI)AfAm 46.47 Est GFR (CKD-EPI)NonAf 40.10 Random Glucose 115 H Calcium 8.7 Total Bilirubin 0.5 AST 18 ALT 20 Alkaline Phosphatase 145 H Creatine Kinase 137 Troponin I < 0.02 Total Protein 6.8 Albumin 3.3 L 10/18/19 23:05 RBC 4.34 MCV 91.4 MCHC 33.8 RDW 14.6 MPV 7.3 L Neutrophils % 74.7 Lymphocytes % 12.9 D Monocytes % 11.4 H Eosinophils % 0.3 Basophils % 0.7 - Medications Given in the ED: ED Medications Discontinued Medications Generic Name Dose Route Start Last Admin Trade Name Freq PRN Reason Stop Dose Admin Acetaminophen 1,000 mg 10/18/19 23:47 10/19/19 01:30 Ofirmev Injection - IVPB 10/18/19 23:48 1,000 mg ONCE ONE Administration Medical Decision Making - Medical Decision Making 10/19/19 02:24 Patient Name: GUILLE OROZCO THIS IS A PRELIMINARY REPORT FROM [facility] DATE OF SERVICE: 2019-10-19 00:27:54 IMAGES: [id number] EXAM: HEAD CT WITHOUT CONTRAST HISTORY: Patient fell COMPARISON: None. FINDINGS: Involutional changes. No acute abnormality. No hemorrhage. Osseous structures are intact 10/19/19 02:30 Patient Name: GUILLE OROZCO THIS IS A PRELIMINARY REPORT FROM [facility] DATE OF SERVICE: 2019-10-19 00:25:31 IMAGES: [id number] EXAM: CERVICAL SPINE CT W/O CONTR HISTORY: Patient fell COMPARISON: None. FINDINGS: Negative for cervical spine fracture or malalignment. Degenerative changes. Status post C5-C6 anterior cervical fusion. Hardware appears in satisfactory position. Prominent right lobe thyroid. Absent or resected left lobe thyroid. 10/19/19 02:41 Patient Name: GUILLE OROZCO THIS IS A PRELIMINARY REPORT FROM [facility] DATE OF SERVICE: 2019-10-19 00:30:27 IMAGES: [id number] EXAM: CHEST CT WITHOUT CONTRAST HISTORY: Patient fell COMPARISON: None. FINDINGS Chest: Old right rib fractures are noted. No acute fractures are identified. No acute pulmonary injury. No pneumothorax or pneumomediastinum. No pulmonary infiltrates/contusions. There are some atelectatic changes at the right lung base posteriorly. Calcified coronary artery plaque noted. Abdomen and pelvis: Grossly negative for abdominal pelvic visceral injury. Liver, gallbladder, spleen, pancreas, adrenal glands, kidneys urinary tracts and urinary bladder are all intact. No acute abnormality of bowel. No pneumoperitoneum or ascites. There is a compression fracture of the L1 vertebral body of indeterminate age. Slight postero-superior lipping indenting the canal. Nontraumatic abnormalities: Severe left hydronephrosis. Normal left ureter. This could represent UPJ obstruction. There are stones floating in the hydronephrotic collecting system. No right urinary tract obstruction. Cystic mass tail of left kidney with adjacent calcium. Measures 3.5 cm x 2.8 cm. Follow-up recommended to exclude pancreatic neoplasm. There is a heterogeneous collection in the right breast measuring 4.9 cm x 2.3 cm. Combination of fat fluid and soft tissue. Recommend follow-up evaluation. 10/19/19 05:32 Pt has Rapid AFIB on EKG Discharge - Discharge Information Problems reviewed: Yes Clinical Impression/Diagnosis: Fall, Multiple falls, Alcohol abuse Syncope Qualifiers: Syncope type: unspecified Qualified Code(s): R55 - Syncope and collapse - Follow up/Referral - Patient Discharge Instructions - Post Discharge Activity
[2019-10-19] MEDS ORDERED: HEPARIN NA (PORCINE) 5,000 UNITS/ML 1ML VIAL IVPUSH PRN ×2 (06:16)
[2019-10-19] MEDS ORDERED: HEPARIN - 25,000 UNIT in SODIUM CHLORIDE 495 ML IV SCH (06:30)
[2019-10-19] MEDS ORDERED: ACETAMINOPHEN 325 MG TABLET (FP) PO PRN (06:33)
--- NOTE | 2019-10-19 06:41 | HP ---
CHIEF COMPLAINT: s/p Fall PCP: Dr. Carrasco HISTORY OF PRESENT ILLNESS: 73 y/o F with PMHx of COPD (not on home O2), CKD (Sees Dr. Kaufman/Dr. Padilla), OA, EtOH Abuse (sober sine 03/2018) presents after multiple falls. Patient did not recall the event and provided very minimal details, thus the HPI was provided by the daughter Amanda Rosario. Daughter mentions that patient has had increasing fatigue/weakness with less motivation to perform her ADL's over the past year. Patient woke in her usual state of health and had a regular day yesterday. At approx, 20:00, patient became incontinent and wet herself (occurs routinely but hasnt occurred in months). At this point, patient was able to walk up the stairs and enter the restroom. The daughter washed her and when she stepped away for a moment while patient was standing, the patient fell to the ground. The daughter heard the loud noise and upon reentering the bathroom found her mom on her buttocks. Patient denies hitting her head. Daughter denies any post-fall loss of bowel or bladder control and any tonic clonic movements. Patient remained cognitively intact without any confusion and tried to get herself up but was unable to prompting daughter to alert life alert. Daughter mentions that patient had a fall over where she hit her right ribs but did not seek medical attention. She additionally had a similar fall on . Both falls were mechanical in nature as per patient, unwitnessed by family. Patient does take up residence with Daughter. As per daughter, patient has not complained of fevers, chills, chest pain, SOB, nausea, vomiting, diarrhea, constipation, dysuria, hematuria. ER course was notable for: (1) (2) (3) Recent Travel: [place] for PAST MEDICAL HISTORY: As per HPI PAST SURGICAL HISTORY: C5-C6 Laminectomy (By Dr. Donovan) Partial Thyroidectomy (Right side) Right Breast Lumpectomy Social History: Smoking: Current 1/2ppd, since Alcohol: Denies Drugs: Denies Allergies clopidogrel bisulfate [From Plavix] Adverse Reaction (Severe, Verified 12/10/18 17:01) SEVERE DIZZINESS WEAK, NEAR SYNCOPE prednisone Adverse Reaction (Severe, Verified 12/10/18 17:01) SEVERE DIZZINESS lisinopril Adverse Reaction (Verified 05/27/19 20:28) HOME MEDICATIONS: Home Medications Medication Instructions Recorded Amlodipine Besylate 10 mg PO DAILY 05/27/19 Disulfiram [Antabuse] 250 mg PO DAILY 05/27/19 Escitalopram Oxalate [Lexapro -] 5 mg PO DAILY 05/27/19 Folic Acid 1 mg PO DAILY 05/27/[address] [place] [Spiriva] 1 inh PO DAILY 05/27/19 REVIEW OF SYSTEMS As per HPI PHYSICAL EXAMINATION Vital Signs - 24 hr 10/18/19 10/19/19 21:50 04:00 Temperature 97.2 F L Pulse Rate 98 H Pulse Rate [ 92 H Left Radial] Respiratory 20 18 Rate Blood Pressure 124/72 Blood Pressure 113/66 [Right Arm] O2 Sat by Pulse 100 96 Oximetry (%) GENERAL: A&Ox3, NAD HEAD: NCAT EYES: PERRL, EOMI EARS, NOSE, THROAT: Moist mucous membranes. NECK: Supple, No JVD LUNGS: CTAB, No wheezes, no crackles HEART: Regular rate and rhythm, normal S1 and S2 without murmur ABDOMEN: Soft, nontender, not distended, + bowel sounds, no guarding EXTREMITIES: No peripheral edema. NEUROLOGICAL: Cranial nerves II-XII intact. Normal speech. Gait observed small steps, requiring 2 assists. SKIN: Warm, dry Laboratory Results - last 24 hr 10/18/19 10/18/19 10/18/19 23:05 23:05 23:05 WBC 13.1 H RBC 4.34 Hgb 13.4 Hct 39.6 MCV 91.4 MCH 30.9 MCHC 33.8 RDW 14.6 Plt Count 227 MPV 7.3 L Absolute Neuts (auto) 9.8 H Neutrophils % 74.7 Lymphocytes % 12.9 D Monocytes % 11.4 H Eosinophils % 0.3 Basophils % 0.7 Nucleated RBC % 0 PT with INR INR PTT (Actin FS) Sodium 140 Potassium 4.8 Chloride 108 H Carbon Dioxide 25 Anion Gap 7 L BUN 30.0 H Creatinine 1.3 Est GFR (CKD-EPI)AfAm 46.47 Est GFR (CKD-EPI)NonAf 40.10 Random Glucose 115 H Calcium 8.7 Total Bilirubin 0.5 AST 18 ALT 20 Alkaline Phosphatase 145 H Creatine Kinase 137 Troponin I < 0.02 Total Protein 6.8 Albumin 3.3 L 10/18/19 23:05 WBC RBC Hgb Hct MCV MCH MCHC RDW Plt Count MPV Absolute Neuts (auto) Neutrophils % Lymphocytes % Monocytes % Eosinophils % Basophils % Nucleated RBC % PT with INR 12.20 INR 1.03 PTT (Actin FS) 36.0 Sodium Potassium Chloride Carbon Dioxide Anion Gap BUN Creatinine Est GFR (CKD-EPI)AfAm Est GFR (CKD-EPI)NonAf Random Glucose Calcium Total Bilirubin AST ALT Alkaline Phosphatase Creatine Kinase Troponin I Total Protein Albumin ASSESSMENT/PLAN: 73 y/o F with PMHx of COPD (not on home O2), CKD (Sees Dr. Kaufman/Dr. Padilla), OA, EtOH Abuse (sober sine 03/2018) presents after multiple falls, found to have New onset Atrial Fibrillation. #New onset Atrial Fibrillation with RVR -EKG reveals AFib with RVR, VR 115, QTc 473 -Check Echo to r/o valvular AFib -Heparin gtt; Will consider transition to DOAC once valvular AFib ruled out -Metoprolol tartrate 12.5mg BID, Uptitrate as hemodynamics permit -Cardio (Dr. Hobson) Consulted, Patient likely not a good candidate for AC given Falls -Tele -Trops < 0.02, trend -TSH #Fall -Unclear Etiology -Trauma workup thus far reveals L1 Compression fx -Check Utox, EtOH level, UA -Physical therapy -Analgesia via Acetaminophen -Received 1/2L NS in ED; Continue NS @ 42 #Leukocytosis -Possibly reactive, Unlikely to be related to infectious source -Check UA -Will monitor for fever and off ABx for now #HTN -Hold home dose amlodipine -Continue Metoprolol tartrate 12.5mg BID, Uptitrate as hemodynamics permit #FEN -NS @ 42 -Replete Lytes PRN -Sodium controlled diet #PPx -DVT: Heparin GTT Dispo: Admit to Tele Visit type - Emergency Visit Emergency Visit: Yes ED Registration Date: 10/19/19 Care time: The patient presented to the Emergency Department on the above date and was hospitalized for further evaluation of their emergent condition. - New Patient This patient is new to me today: Yes Date on this admission: 10/19/19 - Critical Care Critical Care patient: No ATTENDING PHYSICIAN STATEMENT I saw and evaluated the patient. I reviewed the resident's note and discussed the case with the resident. I agree with the resident's findings and plan as documented. SUBJECTIVE: OBJECTIVE: ASSESSMENT AND PLAN:
[2019-10-19 06:44] LABS: EPI CELLS 0.1 /HPF (0-5/HPF); HYALINE CASTS 13 /lpf (0-8); URINE APPEARANCE CLOUDY; URINE BACTERIA 1930.5 /hpf (NEGATIVE); URINE BILIRUBIN NEGATIVE (NEGATIVE); URINE COLOR YELLOW; URINE GLUCOSE (UA) NEGATIVE (NEGATIVE); URINE KETONE TRACE (NEGATIVE); URINE LEUK ESTERASE TRACE (NEGATIVE); URINE NITRITE POSITIVE (NEGATIVE); URINE PROTEIN 1+ (NEGATIVE); URINE RBC 1 /hpf (0-4); URINE WBC 28 /hpf (0-5)
[2019-10-19 06:50] LABS: COCAINE, UR NEGATIVE ng/ml (CUTOFF=300); METHADONE, UR NEGATIVE ng/ml (CUTOFF=300); OPIATES, URI NEGATIVE ng/ml (CUTOFF=300); PHENCYCLIDINE,URINE NEGATIVE ng/ml (CUTOFF=25); URINE AMPHETAMINES NEGATIVE ng/ml (CUTOFF=500); URINE BARBITURATES NEGATIVE ng/ml (CUTOFF=200); URINE BENZODIAZEPINES NEGATIVE ng/ml (CUTOFF=200)
--- NOTE | 2019-10-19 07:02 | PN ---
Teaching Attending Note Name of Resident: Angie Meng ATTENDING PHYSICIAN STATEMENT I saw and evaluated the patient. I reviewed the resident's note and discussed the case with the resident. I agree with the resident's findings and plan as documented. SUBJECTIVE: This is a 73 year old woman with a history of HTN, hyperlipidemia, COPD, hypothyroidism, stage 3 CKD, OA, alcohol abuse, falls who comes to the ED after falling at home. She is a poor historian and does not remember the event. Earlier tonight, she was incontinent of urine. She was was able to walk up a flight of stairs to get to the bathroom. While she was in the bathroom, her daughter heard a loud thud. Her daughter went into the bathroom and found her on the floor. She was unable to get up and her daughter was unable to assist her so she pressed her Life Alert. The patient denies hitting her head and loss of consciousness. Her daughter did not witness any seizure activity. OBJECTIVE: Vital Signs Period Temp Pulse Resp BP Sys/Mcfadden Pulse Ox Last 24 Hr 97.2 F 92-98 18-20 113-124/66-72 96-100 HEART: Irregular, tachycardic LUNGS: Clear ABDOMEN: Soft, non-tender, non-distended, normal BS EXTREMITIES: No edema Laboratory Tests 10/18/19 10/18/19 10/18/19 23:05 23:05 23:05 WBC 13.1 H RBC 4.34 Hgb 13.4 Hct 39.6 MCV 91.4 MCH 30.9 MCHC 33.8 RDW 14.6 Plt Count 227 MPV 7.3 L Absolute Neuts (auto) 9.8 H Neutrophils % 74.7 Lymphocytes % 12.9 D Monocytes % 11.4 H Eosinophils % 0.3 Basophils % 0.7 Nucleated RBC % 0 PT with INR INR PTT (Actin FS) Sodium 140 Potassium 4.8 Chloride 108 H Carbon Dioxide 25 Anion Gap 7 L BUN 30.0 H Creatinine 1.3 Est GFR (CKD-EPI)AfAm 46.47 Est GFR (CKD-EPI)NonAf 40.10 Random Glucose 115 H Calcium 8.7 Total Bilirubin 0.5 AST 18 ALT 20 Alkaline Phosphatase 145 H Creatine Kinase 137 Troponin I < 0.02 Total Protein 6.8 Albumin 3.3 L 10/18/19 23:05 WBC RBC Hgb Hct MCV MCH MCHC RDW Plt Count MPV Absolute Neuts (auto) Neutrophils % Lymphocytes % Monocytes % Eosinophils % Basophils % Nucleated RBC % PT with INR 12.20 INR 1.03 PTT (Actin FS) 36.0 Sodium Potassium Chloride Carbon Dioxide Anion Gap BUN Creatinine Est GFR (CKD-EPI)AfAm Est GFR (CKD-EPI)NonAf Random Glucose Calcium Total Bilirubin AST ALT Alkaline Phosphatase Creatine Kinase Troponin I Total Protein Albumin Home Medications Medication Instructions Recorded Amlodipine Besylate 10 mg PO DAILY 05/27/19 Disulfiram [Antabuse] 250 mg PO DAILY 05/27/19 Escitalopram Oxalate [Lexapro -] 5 mg PO DAILY 05/27/19 Folic Acid 1 mg PO DAILY 05/27/19 Tiotropium [place] [Spiriva] 1 inh PO DAILY 05/27/19 ASSESSMENT AND PLAN: This is a 73 year old woman with a history of HTN, hyperlipidemia, COPD, hypothyroidism, stage 3 CKD, OA, alcohol abuse, falls who presented to the ED after falling at home. 1. Atrial fibrillation, new onset, with RVR - Admit to telemetry - Serial troponins - Check TSH - Check echocardiogram - Start Lopressor, heparin IV drip - she is not a good candidate for anticoagulation secondary to multiple falls - Cardiology evaluation 2. s/p fall - Head CT shows no acute process - CT C/A/P shows old right rib fractures, atelectasis at right base, severe left hydronephrosis, cystic mass in tail of left kidney (? tail of pancreas), heterogeneous collection in right breast - PT evaluation 3. Leukocytosis - Possibly reactive - Check UA 4. Possible pancreatic neoplasm 5. Severe left hydronephrosis - Chronic - Nuclear renal scan in 10/2017 showed minimal left renal uptake and excretion (7% of total renal function) 6. HTN - Hold amlodipine - Lopressor being started for AF rate control 7. Hyperlipidemia 8. COPD - Stable - Continue Spiriva 9. Hypothyroidism - Not on medication - Check TSH 10. Stage 3 CKD - Creatinine 1.3, baseline 1.0-1.2 - Will hydrate cautiously - Monitor creatinine 11. History of alcohol abuse - Continue Antabuse
[2019-10-19] MEDS ORDERED: METOPROLOL TARTRATE 25 MG TABLET (FP) ONE ×2 (08:01→22:49)
[2019-10-19] MEDS ORDERED: HEPARIN INFUSION - 25,000 UNITS/500 ML INFUS.BAG IVPB ONE (08:02)
[2019-10-19] MEDS: METOPROLOL TARTRATE 25 MG TABLET (FP) PO SCH ×3 (08:11→22:54)
[2019-10-19] MEDS: SODIUM CHLORIDE 1,000 ML IV SCH (08:11)
[2019-10-19 08:25] LABS: BASO % 0.3 % (0-2.0); EOS % 0.9 % (0-4.5); HEMATOCRIT 38.6 % (32.4-45.2); HEMOGLOBIN 12.7 GM/dL (10.7-15.3); LYMPH % 18.9 % (8-40); MCH 30.4 pg (25.7-33.7); MEAN CELL VOLUME 92.3 fl (80-96); MEAN PLT VOLUME 7.3 fl (7.5-11.1); MONO % 12.6 % (3.8-10.2); NEUT % 67.3 % (42.8-82.8); PLATELET COUNT 209 K/MM3 (134-434); RBC 4.19 M/mm3 (3.60-5.2); WHITE BLOOD COUNT 9.8 K/mm3 (4.0-10.0)
[2019-10-19 08:42] LABS: INR 1.09 (0.83-1.09); PROTHROMBIN TIME (PATIENT) 12.9 SEC (9.7-13.0)
[2019-10-19 08:56] LABS: CHOLESTEROL 180 mg/dL (50-200); HDL CHOLESTEROL 65 mg/dL (40-60); LDL CHOLESTEROL (ONLY SJRH) 94 mg/dL (5-100); TRIGLYCERIDES 91 mg/dL (0-150)
[2019-10-19 09:02] LABS: ALBUMIN 2.9 g/dl (3.4-5.0); ALK PHOS 127 U/L (45-117); ANION GAP 6 MMOL/L (8-16); BILIRUBIN,TOTAL 0.5 mg/dL (0.2-1); BLOOD UREA NITROGEN 25.1 mg/dL (7-18); CALCIUM 8.6 mg/dL (8.5-10.1); CHLORIDE 110 mmol/L (98-107); CO2 25 mmol/L (21-32); CREATININE 1.2 mg/dL (0.55-1.3); GLUCOSE,RANDOM 118 mg/dL (74-106); MAGNESIUM 2.3 mg/dL (1.8-2.4); PHOSPHOROUS 3.2 mg/dL (2.5-4.9); POTASSIUM 4.7 mmol/L (3.5-5.1); SGOT/AST 7 U/L (15-37); SGPT/ALT 17 U/L (13-61); SODIUM 140 mmol/L (136-145)
[2019-10-19] MEDS ORDERED: METOPROLOL TARTRATE 25 MG TABLET (FP) PO ONE (10:13)
[2019-10-19] MEDS ORDERED: ENOXAPARIN NA (PORCINE) 60 MG/0.6 ML DISP.SYRIN SQ SCH (10:15)
--- NOTE | 2019-10-19 10:19 | PN ---
Physical Exam: SUBJECTIVE: Patient seen and examined, reported feeling tired. Later in the ED notified by RN, patient reported left lower chest wall pain, with tenderness, unclear if had trauma to the site with fall. OBJECTIVE: Vital Signs Period Temp Pulse Resp BP Sys/Mcfadden Pulse Ox Last 24 Hr 97.2 F 92-98 18-20 113-124/66-72 96-100 Intake & Output 10/16/19 10/17/19 10/18/19 10/19/19 23:59 23:59 23:59 23:59 Weight 159 lb GENERAL: anxious looking, in no acute distress Neck: soft, supple, no JVD Chest: CTAB, no rales or wheezing CVS:S1s2 irregularly irregular, left lower rib cage tenderness Abdomen:Soft, NT Extremities: no edema, or limitation ROM Home Medications Medication Instructions Recorded Amlodipine Besylate 10 mg PO DAILY 05/27/19 Disulfiram [Antabuse] 250 mg PO DAILY 05/27/19 Escitalopram Oxalate [Lexapro -] 5 mg PO DAILY 05/27/19 Folic Acid 1 mg PO DAILY 05/27/19 Tiotropium [place] [Spiriva] 1 inh PO DAILY 05/27/19 Bupropion HCl [Bupropion HCl Sr] 100 mg PO BID 10/19/19 Famotidine 20 mg PO DAILY 10/19/19 Active Medications Acetaminophen (Tylenol -) 650 mg PO Q6H PRN PRN Reason: PAIN LEVEL 1-5 Enoxaparin Sodium (Lovenox -) 60 mg SQ Q12H [facility] Sodium Chloride (Normal Saline -) 1,000 mls @ 42 mls/hr IV ASDIR [facility] Last Admin: 10/19/19 08:11 Dose: 42 mls/hr Metoprolol Tartrate (Lopressor -) 12.5 mg PO ONCE ONE Stop: 10/19/19 10:14 Metoprolol Tartrate (Lopressor -) 25 mg PO Q12H [facility] Laboratory Results - last 24 hr 10/18/19 10/18/19 10/18/19 05:40 23:05 23:05 WBC 13.1 H RBC 4.34 Hgb 13.4 Hct 39.6 MCV 91.4 MCH 30.9 MCHC 33.8 RDW 14.6 Plt Count 227 MPV 7.3 L Absolute Neuts (auto) 9.8 H Neutrophils % 74.7 Lymphocytes % 12.9 D Monocytes % 11.4 H Eosinophils % 0.3 Basophils % 0.7 Nucleated RBC % 0 PT with INR INR PTT (Actin FS) Sodium Potassium Chloride Carbon Dioxide Anion Gap BUN Creatinine Est GFR (CKD-EPI)AfAm Est GFR (CKD-EPI)NonAf Random Glucose Hemoglobin A1c % Calcium Phosphorus Magnesium Total Bilirubin AST ALT Alkaline Phosphatase Creatine Kinase 137 Troponin I < 0.02 Total Protein Albumin Triglycerides Cholesterol Total LDL Cholesterol HDL Cholesterol TSH Urine Color Yellow Urine Appearance Cloudy Urine pH 5.0 Ur Specific [place] 1.029 Urine Protein 1+ H Urine Glucose (UA) Negative Urine Ketones Trace H Urine Blood Trace Urine Nitrite Positive H Urine Bilirubin Negative Urine Urobilinogen 1.0 Ur Leukocyte Esterase Trace Urine WBC (Auto) 28 Urine RBC (Auto) 1 Urine Casts (Auto) 13 U Epithel Cells (Auto) 0.1 Urine Bacteria (Auto) 1930.5 Opiates Screen Methadone Screen Barbiturate Screen Phencyclidine Screen Ur Amphetamines Screen MDMA (Ecstasy) Screen Benzodiazepines Screen Cocaine Screen U Marijuana (THC) Screen Alcohol, Quantitative 10/18/19 10/18/19 10/19/19 23:05 23:05 05:40 WBC RBC Hgb Hct MCV MCH MCHC RDW Plt Count MPV Absolute Neuts (auto) Neutrophils % Lymphocytes % Monocytes % Eosinophils % Basophils % Nucleated RBC % PT with INR 12.20 INR 1.03 PTT (Actin FS) 36.0 Sodium 140 Potassium 4.8 Chloride 108 H Carbon Dioxide 25 Anion Gap 7 L BUN 30.0 H Creatinine 1.3 Est GFR (CKD-EPI)AfAm 46.47 Est GFR (CKD-EPI)NonAf 40.10 Random Glucose 115 H Hemoglobin A1c % Calcium 8.7 Phosphorus Magnesium Total Bilirubin 0.5 AST 18 ALT 20 Alkaline Phosphatase 145 H Creatine Kinase Troponin I Total Protein 6.8 Albumin 3.3 L Triglycerides Cholesterol Total LDL Cholesterol HDL Cholesterol TSH Urine Color Urine Appearance Urine pH Ur Specific [place] Urine Protein Urine Glucose (UA) Urine Ketones Urine Blood Urine Nitrite Urine Bilirubin Urine Urobilinogen Ur Leukocyte Esterase Urine WBC (Auto) Urine RBC (Auto) Urine Casts (Auto) U Epithel Cells (Auto) Urine Bacteria (Auto) Opiates Screen Negative Methadone Screen Negative Barbiturate Screen Negative Phencyclidine Screen Negative Ur Amphetamines Screen Negative MDMA (Ecstasy) Screen Negative Benzodiazepines Screen Negative Cocaine Screen Negative U Marijuana (THC) Screen Negative Alcohol, Quantitative 10/19/19 10/19/19 10/19/19 08:10 08:10 08:10 WBC 9.8 RBC 4.19 Hgb 12.7 Hct 38.6 MCV 92.3 MCH 30.4 MCHC 33.0 RDW 15.0 Plt Count 209 MPV 7.3 L Absolute Neuts (auto) 6.6 Neutrophils % 67.3 Lymphocytes % 18.9 D Monocytes % 12.6 H Eosinophils % 0.9 D Basophils % 0.3 Nucleated RBC % 0 PT with INR INR PTT (Actin FS) Sodium 140 Potassium 4.7 Chloride 110 H Carbon Dioxide 25 Anion Gap 6 L BUN 25.1 H Creatinine 1.2 Est GFR (CKD-EPI)AfAm 51.20 Est GFR (CKD-EPI)NonAf 44.17 Random Glucose 118 H Hemoglobin A1c % Calcium 8.6 Phosphorus 3.2 Magnesium 2.3 Total Bilirubin 0.5 AST 7 L ALT 17 Alkaline Phosphatase 127 H Creatine Kinase Troponin I < 0.02 Total Protein 6.0 L Albumin 2.9 L Triglycerides Cholesterol Total LDL Cholesterol HDL Cholesterol TSH 1.44 Urine Color Urine Appearance Urine pH Ur Specific [place] Urine Protein Urine Glucose (UA) Urine Ketones Urine Blood Urine Nitrite Urine Bilirubin Urine Urobilinogen Ur Leukocyte Esterase Urine WBC (Auto) Urine RBC (Auto) Urine Casts (Auto) U Epithel Cells (Auto) Urine Bacteria (Auto) Opiates Screen Methadone Screen Barbiturate Screen Phencyclidine Screen Ur Amphetamines Screen MDMA (Ecstasy) Screen Benzodiazepines Screen Cocaine Screen U Marijuana (THC) Screen Alcohol, Quantitative < 3 10/19/19 10/19/19 10/19/19 08:10 08:10 08:10 WBC RBC Hgb Hct MCV MCH MCHC RDW Plt Count MPV Absolute Neuts (auto) Neutrophils % Lymphocytes % Monocytes % Eosinophils % Basophils % Nucleated RBC % PT with INR 12.90 INR 1.09 PTT (Actin FS) Sodium Potassium Chloride Carbon Dioxide Anion Gap BUN Creatinine Est GFR (CKD-EPI)AfAm Est GFR (CKD-EPI)NonAf Random Glucose Hemoglobin A1c % 6.5 H Calcium Phosphorus Magnesium Total Bilirubin AST ALT Alkaline Phosphatase Creatine Kinase Troponin I Total Protein Albumin Triglycerides 91 Cholesterol 180 Total LDL Cholesterol 94 HDL Cholesterol 65 H TSH Urine Color Urine Appearance Urine pH Ur Specific [place] Urine Protein Urine Glucose (UA) Urine Ketones Urine Blood Urine Nitrite Urine Bilirubin Urine Urobilinogen Ur Leukocyte Esterase Urine WBC (Auto) Urine RBC (Auto) Urine Casts (Auto) U Epithel Cells (Auto) Urine Bacteria (Auto) Opiates Screen Methadone Screen Barbiturate Screen Phencyclidine Screen Ur Amphetamines Screen MDMA (Ecstasy) Screen Benzodiazepines Screen Cocaine Screen U Marijuana (THC) Screen Alcohol, Quantitative Active Medications Generic Name Dose Route Start Last Admin Trade Name Freq PRN Reason Stop Dose Admin Acetaminophen 650 mg 10/19/19 06:33 Tylenol - PO Q6H PRN PAIN LEVEL 1-5 Enoxaparin Sodium 60 mg 10/19/19 10:15 Lovenox - SQ Q12H [facility] Sodium Chloride 1,000 mls @ 42 mls/hr 10/19/19 06:15 10/19/19 08:11 Normal Saline - IV 42 mls/hr ASDIR [facility] Administration Metoprolol Tartrate 12.5 mg 10/19/19 10:13 Lopressor - PO 10/19/19 10:14 ONCE ONE Metoprolol Tartrate 25 mg 10/19/19 20:00 Lopressor - PO Q12H [facility] CT brain/C-spine results reviewed TElemetry: Afib 90s ASSESSMENT/PLAN: 73 y/o F with PMHx of COPD (not on home O2), CKD stage II-III (Sees Dr. Kaufman/ Dr. Padilla), OA, EtOH Abuse on antabuse (sober sine 03/2018), anxiety, prior UTIs, admitted with fall, weakness, found with new onset atrial fibrillation with RVR. -Mechanical fall -New onset atrial fibrillation with RVR -Lower uncomplicated UTI -New onset DM -Left chest wall pain, r/o rib fracture -H/o ETOH abuse on antabuse -COPD not on home oxygen -CKD stage II-III -OA -Anxiety Plan: Increase metoprolol to 25 mg BID, continue telemetry, follow up 2D echo. Cr noted. D/c heparin drip. start lovenox 60 mg BID pending above. Now also with new onset DM, candidate for AC. Will need to weighed against her recurrent falls. Straight cath for urine cultures, will start ceftriaxone then. Discussed with nursing. Atypical chest wall pain, EKG, Rib xrays. Tn neg x 2. Start ISS> nutrition consult for DM education. [facility] called, meds reconciled, resume buproprion/Escitalopram/ antabuse/spiriva/Famotidine PT eval [id number] lovenox as above Dispo SNF vs home with services when medical issues improve. PLan discussed with patient and daughter at bedside in detail, all questions, answered. Care co-ordinated with RN. Visit type - Emergency Visit Emergency Visit: Yes ED Registration Date: 10/19/19 Care time: The patient presented to the Emergency Department on the above date and was hospitalized for further evaluation of their emergent condition. - New Patient This patient is new to me today: Yes Date on this admission: 10/19/19 - Critical Care Critical Care patient: No - Discharge Referral Referred to [facility] Med P.C[facility] No
[2019-10-19] MEDS ORDERED: DISULFIRAM 250 MG PO SCH (10:45)
[2019-10-19] MEDS ORDERED: ENOXAPARIN NA (PORCINE) 80 MG/0.8 ML DISP.SYRIN SQ SCH (11:35)
[2019-10-19] MEDS: FOLIC ACID 1 MG TABLET (FP) PO SCH (12:06)
[2019-10-19] MEDS: ESCITALOPRAM OXALATE 10 MG TABLET (FP) PO SCH (12:06)
[2019-10-19] MEDS: INSULIN SLIDING SCALE (NOVOLOG) 1 VIAL SQ SCH ×2 (12:22→18:36)
--- NOTE | 2019-10-19 13:28 | EKG ---
Test Reason : Blood Pressure : / mmHG Vent. Rate : 076 BPM Atrial Rate : 144 BPM P-R Int : 000 ms QRS Dur : 088 ms QT Int : 354 ms P-R-T Axes : 000 051 078 degrees QTc Int : 398 ms ATRIAL FIBRILLATION ABNORMAL ECG WHEN COMPARED WITH ECG OF 19-OCT-2019 05:29, VENT. RATE HAS DECREASED BY 39 BPM Confirmed by MD GURROLA PENG ([id number]) on 10/19/2019 1:28:18 PM Referred By: Confirmed By:LORA GURROLA MD
--- NOTE | 2019-10-19 13:31 | EKG ---
Test Reason : Blood Pressure : / mmHG Vent. Rate : 115 BPM Atrial Rate : 182 BPM P-R Int : 000 ms QRS Dur : 088 ms QT Int : 342 ms P-R-T Axes : 000 051 074 degrees QTc Int : 473 ms ATRIAL FIBRILLATION WITH RAPID VENTRICULAR RESPONSE ABNORMAL ECG WHEN COMPARED WITH ECG OF 10-DEC-2018 18:48, ATRIAL FIBRILLATION HAS REPLACED SINUS RHYTHM Confirmed by MD IZABELA, LORA ([id number]) on 10/19/2019 1:30:41 PM Referred By: Confirmed By:LORA GURROLA MD
[2019-10-19] MEDS ORDERED: FAMOTIDINE 10 MG TABLET ONE (14:00)
[2019-10-19] MEDS: FAMOTIDINE 20 MG TABLET PO SCH (14:03)
[2019-10-19] MEDS: TIOTROPIUM BROMIDE 2.5 MCG (SPIRIVA) RESPIMAT INHALER IH SCH (14:03)
--- NOTE | 2019-10-19 15:57 | PN ---
Progress Note (short form) - Note Progress Note: Chief Complaint: Events noted, notes reviewed, evaluation new onset atrial fibrillation, recurrent fall, reports exertional dyspnea, denies any chest pain History of Present Illness: Seen and examined in the ER/telemetry hold. Full consult dictated - Current Medication List Current Medications Acetaminophen (Tylenol -) 650 mg PO Q6H PRN PRN Reason: PAIN LEVEL 1-5 Bupropion HCl (Wellbutrin Xl -) 150 mg PO DAILY [facility] Last Admin: 10/19/19 14:03 Dose: 150 mg Enoxaparin Sodium (Lovenox -) 70 mg SQ BID [facility] Escitalopram Oxalate (Lexapro -) 5 mg PO DAILY [facility] Last Admin: 10/19/19 12:06 Dose: 5 mg Famotidine (Pepcid -) 20 mg PO DAILY [facility] Last Admin: 10/19/19 14:03 Dose: 20 mg Folic Acid (Folic Acid -) 1 mg PO DAILY [facility] Last Admin: 10/19/19 12:06 Dose: 1 mg Sodium Chloride (Normal Saline -) 1,000 mls @ 42 mls/hr IV ASDIR [facility] Last Admin: 10/19/19 08:11 Dose: 42 mls/hr Insulin Aspart (Novolog Vial Sliding Scale -) 1 vial SQ TIDAC [facility]; Protocol Last Admin: 10/19/19 12:22 Dose: 1 units Metoprolol Tartrate (Lopressor -) 25 mg PO BID [facility] Non-Formulary Medication (Disulfiram [Antabuse]) 250 mg PO DAILY [facility] Tiotropium [place] (Spiriva Respimat) 2 puff IH DAILY [facility] Last Admin: 10/19/19 14:03 Dose: 2 puff Review of Systems - Objective Vital Signs: Last Vital Signs Temp Pulse Resp BP Pulse Ox 97.2 F L 92 H 18 113/66 96 10/18/19 21:50 10/19/19 04:00 10/19/19 04:00 10/19/19 04:00 10/19/19 04:00 Intake & Output 10/16/19 10/17/19 10/18/19 10/19/19 23:59 23:59 23:59 23:59 Weight 159 lb Neck: Supple Negative JVD No Bruit Cardiovascular: S1 S2 Irregularly Irregular [place] 2/6 WILLY Respiratory: Scattered Rhonchi Bilaterally Gastrointestinal: Soft Benign Normal Bowel Sounds Extremities: Negative Edema Labs: Troponin, BNP 10/18/19 10/19/19 23:05 08:10 Troponin I < 0.02 < 0.02 CBC, BMP 10/19/19 08:10 10/19/19 08:10 Hepatic Panel Total Bilirubin 0.5 mg/dL (0.2-1) 10/19/19 08:10 AST 7 U/L (15-37) L 10/19/19 08:10 ALT 17 U/L (13-61) 10/19/19 08:10 Alkaline Phosphatase 127 U/L (45-117) H 10/19/19 08:10 Albumin 2.9 g/dl (3.4-5.0) L 10/19/19 08:10 INR, PTT INR 1.09 (0.83-1.09) 10/19/19 08:10 Assessment/Plan ASSESSMENT: 1. Paroxysmal atrial fibrillation new onset [id number] score of 5 2. CAD angina pectoris 2. Probable diastolic LV dysfunction with clinical class 0 NYHA classification LV failure 3. Heart murmur consistent with AV disease/aortic valve stenosis- sclerosis 4. Hypertensive heart disease 5. Hypercholesterolemia 6. Peripheral vascular disease 7. Hypothyroidism 8. COPD 9. CKD 10. Tobacco abuse PLAN: 1. A/C is highly recommended considering the above noted [id number] score of 5 , unless it is absolutely contraindicated- DOAC's/Eliquis, D/C Lovenox 2. B-Blockers, Lopressor for rate control- hemodynamics permitting 3. ACEI or ARBS unless contraindicated- hemodynamics permitting 4. Statins 5. Echocardiography to assess LV size and function and valvular function specifically AV pathology 6. Pending clinical response and results of echocardiography to plan further intervention 7. Counselled smoking cessation and abstinence Discussed in detail with the patient and her daughter who was contacted via telephone Thom Art MD
--- NOTE | 2019-10-19 17:14 | CONS ---
DATE OF CONSULTATION: 10/19/2019 CONSULTATION REQUESTED BY: Hospitalist Service CHIEF COMPLAINT: 1. Cardiovascular evaluation. 2. Evaluation of new-onset atrial fibrillation, duration of which is unknown. HISTORY OF PRESENT ILLNESS: History was obtained from the patient and her daughter, who was contacted via telephone. The patient is a 73-year-old female with a known history of probable coronary artery disease, angina pectoris, diastolic left ventricular dysfunction, hypertensive cardiovascular disease, hypercholesterolemia, peripheral vascular disease post peripheral intervention, hypothyroidism, chronic obstructive pulmonary disease/emphysema, degenerative cervical disk disease post cervical laminectomy, degenerative lumbosacral disk disease with radiculopathy and continued tobacco abuse. She presented to [facility] after a recurrent fall and was noted to have evidence of atrial fibrillation on an electrocardiogram. The patient has had several admissions with recurrent falls which have been attributed to unstable gait related to the above-noted degenerative cervical and lumbosacral disk disease. The patient denied any palpitations. The patient does not recall any dizziness or lightheadedness prior to her fall. The patient denies any chest discomfort. The patient reports dyspnea with mild to moderate physical exertion which she attributes to the above-noted chronic obstructive pulmonary disease/emphysema. The patient denies any orthopnea, paroxysmal nocturnal dyspnea or peripheral edema. The patient reports fatigue and tiredness. PAST MEDICAL HISTORY: Coronary artery disease, angina pectoris, diastolic left ventricular dysfunction with clinical class 0 [place] Heart Association classification left ventricular failure, hypertensive cardiovascular disease, hypercholesterolemia, peripheral vascular disease post peripheral intervention, hypothyroidism, history of partial thyroidectomy, chronic obstructive pulmonary disease/emphysema, chronic kidney disease, degenerative cervical disk disease post surgical intervention, degenerative lumbosacral disk disease with radiculopathy. SOCIAL HISTORY: She is a smoker. FAMILY HISTORY: Positive for coronary artery disease. ALLERGIES: PLAVIX, PREDNISONE AND LISINOPRIL. CURRENT MEDICAL THERAPY: Norvasc 10 mg once a day, Wellbutrin 100 mg twice a day, Antabuse 250 once a day, Lexapro 5 mg once a day, Pepcid 20 mg once a day, folic acid 1 mg once a day, Spiriva one puff once daily. REVIEW OF SYSTEMS: Head and Neck: Denies headache, photophobia, blurring of vision. Respiratory: No cough or sputum production. Cardiovascular: As noted above. Gastrointestinal: Denied nausea, vomiting, diarrhea, abdominal discomfort. Genitourinary: No symptoms reported. Musculoskeletal: As noted above. Cervical and lumbosacral disk disease with radiculopathy. PHYSICAL EXAMINATION: Vitals: Blood pressure is 113/66 mmHg, pulse rate is 92 beats per minute, irregular. Head and Neck: Pupils are equal, round and reactive to light and accommodation. Extraocular muscles intact. Anicteric sclerae. Negative JVD. No bruits appreciated. Chest: Diminished breath sounds at the bases. Scattered rhonchi. Cardiovascular: S1, S2 irregularly irregular. Grade 2 to 6 systolic ejection murmur. No clicks or gallops. Abdomen: Soft, benign. Normal active bowel sounds. Extremities: Negative edema, pulses. No calf tenderness. ELECTROCARDIOGRAM: Atrial fibrillation with nonspecific ST-segment T-wave abnormality. Troponin-I less than 0.02. CBC: White cell count of 9.8, hemoglobin 12.7, platelets 207. Basic metabolic profile revealed sodium of 140, potassium 4.6, BUN 25.1, creatinine 1.2, glucose 118 with normal liver function testing. ASSESSMENT: 1. Paroxysmal atrial fibrillation, new onset; CHADS-VASc score of 5. 2. Coronary artery disease and angina pectoris. 3. Diastolic left ventricular dysfunction with clinical class 0 [place] Heart Association classification left ventricular failure. 4. Heart murmur consistent with aortic valve disease/aortic valve stenosis, probable sclerosis. 5. Hypertensive cardiovascular disease. 6. Hypercholesterolemia. 7. Peripheral vascular disease. 8. Hypothyroidism. 9. Chronic obstructive pulmonary disease. 10. Chronic kidney disease. 11. Continued tobacco abuse. RECOMMENDATIONS: 1. Anticoagulation is highly recommended considering the above-noted CHADS-VASc score of 5 unless it is absolutely contraindicated. Direct oral anticoagulants, Eliquis, and would discontinue Lovenox therapy. 2. Beta blockers - Lopressor for rate control, hemodynamics permitting. 3. SONIDO inhibitors or angiotensin receptor blockers unless contraindicated. No clear allergy reported other than an intolerance to SONIDO inhibitors, hemodynamics permitting. 4. Statins. 5. Echocardiography to assess left ventricular size, systolic function and valvular function, specifically aortic valve pathology. 6. Pending clinical response to above therapy, adjustments and results of above echocardiography to plan further intervention. 7. The patient was strongly counseled about smoking cessation and abstinence. The above was discussed in detail with the patient and her daughter who as outlined above was contacted via telephone. Thank you for the kind referral. SUKHI TRUJILLO M.D. HOLLI/[id number]
[2019-10-19] MEDS ORDERED: CEFTRIAXONE 1 GM/50 ML BAG ONE (18:13)
[2019-10-19] MEDS: CEFTRIAXONE 1 GM in DEXTROSE 5%-WATER - 50 ML IVPB SCH (18:36)
[2019-10-19] MEDS ORDERED: APIXABAN 5 MG TABLET ONE (22:48)
[2019-10-19] MEDS: APIXABAN 5 MG TABLET PO SCH (22:52)
[2019-10-20 06:07] LABS: EOS % 0.6 % (0-4.5); HEMATOCRIT 35.8 % (32.4-45.2); LYMPH % 14.1 % (8-40); MCH 30.8 pg (25.7-33.7); MCHC 33.6 g/dl (32.0-36.0); MEAN CELL VOLUME 91.7 fl (80-96); MEAN PLT VOLUME 7.4 fl (7.5-11.1); NEUT % 71.3 % (42.8-82.8); PLATELET COUNT 225 K/MM3 (134-434); RDW 14.6 % (11.6-15.6); WHITE BLOOD COUNT 9.6 K/mm3 (4.0-10.0)
[2019-10-20 06:27] LABS: ALBUMIN 2.7 g/dl (3.4-5.0); BILIRUBIN,TOTAL 0.6 mg/dL (0.2-1); BLOOD UREA NITROGEN 26.5 mg/dL (7-18); CALCIUM 8.3 mg/dL (8.5-10.1); CREATININE 1.2 mg/dL (0.55-1.3); MAGNESIUM 2.1 mg/dL (1.8-2.4); PHOSPHOROUS 2.9 mg/dL (2.5-4.9); POTASSIUM 4.6 mmol/L (3.5-5.1); TOT PROT 5.8 g/dl (6.4-8.2)
[2019-10-20] MEDS: SODIUM CHLORIDE 1,000 ML IV SCH (07:01)
[2019-10-20] MEDS: INSULIN SLIDING SCALE (NOVOLOG) 1 VIAL SQ SCH ×3 (07:02→17:07)
--- NOTE | 2019-10-20 08:10 | PN ---
Progress Note (short form) - Note Progress Note: Chief Complaint: Events noted, notes reviewed, atrial fibrillation persists rate varies currently controlled, reports exertional dyspnea no rest dyspnea, denies any chest pain History of Present Illness: Seen and examined in the ER/telemetry hold. Events noted, notes reviewed, atrial fibrillation persists rate varies currently controlled, reports exertional dyspnea no rest dyspnea, denies any chest pain - Current Medication List Current Medications Acetaminophen (Tylenol -) 650 mg PO Q6H PRN PRN Reason: PAIN LEVEL 1-5 Apixaban (Eliquis -) 5 mg PO BID [facility] Last Admin: 10/19/19 22:52 Dose: 5 mg Bupropion HCl (Wellbutrin Xl -) 150 mg PO DAILY [facility] Last Admin: 10/19/19 14:03 Dose: 150 mg Escitalopram Oxalate (Lexapro -) 5 mg PO DAILY [facility] Last Admin: 10/19/19 12:06 Dose: 5 mg Famotidine (Pepcid -) 20 mg PO DAILY [facility] Last Admin: 10/19/19 14:03 Dose: 20 mg Folic Acid (Folic Acid -) 1 mg PO DAILY [facility] Last Admin: 10/19/19 12:06 Dose: 1 mg Sodium Chloride (Normal Saline -) 1,000 mls @ 42 mls/hr IV ASDIR [facility] Last Admin: 10/20/19 07:01 Dose: 42 mls/hr Ceftriaxone Sodium 1 gm/ (Dextrose) 50 mls @ 100 mls/hr IVPB DAILY [facility]; Protocol Last Admin: 10/19/19 18:36 Dose: 100 mls/hr Insulin Aspart (Novolog Vial Sliding Scale -) 1 vial SQ TIDAC [facility]; Protocol Last Admin: 10/20/19 07:02 Dose: Not Given Metoprolol Tartrate (Lopressor -) 25 mg PO BID [facility] Last Admin: 10/19/19 22:54 Dose: 25 mg Non-Formulary Medication (Disulfiram [Antabuse]) 250 mg PO DAILY [facility] Tiotropium [place] (Spiriva Respimat) 2 puff IH DAILY [facility] Last Admin: 10/19/19 14:03 Dose: 2 puff Review of Systems - Review of Systems Constitutional: no symptoms reported Respiratory: denies: Cough or Sputum Production Cardiovascular: as noted above Gastrointestinal: denies Nausea, Vomiting, Diarrhea, Constipation or Abdominal Pain Genitourinary: no symptoms reported Musculoskeletal: no symptoms reported Endocrine: no symptoms reported - Objective Vital Signs: Last Vital Signs Temp Pulse Resp BP Pulse Ox 98.1 F 20 L 20 117/66 99 10/19/19 18:08 10/20/19 06:40 10/20/19 06:40 10/20/19 06:40 10/20/19 06:40 Intake & Output 10/17/19 10/18/19 10/19/19 10/20/19 23:59 23:59 23:59 23:59 Weight 159 lb Neck: Supple Negative JVD No Bruit Cardiovascular: S1 S2 Irregularly Irregular Garde 2/6 WILLY Respiratory: Scattered Rhonchi Bilaterally Gastrointestinal: Soft Benign Normal Bowel Sounds Extremities: Negative Edema Labs: CBC, BMP 10/20/19 05:26 10/20/19 05:26 Troponin, BNP 10/19/19 08:10 Troponin I < 0.02 INR, PTT INR 1.09 (0.83-1.09) 10/19/19 08:10 Assessment/Plan ASSESSMENT: 1. Paroxysmal atrial fibrillation new onset [id number] score of 5 on DOAC's/ Eliquis 2. CAD angina pectoris 2. Diastolic LV dysfunction with clinical class 0 NYHA classification LV failure 3. Heart murmur consistent with AV disease/aortic valve stenosis- sclerosis 4. Hypertensive heart disease 5. Hypercholesterolemia 6. Peripheral vascular disease post intervention 7. Hypothyroidism 8. COPD 9. CKD 10. Tobacco abuse PLAN: 1. Continue A/C therapy indefinitely considering the above noted [id number] score of 5 unless it is absolutely contraindicated- DOAC's/Eliquis, other alternative would be NATY closure device 2. Continue Lopressor for rate control- hemodynamics permitting 3. Recommend ARBS unless contraindicated- hemodynamics permitting- upon questioning the patient and the daughter; patient has intolerance to ACEI not allergy 4. Lipid profile and add statins 5. Echocardiography to assess LV size and function and valvular function specifically AV pathology 6. As outlined in the prior note pending clinical response and results of echocardiography to plan further intervention 7. Counselled smoking cessation and abstinence Thom Art MD
[2019-10-20] MEDS: ESCITALOPRAM OXALATE 10 MG TABLET (FP) PO SCH (09:58)
[2019-10-20] MEDS: FOLIC ACID 1 MG TABLET (FP) PO SCH (09:58)
[2019-10-20] MEDS: TIOTROPIUM BROMIDE 2.5 MCG (SPIRIVA) RESPIMAT INHALER IH SCH (09:59)
[2019-10-20] MEDS: FAMOTIDINE 20 MG TABLET PO SCH (09:59)
[2019-10-20] MEDS: METOPROLOL TARTRATE 25 MG TABLET (FP) PO SCH ×3 (10:00→22:06)
[2019-10-20] MEDS: APIXABAN 5 MG TABLET PO SCH ×2 (10:00→22:06)
[2019-10-20] MEDS ORDERED: CEFTRIAXONE 1 GM/50 ML BAG ONE (10:01)
[2019-10-20] MEDS: CEFTRIAXONE 1 GM in DEXTROSE 5%-WATER - 50 ML IVPB SCH (10:03)
--- NOTE | 2019-10-20 10:57 | PN ---
Teaching Attending Note Name of Resident: Angie Meng ATTENDING PHYSICIAN STATEMENT I saw and evaluated the patient. I reviewed the resident's note and discussed the case with the resident. I agree with the resident's findings and plan as documented with exceptions below. SUBJECTIVE: Patient seen and examined, sleeping comfortably, when woken up, no complaints. OBJECTIVE: Vital Signs Period Temp Pulse Resp BP Sys/Mcfadden Pulse Ox Last 24 Hr 98.1 F 20-123 20-22 105-132/66-79 96-99 Intake & Output 10/17/19 10/18/19 10/19/19 10/20/19 23:59 23:59 23:59 23:59 Weight 159 lb General: sleeping comfortably in bed, no acute distress, easily arousable CVS:S1s2 irregularly irregular, tachycardic Chest: CTAB, no rales or wheezing Abdomen:soft, NT, no CVA or suprapubic tenderness Extremities: no edema Home Medications Medication Instructions Recorded Amlodipine Besylate 10 mg PO DAILY 05/27/19 Disulfiram [Antabuse] 250 mg PO DAILY 05/27/19 Escitalopram Oxalate [Lexapro -] 5 mg PO DAILY 05/27/19 Folic Acid 1 mg PO DAILY 05/27/19 Tiotropium [place] [Spiriva] 1 inh PO DAILY 05/27/19 Bupropion HCl [Bupropion HCl Sr] 100 mg PO BID 10/19/19 Famotidine 20 mg PO DAILY 10/19/19 Active Medications Acetaminophen (Tylenol -) 650 mg PO Q6H PRN PRN Reason: PAIN LEVEL 1-5 Apixaban (Eliquis -) 5 mg PO BID [facility] Last Admin: 10/20/19 10:00 Dose: 5 mg Bupropion HCl (Wellbutrin Xl -) 150 mg PO DAILY [facility] Last Admin: 10/20/19 09:59 Dose: 150 mg Escitalopram Oxalate (Lexapro -) 5 mg PO DAILY [facility] Last Admin: 10/20/19 09:58 Dose: 5 mg Famotidine (Pepcid -) 20 mg PO DAILY [facility] Last Admin: 10/20/19 09:59 Dose: 20 mg Folic Acid (Folic Acid -) 1 mg PO DAILY [facility] Last Admin: 10/20/19 09:58 Dose: 1 mg Sodium Chloride (Normal Saline -) 1,000 mls @ 42 mls/hr IV ASDIR [facility] Last Admin: 10/20/19 07:01 Dose: 42 mls/hr Ceftriaxone Sodium 1 gm/ (Dextrose) 50 mls @ 100 mls/hr IVPB DAILY [facility]; Protocol Last Admin: 10/20/19 10:03 Dose: 100 mls/hr Insulin Aspart (Novolog Vial Sliding Scale -) 1 vial SQ TIDAC [facility]; Protocol Last Admin: 10/20/19 07:02 Dose: Not Given Metoprolol Tartrate (Lopressor -) 25 mg PO TID [facility] Non-Formulary Medication (Disulfiram [Antabuse]) 250 mg PO DAILY [facility] Rosuvastatin Calcium (Crestor -) 20 mg PO HS [facility] Tiotropium [place] (Spiriva Respimat) 2 puff IH DAILY [facility] Last Admin: 10/20/19 09:59 Dose: 2 puff Laboratory Results - last 24 hr 10/19/19 10/19/19 10/19/19 12:12 18:15 22:39 WBC RBC Hgb Hct MCV MCH MCHC RDW Plt Count MPV Absolute Neuts (auto) Neutrophils % Lymphocytes % Monocytes % Eosinophils % Basophils % Nucleated RBC % Sodium Potassium Chloride Carbon Dioxide Anion Gap BUN Creatinine Est GFR (CKD-EPI)AfAm Est GFR (CKD-EPI)NonAf POC Glucometer 189 94 120 Random Glucose Calcium Phosphorus Magnesium Total Bilirubin AST ALT Alkaline Phosphatase Total Protein Albumin 10/20/19 10/20/19 10/20/19 05:26 05:26 07:00 WBC 9.6 RBC 3.90 Hgb 12.0 Hct 35.8 MCV 91.7 MCH 30.8 MCHC 33.6 RDW 14.6 Plt Count 225 MPV 7.4 L Absolute Neuts (auto) 6.8 Neutrophils % 71.3 Lymphocytes % 14.1 D Monocytes % 13.0 H Eosinophils % 0.6 Basophils % 1.0 D Nucleated RBC % 0 Sodium 138 Potassium 4.6 Chloride 110 H Carbon Dioxide 21 Anion Gap 7 L BUN 26.5 H Creatinine 1.2 Est GFR (CKD-EPI)AfAm 51.20 Est GFR (CKD-EPI)NonAf 44.17 POC Glucometer 112 Random Glucose 121 H Calcium 8.3 L Phosphorus 2.9 Magnesium 2.1 Total Bilirubin 0.6 AST 17 ALT 20 Alkaline Phosphatase 130 H Total Protein 5.8 L Albumin 2.7 L Microbiology 10/19/19 10:00 Urine - Urine Clean Catch Urine Culture - Preliminary Non Lactose Fermenting Gnb renal/bladder US noted telemetry: Afib 80s-110s ASSESSMENT AND PLAN: 73 y/o F with PMHx of COPD (not on home O2), CKD stage II-III (Sees Dr. Kaufman/ Dr. Padilla), Nephrolithiasis s/p left ureteral stent placement 09/2017, OA, EtOH Abuse on antabuse (sober sine 03/2018), anxiety, prior UTIs, admitted with fall, weakness, found with new onset atrial fibrillation with RVR. -Mechanical fall -New onset atrial fibrillation with RVR -Complicated Gm neg UTI -Obstrutive uropathy with left hydronephrosis -h/o left ureteral stent placement in 09/2017 for left UPJ obstruction/stone -New onset DM -Left chest wall pain, r/o rib fracture -H/o ETOH abuse on antabuse -COPD not on home oxygen -CKD stage II-III -OA -Anxiety Plan: Increase metoprolol to 25 mg TID, continue telemetry, follow up 2D echo. Cardiology input noted, started on eliquis. ARB as hemodynamics permit. Ceftriaxone day 2, follow up urine cx. Renal/bladder US noted. patient with no abdominal or flank pain or concerns on exam. Cr stable. Known h/o left UPJ obstruction/stone s/p left ureteral stent placement with Dr. Rehman in 07/2017. Place on bladder Scan q6h, otto prn, urology input. New onset DM, Dietary consult. BGM/ISS. Will address further meds accordingly. Continue buproprion/Escitalopram/antabuse/spiriva/Famotidine PT eval [id number] eliquis Dispo SNF vs home with services when medical issues improve.
--- NOTE | 2019-10-20 11:07 | PN ---
Physical Exam: SUBJECTIVE: Patient seen and examined this am. No acute events overnight. OBJECTIVE: Vital Signs Period Temp Pulse Resp BP Sys/Mcfadden Pulse Ox Last 24 Hr 98.1 F 20-123 20-22 105-132/66-79 96-99 GENERAL: NAD HEAD: NCAT EYES: PERRL, EOMI ENT: Moist mucous membranes NECK: Supple, No JVD LUNGS: CTAB, No wheezes, no crackles HEART: Irregular, S1 and S2 without murmur ABDOMEN: Soft, nontender, not distended, + bowel sounds, no guarding EXTREMITIES: No peripheral edema. NEUROLOGICAL: Cranial nerves II-XII intact. Normal speech. SKIN: Warm, dry Laboratory Last Values WBC 9.6 K/mm3 (4.0-10.0) 10/20/19 05:26 RBC 3.90 M/mm3 (3.60-5.2) 10/20/19 05:26 Hgb 12.0 GM/dL (10.7-15.3) 10/20/19 05:26 Hct 35.8 % (32.4-45.2) 10/20/19 05:26 MCV 91.7 fl (80-96) 10/20/19 05:26 MCH 30.8 pg (25.7-33.7) 10/20/19 05:26 MCHC 33.6 g/dl (32.0-36.0) 10/20/19 05:26 RDW 14.6 % (11.6-15.6) 10/20/19 05:26 Plt Count 225 K/MM3 (134-434) 10/20/19 05:26 MPV 7.4 fl (7.5-11.1) L 10/20/19 05:26 Absolute Neuts (auto) 6.8 K/mm3 (1.5-8.0) 10/20/19 05:26 Neutrophils % 71.3 % (42.8-82.8) 10/20/19 05:26 Lymphocytes % 14.1 % (8-40) D 10/20/19 05:26 Monocytes % 13.0 % (3.8-10.2) H 10/20/19 05:26 Eosinophils % 0.6 % (0-4.5) 10/20/19 05:26 Basophils % 1.0 % (0-2.0) D 10/20/19 05:26 Nucleated RBC % 0 % (0-0) 10/20/19 05:26 PT with INR 12.90 SEC (9.7-13.0) 10/19/19 08:10 INR 1.09 (0.83-1.09) 10/19/19 08:10 PTT (Actin FS) 36.0 SECONDS (25.2-36.5) 10/18/19 23:05 Sodium 138 mmol/L (136-145) 10/20/19 05:26 Potassium 4.6 mmol/L (3.5-5.1) 10/20/19 05:26 Chloride 110 mmol/L (98-107) H 10/20/19 05:26 Carbon Dioxide 21 mmol/L (21-32) 10/20/19 05:26 Anion Gap 7 MMOL/L (8-16) L 10/20/19 05:26 BUN 26.5 mg/dL (7-18) H 10/20/19 05:26 Creatinine 1.2 mg/dL (0.55-1.3) 10/20/19 05:26 Est GFR (CKD-EPI)AfAm 51.20 10/20/19 05:26 Est GFR (CKD-EPI)NonAf 44.17 10/20/19 05:26 POC Glucometer 112 UNITS (80-120) 10/20/19 07:00 Random Glucose 121 mg/dL (74-106) H 10/20/19 05:26 Hemoglobin A1c % 6.5 % (4.2-6.3) H 10/19/19 08:10 Calcium 8.3 mg/dL (8.5-10.1) L 10/20/19 05:26 Phosphorus 2.9 mg/dL (2.5-4.9) 10/20/19 05:26 Magnesium 2.1 mg/dL (1.8-2.4) 10/20/19 05:26 Total Bilirubin 0.6 mg/dL (0.2-1) 10/20/19 05:26 AST 17 U/L (15-37) 10/20/19 05:26 ALT 20 U/L (13-61) 10/20/19 05:26 Alkaline Phosphatase 130 U/L (45-117) H 10/20/19 05:26 Creatine Kinase 137 U/L (26-192) 10/18/19 23:05 Troponin I < 0.02 ng/ml (0.00-0.05) 10/19/19 08:10 Total Protein 5.8 g/dl (6.4-8.2) L 10/20/19 05:26 Albumin 2.7 g/dl (3.4-5.0) L 10/20/19 05:26 Triglycerides 91 mg/dL (0-150) 10/19/19 08:10 Cholesterol 180 mg/dL (50-200) 10/19/19 08:10 Total LDL Cholesterol 94 mg/dL (5-100) 10/19/19 08:10 HDL Cholesterol 65 mg/dL (40-60) H 10/19/19 08:10 TSH 1.44 uIU/ml (0.358-3.74) 10/19/19 08:10 Urine Color Yellow 10/18/19 05:40 Urine Appearance Cloudy 10/18/19 05:40 Urine pH 5.0 (5.0-8.0) 10/18/19 05:40 Ur Specific [place] 1.029 (1.010-1.035) 10/18/19 05:40 Urine Protein 1+ (NEGATIVE) H 10/18/19 05:40 Urine Glucose (UA) Negative (NEGATIVE) 10/18/19 05:40 Urine Ketones Trace (NEGATIVE) H 10/18/19 05:40 Urine Blood Trace (NEGATIVE) 10/18/19 05:40 Urine Nitrite Positive (NEGATIVE) H 10/18/19 05:40 Urine Bilirubin Negative (NEGATIVE) 10/18/19 05:40 Urine Urobilinogen 1.0 mg/dL (0.2-1.0) 10/18/19 05:40 Ur Leukocyte Esterase Trace (NEGATIVE) 10/18/19 05:40 Urine WBC (Auto) 28 /hpf (0-5) 10/18/19 05:40 Urine RBC (Auto) 1 /hpf (0-4) 10/18/19 05:40 Urine Casts (Auto) 13 /lpf (0-8) 10/18/19 05:40 U Epithel Cells (Auto) 0.1 /HPF (0-5/HPF) 10/18/19 05:40 Urine Bacteria (Auto) 1930.5 /hpf (NEGATIVE) 10/18/19 05:40 Opiates Screen Negative ng/ml (MMZBOH=163) 10/19/19 05:40 Methadone Screen Negative ng/ml (WVXPGZ=326) 10/19/19 05:40 Barbiturate Screen Negative ng/ml (SXBKRX=069) 10/19/19 05:40 Phencyclidine Screen Negative ng/ml (CUTOFF=25) 10/19/19 05:40 Ur Amphetamines Screen Negative ng/ml (SZHVSZ=302) 10/19/19 05:40 MDMA (Ecstasy) Screen Negative ng/ml (APXUIU=018) 10/19/19 05:40 Benzodiazepines Screen Negative ng/ml (RSELMX=148) 10/19/19 05:40 Cocaine Screen Negative ng/ml (QFWJFA=851) 10/19/19 05:40 U Marijuana (THC) Screen Negative ng/ml (CUTOFF=50) 10/19/19 05:40 Alcohol, Quantitative < 3 mg/dL (0.0-5.0) 10/19/19 08:10 Microbiology 10/19/19 10:00 Urine - Urine Clean Catch Urine Culture - Preliminary Non Lactose Fermenting Gnb Active Medications Acetaminophen (Tylenol -) 650 mg PO Q6H PRN PRN Reason: PAIN LEVEL 1-5 Apixaban (Eliquis -) 5 mg PO BID [facility] Last Admin: 10/20/19 10:00 Dose: 5 mg Bupropion HCl (Wellbutrin Xl -) 150 mg PO DAILY [facility] Last Admin: 10/20/19 09:59 Dose: 150 mg Escitalopram Oxalate (Lexapro -) 5 mg PO DAILY [facility] Last Admin: 10/20/19 09:58 Dose: 5 mg Famotidine (Pepcid -) 20 mg PO DAILY [facility] Last Admin: 10/20/19 09:59 Dose: 20 mg Folic Acid (Folic Acid -) 1 mg PO DAILY [facility] Last Admin: 10/20/19 09:58 Dose: 1 mg Sodium Chloride (Normal Saline -) 1,000 mls @ 42 mls/hr IV ASDIR [facility] Last Admin: 10/20/19 07:01 Dose: 42 mls/hr Ceftriaxone Sodium 1 gm/ (Dextrose) 50 mls @ 100 mls/hr IVPB DAILY [facility]; Protocol Last Admin: 10/20/19 10:03 Dose: 100 mls/hr Insulin Aspart (Novolog Vial Sliding Scale -) 1 vial SQ TIDAC [facility]; Protocol Last Admin: 10/20/19 07:02 Dose: Not Given Metoprolol Tartrate (Lopressor -) 25 mg PO BID [facility] Last Admin: 10/20/19 10:00 Dose: 25 mg Non-Formulary Medication (Disulfiram [Antabuse]) 250 mg PO DAILY [facility] Tiotropium [place] (Spiriva Respimat) 2 puff IH DAILY [facility] Last Admin: 10/20/19 09:59 Dose: 2 puff ASSESSMENT/PLAN: 73 y/o F with PMHx of COPD (not on home O2), CKD (Sees Dr. Kaufman/Dr. Padilla), OA, EtOH Abuse (sober since 03/2018) presents after multiple falls, found to have New onset Atrial Fibrillation. #New onset Atrial Fibrillation with RVR -EKG reveals AFib with RVR, VR 115, QTc 473 -Rate remains above goal, Increase Metoprolol tartrate to 25mg TID, Uptitrate as hemodynamics permit -Apixaban (CHADSVASc score 5) -Rosuvastatin -Will consider ACEi/ARBs -Check Echo -Cardio (Dr. Hobson) Consulted, appreciate rec's -Tele #UTI -UA reveals +Nitrite, LE Trace, 28 WBC, 1930 Bacteria -Continue Ceftriaxone (Abx course started on 10/19) -Follow Urine Cx #Obstrutive uropathy -Hx of left hydronephrosis with left ureteral stent placement in 09/2017 for left UPJ obstruction/stone -Renal/pelvic US Noted for significant left hydro -Bladder Scan Q6h -Urology (Dr. Wiseman) consulted #Mechanical Fall -Physical therapy -Analgesia via Acetaminophen -Received 1/2L NS in ED; Continue NS @ 42 #New onset DM -A1c 6.5% -ISS BGMs ACHS -Nutrition consult #HTN -Hold home dose amlodipine -Continue Metoprolol tartrate, Will consider ACEi/ARBs once rate better controlled #COPD (not on home O2) -Continue home dose LAMA #EtOH Abuse -Continue home does Disulfiram #FEN -NS @ 42 -Replete Lytes PRN -Sodium controlled diet #PPx -DVT: DOAC Dispo: Home VS SNF, Will need Med-Rec Visit type - Emergency Visit Emergency Visit: Yes ED Registration Date: 10/19/19 Care time: The patient presented to the Emergency Department on the above date and was hospitalized for further evaluation of their emergent condition. - New Patient This patient is new to me today: Yes Date on this admission: 10/20/19 - Critical Care Critical Care patient: No ATTENDING PHYSICIAN STATEMENT I saw and evaluated the patient. I reviewed the resident's note and discussed the case with the resident. I agree with the resident's findings and plan as documented. SUBJECTIVE: OBJECTIVE: ASSESSMENT AND PLAN:
[2019-10-20 18:03] VITALS: BMI 23.8
[2019-10-20] MEDS ORDERED: ROSUVASTATIN CA 20 MG TABLET (FP) PO SCH (22:00)
[2019-10-21] MEDS: INSULIN SLIDING SCALE (NOVOLOG) 1 VIAL SQ SCH ×3 (06:15→16:49)
[2019-10-21] MEDS: SODIUM CHLORIDE 1,000 ML IV SCH (06:16)
[2019-10-21] MEDS: METOPROLOL TARTRATE 25 MG TABLET (FP) PO SCH ×3 (06:19→21:08)
[2019-10-21 07:04] LABS: HEMATOCRIT 35.7 % (32.4-45.2); HEMOGLOBIN 12.1 GM/dL (10.7-15.3); MCH 30.9 pg (25.7-33.7); MCHC 33.9 g/dl (32.0-36.0); MEAN CELL VOLUME 91.4 fl (80-96); MEAN PLT VOLUME 7.7 fl (7.5-11.1); PLATELET COUNT 244 K/MM3 (134-434); RDW 14.9 % (11.6-15.6); WHITE BLOOD COUNT 8.8 K/mm3 (4.0-10.0)
[2019-10-21] MEDS ORDERED: cefTRIAXone SODIUM 1 GM VIAL ONE (08:51)
[2019-10-21] MEDS ORDERED: DEXTROSE 5%-WATER - 50 ML IVPB ONE (08:52)
--- NOTE | 2019-10-21 09:46 | PN ---
Progress Note, Physician History of Present Illness: Atrial fibrillation persists with RVR, reports exertional dyspnea no rest dyspnea, denies any chest pain or palpitations. - Current Medication List Current Medications: Active Medications Acetaminophen (Tylenol -) 650 mg PO Q6H PRN PRN Reason: PAIN LEVEL 1-5 Apixaban (Eliquis -) 5 mg PO BID [facility] Last Admin: 10/20/19 22:06 Dose: 5 mg Bupropion HCl (Wellbutrin Xl -) 150 mg PO DAILY [facility] Last Admin: 10/20/19 09:59 Dose: 150 mg Escitalopram Oxalate (Lexapro -) 5 mg PO DAILY [facility] Last Admin: 10/20/19 09:58 Dose: 5 mg Famotidine (Pepcid -) 20 mg PO DAILY [facility] Last Admin: 10/20/19 09:59 Dose: 20 mg Folic Acid (Folic Acid -) 1 mg PO DAILY [facility] Last Admin: 10/20/19 09:58 Dose: 1 mg Sodium Chloride (Normal Saline -) 1,000 mls @ 42 mls/hr IV ASDIR [facility] Last Admin: 10/21/19 06:16 Dose: 42 mls/hr Ceftriaxone Sodium 1 gm/ (Dextrose) 50 mls @ 100 mls/hr IVPB DAILY [facility]; Protocol Last Admin: 10/20/19 10:03 Dose: 100 mls/hr Insulin Aspart (Novolog Vial Sliding Scale -) 1 vial SQ TIDAC [facility]; Protocol Last Admin: 10/21/19 06:15 Dose: Not Given Metoprolol Tartrate (Lopressor -) 25 mg PO TID [facility] Last Admin: 10/21/19 06:19 Dose: 25 mg Non-Formulary Medication (Disulfiram [Antabuse]) 250 mg PO DAILY [facility] Rosuvastatin Calcium (Crestor -) 20 mg PO HS [facility] Last Admin: 10/20/19 22:07 Dose: 20 mg Tiotropium [place] (Spiriva Respimat) 2 puff IH DAILY [facility] Last Admin: 10/20/19 09:59 Dose: 2 puff - Objective Vital Signs: Vital Signs Temperature 98.2 F 10/21/19 08:24 Pulse Rate 98 H 10/21/19 08:24 Respiratory Rate 20 10/21/19 08:46 Blood Pressure 132/72 10/21/19 08:24 O2 Sat by Pulse Oximetry (%) 98 10/21/19 08:46 Constitutional: Yes: No Distress, Calm Neck: Yes: Supple Cardiovascular: Yes: Tachycardia, Pulse Irregular Respiratory: Yes: Regular, Diminished Gastrointestinal: Yes: Normal Bowel Sounds, Soft Edema: No Labs: CBC, BMP 10/21/19 05:55 10/20/19 05:26 INR, PTT INR 1.09 (0.83-1.09) 10/19/19 08:10 - ....Imaging EKG: Report Reviewed (Tele: Rapid afib) Problem List - Problems (1) Atrial fibrillation with RVR Code(s): I48.91 - UNSPECIFIED ATRIAL FIBRILLATION (2) COPD (chronic obstructive pulmonary disease) Code(s): J44.9 - CHRONIC OBSTRUCTIVE PULMONARY DISEASE, UNSPECIFIED Qualifiers: COPD type: unspecified COPD Qualified Code(s): J44.9 - Chronic obstructive pulmonary disease, unspecified (3) Hypothyroid Code(s): E03.9 - HYPOTHYROIDISM, UNSPECIFIED Qualifiers: Hypothyroidism type: unspecified Qualified Code(s): E03.9 - Hypothyroidism , unspecified (4) PAD (peripheral artery disease) Code(s): I73.9 - PERIPHERAL VASCULAR DISEASE, UNSPECIFIED (5) HTN (hypertension) Code(s): I10 - ESSENTIAL (PRIMARY) HYPERTENSION Qualifiers: Hypertension type: essential hypertension Qualified Code(s): I10 - Essential (primary) hypertension (6) CKD (chronic kidney disease) Code(s): N18.9 - CHRONIC KIDNEY DISEASE, UNSPECIFIED Qualifiers: Chronic kidney disease stage: stage 2 (mild) Qualified Code(s): N18.2 - Chronic kidney disease, stage 2 (mild) Assessment/Plan 1. Paroxysmal atrial fibrillation with RVR [id number] score of 5 on DOAC's/ Eliquis 2. CAD angina pectoris 3. Diastolic LV dysfunction with clinical class 0 NYHA classification LV failure 4. Heart murmur consistent with AV disease/aortic valve stenosis- sclerosis 5. Hypertensive heart disease 6. Hypercholesterolemia 7. Peripheral vascular disease post intervention 8. Hypothyroidism 9. COPD 10. CKD with microalbuminuria 11. Tobacco abuse PLAN: 1. Continue Eliquis 5 bid indefinitely considering the above noted [id number] score of 5 unless it is absolutely contraindicated- DOAC's/Eliquis, other alternative would be NATY closure device 2. Uptitrate Lopressor 25 qid for rate control- hemodynamics permitting, may require addition of Cardizem for further rate-control 3. Recommend ARBS unless contraindicated- hemodynamics permitting- upon questioning the patient and the daughter; patient has intolerance to ACEI not allergy 4. Decrease Crestor 10 qd after review of lipid panel 5. Echocardiography to assess LV size and function and valvular function specifically AV pathology 6. As outlined in the prior note pending clinical response and results of echocardiography to plan further intervention 7. Counselled smoking cessation and abstinence, BD, O2 as needed, empiric abx course
[2019-10-21] MEDS: ESCITALOPRAM OXALATE 10 MG TABLET (FP) PO SCH (09:52)
[2019-10-21] MEDS: APIXABAN 5 MG TABLET PO SCH ×2 (09:52→21:07)
[2019-10-21] MEDS: FAMOTIDINE 20 MG TABLET PO SCH (09:52)
[2019-10-21] MEDS: FOLIC ACID 1 MG TABLET (FP) PO SCH (09:53)
[2019-10-21] MEDS: CEFTRIAXONE 1 GM in DEXTROSE 5%-WATER - 50 ML IVPB SCH (09:57)
[2019-10-21] MEDS: TIOTROPIUM BROMIDE 2.5 MCG (SPIRIVA) RESPIMAT INHALER IH SCH (09:59)
--- NOTE | 2019-10-21 13:07 | PN ---
Teaching Attending Note Name of Resident: Rashad Paiz ATTENDING PHYSICIAN STATEMENT I saw and evaluated the patient. I reviewed the resident's note and discussed the case with the resident. I agree with the resident's findings and plan as documented with exceptions below. SUBJECTIVE: Patient seen and examined. feels weak and tired. Denies any chest pain, palpitations, dyspnea, dizziness, abdominal or urinary symptoms. OBJECTIVE: Vital Signs Period Temp Pulse Resp BP Sys/Mcfadden Pulse Ox Last 24 Hr 97.6 F-98.6 F 78-98 18-20 108-145/62-93 97-98 Intake & Output 10/18/19 10/19/19 10/20/19 10/21/19 23:59 23:59 23:59 23:59 Intake Total 500 Balance 500 Weight 159 lb 165 lb 12.8 oz 166 lb 3.2 oz General: sitting in chair, weak but no acute distress Neck: soft, supple Chest: CTAB, no rales or wheezing Abdomen:Soft, NT, no suprapubic or CVA tenderness Extremities: no edema S1S2 irregularly irregular, tachycardic Home Medications Medication Instructions Recorded Amlodipine Besylate 10 mg PO DAILY 05/27/19 Disulfiram [Antabuse] 250 mg PO DAILY 05/27/19 Escitalopram Oxalate [Lexapro -] 5 mg PO DAILY 05/27/19 Folic Acid 1 mg PO DAILY 05/27/[address] [place] [Spiriva] 1 inh PO DAILY 05/27/19 Bupropion HCl [Bupropion HCl Sr] 100 mg PO BID 10/19/19 Famotidine 20 mg PO DAILY 10/19/19 Active Medications Acetaminophen (Tylenol -) 650 mg PO Q6H PRN PRN Reason: PAIN LEVEL 1-5 Apixaban (Eliquis -) 5 mg PO BID [facility] Last Admin: 10/21/19 09:52 Dose: 5 mg Bupropion HCl (Wellbutrin Xl -) 150 mg PO DAILY [facility] Last Admin: 10/21/19 09:52 Dose: 150 mg Escitalopram Oxalate (Lexapro -) 5 mg PO DAILY [facility] Last Admin: 10/21/19 09:52 Dose: 5 mg Famotidine (Pepcid -) 20 mg PO DAILY [facility] Last Admin: 10/21/19 09:52 Dose: 20 mg Folic Acid (Folic Acid -) 1 mg PO DAILY [facility] Last Admin: 10/21/19 09:53 Dose: 1 mg Sodium Chloride (Normal Saline -) 1,000 mls @ 42 mls/hr IV ASDIR [facility] Last Admin: 10/21/19 06:16 Dose: 42 mls/hr Ceftriaxone Sodium 1 gm/ (Dextrose) 50 mls @ 100 mls/hr IVPB DAILY [facility]; Protocol Last Admin: 10/21/19 09:57 Dose: 100 mls/hr Insulin Aspart (Novolog Vial Sliding Scale -) 1 vial SQ TIDAC [facility]; Protocol Last Admin: 10/21/19 11:24 Dose: 1 units Metoprolol Tartrate (Lopressor -) 25 mg PO QID [facility] Non-Formulary Medication (Disulfiram [Antabuse]) 250 mg PO DAILY [facility] Rosuvastatin Calcium (Crestor -) 10 mg PO HS [facility] Tiotropium [place] (Spiriva Respimat) 2 puff IH DAILY [facility] Last Admin: 10/21/19 09:59 Dose: 2 puff Laboratory Results - last 24 hr 10/20/19 10/21/19 10/21/19 16:40 05:44 05:55 WBC 8.8 RBC 3.90 Hgb 12.1 Hct 35.7 MCV 91.4 MCH 30.9 MCHC 33.9 RDW 14.9 Plt Count 244 MPV 7.7 PTT (Actin FS) POC Glucometer 198 126 10/21/19 10/21/19 05:55 11:23 WBC RBC Hgb Hct MCV MCH MCHC RDW Plt Count MPV PTT (Actin FS) 33.4 POC Glucometer 180 Microbiology 10/19/19 10:00 Urine - Urine Clean Catch Urine Culture - Final Escherichia Coli Renal/Bladder US noted ASSESSMENT AND PLAN: 73 y/o F with PMHx of COPD (not on home O2), CKD stage II-III (Sees Dr. Kaufman/ Dr. Padilla), Nephrolithiasis s/p left ureteral stent placement 09/2017, OA, EtOH Abuse on antabuse (sober sine 03/2018), anxiety, prior UTIs, admitted with fall, weakness, found with new onset atrial fibrillation with RVR. -Mechanical fall -New onset atrial fibrillation with RVR -Complicated Gm neg UTI -Obstrutive uropathy with left hydronephrosis -h/o left ureteral stent placement in 09/2017 for left UPJ obstruction/stone -New onset DM -Left chest wall pain, r/o rib fracture -H/o ETOH abuse on antabuse -COPD not on home oxygen -CKD stage II-III -OA -Anxiety Plan: Increase metoprolol to 25 mg QID, continue telemetry, follow up 2D echo. Cardiology input noted, started on eliquis. ARB as hemodynamics permit. Ceftriaxone day 3, urine cx noted, transition to cefpodoxime on dc. Renal/bladder US noted. patient with no abdominal or flank pain or concerns on exam. Cr stable. Known h/o left UPJ obstruction/stone s/p left ureteral stent placement with Dr. Rehman in 07/2017 and renal scan 10/2017 suggestive of minimally functioning left kidney. Place on bladder Scan q6h, otto prn, urology input. Family requesting renal input. Dr. Camacho consulted. New onset DM, Dietary consult. BGM/ISS. Will address further meds accordingly. Continue buproprion/Escitalopram/antabuse/spiriva/Famotidine PT eval [id number] eliquis Dispo anticipate SNF when medical issues improve. Plan discussed with patient.
--- NOTE | 2019-10-21 13:12 | ECHO ---
Name: GUILLE OROZCO Exam:Adult Echocardiogram Study Date: 10/21/2019 09:05 AM Age: 73 yrs Reason For Study: A-Fib Height: 70 in Weight: 159 lb BSA: 1.9 m2 MMode/2D Measurements & Calculations IVSd: 1.2 cm Ao root diam: 2.6 cm LVIDd: 2.1 cm LA dimension: 2.7 cm LVIDs: 1.6 cm LVPWd: 1.0 cm EDV(Teich): 14.9 ml LVOT diam: 2.0 cm ESV(Teich): 6.7 ml LAV (MOD-bp): 74.1 ml Doppler Measurements & Calculations MV E max jefferson: 135.0 cm/sec Ao V2 max: 141.2 cm/sec MV dec time: 0.18 sec Ao max P.0 mmHg SANDEEP(V,D): 2.2 cm2 LV V1 max P.1 mmHg MR max jefferson: 484.5 cm/sec LV V1 max: 100.9 cm/sec MR max P.0 mmHg TR max jefferson: 298.4 cm/sec PA V2 max: 103.2 cm/sec TR max P.9 mmHg PA max P.3 mmHg Med Peak E' [place]: 6.6 cm/sec Med E/e': 20.3 Lat Peak E' [place]: 11.1 cm/sec Lat E/e': 12.2 Procedure A complete two-dimensional transthoracic echocardiogram was performed (2D, M-mode, Doppler and color flow Doppler). Left Ventricle The left ventricle is normal in size. There is mild concentric left ventricular hypertrophy. Left karsten tricular systolic function is normal. Ejection Fraction = 60-65%. No regional wall motion abnormalities noted. Right Ventricle The right ventricle is normal size. The right ventricular systolic function is normal. Atria The left atrial size is normal. Right atrial size is normal. Mitral Valve There is mild mitral annular calcification. There is mild to moderate mitral regurgitation. Tricuspid Valve The tricuspid valve is normal in structure and function. There is mild to moderate tricuspid regurgit ation. Pulmonary artery systolic pressure is at least 47 mmHg if RA pressure is assumed 3 mmHg. Aortic Valve There is mild aortic sclerosis.;. No aortic regurgitation is present. Pulmonic Valve The pulmonic valve is not well visualized. Great Vessels The aortic root is normal size. Pericardium/Pleura There is no pericardial effusion. Interpretation Summary The left ventricle is normal in size. There is mild concentric left ventricular hypertrophy. Left ventricular systolic function is normal. No regional wall motion abnormalities noted. Ejection Fraction = 60-65%. The right ventricular systolic function is normal. The left atrial size is normal. Right atrial size is normal. There is mild mitral annular calcification. There is mild to moderate mitral regurgitation. There is mild to moderate tricuspid regurgitation. Pulmonary artery systolic pressure is at least 47 mmHg if RA pressure is assumed 3 mmHg There is mild aortic sclerosis. There is no pericardial effusion. Tani Hobson MD 10/21/2019 01:12 PM
--- NOTE | 2019-10-21 16:49 | CONSULT ---
Consult Consult Specialty:: Nephrology Reason for Consultation:: azotemia - History of Present Illness Chief Complaint: s/p fall History of Present Illness: Pt is a 73 year old female with pmhx of ckd, etoh abuse, htn, and copd who presents after a fall. She was found to have a uti. She was also found to have a -fib. Her hat sizer was mildly elevated. She was found to have hydro on the renal ultrasound. She is somewhat confused and not herself. She denies shortness of breath. She denies flank pain. she complains of dysuria. - History Source History Provided By: Patient, Family Member, Medical Record - Past Medical History STAFF FORESTER: Yes: Alzheimer's Cardio/Vascular: Yes: HTN, Hyperlipdemia Pulmonary: Yes: COPD Renal/: Yes: Renal Inusuff Endocrine: Yes: Hypothyroidism - Past Surgical History Past Surgical History: Yes: Stent - Alcohol/Substance Use Hx Alcohol Use: Yes (MARCH 2018 LAST DRINK) History of Substance Use: reports: None - Smoking History Smoking history: Current every day smoker Have you smoked in the past 12 months: Yes Aproximately how many cigarettes per day: 1 If you are a former smoker, when did you quit?: 3 WEEKS - Social History Usual Living Arrangement: With Child ADL: Family Assistance History of Recent Travel: No Home Medications - Allergies Allergies/Adverse Reactions: Allergies Allergy/AdvReac Type Severity Reaction Status Date / Time clopidogrel bisulfate AdvReac Severe SEVERE Verified 12/10/18 17:01 [From Plavix] DIZZINESS prednisone AdvReac Severe Verified 12/10/18 17:01 lisinopril AdvReac Verified 05/27/19 20:28 - Home Medications Home Medications: Ambulatory Orders Amlodipine Besylate 10 mg PO DAILY 05/27/19 Disulfiram [Antabuse] 250 mg PO DAILY 05/27/19 Escitalopram Oxalate [Lexapro -] 5 mg PO DAILY 05/27/19 Folic Acid 1 mg PO DAILY 05/27/19 Tiotropium [place] [Spiriva] 1 inh PO DAILY 05/27/19 Bupropion HCl [Bupropion HCl Sr] 100 mg PO BID 10/19/19 Famotidine 20 mg PO DAILY 10/19/19 Family Medical History Family History: Denies Review of Systems - Review of Systems Constitutional: reports: Malaise Eyes: reports: No Symptoms HENT: reports: No Symptoms Neck: reports: No Symptoms Cardiovascular: reports: No Symptoms Respiratory: reports: No Symptoms Gastrointestinal: reports: No Symptoms Genitourinary: reports: No Symptoms Musculoskeletal: reports: No Symptoms Integumentary: reports: No Symptoms Neurological: reports: No Symptoms Endocrine: reports: No Symptoms Hematology/Lymphatic: reports: No Symptoms Psychiatric: reports: No Symptoms Physical Exam Vital Signs: Vital Signs Temperature 98 F 10/21/19 15:50 Pulse Rate 88 10/21/19 15:50 Respiratory Rate 18 10/21/19 15:50 Blood Pressure 102/77 10/21/19 15:50 O2 Sat by Pulse Oximetry (%) 98 10/21/19 08:46 Constitutional: Yes: Calm Eyes: Yes: Conjunctiva Clear Cardiovascular: Yes: S1, S2 Respiratory: Yes: CTA Bilaterally Gastrointestinal: Yes: Soft Renal/: Yes: WNL Musculoskeletal: Yes: WNL Extremities: Yes: WNL Edema: No Neurological: Yes: Confusion Psychiatric: Yes: Oriented Labs: CBC, BMP 10/21/19 05:55 10/20/19 05:26 Imaging - Results Ultrasound: Report Reviewed Problem List - Problems (1) Atrial fibrillation with RVR Code(s): I48.91 - UNSPECIFIED ATRIAL FIBRILLATION (2) CKD (chronic kidney disease) Code(s): N18.9 - CHRONIC KIDNEY DISEASE, UNSPECIFIED Qualifiers: Chronic kidney disease stage: stage 2 (mild) Qualified Code(s): N18.2 - Chronic kidney disease, stage 2 (mild) (3) Fall Code(s): W19.XXXA - UNSPECIFIED FALL, INITIAL ENCOUNTER (4) Multiple falls Code(s): R29.6 - REPEATED FALLS Assessment/Plan Current Medications Generic Name Dose Route Start Last Admin Trade Name Freq PRN Reason Stop Dose Admin Acetaminophen 650 mg 10/19/19 06:33 Tylenol - PO Q6H PRN PAIN LEVEL 1-5 Apixaban 5 mg 10/19/19 22:00 10/21/19 09:52 Eliquis - PO 5 mg BID [facility] Administration Bupropion HCl 150 mg 10/19/19 11:00 10/21/19 09:52 Wellbutrin Xl - PO 150 mg DAILY [facility] Administration Escitalopram Oxalate 5 mg 10/19/19 10:45 10/21/19 09:52 Lexapro - PO 5 mg DAILY [facility] Administration Famotidine 20 mg 10/19/19 10:45 10/21/19 09:52 Pepcid - PO 20 mg DAILY [facility] Administration Folic Acid 1 mg 10/19/19 10:45 10/21/19 09:53 Folic Acid - PO 1 mg DAILY [facility] Administration Sodium Chloride 1,000 mls @ 42 mls/hr 10/19/19 06:15 10/21/19 06:16 Normal Saline - IV 42 mls/hr ASDIR [facility] Administration Ceftriaxone Sodium 1 gm/ 50 mls @ 100 mls/hr 10/19/19 16:30 10/21/19 09:57 Dextrose IVPB 100 mls/hr DAILY [facility] Administration Protocol Insulin Aspart 1 vial 10/19/19 11:00 10/21/19 11:24 Novolog Vial Sliding Scale - SQ 1 units TIDAC [facility] Administration Protocol Metoprolol Tartrate 25 mg 10/21/19 14:00 10/21/19 13:11 Lopressor - PO 25 mg QID [facility] Administration Non-Formulary Medication 250 mg 10/19/19 10:45 Disulfiram [Antabuse] PO DAILY [facility] Rosuvastatin Calcium 10 mg 10/21/19 11:13 Crestor - PO HS [facility] Tiotropium [place] 2 puff 10/19/19 11:00 10/21/19 09:59 Spiriva Respimat IH 2 puff DAILY [facility] Administration Impression 1. CKD 2. HTN 3. hx of etoh abuse 4. COPD 5. emphysema 6. hyperlipidemia 7. cervical disk herniation 8. azotemia 9. left hydronephrosis Plan - cont fluids - cont abx - follow cultures - urology eval for hydro - monitor bp Dr Camacho
--- NOTE | 2019-10-21 18:39 | PN ---
Physical Exam: SUBJECTIVE: Patient seen and examined. Complains of feeling week. No acute events overnight. Denies chest pain, abd pain, SOB, fever, chills. OBJECTIVE: Vital Signs Period Temp Pulse Resp BP Sys/Mcfadden Pulse Ox Last 24 Hr 97.6 F-98.2 F 78-98 18-20 102-145/63-93 98-98 GENERAL: NAD HEAD: NCAT EYES: PERRL, EOMI ENT: Moist mucous membranes NECK: Supple, No JVD LUNGS: CTAB, No wheezes, no crackles HEART: Irregular, S1 and S2 without murmur ABDOMEN: Soft, nontender, not distended, + bowel sounds, no guarding EXTREMITIES: No peripheral edema. NEUROLOGICAL: Cranial nerves II-XII intact. Normal speech. SKIN: Warm, dry Laboratory Results - last 24 hr 10/21/19 10/21/19 10/21/19 05:44 05:55 05:55 WBC 8.8 RBC 3.90 Hgb 12.1 Hct 35.7 MCV 91.4 MCH 30.9 MCHC 33.9 RDW 14.9 Plt Count 244 MPV 7.7 PTT (Actin FS) 33.4 POC Glucometer 126 10/21/19 10/21/19 11:23 16:48 WBC RBC Hgb Hct MCV MCH MCHC RDW Plt Count MPV PTT (Actin FS) POC Glucometer 180 165 Active Medications Generic Name Dose Route Start Last Admin Trade Name Freq PRN Reason Stop Dose Admin Acetaminophen 650 mg 10/19/19 06:33 Tylenol - PO Q6H PRN PAIN LEVEL 1-5 Apixaban 5 mg 10/19/19 22:00 10/21/19 09:52 Eliquis - PO 5 mg BID [facility] Administration Bupropion HCl 150 mg 10/19/19 11:00 10/21/19 09:52 Wellbutrin Xl - PO 150 mg DAILY [facility] Administration Escitalopram Oxalate 5 mg 10/19/19 10:45 10/21/19 09:52 Lexapro - PO 5 mg DAILY [facility] Administration Famotidine 20 mg 10/19/19 10:45 10/21/19 09:52 Pepcid - PO 20 mg DAILY [facility] Administration Folic Acid 1 mg 10/19/19 10:45 10/21/19 09:53 Folic Acid - PO 1 mg DAILY [facility] Administration Sodium Chloride 1,000 mls @ 42 mls/hr 10/19/19 06:15 10/21/19 06:16 Normal Saline - IV 42 mls/hr ASDIR [facility] Administration Ceftriaxone Sodium 1 gm/ 50 mls @ 100 mls/hr 10/19/19 16:30 10/21/19 09:57 Dextrose IVPB 100 mls/hr DAILY [facility] Administration Protocol Insulin Aspart 1 vial 10/19/19 11:00 10/21/19 16:49 Novolog Vial Sliding Scale - SQ 1 units TIDAC [facility] Administration Protocol Metoprolol Tartrate 25 mg 10/21/19 14:00 10/21/19 13:11 Lopressor - PO 25 mg QID [facility] Administration Non-Formulary Medication 250 mg 10/19/19 10:45 Disulfiram [Antabuse] PO DAILY [facility] Rosuvastatin Calcium 10 mg 10/21/19 11:13 Crestor - PO HS [facility] Tiotropium [place] 2 puff 10/19/19 11:00 10/21/19 09:59 Spiriva Respimat IH 2 puff DAILY [facility] Administration ASSESSMENT/PLAN: 73 y/o F with PMHx of COPD (not on home O2), CKD (Sees Dr. Kaufman/Dr. Padilla), OA, EtOH Abuse (sober since 03/2018) presents after multiple falls, found to have New onset Atrial Fibrillation. #New onset Atrial Fibrillation with RVR -EKG reveals AFib with RVR, VR 115, QTc 473 -Rate remains above goal, Increased Metoprolol tartrate to 25mg QID, Uptitrate as hemodynamics permit -Apixaban (CHADSVASc score 5) -Rosuvastatin -Will consider ACEi/ARBs -ECHO - EF 60-65%. Pulmonary artery pressure 47mmHg. No significant abnormalities -Cardio (Dr. Hobson) Consulted, appreciate rec's -Tele monitoring #UTI -UA reveals +Nitrite, LE Trace, 28 WBC, 1930 Bacteria -Continue Ceftriaxone (Abx course started on 10/19). Transition to cefpodoxime on dc. -Urine culture growing E coli #Obstrutive uropathy -Hx of left hydronephrosis with left ureteral stent placement in 09/2017 for left UPJ obstruction/stone -Renal/pelvic US Noted for significant left hydro -Bladder Scan Q6h -Urology (Dr. Wiseman) consulted #Mechanical Fall -Physical therapy -Analgesia via Acetaminophen -Received 1/2L NS in ED; Continue NS @ 42 #New onset DM -A1c 6.5% -ISS BGMs ACHS -Nutrition consult #HTN -Hold home dose amlodipine -Continue Metoprolol tartrate, Will consider ACEi/ARBs once rate better controlled #COPD (not on home O2) -Continue home dose LAMA #EtOH Abuse -Continue home does Disulfiram #FEN -NS @ 42 -Replete Lytes PRN -Sodium controlled diet #PPx -DVT: DOAC Dispo: Home VS SNF, Will need Med-Rec Visit type - Emergency Visit Emergency Visit: Yes ED Registration Date: 10/19/19 Care time: The patient presented to the Emergency Department on the above date and was hospitalized for further evaluation of their emergent condition. - New Patient This patient is new to me today: Yes Date on this admission: 10/21/19 - Critical Care Critical Care patient: No ATTENDING PHYSICIAN STATEMENT I saw and evaluated the patient. I reviewed the resident's note and discussed the case with the resident. I agree with the resident's findings and plan as documented. SUBJECTIVE: OBJECTIVE: ASSESSMENT AND PLAN:
[2019-10-21] MEDS: ROSUVASTATIN CA 10 MG TABLET (FP) PO SCH (21:07)
[2019-10-22 06:30] LABS: HEMATOCRIT 34.5 % (32.4-45.2); HEMOGLOBIN 11.7 GM/dL (10.7-15.3); MEAN CELL VOLUME 91.3 fl (80-96); MEAN PLT VOLUME 7.6 fl (7.5-11.1); PLATELET COUNT 263 K/MM3 (134-434); RBC 3.78 M/mm3 (3.60-5.2); RDW 14.7 % (11.6-15.6); WHITE BLOOD COUNT 9.6 K/mm3 (4.0-10.0)
[2019-10-22] MEDS: SODIUM CHLORIDE 1,000 ML IV SCH (06:47)
[2019-10-22] MEDS: INSULIN SLIDING SCALE (NOVOLOG) 1 VIAL SQ SCH ×3 (06:50→17:33)
[2019-10-22] MEDS ORDERED: ALBUTEROL SO4 2.5/IPRATROPIUM 0.5 INH SOL 3 ML VIAL.NEB. NEB ONE (08:45)
[2019-10-22] MEDS ORDERED: cefTRIAXone SODIUM 1 GM VIAL ONE (09:25)
[2019-10-22] MEDS ORDERED: DEXTROSE 5%-WATER - 50 ML IVPB ONE (09:26)
[2019-10-22] MEDS: METOPROLOL TARTRATE 25 MG TABLET (FP) PO SCH ×3 (09:47→14:03)
[2019-10-22] MEDS: ESCITALOPRAM OXALATE 10 MG TABLET (FP) PO SCH (09:47)
[2019-10-22] MEDS: APIXABAN 5 MG TABLET PO SCH ×2 (09:47→20:59)
[2019-10-22] MEDS: FOLIC ACID 1 MG TABLET (FP) PO SCH (09:47)
[2019-10-22] MEDS: FAMOTIDINE 20 MG TABLET PO SCH (09:48)
[2019-10-22] MEDS: CEFTRIAXONE 1 GM in DEXTROSE 5%-WATER - 50 ML IVPB SCH (09:48)
[2019-10-22] MEDS: TIOTROPIUM BROMIDE 2.5 MCG (SPIRIVA) RESPIMAT INHALER IH SCH (09:48)
--- NOTE | 2019-10-22 11:32 | PN ---
Teaching Attending Note Name of Resident: Rashad Paiz ATTENDING PHYSICIAN STATEMENT I saw and evaluated the patient. I reviewed the resident's note and discussed the case with the resident. I agree with the resident's findings and plan as documented. SUBJECTIVE: Patient has no complaints. She denies CP, palpitations, SOB. OBJECTIVE: Vital Signs Period Temp Pulse Resp BP Sys/Mcfadden Pulse Ox Last 24 Hr 97.4 F-98.1 F 86-105 18-20 102-134/67-85 93-94 HEART: Irregular, tachycardic LUNGS: Clear ABDOMEN: Soft, non-tender, non-distended, normal BS EXTREMITIES: No edema Laboratory Results - last 24 hr 10/21/19 10/21/19 10/22/19 11:23 16:48 05:30 WBC 9.6 RBC 3.78 Hgb 11.7 Hct 34.5 MCV 91.3 MCH 31.0 MCHC 34.0 RDW 14.7 Plt Count 263 MPV 7.6 PTT (Actin FS) POC Glucometer 180 165 10/22/19 10/22/19 05:30 06:49 WBC RBC Hgb Hct MCV MCH MCHC RDW Plt Count MPV PTT (Actin FS) 40.3 H POC Glucometer 137 Current Medications Generic Name Dose Route Start Last Admin Trade Name Freq PRN Reason Stop Dose Admin Acetaminophen 650 mg 10/19/19 06:33 Tylenol - PO Q6H PRN PAIN LEVEL 1-5 Apixaban 5 mg 10/19/19 22:00 10/22/19 09:47 Eliquis - PO 5 mg BID [facility] Administration Bupropion HCl 150 mg 10/19/19 11:00 10/22/19 09:46 Wellbutrin Xl - PO 150 mg DAILY [facility] Administration Escitalopram Oxalate 5 mg 10/19/19 10:45 10/22/19 09:47 Lexapro - PO 5 mg DAILY [facility] Administration Famotidine 20 mg 10/19/19 10:45 10/22/19 09:48 Pepcid - PO 20 mg DAILY [facility] Administration Folic Acid 1 mg 10/19/19 10:45 10/22/19 09:47 Folic Acid - PO 1 mg DAILY [facility] Administration Sodium Chloride 1,000 mls @ 42 mls/hr 10/19/19 06:15 10/22/19 06:47 Normal Saline - IV 42 mls/hr ASDIR [facility] Administration Ceftriaxone Sodium 1 gm/ 50 mls @ 100 mls/hr 10/19/19 16:30 10/22/19 09:48 Dextrose IVPB 100 mls/hr DAILY [facility] Administration Protocol Insulin Aspart 1 vial 10/19/19 11:00 10/22/19 06:50 Novolog Vial Sliding Scale - SQ Not Given TIDAC [facility] Protocol Metoprolol Tartrate 25 mg 10/21/19 14:00 10/22/19 09:47 Lopressor - PO 25 mg QID [facility] Administration Non-Formulary Medication 250 mg 10/19/19 10:45 Disulfiram [Antabuse] PO DAILY [facility] Rosuvastatin Calcium 10 mg 10/21/19 11:13 10/21/19 21:07 Crestor - PO 10 mg HS [facility] Administration Tiotropium [place] 2 puff 10/19/19 11:00 10/22/19 09:48 Spiriva Respimat IH 2 puff DAILY [facility] Administration ASSESSMENT AND PLAN: This is a 73 year old woman with a history of HTN, hyperlipidemia, CAD, COPD, hypothyroidism, stage 3 CKD, OA, alcohol abuse, falls who presented to the ED after falling at home. 1. Atrial fibrillation, new onset, with RVR - Continue Lopressor - Consider adding Cardizem for better rate control - Continue Eliquis - Echo shows mild concentric LVH, LVEF 60-65%, normal RV systolic function, mild to moderate MR, mild to moderate TR, PASP 47 mmHg 2. s/p fall 3. E. coli UTI - Continue ceftriaxone 4. Cystic lesion of tail of pancreas 5. Cystic collection of right breast 6. Severe left hydronephrosis - Chronic - Nuclear renal scan in 10/2017 showed minimal left renal uptake and excretion (7% of total renal function) 7. HTN - Continue Lopressor 8. Hyperlipidemia - Continue Crestor 9. CAD - Continue Lopressor, Crestor 10. COPD - Stable - Continue Spiriva 11. Hypothyroidism - TSH normal on no medication 12. Stage 3 CKD 13. History of alcohol abuse - Continue Antabuse 14. Type 2 DM, newly diagnosed - HbA1c 6.5 - Continue Novolog sliding scale 15. Disposition - Ambulated 2 feet with rolling walker with PT yesterday - Plan for discharge to [facility]
--- NOTE | 2019-10-22 12:24 | PN ---
Progress Note, Physician Chief Complaint: Events noted Not in distress History of Present Illness: Patient was seen and examined. Awake and alert. Chart was reviewed Denies chest pain, SOB or palpitations - Current Medication List Current Medications: Active Medications Acetaminophen (Tylenol -) 650 mg PO Q6H PRN PRN Reason: PAIN LEVEL 1-5 Apixaban (Eliquis -) 5 mg PO BID [facility] Last Admin: 10/22/19 09:47 Dose: 5 mg Bupropion HCl (Wellbutrin Xl -) 150 mg PO DAILY [facility] Last Admin: 10/22/19 09:46 Dose: 150 mg Escitalopram Oxalate (Lexapro -) 5 mg PO DAILY [facility] Last Admin: 10/22/19 09:47 Dose: 5 mg Famotidine (Pepcid -) 20 mg PO DAILY [facility] Last Admin: 10/22/19 09:48 Dose: 20 mg Folic Acid (Folic Acid -) 1 mg PO DAILY [facility] Last Admin: 10/22/19 09:47 Dose: 1 mg Sodium Chloride (Normal Saline -) 1,000 mls @ 42 mls/hr IV ASDIR [facility] Last Admin: 10/22/19 06:47 Dose: 42 mls/hr Ceftriaxone Sodium 1 gm/ (Dextrose) 50 mls @ 100 mls/hr IVPB DAILY [facility]; Protocol Last Admin: 10/22/19 09:48 Dose: 100 mls/hr Insulin Aspart (Novolog Vial Sliding Scale -) 1 vial SQ TIDAC [facility]; Protocol Last Admin: 10/22/19 11:49 Dose: Not Given Metoprolol Tartrate (Lopressor -) 25 mg PO QID [facility] Last Admin: 10/22/19 09:47 Dose: 25 mg Non-Formulary Medication (Disulfiram [Antabuse]) 250 mg PO DAILY [facility] Rosuvastatin Calcium (Crestor -) 10 mg PO HS [facility] Last Admin: 10/21/19 21:07 Dose: 10 mg Tiotropium [place] (Spiriva Respimat) 2 puff IH DAILY [facility] Last Admin: 10/22/19 09:48 Dose: 2 puff - Objective Vital Signs: Vital Signs Temperature 97.4 F L 10/22/19 10:00 Pulse Rate 103 H 10/22/19 10:00 Respiratory Rate 20 10/22/19 10:00 Blood Pressure 125/80 10/22/19 10:00 O2 Sat by Pulse Oximetry (%) 93 L 10/22/19 09:00 Neck: Yes: Supple Cardiovascular: Yes: Pulse Irregular, S1, S2 Respiratory: Yes: Diminished Gastrointestinal: Yes: Normal Bowel Sounds, Soft. No: Tenderness Edema: No Additional Findings/Remarks: - Review of Systems Constitutional: denies Chills. denies: Fever Cardiovascular: denies Shortness of Breath. denies: Chest Pain, Palpitations Respiratory: denies SOB. denies: Cough, Hemoptysis, Orthopnea, PND Gastrointestinal: denies: Abdominal Pain, Constipation, Diarrhea, Melena, Nausea , Rectal Bleeding, Vomiting Genitourinary: denies: Dysuria, Hematuria Musculoskeletal: denies Joint Pain Neurological: denies: Dizziness, Headache, Seizure, Syncope Labs: CBC, BMP 10/22/19 05:30 10/20/19 05:26 Problem List - Problems (1) Atrial fibrillation with RVR Code(s): I48.91 - UNSPECIFIED ATRIAL FIBRILLATION (2) CKD (chronic kidney disease) Code(s): N18.9 - CHRONIC KIDNEY DISEASE, UNSPECIFIED Qualifiers: Chronic kidney disease stage: stage 2 (mild) Qualified Code(s): N18.2 - Chronic kidney disease, stage 2 (mild) (3) Fall Code(s): W19.XXXA - UNSPECIFIED FALL, INITIAL ENCOUNTER (4) [id number] kidney injury Code(s): N17.9 - ACUTE KIDNEY FAILURE, UNSPECIFIED; N18.9 - CHRONIC KIDNEY DISEASE, UNSPECIFIED Qualifiers: Chronic kidney disease stage: stage 3 (moderate) (5) COPD (chronic obstructive pulmonary disease) Code(s): J44.9 - CHRONIC OBSTRUCTIVE PULMONARY DISEASE, UNSPECIFIED Qualifiers: COPD type: unspecified COPD Qualified Code(s): J44.9 - Chronic obstructive pulmonary disease, unspecified (6) Hypothyroid Code(s): E03.9 - HYPOTHYROIDISM, UNSPECIFIED Qualifiers: Hypothyroidism type: unspecified Qualified Code(s): E03.9 - Hypothyroidism , unspecified (7) PAD (peripheral artery disease) Code(s): I73.9 - PERIPHERAL VASCULAR DISEASE, UNSPECIFIED (8) Weakness generalized Code(s): R53.1 - WEAKNESS (9) HTN (hypertension) Code(s): I10 - ESSENTIAL (PRIMARY) HYPERTENSION Qualifiers: Hypertension type: essential hypertension Qualified Code(s): I10 - Essential (primary) hypertension (10) CAD (coronary artery disease) Code(s): I25.10 - ATHSCL HEART DISEASE OF [place] CORONARY ARTERY W/O ANG PCTRS (11) Hypercholesterolemia Code(s): E78.00 - PURE HYPERCHOLESTEROLEMIA, UNSPECIFIED Assessment/Plan 1. Paroxysmal atrial fibrillation with RVR [id number] score of 5 on DOAC/ Eliquis 2. CAD angina pectoris 3. Diastolic LV dysfunction with class 0 NYHA classification LV failure 4. Heart murmur consistent with AV disease/aortic valve stenosis- sclerosis 5. HTN 6. Hypercholesterolemia 7. Peripheral vascular disease post intervention 8. Hypothyroidism 9. COPD 10. CKD with microalbuminuria PLAN: 1. Continue Eliquis 5 mg BID considering the above noted elevated risk score 2. Lopressor 25 mg QID for rate control. May require addition of Cardizem for further rate-control if needed 3. Recommend ARB unless contraindicated (patient has intolerance to ACEI) 4. Crestor 10 mg QHS 5. Echocardiography was reviewed - aortic valve sclerosis, mild to moderate MR, mild to moderate TR and pulmonary HTN with normal LVEF 6. Empiric antibiotics Further plans are to follow Tani Hobson MD
--- NOTE | 2019-10-22 13:59 | PN ---
Physical Exam: SUBJECTIVE: Patient seen and examined. Continues to complain that she feels tired. States she was not able to sleep last night. No acute events overnight. Tele monitoring showing that patient's heart rate is 100-110s. Denies chest pain , SOB, abd pain. OBJECTIVE: Vital Signs Period Temp Pulse Resp BP Sys/Mcfadden Pulse Ox Last 24 Hr 97.4 F-98.1 F 86-105 18-20 102-134/67-85 93-94 GENERAL: The patient is awake, alert, in no acute distress. HEAD: Normal with no signs of trauma. EYES: EOMI, no scleral icterus ENT: dry mucous membranes NECK: Trachea midline, supple LUNGS: end expiratory wheezing noted bilaterally, no accessory muscle use. HEART: Regular rate and rhythm, S1, S2 without murmur, rub or gallop. ABDOMEN: Soft, nontender, nondistended, normoactive bowel sounds, no guarding, no rebound EXTREMITIES: 2+ pulses, warm, well-perfused, trace edema of lower extremities NEUROLOGICAL: Normal speech, gait not observed. PSYCH: anxious appearing SKIN: Warm, dry, normal turgor Laboratory Results - last 24 hr 10/21/19 10/22/19 10/22/19 16:48 05:30 05:30 WBC 9.6 RBC 3.78 Hgb 11.7 Hct 34.5 MCV 91.3 MCH 31.0 MCHC 34.0 RDW 14.7 Plt Count 263 MPV 7.6 PTT (Actin FS) 40.3 H POC Glucometer 165 10/22/19 10/22/19 06:49 11:47 WBC RBC Hgb Hct MCV MCH MCHC RDW Plt Count MPV PTT (Actin FS) POC Glucometer 137 116 Active Medications Generic Name Dose Route Start Last Admin Trade Name Freq PRN Reason Stop Dose Admin Acetaminophen 650 mg 10/19/19 06:33 Tylenol - PO Q6H PRN PAIN LEVEL 1-5 Apixaban 5 mg 10/19/19 22:00 10/22/19 09:47 Eliquis - PO 5 mg BID [facility] Administration Bupropion HCl 150 mg 10/19/19 11:00 10/22/19 09:46 Wellbutrin Xl - PO 150 mg DAILY [facility] Administration Escitalopram Oxalate 5 mg 10/19/19 10:45 10/22/19 09:47 Lexapro - PO 5 mg DAILY [facility] Administration Famotidine 20 mg 10/19/19 10:45 10/22/19 09:48 Pepcid - PO 20 mg DAILY [facility] Administration Folic Acid 1 mg 10/19/19 10:45 10/22/19 09:47 Folic Acid - PO 1 mg DAILY [facility] Administration Sodium Chloride 1,000 mls @ 42 mls/hr 10/19/19 06:15 10/22/19 06:47 Normal Saline - IV 42 mls/hr ASDIR [facility] Administration Ceftriaxone Sodium 1 gm/ 50 mls @ 100 mls/hr 10/19/19 16:30 10/22/19 09:48 Dextrose IVPB 100 mls/hr DAILY [facility] Administration Protocol Insulin Aspart 1 vial 10/19/19 11:00 10/22/19 11:49 Novolog Vial Sliding Scale - SQ Not Given TIDAC [facility] Protocol Metoprolol Tartrate 25 mg 10/21/19 14:00 10/22/19 13:22 Lopressor - PO Not Given QID [facility] Non-Formulary Medication 250 mg 10/19/19 10:45 Disulfiram [Antabuse] PO DAILY [facility] Rosuvastatin Calcium 10 mg 10/21/19 11:13 10/21/19 21:07 Crestor - PO 10 mg HS [facility] Administration Tiotropium [place] 2 puff 10/19/19 11:00 10/22/19 09:48 Spiriva Respimat IH 2 puff DAILY [facility] Administration ASSESSMENT/PLAN: 73 y/o F with PMHx of COPD (not on home O2), CKD (Sees Dr. Camacho/Dr. Padilla), OA, EtOH Abuse (sober since 03/2018) presents after multiple falls, found to have New onset Atrial Fibrillation. #New onset Atrial Fibrillation with RVR -EKG reveals AFib with RVR, VR 115, QTc 473 -Heart rate remains above goal, Increased Metoprolol to 25mg QID -Consider adding cardizem for further rate control -Apixaban (CHADSVASc score 5) -Rosuvastatin -Will consider ACEi/ARBs as hemodynamics permit -ECHO - EF 60-65%. Pulmonary artery pressure 47mmHg. No significant abnormalities -Cardio consulted, recs appreciated -Tele monitoring #UTI -UA reveals positive for UTI -Continue Ceftriaxone (Abx course started on 10/19). Transition to cefpodoxime on dc. -Urine culture growing E coli #Obstrutive uropathy -Hx of left hydronephrosis with left ureteral stent placement in 09/2017 for left UPJ obstruction/stone -Renal/pelvic US Noted for significant left hydro -Bladder Scan Q6h -Urology (Dr. Wiseman) consulted, appreciate recs #Mechanical Fall -Physical therapy -Analgesia via Acetaminophen -Received 1/2L NS in ED; Continue NS @ 42 #New onset DM -A1c 6.5% -ISS BGMs ACHS -Nutrition consult #HTN -Hold home dose amlodipine -Continue Metoprolol tartrate, Will consider ACEi/ARBs once rate better controlled #COPD (not on home O2) -Continue home dose LAMA -neb treatments as needed for wheezing #EtOH Abuse -Continue home does Disulfiram #FEN -NS @ 42 -Replete Lytes PRN -Sodium controlled diet #PPx -DVT: DOAC Dispo: will likely need SNF placement once heart rate is better controlled Visit type - Emergency Visit Emergency Visit: Yes ED Registration Date: 10/19/19 Care time: The patient presented to the Emergency Department on the above date and was hospitalized for further evaluation of their emergent condition. - New Patient This patient is new to me today: No - Critical Care Critical Care patient: No ATTENDING PHYSICIAN STATEMENT I saw and evaluated the patient. I reviewed the resident's note and discussed the case with the resident. I agree with the resident's findings and plan as documented. SUBJECTIVE: OBJECTIVE: ASSESSMENT AND PLAN:
--- NOTE | 2019-10-22 17:14 | PN ---
Progress Note, Physician History of Present Illness: Pt seen and examined at bedside. She is awake but still gets confused at times. - Current Medication List Current Medications: Active Medications Acetaminophen (Tylenol -) 650 mg PO Q6H PRN PRN Reason: PAIN LEVEL 1-5 Apixaban (Eliquis -) 5 mg PO BID [facility] Last Admin: 10/22/19 09:47 Dose: 5 mg Bupropion HCl (Wellbutrin Xl -) 150 mg PO DAILY [facility] Last Admin: 10/22/19 09:46 Dose: 150 mg Diltiazem HCl (Cardizem Cd -) 120 mg PO DAILY [facility] Escitalopram Oxalate (Lexapro -) 5 mg PO DAILY [facility] Last Admin: 10/22/19 09:47 Dose: 5 mg Famotidine (Pepcid -) 20 mg PO DAILY [facility] Last Admin: 10/22/19 09:48 Dose: 20 mg Folic Acid (Folic Acid -) 1 mg PO DAILY [facility] Last Admin: 10/22/19 09:47 Dose: 1 mg Sodium Chloride (Normal Saline -) 1,000 mls @ 42 mls/hr IV ASDIR [facility] Last Admin: 10/22/19 06:47 Dose: 42 mls/hr Ceftriaxone Sodium 1 gm/ (Dextrose) 50 mls @ 100 mls/hr IVPB DAILY [facility]; Protocol Last Admin: 10/22/19 09:48 Dose: 100 mls/hr Insulin Aspart (Novolog Vial Sliding Scale -) 1 vial SQ TIDAC [facility]; Protocol Last Admin: 10/22/19 11:49 Dose: Not Given Non-Formulary Medication (Disulfiram [Antabuse]) 250 mg PO DAILY [facility] Rosuvastatin Calcium (Crestor -) 10 mg PO HS [facility] Last Admin: 10/21/19 21:07 Dose: 10 mg Tiotropium [place] (Spiriva Respimat) 2 puff IH DAILY [facility] Last Admin: 10/22/19 09:48 Dose: 2 puff - Objective Vital Signs: Vital Signs Temperature 97.7 F 10/22/19 14:00 Pulse Rate 85 10/22/19 14:00 Respiratory Rate 20 10/22/19 14:00 Blood Pressure 126/70 10/22/19 14:00 O2 Sat by Pulse Oximetry (%) 93 L 10/22/19 09:00 Constitutional: Yes: Calm Eyes: Yes: Conjunctiva Clear HENT: Yes: Atraumatic Neck: Yes: Supple Cardiovascular: Yes: S1, S2 Respiratory: Yes: CTA Bilaterally Gastrointestinal: Yes: Soft Genitourinary: Yes: WNL Musculoskeletal: Yes: WNL Edema: No Neurological: Yes: Oriented Psychiatric: Yes: Oriented Labs: CBC, BMP 10/22/19 05:30 10/20/19 05:26 INR, PTT INR 1.09 (0.83-1.09) 10/19/19 08:10 Problem List - Problems (1) Atrial fibrillation with RVR Code(s): I48.91 - UNSPECIFIED ATRIAL FIBRILLATION (2) CKD (chronic kidney disease) Code(s): N18.9 - CHRONIC KIDNEY DISEASE, UNSPECIFIED Qualifiers: Chronic kidney disease stage: stage 2 (mild) Qualified Code(s): N18.2 - Chronic kidney disease, stage 2 (mild) (3) Fall Code(s): W19.XXXA - UNSPECIFIED FALL, INITIAL ENCOUNTER (4) Multiple falls Code(s): R29.6 - REPEATED FALLS Assessment/Plan Current Medications Generic Name Dose Route Start Last Admin Trade Name Freq PRN Reason Stop Dose Admin Acetaminophen 650 mg 10/19/19 06:33 Tylenol - PO Q6H PRN PAIN LEVEL 1-5 Apixaban 5 mg 10/19/19 22:00 10/22/19 09:47 Eliquis - PO 5 mg BID [facility] Administration Bupropion HCl 150 mg 10/19/19 11:00 10/22/19 09:46 Wellbutrin Xl - PO 150 mg DAILY [facility] Administration Diltiazem HCl 120 mg 10/22/19 16:00 Cardizem Cd - PO DAILY [facility] Escitalopram Oxalate 5 mg 10/19/19 10:45 10/22/19 09:47 Lexapro - PO 5 mg DAILY [facility] Administration Famotidine 20 mg 10/19/19 10:45 10/22/19 09:48 Pepcid - PO 20 mg DAILY [facility] Administration Folic Acid 1 mg 10/19/19 10:45 10/22/19 09:47 Folic Acid - PO 1 mg DAILY [facility] Administration Sodium Chloride 1,000 mls @ 42 mls/hr 10/19/19 06:15 10/22/19 06:47 Normal Saline - IV 42 mls/hr ASDIR [facility] Administration Ceftriaxone Sodium 1 gm/ 50 mls @ 100 mls/hr 10/19/19 16:30 10/22/19 09:48 Dextrose IVPB 100 mls/hr DAILY [facility] Administration Protocol Insulin Aspart 1 vial 10/19/19 11:00 10/22/19 11:49 Novolog Vial Sliding Scale - SQ Not Given TIDAC [facility] Protocol Non-Formulary Medication 250 mg 10/19/19 10:45 Disulfiram [Antabuse] PO DAILY [facility] Rosuvastatin Calcium 10 mg 10/21/19 11:13 10/21/19 21:07 Crestor - PO 10 mg HS [facility] Administration Tiotropium [place] 2 puff 10/19/19 11:00 10/22/19 09:48 Spiriva Respimat IH 2 puff DAILY [facility] Administration Impression 1. CKD 2. HTN 3. hx of etoh abuse 4. COPD 5. emphysema 6. hyperlipidemia 7. cervical disk herniation 8. azotemia 9. left hydronephrosis Plan - repeat ua - check cmp in am - discussed with family - urology eval for hydro - monitor bp Dr Camacho
[2019-10-22] MEDS: ROSUVASTATIN CA 10 MG TABLET (FP) PO SCH (20:59)
[2019-10-23 06:51] LABS: HEMATOCRIT 33.6 % (32.4-45.2); HEMOGLOBIN 11.3 GM/dL (10.7-15.3); MCH 30.7 pg (25.7-33.7); MCHC 33.7 g/dl (32.0-36.0); MEAN CELL VOLUME 90.9 fl (80-96); MEAN PLT VOLUME 7.4 fl (7.5-11.1); PLATELET COUNT 272 K/MM3 (134-434); RDW 14.6 % (11.6-15.6); WHITE BLOOD COUNT 7.2 K/mm3 (4.0-10.0)
[2019-10-23] MEDS: INSULIN SLIDING SCALE (NOVOLOG) 1 VIAL SQ SCH ×3 (06:53→17:10)
[2019-10-23] MEDS: SODIUM CHLORIDE 1,000 ML IV SCH (06:54)
--- NOTE | 2019-10-23 07:35 | PN ---
Progress Note (short form) - Note Progress Note: Chief Complaint: Events noted, notes reviewed, atrial fibrillation persists rate varies currently controlled, reports exertional dyspnea no rest dyspnea, denies any chest pain History of Present Illness: Seen and examined on telemetry. Events noted, notes reviewed, atrial fibrillation persists rate varies currently controlled, reports exertional dyspnea no rest dyspnea, denies any chest pain Unclear why beta-johnny therapy was discontinued, no communication between our service and house staff - Current Medication List Current Medications Acetaminophen (Tylenol -) 650 mg PO Q6H PRN PRN Reason: PAIN LEVEL 1-5 Apixaban (Eliquis -) 5 mg PO BID [facility] Last Admin: 10/22/19 20:59 Dose: 5 mg Bupropion HCl (Wellbutrin Xl -) 150 mg PO DAILY [facility] Last Admin: 10/22/19 09:46 Dose: 150 mg Diltiazem HCl (Cardizem Cd -) 120 mg PO DAILY [facility] Last Admin: 10/22/19 17:33 Dose: 120 mg Escitalopram Oxalate (Lexapro -) 5 mg PO DAILY [facility] Last Admin: 10/22/19 09:47 Dose: 5 mg Famotidine (Pepcid -) 20 mg PO DAILY [facility] Last Admin: 10/22/19 09:48 Dose: 20 mg Folic Acid (Folic Acid -) 1 mg PO DAILY [facility] Last Admin: 10/22/19 09:47 Dose: 1 mg Sodium Chloride (Normal Saline -) 1,000 mls @ 42 mls/hr IV ASDIR [facility] Last Admin: 10/23/19 06:54 Dose: 42 mls/hr Ceftriaxone Sodium 1 gm/ (Dextrose) 50 mls @ 100 mls/hr IVPB DAILY [facility]; Protocol Last Admin: 10/22/19 09:48 Dose: 100 mls/hr Insulin Aspart (Novolog Vial Sliding Scale -) 1 vial SQ TIDAC [facility]; Protocol Last Admin: 10/23/19 06:53 Dose: Not Given Non-Formulary Medication (Disulfiram [Antabuse]) 250 mg PO DAILY [facility] Rosuvastatin Calcium (Crestor -) 10 mg PO HS [facility] Last Admin: 10/22/19 20:59 Dose: 10 mg Tiotropium [place] (Spiriva Respimat) 2 puff IH DAILY [facility] Last Admin: 10/22/19 09:48 Dose: 2 puff Review of Systems - Review of Systems Constitutional: no symptoms reported Respiratory: denies: Cough or Sputum Production Cardiovascular: as noted above Gastrointestinal: denies Nausea, Vomiting, Diarrhea, Constipation or Abdominal Pain Genitourinary: no symptoms reported Musculoskeletal: no symptoms reported Endocrine: no symptoms reported - Objective Vital Signs: Last Vital Signs Temp Pulse Resp BP Pulse Ox 97.0 F L 86 20 146/86 93 L 10/23/19 06:59 10/23/19 06:59 10/23/19 06:59 10/23/19 06:59 10/22/19 09:00 Intake & Output 10/20/19 10/21/19 10/22/19 10/23/19 23:59 23:59 23:59 23:59 Intake Total 1480 890 294 Balance 1480 890 294 Weight 165 lb 12.8 oz 166 lb 3.2 oz Neck: Supple Negative JVD No Bruit Cardiovascular: S1 S2 Irregularly Irregular [place] 2/6 WILLY Respiratory: Scattered Rhonchi Bilaterally Gastrointestinal: Soft Benign Normal Bowel Sounds Extremities: Negative Edema Labs: CBC, BMP 10/23/19 05:35 10/23/19 05:35 Hepatic Panel Total Bilirubin 0.6 mg/dL (0.2-1) 10/23/19 05:35 AST 10 U/L (15-37) L 10/23/19 05:35 ALT 16 U/L (13-61) 10/23/19 05:35 Alkaline Phosphatase 111 U/L (45-117) 10/23/19 05:35 Albumin 2.3 g/dl (3.4-5.0) L 10/23/19 05:35 INR, PTT INR 1.09 (0.83-1.09) 10/19/19 08:10 Assessment/Plan ASSESSMENT: 1. Paroxysmal/persistent atrial fibrillation new onset [id number] score of 5 on DOAC's/Eliquis 2. CAD angina pectoris 2. Diastolic LV dysfunction with clinical class 0 NYHA classification LV failure 3. Heart murmur related to sclerosis with no evidence of aortic valve stenosis 4. Hypertensive cardiovascular disease 5. Hypercholesterolemia 6. Peripheral vascular disease post intervention 7. Hypothyroidism 8. COPD 9. CKD 10. Tobacco abuse PLAN: 1. Continue A/C therapy indefinitely considering the above noted [id number] score of 5 unless it is absolutely contraindicated- DOAC's/Eliquis, other alternative would be NATY closure device 2. Resume Beta-blockers/Toprol-XL therapy and house staff to contact cardiology service prior to further adjustments of therapy, hemodynamics permitting 3. Continue Cardizem CD therapy 4. As outlined in the prior notes recommend the addition of ARBS unless contraindicated- hemodynamics permitting- upon questioning the patient and the daughter; patient has intolerance to ACEI therapy not allergy 5. Add statin therapy, lipid profile not at goal LDL greater than 70 6. Counselled smoking cessation and abstinence Thom Art MD
[2019-10-23] MEDS ORDERED: cefTRIAXone SODIUM 1 GM VIAL ONE (08:05)
[2019-10-23] MEDS ORDERED: DEXTROSE 5%-WATER - 50 ML IVPB ONE (08:05)
[2019-10-23 08:37] LABS: ALBUMIN 2.3 g/dl (3.4-5.0); BILIRUBIN,TOTAL 0.6 mg/dL (0.2-1); BLOOD UREA NITROGEN 21.5 mg/dL (7-18); CALCIUM 8.3 mg/dL (8.5-10.1); CREATININE 1.1 mg/dL (0.55-1.3); PHOSPHOROUS 3.9 mg/dL (2.5-4.9); POTASSIUM 4.5 mmol/L (3.5-5.1); TOT PROT 5.3 g/dl (6.4-8.2)
[2019-10-23] MEDS: CEFTRIAXONE 1 GM in DEXTROSE 5%-WATER - 50 ML IVPB SCH (09:16)
[2019-10-23] MEDS: ESCITALOPRAM OXALATE 10 MG TABLET (FP) PO SCH (09:16)
[2019-10-23] MEDS: FOLIC ACID 1 MG TABLET (FP) PO SCH (09:19)
[2019-10-23] MEDS: APIXABAN 5 MG TABLET PO SCH ×2 (09:19→21:32)
[2019-10-23] MEDS: FAMOTIDINE 20 MG TABLET PO SCH (09:20)
[2019-10-23] MEDS: TIOTROPIUM BROMIDE 2.5 MCG (SPIRIVA) RESPIMAT INHALER IH SCH (09:23)
[2019-10-23] MEDS ORDERED: PT OWN MED DRAWER 7, Y5N ONE ×2 (14:04→17:42)
--- NOTE | 2019-10-23 17:19 | PN ---
Physical Exam: SUBJECTIVE: Patient seen and examined. She is depressed because she feels she has become a burden on her daughter. Her daughter reports she has had intermittent confusion today. OBJECTIVE: Vital Signs Period Temp Pulse Resp BP Sys/Mcfadden Pulse Ox Last 24 Hr 97.0 F-98 F 80-102 18-20 115-146/56-94 94 GENERAL: The patient is awake, alert, and fully oriented, in no acute distress. LUNGS: Breath sounds equal, clear to auscultation bilaterally, no wheezes, no crackles, no accessory muscle use. HEART: Irregularly irregular. ABDOMEN: Soft, nontender, nondistended, normoactive bowel sounds, no guarding, no rebound, no hepatosplenomegaly, no masses. EXTREMITIES: 2+ pulses, warm, well-perfused, no edema. NEUROLOGICAL: Cranial nerves II through XII grossly intact. Normal speech, gait not observed. Laboratory Results - last 24 hr 10/22/19 10/23/19 10/23/19 17:19 05:35 05:35 WBC 7.2 RBC 3.70 Hgb 11.3 Hct 33.6 MCV 90.9 MCH 30.7 MCHC 33.7 RDW 14.6 Plt Count 272 MPV 7.4 L PTT (Actin FS) 41.8 H Sodium Potassium Chloride Carbon Dioxide Anion Gap BUN Creatinine Est GFR (CKD-EPI)AfAm Est GFR (CKD-EPI)NonAf POC Glucometer 135 Random Glucose Calcium Phosphorus Magnesium Total Bilirubin AST ALT Alkaline Phosphatase Total Protein Albumin 10/23/19 10/23/19 10/23/19 05:35 06:49 11:54 WBC RBC Hgb Hct MCV MCH MCHC RDW Plt Count MPV PTT (Actin FS) Sodium 141 Potassium 4.5 Chloride 114 H Carbon Dioxide 17 L Anion Gap 10 BUN 21.5 H Creatinine 1.1 Est GFR (CKD-EPI)AfAm 56.48 Est GFR (CKD-EPI)NonAf 48.73 POC Glucometer 127 166 Random Glucose 116 H Calcium 8.3 L Phosphorus 3.9 Magnesium 2.0 Total Bilirubin 0.6 AST 10 L ALT 16 Alkaline Phosphatase 111 Total Protein 5.3 L Albumin 2.3 L 10/23/19 17:07 WBC RBC Hgb Hct MCV MCH MCHC RDW Plt Count MPV PTT (Actin FS) Sodium Potassium Chloride Carbon Dioxide Anion Gap BUN Creatinine Est GFR (CKD-EPI)AfAm Est GFR (CKD-EPI)NonAf POC Glucometer 161 Random Glucose Calcium Phosphorus Magnesium Total Bilirubin AST ALT Alkaline Phosphatase Total Protein Albumin Active Medications Generic Name Dose Route Start Last Admin Trade Name Jeffrey PRN Reason Stop Dose Admin Acetaminophen 650 mg 10/19/19 06:33 Tylenol - PO Q6H PRN PAIN LEVEL 1-5 Apixaban 5 mg 10/19/19 22:00 10/23/19 09:19 Eliquis - PO 5 mg BID [facility] Administration Bupropion HCl 150 mg 10/19/19 11:00 10/23/19 09:16 Wellbutrin Xl - PO 150 mg DAILY [facility] Administration Diltiazem HCl 120 mg 10/22/19 16:00 10/23/19 09:19 Cardizem Cd - PO 120 mg DAILY [facility] Administration Escitalopram Oxalate 5 mg 10/19/19 10:45 10/23/19 09:16 Lexapro - PO 5 mg DAILY [facility] Administration Famotidine 20 mg 10/19/19 10:45 10/23/19 09:20 Pepcid - PO 20 mg DAILY [facility] Administration Folic Acid 1 mg 10/19/19 10:45 10/23/19 09:19 Folic Acid - PO 1 mg DAILY [facility] Administration Sodium Chloride 1,000 mls @ 42 mls/hr 10/19/19 06:15 10/23/19 06:54 Normal Saline - IV 42 mls/hr ASDIR [facility] Administration Ceftriaxone Sodium 1 gm/ 50 mls @ 100 mls/hr 10/19/19 16:30 10/23/19 09:16 Dextrose IVPB 100 mls/hr DAILY [facility]ITNYE Administration Protocol Insulin Aspart 1 vial 10/19/19 11:00 10/23/19 17:10 Novolog Vial Sliding Scale - SQ 1 units TIDAC [facility] Administration Protocol Metoprolol Succinate 25 mg 10/23/19 22:00 Toprol Xl - PO BID [facility] Non-Formulary Medication 250 mg 10/19/19 10:45 Disulfiram [Antabuse] PO DAILY [facility] Rosuvastatin Calcium 10 mg 10/21/19 11:13 10/22/19 20:59 Crestor - PO 10 mg HS [facility] Administration Tiotropium [place] 2 puff 10/19/19 11:00 10/23/19 09:23 Spiriva Respimat IH 2 puff DAILY [facility] Administration ASSESSMENT/PLAN: This is a 73 year old woman with a history of HTN, hyperlipidemia, CAD, COPD, hypothyroidism, stage 3 CKD, OA, alcohol abuse, falls who presented to the ED after falling at home. 1. Atrial fibrillation, new onset, with RVR - Lopressor changed to Toprol XL - Cardizem added - Continue Eliquis - Echo shows mild concentric LVH, LVEF 60-65%, normal RV systolic function, mild to moderate MR, mild to moderate TR, PASP 47 mmHg 2. Confusion, per daughter - Patient is currently oriented - Neuro exam is non-focal - Will do head CT 3. s/p fall 4. E. coli UTI - Completed 5 days of ceftriaxone 5. Cystic lesion of tail of pancreas 6. Cystic collection of right breast 7. Severe left hydronephrosis - Chronic - Nuclear renal scan in 10/2017 showed minimal left renal uptake and excretion (7% of total renal function) 8. HTN - Continue Toprol XL, Cardizem CD 9. Hyperlipidemia - Continue Crestor 10. CAD - Continue Toprol XL, Crestor 11. COPD - Stable - Continue Spiriva 12. Hypothyroidism - TSH normal on no medication 13. Stage 3 CKD 14. History of alcohol abuse - Continue Antabuse 15. Type 2 DM, newly diagnosed - HbA1c 6.5 - Continue Novolog sliding scale 16. Disposition - Ambulated 2 feet with rolling walker with PT on 10/21 - Continue PT - Plan for discharge to [facility] Visit type - Emergency Visit Emergency Visit: Yes ED Registration Date: 10/19/19 Care time: The patient presented to the Emergency Department on the above date and was hospitalized for further evaluation of their emergent condition. - New Patient This patient is new to me today: No - Critical Care Critical Care patient: No - Discharge Referral Referred to [facility] No
[2019-10-23] MEDS ORDERED: ALBUTEROL SO4 0.083% IH SOL 2.5 MG/3 ML VIAL.NEB. NEB PRN (17:50)
--- NOTE | 2019-10-23 18:14 | PN ---
Progress Note, Physician History of Present Illness: Pt seen and examined at bedside. She is awake and appears comfortable. She denies fevers or chills. She is forgetful. - Current Medication List Current Medications: Active Medications Acetaminophen (Tylenol -) 650 mg PO Q6H PRN PRN Reason: PAIN LEVEL 1-5 Albuterol Sulfate (Ventolin 0.083% Nebulizer Soln -) 1 amp NEB Q4H PRN PRN Reason: SHORT OF BREATH/WHEEZING Apixaban (Eliquis -) 5 mg PO BID [facility] Last Admin: 10/23/19 09:19 Dose: 5 mg Bupropion HCl (Wellbutrin Xl -) 150 mg PO DAILY [facility] Last Admin: 10/23/19 09:16 Dose: 150 mg Diltiazem HCl (Cardizem Cd -) 120 mg PO DAILY [facility] Last Admin: 10/23/19 09:19 Dose: 120 mg Escitalopram Oxalate (Lexapro -) 5 mg PO DAILY [facility] Last Admin: 10/23/19 09:16 Dose: 5 mg Famotidine (Pepcid -) 20 mg PO DAILY [facility] Last Admin: 10/23/19 09:20 Dose: 20 mg Folic Acid (Folic Acid -) 1 mg PO DAILY [facility] Last Admin: 10/23/19 09:19 Dose: 1 mg Sodium Chloride (Normal Saline -) 1,000 mls @ 42 mls/hr IV ASDIR [facility] Last Admin: 10/23/19 06:54 Dose: 42 mls/hr Insulin Aspart (Novolog Vial Sliding Scale -) 1 vial SQ TIDAC [facility]; Protocol Last Admin: 10/23/19 17:10 Dose: 1 units Metoprolol Succinate (Toprol Xl -) 25 mg PO BID [facility] Non-Formulary Medication (Disulfiram [Antabuse]) 250 mg PO DAILY [facility] Rosuvastatin Calcium (Crestor -) 10 mg PO HS [facility] Last Admin: 10/22/19 20:59 Dose: 10 mg Tiotropium [place] (Spiriva Respimat) 2 puff IH DAILY [facility] Last Admin: 10/23/19 09:23 Dose: 2 puff - Objective Vital Signs: Vital Signs Temperature 97.6 F 10/23/19 14:00 Pulse Rate 102 H 10/23/19 14:00 Respiratory Rate 20 10/23/19 14:00 Blood Pressure 123/56 L 10/23/19 14:00 O2 Sat by Pulse Oximetry (%) 94 L 10/23/19 09:00 Constitutional: Yes: Calm Eyes: Yes: Conjunctiva Clear HENT: Yes: Atraumatic Neck: Yes: Supple Cardiovascular: Yes: S1, S2 Respiratory: Yes: CTA Bilaterally Gastrointestinal: Yes: Soft Genitourinary: Yes: WNL Musculoskeletal: Yes: WNL Edema: No Neurological: Yes: Oriented Psychiatric: Yes: Oriented Labs: CBC, BMP 10/23/19 05:35 10/23/19 05:35 INR, PTT INR 1.09 (0.83-1.09) 10/19/19 08:10 Problem List - Problems (1) Atrial fibrillation with RVR Code(s): I48.91 - UNSPECIFIED ATRIAL FIBRILLATION (2) CKD (chronic kidney disease) Code(s): N18.9 - CHRONIC KIDNEY DISEASE, UNSPECIFIED Qualifiers: Chronic kidney disease stage: stage 2 (mild) Qualified Code(s): N18.2 - Chronic kidney disease, stage 2 (mild) (3) Fall Code(s): W19.XXXA - UNSPECIFIED FALL, INITIAL ENCOUNTER (4) Multiple falls Code(s): R29.6 - REPEATED FALLS Assessment/Plan Current Medications Generic Name Dose Route Start Last Admin Trade Name Freq PRN Reason Stop Dose Admin Acetaminophen 650 mg 10/19/19 06:33 Tylenol - PO Q6H PRN PAIN LEVEL 1-5 Albuterol Sulfate 1 amp 10/23/19 17:50 Ventolin 0.083% Nebulizer Soln - NEB Q4H PRN SHORT OF BREATH/WHEEZING Apixaban 5 mg 10/19/19 22:00 10/23/19 09:19 Eliquis - PO 5 mg BID [facility]NEY Administration Bupropion HCl 150 mg 10/19/19 11:00 10/23/19 09:16 Wellbutrin Xl - PO 150 mg DAILY [facility] Administration Diltiazem HCl 120 mg 10/22/19 16:00 10/23/19 09:19 Cardizem Cd - PO 120 mg DAILY [facility] Administration Escitalopram Oxalate 5 mg 10/19/19 10:45 10/23/19 09:16 Lexapro - PO 5 mg DAILY [facility] Administration Famotidine 20 mg 10/19/19 10:45 10/23/19 09:20 Pepcid - PO 20 mg DAILY [facility] Administration Folic Acid 1 mg 10/19/19 10:45 10/23/19 09:19 Folic Acid - PO 1 mg DAILY [facility] Administration Sodium Chloride 1,000 mls @ 42 mls/hr 10/19/19 06:15 10/23/19 06:54 Normal Saline - IV 42 mls/hr ASDIR [facility] Administration Insulin Aspart 1 vial 10/19/19 11:00 10/23/19 17:10 Novolog Vial Sliding Scale - SQ 1 units TIDAC [facility] Administration Protocol Metoprolol Succinate 25 mg 10/23/19 22:00 Toprol Xl - PO BID [facility] Non-Formulary Medication 250 mg 10/19/19 10:45 Disulfiram [Antabuse] PO DAILY [facility] Rosuvastatin Calcium 10 mg 10/21/19 11:13 10/22/19 20:59 Crestor - PO 10 mg HS [facility]NEY Administration Tiotropium [place] 2 puff 10/19/19 11:00 10/23/19 09:23 Spiriva Respimat IH 2 puff DAILY [facility]NEY Administration Impression 1. CKD 2. HTN 3. hx of etoh abuse 4. COPD 5. emphysema 6. hyperlipidemia 7. cervical disk herniation 8. azotemia 9. left hydronephrosis Plan - follow repeat ua - decrease rate of fluids - renal function is stable - discussed with family - urology eval for hydro, pending - monitor bp Dr Camacho
[2019-10-23] MEDS: metoPROLOL SUCCINATE 25 MG TAB.SR.24H (FP) PO SCH (21:32)
[2019-10-23] MEDS: ROSUVASTATIN CA 10 MG TABLET (FP) PO SCH (21:32)
[2019-10-24] MEDS: INSULIN SLIDING SCALE (NOVOLOG) 1 VIAL SQ SCH ×2 (06:10→12:38)
[2019-10-24 06:26] LABS: HEMATOCRIT 34.6 % (32.4-45.2); HEMOGLOBIN 11.7 GM/dL (10.7-15.3); MCH 30.4 pg (25.7-33.7); MCHC 33.8 g/dl (32.0-36.0); MEAN CELL VOLUME 89.8 fl (80-96); MEAN PLT VOLUME 7.3 fl (7.5-11.1); PLATELET COUNT 310 K/MM3 (134-434); RBC 3.85 M/mm3 (3.60-5.2); RDW 14.9 % (11.6-15.6); WHITE BLOOD COUNT 8.6 K/mm3 (4.0-10.0)
[2019-10-24] MEDS: ESCITALOPRAM OXALATE 10 MG TABLET (FP) PO SCH (09:02)
[2019-10-24] MEDS: metoPROLOL SUCCINATE 25 MG TAB.SR.24H (FP) PO SCH (09:03)
[2019-10-24] MEDS: FOLIC ACID 1 MG TABLET (FP) PO SCH (09:03)
[2019-10-24] MEDS: FAMOTIDINE 20 MG TABLET PO SCH (09:03)
[2019-10-24] MEDS: APIXABAN 5 MG TABLET PO SCH (09:03)
[2019-10-24] MEDS: TIOTROPIUM BROMIDE 2.5 MCG (SPIRIVA) RESPIMAT INHALER IH SCH (09:04)
--- NOTE | 2019-10-24 09:55 | PN ---
Progress Note, Physician History of Present Illness: Atrial fibrillation persists with RVR, denies dyspnea at rest, chest pain or palpitations. - Current Medication List Current Medications: Active Medications Acetaminophen (Tylenol -) 650 mg PO Q6H PRN PRN Reason: PAIN LEVEL 1-5 Albuterol Sulfate (Ventolin 0.083% Nebulizer Soln -) 1 amp NEB Q4H PRN PRN Reason: SHORT OF BREATH/WHEEZING Apixaban (Eliquis -) 5 mg PO BID [facility] Last Admin: 10/24/19 09:03 Dose: 5 mg Bupropion HCl (Wellbutrin Xl -) 150 mg PO DAILY [facility] Last Admin: 10/24/19 09:03 Dose: 150 mg Diltiazem HCl (Cardizem Cd -) 120 mg PO DAILY [facility] Last Admin: 10/24/19 09:03 Dose: 120 mg Escitalopram Oxalate (Lexapro -) 5 mg PO DAILY [facility] Last Admin: 10/24/19 09:02 Dose: 5 mg Famotidine (Pepcid -) 20 mg PO DAILY [facility] Last Admin: 10/24/19 09:03 Dose: 20 mg Folic Acid (Folic Acid -) 1 mg PO DAILY [facility] Last Admin: 10/24/19 09:03 Dose: 1 mg Sodium Chloride (Normal Saline -) 1,000 mls @ 42 mls/hr IV ASDIR [facility] Last Admin: 10/23/19 06:54 Dose: 42 mls/hr Insulin Aspart (Novolog Vial Sliding Scale -) 1 vial SQ TIDAC [facility]; Protocol Last Admin: 10/24/19 06:10 Dose: Not Given Metoprolol Succinate (Toprol Xl -) 25 mg PO BID [facility] Last Admin: 10/24/19 09:03 Dose: 25 mg Non-Formulary Medication (Disulfiram [Antabuse]) 250 mg PO DAILY [facility] Rosuvastatin Calcium (Crestor -) 10 mg PO HS [facility] Last Admin: 10/23/19 21:32 Dose: 10 mg Tiotropium [place] (Spiriva Respimat) 2 puff IH DAILY [facility] Last Admin: 10/24/19 09:04 Dose: 2 puff - Objective Vital Signs: Vital Signs Temperature 97.4 F L 10/24/19 06:24 Pulse Rate 73 10/24/19 06:24 Respiratory Rate 20 10/24/19 06:24 Blood Pressure 142/64 10/24/19 06:24 O2 Sat by Pulse Oximetry (%) 93 L 10/23/19 21:00 Constitutional: Yes: No Distress, Calm Neck: Yes: Supple Cardiovascular: Yes: Tachycardia, Pulse Irregular Respiratory: Yes: Regular, Diminished, On Nasal O2 Gastrointestinal: Yes: Normal Bowel Sounds, Soft Edema: No Labs: CBC, BMP 10/24/19 05:15 10/23/19 05:35 INR, PTT INR 1.09 (0.83-1.09) 10/19/19 08:10 - ....Imaging EKG: Report Reviewed (Tele: Afib with episodes of RVR) Problem List - Problems (1) Atrial fibrillation with RVR Code(s): I48.91 - UNSPECIFIED ATRIAL FIBRILLATION (2) COPD (chronic obstructive pulmonary disease) Code(s): J44.9 - CHRONIC OBSTRUCTIVE PULMONARY DISEASE, UNSPECIFIED Qualifiers: COPD type: unspecified COPD Qualified Code(s): J44.9 - Chronic obstructive pulmonary disease, unspecified (3) Hypothyroid Code(s): E03.9 - HYPOTHYROIDISM, UNSPECIFIED Qualifiers: Hypothyroidism type: unspecified Qualified Code(s): E03.9 - Hypothyroidism , unspecified (4) PAD (peripheral artery disease) Code(s): I73.9 - PERIPHERAL VASCULAR DISEASE, UNSPECIFIED (5) HTN (hypertension) Code(s): I10 - ESSENTIAL (PRIMARY) HYPERTENSION Qualifiers: Hypertension type: essential hypertension Qualified Code(s): I10 - Essential (primary) hypertension (6) CKD (chronic kidney disease) Code(s): N18.9 - CHRONIC KIDNEY DISEASE, UNSPECIFIED Qualifiers: Chronic kidney disease stage: stage 2 (mild) Qualified Code(s): N18.2 - Chronic kidney disease, stage 2 (mild) Assessment/Plan 10/11/2019 Echo: Normal LV size with mild cLVH and normal LV fxn LVEF 60-65%, normal RV fxn, normal atrial sizes, mild-mod MR, TR RVSP 47 mmHg 1. Persistent atrial fibrillation with RVR [id number] score of 5 on DOAC's/ Eliquis 2. CAD angina pectoris 2. Diastolic LV dysfunction with clinical class 0 NYHA classification LV failure 3. Heart murmur related to sclerosis with no evidence of aortic valve stenosis 4. Hypertensive cardiovascular disease 5. Hypercholesterolemia 6. Peripheral vascular disease post intervention 7. Hypothyroidism 8. COPD 9. CKD 10. Tobacco abuse PLAN: 1. Continue A/C therapy with Eliquis 5 bid indefinitely considering the above noted [id number] score of 5 2. Increase Toprol-XL 50 bid 3. Continue Cardizem CD 120 qd 4. As outlined in the prior notes recommend the addition of ARBS unless contraindicated- hemodynamics permitting- upon questioning the patient and the daughter; patient has intolerance to ACEI therapy not allergy 5. Added Crestor 10 qd, lipid profile not at goal LDL greater than 70 6. Counselled smoking cessation and abstinence, BD as needed, PT as tolerated
[2019-10-24 10:21] VITALS: BP 140/80; PULSE 88; TEMP 98
[2019-10-24] MEDS ORDERED: metoPROLOL SUCCINATE 25 MG TAB.SR.24H (FP) PO ONE (10:45)
[2019-10-24] MEDS ORDERED: PT OWN MED DRAWER 7, Y5N ONE (11:47)
--- NOTE | 2019-10-24 13:31 | DS ---
Physical Exam: SUBJECTIVE: Patient seen and examined. No acute events overnight. Patient is not confused this morning. Comfortable with going to SNF after discharge. Denies chest pain, SOB, abd pain, chills. OBJECTIVE: Vital Signs Period Temp Pulse Resp BP Sys/Mcfadden Pulse Ox Last 24 Hr 97.4 F-99.5 F 73-102 20-20 123-147/56-83 93 PHYSICAL EXAM GENERAL: The patient is awake, alert, in no acute distress. HEAD: Normal with no signs of trauma. EYES: EOMI, no scleral icterus ENT: moist mucous membranes NECK: Trachea midline, supple LUNGS: clear to auscultation bilaterally, no wheezing, no accessory muscle use. HEART: tachycardic, without murmur, rub or gallop. ABDOMEN: Soft, nontender, nondistended, normoactive bowel sounds, no guarding, no rebound EXTREMITIES: 2+ pulses, warm, well-perfused, trace edema of lower extremities NEUROLOGICAL: Normal speech, gait not observed, AAOx3 PSYCH: normall mood and affect SKIN: Warm, dry, normal turgor LABS Laboratory Results - last 24 hr 10/23/19 10/24/19 10/24/19 17:07 05:15 05:15 WBC 8.6 RBC 3.85 Hgb 11.7 Hct 34.6 MCV 89.8 MCH 30.4 MCHC 33.8 RDW 14.9 Plt Count 310 MPV 7.3 L PTT (Actin FS) 42.8 H POC Glucometer 161 10/24/19 10/24/19 05:24 12:27 WBC RBC Hgb Hct MCV MCH MCHC RDW Plt Count MPV PTT (Actin FS) POC Glucometer 131 117 HOSPITAL COURSE: Date of Admission:10/19/19 Date of Discharge: 10/24/19 73 y/o F with PMHx of COPD (not on home O2), CKD (Sees Dr. Camacho/Dr. Padilla), OA, EtOH Abuse (sober since 03/2018) presents after multiple falls, found to have New onset Atrial Fibrillation and a UTI. Patient was started on medication for rate and blood pressure control and medication was up- titrated until rate was controlled, Metoprolol Xl 50 BID and Cardizem CD 120mg daily. Patient's home amlodipine was discontinued. She was also started on Eliquis for anticoagulation. UA on admission was positive for UTI and patient was treated with Ceftriaxone. Urine culture grew E coli sensitive to ceftriaxone. ECHO was done which showed EF of 60-65% with pulmonary artery pressure of 47mmHg. Patient had renal/pelvic ultrasounds completed showing left side hydropnehprosis which has been present in the past, outpatient Urology follow up was recommended. Patient had imaging completed of her head and c- spine which was negative for fractures and bleeding. CT A/P showed an incidental finding of a cystic appearing mass on the tail of the pancreas and a cystic collection in her right breast. GI follow up was recommended for the pancreatic mass and mammogram was recommended for the breast findings. Patient was also found to have an A1c of 6.5, recommended diet control and follow up outpatient for further management of diabetes. Patient discharged to SNF for further care and rehab. Minutes to complete discharge: 36 Discharge Summary Problems reviewed: Yes Reason For Visit: FALL Current Active Problems Atrial fibrillation with RVR (Acute) CAD (coronary artery disease) (Acute) CKD (chronic kidney disease) (Acute) Fall (Acute) Hypercholesterolemia (Acute) Multiple falls (Acute) Syncope (Acute) Alcohol abuse (Chronic) Condition: Improved - Instructions Diet, Activity, Other Instructions: You presented to the hospital after multiple falls and were found to have new onset Atrial fibrillation and a UTI. You were seen by cardiology and were started on medications to help control your heart rate and a blood thinning medication to prevent blood clots from forming due to the atrial fibrillation. You were also started on antibiotics to treat your UTI. On ultrasound imaging you were found to have a left sided hydronephrosis for which we recommend outpatient follow up with your urologist for. Your A1c level was found to be elevated to 6.5 and you were diagnosed with new onset diabetes. You had imaging of your head and cervical spine completed which did not show any fractures, bleeding, or signs of stroke. Medication Changes: 1. You have been started on Eliquis 5mg twice a day, a blood thinning medication as atrial fibrillation can increase your risk of forming blood clots. This will increase your risk of bleeding after trauma or falls. If you start coughing up blood, have increased episodes of nose bleeds, or other concerns related to bleeding please speak with your primary care doctor immediately. 2. You have been started on Metoprolol 50mg twice daily for better blood pressure and heart rate control. 3. You have been started on Cardizem 120mg once daily for better blood pressure and heart rate control. 4. You have been started on Crestor 10mg once daily for better control of your cholesterol levels. 5. Please stop taking your Amlodipine medication. Follow up with the following physicians: 1. Please follow up with your primary care provider within one week of discharge for further management of your medical conditions. 2. Recommended to follow up with Dr. Wiseman, Urology, within one week of discharge for further management of hydronephrosis. 3. Recommend follow up with Dr. Tani Hobson, Cardiology, for further management of newly diagnosed with atrial fibrillation. 4. On CT imaging of your abdomen a cystic appearing structure was incidentally noted on the tail of the pancreas. We recommend GI follow up in the next 2 weeks for this mass and have included a referral for a ivory carver. 5. On CT imaging an incidental finding of a cystic collection was noted in your left breast, we recommend a follow up mammography within the next two weeks for further workup of this finding. Activity and Diet 1. You are being discharged to a custodial facility for rehab and continuing care. 2. Please monitor your diet as you need to intake foods with less salt and sugar. 3. You have been counseled on smoking cessation and the risks of continuing to smoke. Please follow up with your primary care provider on further help on quitting smoking. Continue all your other medications as prescribed Please return to the ER if you have any signs or symptoms of chest pain, shortness of breath, uncontrollable fever, chills, nausea, vomiting, numbness, tingling, or weakness in any part of your body, changes in vision, or slurred speech. Please return to the ER if symptoms persist, worsen, or new symptoms arise. Referrals: Stefan Carrasco MD [Primary Care Provider] - Tani Hobson MD [Staff Physician] - Addy Wiseman MD [Staff Physician] - John Cespedes MD [Staff Physician] - Disposition: [facility] - Home Medications Comprehensive Discharge Medication List: Ambulatory Orders Disulfiram [Antabuse] 250 mg PO DAILY 05/27/19 Escitalopram Oxalate [Lexapro -] 5 mg PO DAILY 05/27/19 Folic Acid 1 mg PO DAILY 05/27/19 Tiotropium [place] [Spiriva] 1 inh PO DAILY 05/27/19 Bupropion HCl [Bupropion HCl Sr] 100 mg PO BID 10/19/19 Famotidine 20 mg PO DAILY 10/19/19 Apixaban [Eliquis -] 5 mg PO BID #60 tablet 10/24/19 Diltiazem Cd [Cardizem Cd -] 120 mg PO DAILY 30 Days #30 cap.cd.24h 10/24/19 Metoprolol Succinate [Toprol XL -] 50 mg PO BID #60 tab.sr.24h 10/24/19 Rosuvastatin [Crestor -] 10 mg PO HS #30 tablet 10/24/19 This patient is new to me today: No Emergency Visit: Yes ED Registration Date: 10/19/19 Care time: The patient presented to the Emergency Department on the above date and was hospitalized for further evaluation of their emergent condition. Critical Care patient: No - Discharge Referral Referred to [facility] No ATTENDING PHYSICIAN STATEMENT I saw and evaluated the patient. I reviewed the resident's note and discussed the case with the resident. I agree with the resident's findings and plan as documented. SUBJECTIVE: OBJECTIVE: ASSESSMENT AND PLAN:
--- NOTE | 2019-10-24 15:10 | PN ---
Teaching Attending Note Name of Resident: Rashad Paiz ATTENDING PHYSICIAN STATEMENT I saw and evaluated the patient. I reviewed the resident's note and discussed the case with the resident. I agree with the resident's findings and plan as documented. SUBJECTIVE: Feels well, no complaints. OBJECTIVE: Afebrile, Hemodynamically Stable. Last Vital Signs Temp Pulse Resp BP Pulse Ox 98 F 88 20 140/80 93 L 10/24/19 10:00 10/24/19 10:10/24/19 10:10/24/19 10:10/24/19 09:00 GENERAL: AAO x 3. Comfortable. LUNGS: Clear to auscultation. HEART: Irregularly irregular. ABDOMEN: Soft, nontender. Bowel Sounds normal. EXTREMITIES: Chronic venous stasis Laboratory Results - last 24 hr 10/23/19 10/24/19 10/24/19 17:07 05:15 05:15 WBC 8.6 RBC 3.85 Hgb 11.7 Hct 34.6 MCV 89.8 MCH 30.4 MCHC 33.8 RDW 14.9 Plt Count 310 MPV 7.3 L PTT (Actin FS) 42.8 H POC Glucometer 161 10/24/19 10/24/19 05:24 12:27 WBC RBC Hgb Hct MCV MCH MCHC RDW Plt Count MPV PTT (Actin FS) POC Glucometer 131 117 Current Medications Generic Name Dose Route Start Last Admin Trade Name Freq PRN Reason Stop Dose Admin Acetaminophen 650 mg 10/19/19 06:33 Tylenol - PO Q6H PRN PAIN LEVEL 1-5 Albuterol Sulfate 1 amp 10/23/19 17:50 Ventolin 0.083% Nebulizer Soln - NEB Q4H PRN SHORT OF BREATH/WHEEZING Apixaban 5 mg 10/19/19 22:00 10/24/19 09:03 Eliquis - PO 5 mg BID WHITNEY Administration Bupropion HCl 150 mg 10/19/19 11:00 10/24/19 09:03 Wellbutrin Xl - PO 150 mg DAILY WHITNEY Administration Diltiazem HCl 120 mg 10/22/19 16:00 10/24/19 09:03 Cardizem Cd - PO 120 mg DAILY WHITNEY Administration Escitalopram Oxalate 5 mg 10/19/19 10:45 10/24/19 09:02 Lexapro - PO 5 mg DAILY WHITNEY Administration Famotidine 20 mg 10/19/19 10:45 10/24/19 09:03 Pepcid - PO 20 mg DAILY WHITNEY Administration Folic Acid 1 mg 10/19/19 10:45 10/24/19 09:03 Folic Acid - PO 1 mg DAILY WHITNEY Administration Sodium Chloride 1,000 mls @ 42 mls/hr 10/19/19 06:15 10/23/19 06:54 Normal Saline - IV 42 mls/hr ASDIR WHITNEY Administration Insulin Aspart 1 vial 10/19/19 11:00 10/24/19 12:38 Novolog Vial Sliding Scale - SQ Not Given TIDAC [facility] Protocol Metoprolol Succinate 50 mg 10/24/19 10:45 Toprol Xl - PO BID [facility] Non-Formulary Medication 250 mg 10/19/19 10:45 Disulfiram [Antabuse] PO DAILY [facility] Rosuvastatin Calcium 10 mg 10/21/19 11:13 10/23/19 21:32 Crestor - PO 10 mg HS [facility] Administration Tiotropium [place] 2 puff 10/19/19 11:00 10/24/19 09:04 Spiriva Respimat IH 2 puff DAILY [facility] Administration Home Medications Medication Instructions Recorded Disulfiram [Antabuse] 250 mg PO DAILY 05/27/19 Escitalopram Oxalate [Lexapro -] 5 mg PO DAILY 05/27/19 Folic Acid 1 mg PO DAILY 05/27/19 Tiotropium [place] [Spiriva] 1 inh PO DAILY 05/27/19 Bupropion HCl [Bupropion HCl Sr] 100 mg PO BID 10/19/19 Famotidine 20 mg PO DAILY 10/19/19 Apixaban [Eliquis -] 5 mg PO BID #60 tablet 10/24/19 Diltiazem Cd [Cardizem Cd -] 120 mg PO DAILY 30 Days #30 10/24/19 cap.cd.24h Metoprolol Succinate [Toprol XL -] 50 mg PO BID #60 tab.sr.24h 10/24/19 Rosuvastatin [Crestor -] 10 mg PO HS #30 tablet 10/24/19 ASSESSMENT/PLAN: 73 year old female with a history of HTN, HLD, CAD, COPD, Hypothyroidism, CKD 3 , OA, alcohol abuse, falls, presented to the ED after falling at home. 1. Atrial fibrillation, new onset, with RVR - now controlled on toprol XL, Cardizem. Started on Eliquis. Echo shows mild concentric LVH, LVEF 60-65%, normal RV systolic function, mild to moderate MR, mild to moderate TR, PASP 47 mmHg 2. Acute Encephalopathy sec to UTI, resolved. AAO x 3. CT Head - negative. 3. E. coli UTI - Completed 5 days of ceftriaxone 4. Cystic lesion of tail of pancreas - GI follow up 5. Cystic collection of right breast - for out-patient follow up. 6. Severe left hydronephrosis - Chronic. Nuclear renal scan in 10/2017 showed minimal left renal uptake and excretion (7% of total renal function). Urology follow up. 7. HTN - Continue Toprol XL, Cardizem CD 8. Hyperlipidemia - Continue Crestor 9. CAD - Continue Toprol XL, Crestor 10. COPD - Stable. Continue Spiriva 11. Hypothyroidism -TSH normal, not on medication 12, CKD 3 - Stable. 13. History of alcohol abuse - Continue Antabuse 14. DM 2 - newly diagnosed. HbA1c 6.5. Target A1C < 7.0. Diet control recommended with PCP follow up. Medically stable for transfer to [place]
--- NOTE | 2019-10-24 16:17 | PN ---
Progress Note, Physician History of Present Illness: Pt seen and examined at bedside. She is awake and alert. She denies fevers or chills. - Objective Vital Signs: Vital Signs Temperature 98 F 10/24/19 10:00 Pulse Rate 88 10/24/19 10:00 Respiratory Rate 20 10/24/19 10:00 Blood Pressure 140/80 10/24/19 10:00 O2 Sat by Pulse Oximetry (%) 93 L 10/24/19 09:00 Constitutional: Yes: Calm Eyes: Yes: Conjunctiva Clear HENT: Yes: Atraumatic Neck: Yes: Supple Cardiovascular: Yes: S1, S2 Respiratory: Yes: CTA Bilaterally Gastrointestinal: Yes: Normal Bowel Sounds, Soft Genitourinary: Yes: WNL Musculoskeletal: Yes: WNL Edema: No Integumentary: Yes: WNL Neurological: Yes: Confusion Psychiatric: Yes: Oriented Labs: CBC, BMP 10/24/19 05:15 10/23/19 05:35 INR, PTT INR 1.09 (0.83-1.09) 10/19/19 08:10 Problem List - Problems (1) Atrial fibrillation with RVR Code(s): I48.91 - UNSPECIFIED ATRIAL FIBRILLATION (2) CKD (chronic kidney disease) Code(s): N18.9 - CHRONIC KIDNEY DISEASE, UNSPECIFIED Qualifiers: Chronic kidney disease stage: stage 2 (mild) Qualified Code(s): N18.2 - Chronic kidney disease, stage 2 (mild) (3) Fall Code(s): W19.XXXA - UNSPECIFIED FALL, INITIAL ENCOUNTER (4) Multiple falls Code(s): R29.6 - REPEATED FALLS Assessment/Plan Impression 1. CKD 2. HTN 3. hx of etoh abuse 4. COPD 5. emphysema 6. hyperlipidemia 7. cervical disk herniation 8. azotemia 9. left hydronephrosis Plan - renal function had stabilized - will need urology follow up - pt unable to give repeat ua - monitor bp Dr Camacho
== END 2019-10-24 15:21 | DRG 308 ==
LOC: JER 21:43 → JERBED 10-19 02:50 → OBSVTOIN 10-19 06:08 → J4W 10-20 15:35
PROVIDERS: ADMIT Internal Medicine
DX: I48.91 Unspecified atrial fibrillation (principal); G93.41 Metabolic encephalopathy; S32.018A Other fracture of first lumbar vertebra, initial encounter for closed fracture; K86.2 Cyst of pancreas; I13.0 Hypertensive heart and chronic kidney disease with heart failure and stage 1 through stage 4 chronic kidney disease, or unspecified chronic kidney disease; I50.30 Unspecified diastolic (congestive) heart failure; N13.6 Pyonephrosis; E03.9 Hypothyroidism, unspecified; J44.9 Chronic obstructive pulmonary disease, unspecified; E11.9 Type 2 diabetes mellitus without complications; E11.22 Type 2 diabetes mellitus with diabetic chronic kidney disease; D72.829 Elevated white blood cell count, unspecified; N18.3 Chronic kidney disease, stage 3 (moderate); B96.20 Unspecified Escherichia coli [E. coli] as the cause of diseases classified elsewhere; F41.9 Anxiety disorder, unspecified; I25.119 Atherosclerotic heart disease of native coronary artery with unspecified angina pectoris; E11.51 Type 2 diabetes mellitus with diabetic peripheral angiopathy without gangrene; R29.6 Repeated falls; F10.10 Alcohol abuse, uncomplicated; W01.0XXA Fall on same level from slipping, tripping and stumbling without subsequent striking against object, initial encounter; Y92.098 Other place in other non-institutional residence as the place of occurrence of the external cause
CPT/HCPCS: 36415; 70450-TC; 71250-TC; 72125-TC; 74176-TC; 76775-TC; 76856-TC; 80053; 80061; 80307; 81003; 82550; 82962; 83036; 83721; 83735; 84100; 84443; 84484; 85025; 85027; 85610; 85730; 87086; 87186; 93005; 93010; 93306-TC; 94640; 97116-GP; 97161-GP; 99285-25; G0378; J0131; J7030

== ENCOUNTER 2020-04-13 14:18 | Emergency (ER) | payer OTHER, BC ==
[2020-04-13 14:26] VITALS: BMI 22.9
--- NOTE | 2020-04-13 14:54 | PDOC ---
History of Present Illness - General Chief Complaint: Injury Stated Complaint: Laceration Time Seen by Provider: 04/13/20 14:32 History Source: Patient Exam Limitations: No Limitations - History of Present Illness Initial Comments: 74 yo F with a hx of paroxysmal atrial fibrillation (on eliquis 5mg), COPD, CKD, and CHF presents to the emergency department after fall. Per the patient, she was walking to her staircase and had a mechanical fall without antecedent symptoms. Denies having the following symptoms afterwards: nausea, vomiting, headache, visual changes, FND, and ears/nose/throat pain. Endorses neck pain following the fall. The patient sustained a cut to the back of her head. Past History - Medical History Allergies/Adverse Reactions: Allergies Allergy/AdvReac Type Severity Reaction Status Date / Time clopidogrel bisulfate AdvReac Severe SEVERE Verified 04/13/20 14:24 [From Plavix] DIZZINESS prednisone AdvReac Severe Verified 04/13/20 14:24 lisinopril AdvReac Verified 04/13/20 14:24 Home Medications: Ambulatory Orders Escitalopram Oxalate [Lexapro -] 5 mg PO DAILY 05/27/19 Tiotropium [place] [Spiriva] 1 inh PO DAILY 05/27/19 Bupropion HCl [Bupropion HCl Sr] 200 mg PO DAILY 10/19/19 Famotidine 20 mg PO HS 10/19/19 Apixaban [Eliquis -] 5 mg PO BID #60 tablet 10/24/19 Diltiazem Cd [Cardizem Cd -] 120 mg PO DAILY 30 Days #30 cap.cd.24h 10/24/19 Metoprolol Succinate [Toprol XL -] 50 mg PO BID #60 tab.sr.24h 10/24/19 Fludrocortisone Acetate 0.1 mg PO BID PRN 04/13/20 Furosemide 40 mg PO DAILY 04/13/20 Isosorbide Mononitrate [Isosorbide Mononitrate ER] 60 mg PO DAILY 04/13/20 Levetiracetam [Keppra] 250 mg PO BID 04/13/20 Anemia: Yes Asthma: No Cancer: No Cardiac Disorders: Yes (CAd) CVA: No COPD: Yes CHF: No Dementia: No Diabetes: No Dialysis: No GI Disorders: No Disorders: No HTN: Yes Hypercholesterolemia: Yes Kidney Stones: Yes (LT KIDNEY 7% FX/ RT 94%) Liver Disease: No Psychiatric Problems: No Seizures: No Thyroid Disease: Yes (hypo., partial thyroidectomy) - Surgical History Abdominal Surgery: No Appendectomy: No Cardiac Surgery: No Cholecystectomy: No Lung Surgery: No Neurologic Surgery: Yes (c5-c6 fusion) Orthopedic Surgery: No - Immunization History Immunization Up to Date: Yes - Psycho-Social/Smoking History Smoking Status: Yes Smoking History: Smoker current status UNK Have you smoked in the past 12 months: No Number of Cigarettes Smoked Daily: 1 If you are a former smoker, when did you quit?: 3 WEEKS Information on smoking cessation initiated: No 'Breaking Loose' booklet given: 10/20/19 - Substance Abuse Hx (Audit-C & DAST Scrn) How often the patient has a drink containing alcohol: Never Score: In Men: 4 or > Positive; In Women: 3 or > Positive: 0 Screen Result (Pos requires Nsg. Audit-10AR): Negative In the last yr the pt used illegal drug/Rx for NonMed reason: No Score: Yes response is considered Positive: 0 Screen Result (Positive result requires Nsg. DAST-10): Negative Review of Systems - Review of Systems Able to Perform ROS?: Yes Is the patient limited Russian proficient: No Constitutional: No: Chills, Diaphoresis, Fever, Weakness HEENTM: No: Eye Pain, Ear Pain, Nose Pain, Throat Pain Respiratory: No: Cough, Shortness of Breath Cardiac (ROS): No: Chest Pain, Lightheadedness, Syncope ABD/GI: No: Constipated, Diarrhea, Nausea, Rectal Bleeding, Vomiting, Tarry Stools : No: Burning, Dysuria, Hematuria Musculoskeletal: No: Back Pain, Joint Pain, Neck Pain Integumentary: No: Bruising, Rash Neurological: No: Headache Endocrine: No: Change in Weight Hematologic/Lymphatic: Yes: Bleeding Diathesis (on eliquis). No: Anemia *Physical Exam - Vital Signs Last Vital Signs Temp Pulse Resp BP Pulse Ox 98.3 F 64 20 126/70 99 04/13/20 14:24 04/13/20 14:30 04/13/20 14:30 04/13/20 14:30 04/13/20 14:30 - Physical Exam General Appearance: Yes: Nourished, Appropriately Dressed. No: Apparent Distress, Intoxicated HEENT: positive: EOMI, LOUIE, Normal Voice, Symmetrical, Pharynx Normal, Hearing Grossly Normal. negative: Pale Conjunctivae, Scleral Icterus (R), Scleral Icterus (L), Muffled/Hoarse voice, Pharyngeal Erythema, Tonsillar Exudate, Tonsillar Erythema, Excessive drooling Neck: positive: Tender (c7 midline), Trachea midline, Supple. negative: Lymphadenopathy (R), Lymphadenopathy (L) Respiratory/Chest: positive: Lungs Clear, Normal Breath Sounds. negative: Chest Tender, Respiratory Distress, Accessory Muscle Use Cardiovascular: positive: Regular Rhythm, Regular Rate, S1, S2. negative: Systolic Murmur Gastrointestinal/Abdominal: positive: Normal Bowel Sounds, Flat, Soft. negat camila: Tender, Guarding, Rebound Lymphatic: negative: Adenopathy Musculoskeletal: positive: Normal Inspection. negative: CVA Tenderness, Vertebral Tenderness Extremity: positive: Normal Capillary Refill, Normal Inspection, Normal Range of Motion. negative: Tender, Swelling, Calf Tenderness Integumentary: positive: Normal Color, Dry, Warm Neurologic: positive: consumer educator II-XII NML intact, Fully Oriented, Alert, Normal Mood/Affect, Normal Response, Motor Strength 5/5. negative: EOM Palsy, Facial Droop, Numbness, Sensory Deficit Procedures - Laceration/Wound Repair Posterior Head Wound Length: 2.6 to 5.0 cm (3.0 cm) Wound Explored: clean Wound's Depth, Shape: superficial Irrigated w/ Saline: Yes Betadine Prep: Yes Anesthesia: 1% Lidocaine Amount of Anesthetic (ccs): 3 Wound Debrided: minimal Wound Repaired With: Winston Suture Size/Type: other (winston) Number of Sutures: 5 Sterile Dressing Applied: Yes ED Treatment Course - LABORATORY CBC & Chemistry Diagram: 04/13/20 14:30 04/13/20 14:30 Medical Decision Making - Medical Decision Making 04/13/20 18:00 74 yo F with a hx of paroxysmal atrial fibrillation (on eliquis 5mg), COPD, CKD, and CHF presents to the emergency department after fall. Per the patient, she was walking to her staircase and had a mechanical fall without antecedent symptoms Initial vitals; Initial Vital Signs Temp Pulse Resp BP Pulse Ox 98.3 F 63 18 77/37 L 99 04/13/20 14:24 04/13/20 14:24 04/13/20 14:24 04/13/20 14:24 04/13/20 14:24 Work up: patient presents to the emergency department s/p fall in her home without resulting symptoms patient is on eliquis and suffered a fall potentially greater than 5ft in height given the patient was on the staircase. The patient will need to have a CT of the head and cervical spine. ddx: SAH vs SDH vs epidural hematoma. Laboratory Tests 04/13/20 04/13/20 04/13/20 14:30 14:30 14:30 WBC 6.5 RBC 3.90 Hgb 9.3 L Hct 30.0 L MCV 76.7 L MCH 23.9 L D MCHC 31.2 L RDW 17.3 H Plt Count 384 D MPV 6.8 L Absolute Neuts (auto) 4.0 Neutrophils % 61.3 Lymphocytes % 21.1 D Monocytes % 13.0 H Eosinophils % 2.3 D Basophils % 2.3 H Nucleated RBC % 0 PT with INR 17.50 H INR 1.48 H Sodium 138 Potassium 4.9 Chloride 105 Carbon Dioxide 25 Anion Gap 8 BUN 54.9 H Creatinine 2.0 H Est GFR (CKD-EPI)AfAm 27.41 Est GFR (CKD-EPI)NonAf 23.65 Random Glucose 151 H Calcium 8.9 Total Bilirubin 0.3 AST 11 L ALT 13 Alkaline Phosphatase 96 Creatine Kinase 42 Troponin I < 0.02 Total Protein 7.1 Albumin 3.8 TSH 1.95 Levetiracetam Blood Type Antibody Screen 04/13/20 04/13/20 14:30 16:20 WBC RBC Hgb Hct MCV MCH MCHC RDW Plt Count MPV Absolute Neuts (auto) Neutrophils % Lymphocytes % Monocytes % Eosinophils % Basophils % Nucleated RBC % PT with INR INR Sodium Potassium Chloride Carbon Dioxide Anion Gap BUN Creatinine Est GFR (CKD-EPI)AfAm Est GFR (CKD-EPI)NonAf Random Glucose Calcium Total Bilirubin AST ALT Alkaline Phosphatase Creatine Kinase Troponin I Total Protein Albumin TSH Levetiracetam 15.5 Blood Type B POSITIVE Antibody Screen Negative patient noted to have hemoglobin approximately 2 lower than her baseline negative troponin EKG: NSR without ST elevations or depressions. QTc is 412 ms and QRS is 78 ms. CXR is negative for acute process Cervical spine CT noted that there is a a parotid gland nodule measuring 1.2 cm. A copy of the CT report was given the patient and urged to follow up with ENT within 3 [address] after discharge Head CT shows a 0.5 x 0.3 cm acute left frontal cortical hemorrhage contusion noted medially. No other extra axial fluid collection noted. Patient is currently on eliquis. Spoke to Dr. Mai neurosurgeon. Due to us not having adequate reversal agents for eliquis (kcentra) we need to transfer the patient. I spoke to the pharmacy and blood bank and they confirm we do not have the reversal agent. Spoke to hem onc Dr. Roger who concurs that it needs to be transferred. I spoke to Dr. Alston at [facility] who accepted the patient for transfer. The patient had winston placed (5x) on her scalp to repair the laceration. The wound was washed with saline. Good approximation was achieved and the patient t olerated the procedure well. BP was 117/61 at the time of transfer. Discharge - Discharge Information Problems reviewed: Yes Clinical Impression/Diagnosis: Intraparenchymal hemorrhage of brain Disposition: TRANSFER ACUTE CARE/OTHER HOSP - Follow up/Referral Referrals: Stefan Carrasco MD [Primary Care Provider] - - Patient Discharge Instructions - Post Discharge Activity - Transfer to Acute Care Facility Receiving Facility Name: [facility]
[2020-04-13] MEDS ORDERED: ACETAMINOPHEN 1000 MG/100 ML VIAL (NON FORMULARY) IVPB ONE (14:58)
[2020-04-13] MEDS ORDERED: ACETAMINOPHEN INJECTION 100 ML IVPB ONE (15:00)
[2020-04-13 15:03] LABS: BASO % 2.3 % (0-2.0); EOS % 2.3 % (0-4.5); HEMOGLOBIN 9.3 GM/dL (10.7-15.3); LYMPH % 21.1 % (8-40); MCH 23.9 pg (25.7-33.7); MCHC 31.2 g/dl (32.0-36.0); MEAN CELL VOLUME 76.7 fl (80-96); MEAN PLT VOLUME 6.8 fl (7.5-11.1); NEUT % 61.3 % (42.8-82.8); PLATELET COUNT 384 K/MM3 (134-434); RDW 17.3 % (11.6-15.6); WHITE BLOOD COUNT 6.5 K/mm3 (4.0-10.0)
[2020-04-13 15:11] LABS: INR 1.48 (0.83-1.09); PROTHROMBIN TIME (PATIENT) 17.5 SEC (9.7-13.0)
[2020-04-13 15:35] LABS: ALBUMIN 3.8 g/dl (3.4-5.0); ALK PHOS 96 U/L (45-117); ANION GAP 8 MMOL/L (8-16); BILIRUBIN,TOTAL 0.3 mg/dL (0.2-1); BLOOD UREA NITROGEN 54.9 mg/dL (7-18); CALCIUM 8.9 mg/dL (8.5-10.1); CHLORIDE 105 mmol/L (98-107); CO2 25 mmol/L (21-32); GLUCOSE,RANDOM 151 mg/dL (74-106); POTASSIUM 4.9 mmol/L (3.5-5.1); SGOT/AST 11 U/L (15-37); SGPT/ALT 13 U/L (13-61); SODIUM 138 mmol/L (136-145); TOT PROT 7.1 g/dl (6.4-8.2)
--- NOTE | 2020-04-13 16:06 | PDOC ---
Documentation entered by Misa Rico SCRIBE, acting as scribe for Lili Sargent MD. Lili Sargent MD: This documentation has been prepared by the Jacky segura Nirvannie, SCRIBE, under my direction and personally reviewed by me in its entirety. I confirm that the documentation accurately reflects all work, treatment, procedures, and medical decision making performed by me. Attending Attestation - Resident Resident Name: Nabil Chandler - ED Attending Attestation I have performed the following: I have examined & evaluated the patient, The case was reviewed & discussed with the resident, I agree w/resident's findings & plan, Exceptions are as noted - HPI HPI: 04/13/20 15:09 Patient is a 74 year old female with a significant past medical history of COPD and pAfib (on Eliquis) who presented to the ED s/p mechanical fall with a laceration to the back of the head. As per patient, she was at home, picking up newspapers on the staircase when at which time she fell onto her back and sustained a laceration to the back of the head. Patient denies any palpitations, lightheadedness, or chest pain before or after the fall. - Physicial Exam PE: GENERAL: Awake, alert, and fully oriented, in no acute distress. Well-appearing HEAD: +Small laceration to the occiput, slight oozing of blood EYES: PERRLA, EOMI, sclera anicteric, conjunctiva clear ENT: Auricles normal inspection, hearing grossly normal, nares patent, oropharynx clear without exudates. Moist mucosa NECK: Normal ROM, supple, no lymphadenopathy, JVD, or masses LUNGS: Breath sounds equal, clear to auscultation bilaterally. No wheezes, and no crackles HEART: Regular rate and rhythm, normal S1 and S2, no murmurs, rubs or gallops ABDOMEN: Soft, nontender, normoactive bowel sounds. No guarding, no rebound. No masses EXTREMITIES: Normal range of motion, no edema. No clubbing or cyanosis. No cords, erythema, or tenderness NEUROLOGICAL: Cranial nerves II through XII grossly intact. Normal speech. Motor and sensation intact SKIN: Warm, dry, normal turgor, no rashes or lesions noted. - Medical Decision Making S/p fall, will obtain labs, CTH, CT c-spine. Discharge - Discharge Information Problems reviewed: Yes Clinical Impression/Diagnosis: Intraparenchymal hemorrhage of brain Disposition: TRANSFER ACUTE CARE/OTHER HOSP - Follow up/Referral Referrals: Stefan Carrasco MD [Primary Care Provider] - - Patient Discharge Instructions - Post Discharge Activity
[2020-04-13] MEDS ORDERED: LIDOCAINE 1%/EPI 1:100000 (20 ML MULTI DOSE VIAL) ONE (17:41)
[2020-04-13] MEDS ORDERED: LIDOCAINE 1%/EPI 1:100000 (20 ML MULTI DOSE VIAL) INF ONE (17:42)
[2020-04-13 18:01] VITALS: PULSE 60; TEMP 97.9
[2020-04-13 18:43] VITALS: BP 127/65
--- NOTE | 2020-04-14 11:26 | EKG ---
Test Reason : Blood Pressure : / mmHG Vent. Rate : 061 BPM Atrial Rate : 061 BPM P-R Int : 150 ms QRS Dur : 078 ms QT Int : 410 ms P-R-T Axes : 040 046 071 degrees QTc Int : 412 ms NORMAL SINUS RHYTHM NORMAL ECG WHEN COMPARED WITH ECG OF 19-OCT-2019 09:56, SINUS RHYTHM HAS REPLACED ATRIAL FIBRILLATION Confirmed by MD Feliberto, Kyle ([id number]) on 04/14/2020 11:26:12 AM Referred By: Confirmed By:Kyle Dao MD
== END 2020-04-13 18:50 | disposition short-term general hospital (02) ==
LOC: JER 14:18
PROC: 3E033GC Introduction of Other Therapeutic Substance into Peripheral Vein, Percutaneous Approach (ICD-10-PCS; principal; 2020-04-13)
DX: I61.8 Other nontraumatic intracerebral hemorrhage (principal)
CPT/HCPCS: 36415; 70450-TC; 71045-TC-FY; 72125-TC; 80053; 80177; 82550; 84443; 84484; 85025; 85610; 86850; 86900; 86901; 93005; 93010; 99284-25; J0131

== ENCOUNTER 2020-09-09 13:59 | Emergency (ER) | payer OTHER, BC ==
[2020-09-09 14:30] VITALS: BMI 23.6
[2020-09-09 15:59] VITALS: BP 160/79; PULSE 78; TEMP 98.7
== END 2020-09-09 16:20 | disposition home or self-care (01) ==
LOC: FER 13:59
DX: S09.90XA Unspecified injury of head, initial encounter (principal)
CPT/HCPCS: 70450-TC; 99284-25